=== PATIENT | female | born 1935 | race Caucasian/White ===

== ENCOUNTER 2023-08-09 08:53 | Observation (INO) | payer MEDICARE, SELFPAY ==
[2023-08-09] VITALS (15 sets, daily range): BP systolic 118–149; BP diastolic 50–81; PULSE 84–118; RESP 16–33; TEMP 36.1–36.9; O2SAT 84–100; BMI 28.0
--- NOTE | ~2023-08-09 | XR_ITS ---
EXAMINATION: XR chest 1V DATE: 08/09/2023 10:59 INDICATION: Cough. TECHNIQUE: A single frontal view of the chest was obtained. COMPARISON: None. FINDINGS: The patient is rotated to her left. There are lucencies and interstitial opacities in the l ungs, consistent with emphysema. There are airspace opacities at left lung base. There is a small lef t pleural effusion. No pneumothorax. The heart size is normal. IMPRESSION: 1. Airspace opacities at left lung base, consistent with atelectasis versus pneumonia. 2. Small left pleural effusion. 3. Emphysema. Reviewed, dictated and finalized at location A. RONMENTAL COORDINATOR IMPRESSION: 1. Airspace opacities at left lung base, consistent with atelectasis versus pne umonia. 2. Small left pleural effusion. 3. Emphysema.
[2023-08-09 09:45] LABS: Influenza A QL RT-PCR Negative (Negative); Influenza B QL RT-PCR Negative (Negative); RSV RNA, RT-PCR Negative (Negative); SARS-CoV-2 RNA PCR Negative (Negative)
--- NOTE | 2023-08-09 10:25 | ECG_ITS ---
Measurements Intervals [place] Rate: 95 P: NC: 0 QRS: 90 QRSD: 75 T: 8 QT: 359 QTc: 452 Interpretive Statements ATRIAL FIBRILLATION SEPTAL MYOCARDIAL INFARCTION , OF INDETERMINATE AGE [40+ ms Q WAVE IN V1/V2] NO PREVIOUS ECG AVAILABLE FOR COMPARISON Electronically Signed On 08-10-2023 14:33:32 [employer] by Sophia Zaidi M.D.
--- NOTE | 2023-08-09 10:26 | ED.URI ---
HPI - URI/Sore Throat General Chief Complaint: Upper Respiratory Infection <Regina Kyle PA-C - Last Filed: 08/09/23 18:10> Stated Complaint: resp issues, URI symtpoms <Regina Kyle PA-C - Last Filed: 08/09/23 18:10> Time Seen by Provider: 08/09/23 10:12 <Regina Kyle PA-C - Last Filed: 08/09/23 18:10> History of Present Illness HPI Narrative: 88-year-old female with a history of atrial fibrillation chronically anticoagulated on Xarelto, hypertension, hyperlipidemia, COPD reports for evaluation for cough, congestion and dyspnea for the past 3 days. Patient reports a productive cough foot thick green and yellow sputum. She normally wears 6 L nasal cannula at during the day and 3 L at night. She is currently as 6 L nasal cannula satting 100% on room air without respiratory distress. She denies fever, chest pain, otalgia, nausea, vomiting, diarrhea, abdominal pain, dysuria. She does endorse bilateral lower extremity edema which she is attributing to being on her feet while visiting her daughter who was in the hospital. She is also reporting a sore throat and rhinorrhea. Patient states she has been taking her medications daily as prescribed. She is visiting family from [facility] and her son is present at bedside. <Regina Kyle PA-C - Last Filed: 08/09/23 18:10> Related Data Home Medications: Home Medications Medication Instructions Recorded Confirmed atorvastatin 20 mg tablet (Lipitor) 20 mg PO DAILY 07/01/23 07/01/23 calcium carbonate 600 mg calcium 600 mg PO DAILY 07/01/23 07/01/23 (1,500 mg) tablet (Calcium) cholecalciferol (vitamin D3) 125 125 mcg PO DAILY 07/01/23 07/01/23 mcg (5,000 unit) capsule cyanocobalamin (vitamin B-12) 1,000 mcg PO DAILY 07/01/23 07/01/23 1,000 mcg capsule denosumab 60 mg/mL subcutaneous 60 mg subcut [id number] 07/01/23 07/01/23 syringe (Prolia) diltiazem HCl 180 mg 180 mg PO DAILY 07/01/23 07/01/23 capsule,extended release 24 hr (Cardizem CD) furosemide 20 mg tablet (Lasix) 20 mg PO QAM 07/01/23 07/01/23 levothyroxine 112 mcg capsule 112 mcg PO DAILY 07/01/23 07/01/23 losartan 50 mg tablet 50 mg PO DAILY 07/01/23 07/01/23 rivaroxaban 20 mg tablet (Xarelto) 20 mg PO DAILY 07/01/23 07/01/23 tiotropium bromide 1.25 2 puff inhalation Q24H 07/01/23 07/01/23 mcg/actuation mist for inhalation (Spiriva Respimat) vitamins A,C,A-gtuj-npqaad 4,296 1 cap PO BID 07/01/23 07/01/23 mcg-226 mg-90 mg capsule (PreserVision AREDS) <Regina Kyle PA-C - Last Filed: 08/09/23 18:10> Allergies/Adverse Reactions: Allergies Allergy/AdvReac Type Severity Reaction Status Date / Time cephalexin Allergy Unknown Rash Verified 08/09/23 18:08 <Regina Kyle PA-C - Last Filed: 08/09/23 18:10> Review of Systems Review of Systems: CONSTITUTIONAL: Denies fever, chills, or sweats. EYES: Denies visual changes, redness, or discharge. ENT: see HPI CARDIOVASCULAR: see HPI RESPIRATORY: see HPI GASTROINTESTINAL: Denies abdominal pain, nausea, vomiting, or diarrhea. GENITOURINARY: Denies dysuria or hematuria. SKIN: Denies rash or itching. MUSCULOSKELETAL: Denies back pain, joint pain, or myalgia. NEUROLOGIC: Denies headache, numbness, or weakness. PSYCHIATRIC: Denies anxiety or depression. <Regina Kyle PA-C - Last Filed: 08/09/23 18:10> [facility] Past Medical History Medical History: Medical History (Updated 08/09/23 @ 16:48 by Mechelle Hunter PA-C) Arthritis Atrial fibrillation Carotid artery disease Chronic anticoagulation Chronic obstructive pulmonary disease Chronic respiratory failure with hypoxia, on home oxygen therapy Hyperlipidemia Hypertension Hypothyroidism Macular degeneration Osteoporosis <Regina Kyle PA-C - Last Filed: 08/09/23 18:10> Surgical History Surgical History: Surgical History History of bi
[2023-08-09] MEDS: ALBUTEROL SULFATE NEB 2.5 MG/3 ML INH INHALATION ×3 (10:34→11:10)
[2023-08-09] MEDS: IPRATROPIUM BR 0.02% INH SOLN 0.5 MG/2.5 ML VIAL INHALATION ×3 (10:34→11:10)
[2023-08-09] MEDS: methylPREDNISolone SOD SUCC 125 MG VIAL IV PUSH (10:51)
[2023-08-09 10:52] LABS: Basophils Percent Auto 0.3 % (0.2-1.2); Eosinophils Percent Auto 0.1 % (0-4.4); Hematocrit 42.9 % (37.0-47.0); Immature Granulocyte Absolute 0.05 K/mm3 (0.00-0.031); Immature Granulocyte Percent A 0.5 % (0-0.5); Lymphocytes Absolute Auto 0.85 K/mm3 (0.9-3.2); Lymphocytes Percent Auto 7.7 % (18.3-44.2); Mean Corpuscular HGB Conc 30.3 g/dl (32-36); Mean Corpuscular Hemoglobin 33.2 pg (26-34); Mean Corpuscular Volume 109.7 fl (80-100); Mean Platelet Volume 9.7 fl (7.4-10.4); Monocytes Absolute Auto 1.3 K/mm3 (0.1-0.6); Monocytes Percent Auto 11.8 % (2.6-8.5); Neutrophils Absolute Auto 8.7 K/mm3 (1.3-6.7); Neutrophils Percent Auto 79.6 % (45.5-73.1); Platelet Count Result 279 k/mm3 (150-375); Red Blood Count 3.91 M/mm3 (4.2-5.4); Red Cell Distribution Width 13.7 % (11.5-14.5)
[2023-08-09 11:02] LABS: Alanine Aminotransferase 18 U/L (6-35); Albumin Level 4.5 g/dL (3.5-5.1); Alkaline Phosphatase 71 U/L (38-126); Anion Gap 6 mmol/L (8-16); Aspartate Amino Transferase 34 U/L (14-36); Blood Urea Nitrogen 17 mg/dL (7-17); Calcium 8.8 mg/dL (8.4-10.2); Carbon Dioxide 38 mmol/L (22-30); Chloride 92 mmol/L (98-107); Estimated CRCL calculation 41 ml/min; Estimated Glomerular Filt Rate > 60; Glucose 138 mg/dL (65-110); Magnesium 2.1 mg/dL (1.6-2.3); Potassium 4.5 mmol/L (3.4-5.0); Sodium 136 mmol/L (137-145)
[2023-08-09 11:05] LABS: INR 1.9; Partial Thromboplastin Time 36.9 SECONDS (22.3-36.8)
[2023-08-09 11:14] LABS: Troponin I < 0.012 ng/mL (0.000-0.034)
[2023-08-09 11:15] LABS: Appearance Urine Cloudy (Clear); Bacteria Urine Rare /hpf; Bilirubin Urine Negative (Negative); Blood Urine Negative (Negative); Color Urine Yellow (Yellow); Glucose Urine UA Negative (Negative); Ketones Urine Negative (Negative); Leukocyte Esterase Ur 1+ LEU/UL (Negative); Need Manual Microscopic Reviewed; Nitrate Urine Negative (Negative); Non Pathogenic Casts 0-2; Protein Urine Negative (Negative); Specific Grav Ur 1.011 (1.001-1.035); Squamous Epithelial Cell Urine Moderate /hpf (Few); WBC Urine 21-50 /hpf; pH Urine 5.5 (5.0-9.0)
[2023-08-09 11:16] LABS: Add Urine Microscopic? YES
[2023-08-09 12:10] LABS: NT Pro B Type Natriuretic Pept 1090 pg/mL (19.9-100)
[2023-08-09] MEDS: FUROSEMIDE INJ 40 MG/4 ML VIAL IV PUSH (12:52)
[2023-08-09 13:46] LABS: Alveolar/Arterial O2 Gradient 162.3 mmHg; Base Excess ABG 9.2 mEq/l (+/-2.0); Fractional Inspired Oxygen 44 %; HCO3 ABG 34.9 mEq/l (22.0-26.0); Oxygen Content ABG 17.8 %vol (16.0-22.0); Oxygen Saturation ABG 97.2 % (95.0-100.0); Oxyhemoglobin 96.3 % THb (90.0-100.0); PCO2 ABG 51.7 mmHg (35.0-45.0); PO2 ABG 92.5 mmHg (80.0-100.0); Total Hemoglobin 13.1 g/dL (12.0-18.0); pH ABG 7.447 (7.350-7.450)
[2023-08-09 13:48] LABS: Device NASAL CANNULA; Modified Allen's Test Pass; Site Drawn RIGHT RADIAL
[2023-08-09] MEDS: dilTIAZem HCl INJ 25 MG/5 ML VIAL 10 MG IV PUSH (14:43)
[2023-08-09] MEDS: levoFLOXacin 750 MG/D5W 150 ML 750 MG/150 ML BAG 100 MG IVPB (14:45)
--- NOTE | 2023-08-09 15:01 | PM.IMHP ---
H&P: HPI History of Present Illness Date/Time: 08/09/23 16:30 Chief Complaint: Cough and shortness of breath. Narrative: This is a pleasant 88-year-old female with chronic respiratory failure on oxygen, chronic obstructive pulmonary disease, atrial fibrillation on chronic anticoagulation, hypertension, hyperlipidemia, hypothyroidism, and carotid artery disease status post right carotid endarterectomy who presented to the emergency department for evaluation of cough and shortness of breath. The patient provides the following history. She is typically on 6 L nasal cannula during the day and is on 3 L nasal cannula at nighttime. She has chronic dyspnea on exertion and needs to rest after doing usual activities. More recently she has hired a pin cleaner to keep her apartment as she is no longer able to do that. The last 3 days she reports increasing dyspnea on lesser and lesser exertion in addition to a new cough productive of thick yellow/green sputum, and shortness of breath. She has been feeling warm and reports having a low-grade fever couple of days ago for which she took acetaminophen. She is from [place], [place] but she stays with her son and grand children in the area for several months out of the year. One of her grandson's had URI symptoms during [place] though no one in the household has had similar symptoms. She denies chest pain, pleuritic pain, nausea, vomiting, and diarrhea. Her chronic lower extremity edema is unchanged and she denies calf pain and tenderness. In the ED: She was afebrile on arrival with stable vital signs. Labs were significant for WBC count of 11.0, MCV 109.7, INR 1.9, sodium 136, chloride 92, carbon dioxide 38, lactic acid 2.0, proBNP 1090, troponin less than 0.012. She tested negative for influenza, RSV, and COVID. Chest x-ray showed airspace opacities at the left lung base consistent with atelectasis versus pneumonia, small left pleural effusion, changes of emphysema. She was given a DuoNeb treatment which increased her heart rate requiring 10 mg IV diltiazem. She was also given a dose of methylprednisolone 125 mg IV and levofloxacin 750 mg IV and she is being admitted in this setting for further treatment. Review of Systems Review of Systems: Twelve systems were reviewed and are negative except for as per HPI. [facility] Past Medical History Medical History (Updated 08/09/23 @ 16:48 by Mechelle Hunter PA-C) Arthritis Atrial fibrillation Carotid artery disease Chronic anticoagulation Chronic obstructive pulmonary disease Chronic respiratory failure with hypoxia, on home oxygen therapy Hyperlipidemia Hypertension Hypothyroidism Macular degeneration Osteoporosis Surgical History Surgical History History of bilateral cataract extraction History of right-sided carotid endarterectomy Family History Family History Father Hypertension Heart disease Carcinoma of colon Mother Heart disease Hypertension Breast cancer Daughter Breast cancer Social History Social History (Updated 08/09/23 @ 16:45 by Mechelle Hunter PA-C) Social History: Surrogate medical decision maker: Julito Simpson, son. Code status: Full code. Smoking packs per day: 1 Smoking cigarettes per day: 20.0 Years smoked: 50 Smoking pack-years: 50.00 Smoking status: Former smoker Tobacco type: cigarettes Smoking end date: 08/11/02 Alcohol intake: current Substance use: never Living arrangements: [place] Occupation/Education: retired Spiritual care concerns: Yes Agree to blood products: Yes Meds Home Medications and Allergies Home Medications Medication Instructions Recorded Confirmed Type atorvastatin 20 mg tablet (Lipitor) 20 mg PO DAILY 07/01/23 07/01/23 History calcium carbonate 600 mg calcium 600 mg PO DAILY 07/01/23 07/01/23 History (1,5
--- NOTE | 2023-08-09 17:54 | ADMGEN ---
This patient, Katie Frances, was admitted to [facility] Surg Room 329-01. Patient/family oriented to hospital policies and general routines including ID bracelet, bed and alarms, visiting hours, pain management, procedures, bathroom and other care routines, personal items, smoking policy, room service/diet, and visiting hours. Information on how to activate the Rapid Response Team has been discussed. Patient/Family are encouraged to report perceived risks to care and to ask questions if they do not understand what they are told or what they should do.
[2023-08-09] MEDS: guaiFENesin 12 HR 600 MG TABCR PO (21:25)
[2023-08-10] VITALS (15 sets, daily range): BP systolic 136–149; BP diastolic 65–79; PULSE 82–122; RESP 18–20; TEMP 35.8–37; O2SAT 97–100
[2023-08-10] MEDS: dilTIAZem HCL CD 180 MG CAP.24HR PO ×2 (00:10→21:45)
[2023-08-10] MEDS: ATORVASTATIN 20 MG TABLET PO ×2 (00:10→21:45)
[2023-08-10] MEDS: RIVAROXABAN 20 MG TABLET PO ×2 (00:11→21:45)
[2023-08-10] MEDS: LOSARTAN POTASSIUM 50 MG TABLET PO ×2 (00:11→21:45)
[2023-08-10] MEDS: IPRATROPIUM BR 0.02% INH SOLN 0.5 MG/2.5 ML VIAL INHALATION ×3 (03:38→20:17)
[2023-08-10] MEDS: LEVALBUTEROL NEB 1.25 MG/3 ML INHALATION ×3 (03:40→20:17)
[2023-08-10] MEDS: LEVOTHYROXINE SODIUM 112 MCG TABLET PO (05:39)
[2023-08-10 06:23] LABS: Hematocrit 38.8 % (37.0-47.0); Hemoglobin 12.1 g/dL (12.0-15.0); Mean Corpuscular HGB Conc 31.2 g/dl (32-36); Mean Corpuscular Hemoglobin 33.9 pg (26-34); Mean Corpuscular Volume 108.7 fl (80-100); Mean Platelet Volume 10.1 fl (7.4-10.4); Platelet Count Result 282 k/mm3 (150-375); Red Blood Count 3.57 M/mm3 (4.2-5.4); Red Cell Distribution Width 13.4 % (11.5-14.5); White Blood Count 9.9 K/mm3 (4.5-10.0)
[2023-08-10 06:48] LABS: Anion Gap 7 mmol/L (8-16); Blood Urea Nitrogen 21 mg/dL (7-17); CRP 7.2 mg/dL (<1.0); Carbon Dioxide 29 mmol/L (22-30); Chloride 94 mmol/L (98-107); Estimated CRCL calculation 41 ml/min; Estimated Glomerular Filt Rate > 60; Glucose 143 mg/dL (65-110); Magnesium 2.3 mg/dL (1.6-2.3); Potassium 5.2 mmol/L (3.4-5.0); Sodium 130 mmol/L (137-145)
[2023-08-10 07:37] LABS: Procalcitonin 0.1 ng/mL
[2023-08-10] MEDS: OPTI-GEN TAB 1 TABLET PO ×2 (08:20→17:12)
[2023-08-10] MEDS: guaiFENesin 12 HR 600 MG TABCR PO ×2 (08:20→21:45)
[2023-08-10] MEDS: CALCIUM CARBONATE (OSCAL) 500 MG TABLET PO (08:20)
[2023-08-10] MEDS: FUROSEMIDE 20 MG TABLET PO (08:20)
[2023-08-10] MEDS: CYANOCOBALAMIN 1,000 MCG TABLET 1000 MCG PO (08:20)
[2023-08-10] MEDS: CHOLECALCIFEROL 1,000 UNITS TABLET 5000 UNITS PO (08:20)
[2023-08-10] MEDS: predniSONE 20 MG TABLET 40 MG PO (08:20)
[2023-08-10] MEDS: UMECLIDINIUM BROMIDE 62.5 MCG ELLIPTA 1 PUFF INHALATION (09:55)
[2023-08-10] MEDS: METOPROLOL SUCCINATE EXT REL 25 MG TABCR PO (10:15)
--- NOTE | 2023-08-10 10:23 | PM.IMPN ---
Progress Note: A&P Assessment and Plan (1) COPD exacerbation: Code(s): J44.1 - Chronic obstructive pulmonary disease with (acute) exacerbation Status: Acute (2) Pneumonia: Code(s): J18.9 - Pneumonia, unspecified organism Status: Acute (3) Atrial fibrillation: Code(s): I48.91 - Unspecified atrial fibrillation Status: Acute (4) Chronic respiratory failure with hypoxia, on home oxygen therapy: Code(s): J96.11 - Chronic respiratory failure with hypoxia; Z99.81 - Dependence on supplemental oxygen Status: Acute (5) Hypothyroidism: Code(s): E03.9 - Hypothyroidism, unspecified Status: Acute (6) Hypertension: Qualifiers: Hypertension type: primary hypertension Qualified Code(s): I10 - Essential (primary) hypertension Code(s): I10 - Essential (primary) hypertension Status: Acute Plan 88-year-old female with chronic respiratory failure on oxygen COPD atrial fibrillation on chronic anticoagulation hypertension hyperlipidemia hypothyroidism and carotid artery disease status post right carotid endarterectomy presented for evaluation of cough and shortness of breath. Typically and 6 L nasal cannula by day and 3 L at nighttime. She has chronic lower extremity edema. Increasing dyspnea on exertion associated with new cough productive with thick yellow-green sputum and shortness of breath. A low-grade fever. ED evaluation WBC 11 INR 1.9. Lactate 2.0 proBNP 1090. She received DuoNeb treatment with increased heart rate requiring 10 mg IV of diltiazem. COVID flu RSV negative. Chest x-ray with airspace opacities in the left lung base consistent with atelectasis versus pneumonia small left pleural effusion changes of emphysema. She is given methylprednisolone 125 mg IV and levofloxacin. Continue bronchodilators and prednisone and scheduled. Chronic atrial fibrillation with RVR add metoprolol. Diltiazem 180 mg daily and rivaroxaban for stroke prophylaxis. Mild RVR this a.m. added metoprolol 25 mg daily Subjective Date/time seen: 08/10/23 10:23 Interval history: 88-year-old female with chronic respiratory failure on oxygen COPD atrial fibrillation on chronic anticoagulation hypertension hyperlipidemia hypothyroidism and carotid artery disease status post right carotid endarterectomy presented for evaluation of cough and shortness of breath. Typically and 6 L nasal cannula by day and 3 L at nighttime. She has chronic lower extremity edema. Increasing dyspnea on exertion associated with new cough productive with thick yellow-green sputum and shortness of breath. A low-grade fever. ED evaluation WBC 11 INR 1.9. Lactate 2.0 proBNP 1090. She received DuoNeb treatment with increased heart rate requiring 10 mg IV of diltiazem. COVID flu RSV negative. Chest x-ray with airspace opacities in the left lung base consistent with atelectasis versus pneumonia small left pleural effusion changes of emphysema. She is given methylprednisolone 125 mg IV and levofloxacin. Continue bronchodilators and prednisone and scheduled. Chronic atrial fibrillation with RVR add metoprolol. Diltiazem 180 mg daily and rivaroxaban for stroke prophylaxis. Review of Systems Review of Systems: Twelve systems were reviewed and are negative except for as per HPI. Exam Narrative: General: Well-developed, nontoxic-appearing female sitting up in bed in no acute distress. HEENT: PERRL, EOMI. Left pupil is a bit larger when compared to the right. Sclera anicteric. Tacky mucous membranes. Oropharynx is erythematous and without exudate. Neck: Supple. No JVD. Respiratory: Respirations are nonlabored and she is speaking in full sentences. Coarse breath sound bilaterally Cardiovascular: Irregularly irregular rate and rhythm rate controlled. Gastrointestinal: Abdomen is soft, nontender, and nondistended with positive bowel sounds. Skin: Warm and dry. Extremities: No cyanosis or clubbing
[2023-08-11] VITALS (17 sets, daily range): BP systolic 112–121; BP diastolic 58–65; PULSE 79–97; RESP 14–18; TEMP 35.7–36.7; O2SAT 95–100
[2023-08-11] MEDS: IPRATROPIUM BR 0.02% INH SOLN 0.5 MG/2.5 ML VIAL INHALATION ×4 (02:10→21:45)
[2023-08-11] MEDS: LEVALBUTEROL NEB 1.25 MG/3 ML INHALATION ×4 (02:10→21:45)
[2023-08-11] MEDS: LEVOTHYROXINE SODIUM 112 MCG TABLET PO (05:06)
[2023-08-11] MEDS: predniSONE 20 MG TABLET 40 MG PO (08:32)
[2023-08-11] MEDS: CYANOCOBALAMIN 1,000 MCG TABLET 1000 MCG PO (08:32)
[2023-08-11] MEDS: CALCIUM CARBONATE (OSCAL) 500 MG TABLET PO (08:32)
[2023-08-11] MEDS: FUROSEMIDE 20 MG TABLET PO (08:32)
[2023-08-11] MEDS: guaiFENesin 12 HR 600 MG TABCR PO ×2 (08:32→20:20)
[2023-08-11] MEDS: CHOLECALCIFEROL 1,000 UNITS TABLET 5000 UNITS PO (08:32)
[2023-08-11] MEDS: OPTI-GEN TAB 1 TABLET PO ×2 (08:32→16:21)
[2023-08-11] MEDS: METOPROLOL SUCCINATE EXT REL 25 MG TABCR PO (08:33)
[2023-08-11] MEDS: UMECLIDINIUM BROMIDE 62.5 MCG ELLIPTA 1 PUFF INHALATION (09:05)
[2023-08-11 09:23] LABS: Basophils Percent Auto 0.1 % (0.2-1.2); Hematocrit 38.1 % (37.0-47.0); Hemoglobin 12.1 g/dL (12.0-15.0); Immature Granulocyte Absolute 0.06 K/mm3 (0.00-0.031); Immature Granulocyte Percent A 0.5 % (0-0.5); Lymphocytes Absolute Auto 1.44 K/mm3 (0.9-3.2); Lymphocytes Percent Auto 12.5 % (18.3-44.2); Mean Corpuscular HGB Conc 31.8 g/dl (32-36); Mean Corpuscular Hemoglobin 33.8 pg (26-34); Mean Corpuscular Volume 106.4 fl (80-100); Mean Platelet Volume 9.2 fl (7.4-10.4); Monocytes Absolute Auto 0.8 K/mm3 (0.1-0.6); Monocytes Percent Auto 7.3 % (2.6-8.5); Neutrophils Absolute Auto 9.2 K/mm3 (1.3-6.7); Neutrophils Percent Auto 79.6 % (45.5-73.1); Platelet Count Result 328 k/mm3 (150-375); Red Blood Count 3.58 M/mm3 (4.2-5.4); Red Cell Distribution Width 13.4 % (11.5-14.5); White Blood Count 11.6 K/mm3 (4.5-10.0)
[2023-08-11 09:33] LABS: Alanine Aminotransferase 20 U/L (6-35); Albumin Level 3.8 g/dL (3.5-5.1); Alkaline Phosphatase 66 U/L (38-126); Anion Gap 3 mmol/L (8-16); Aspartate Amino Transferase 43 U/L (14-36); Bilirubin,Total 0.5 mg/dL (0.2-1.3); Blood Urea Nitrogen 22 mg/dL (7-17); Calcium 8.5 mg/dL (8.4-10.2); Carbon Dioxide 37 mmol/L (22-30); Chloride 91 mmol/L (98-107); Estimated CRCL calculation 39 ml/min; Estimated Glomerular Filt Rate > 60; Glucose 133 mg/dL (65-110); Magnesium 2.2 mg/dL (1.6-2.3); Potassium 3.8 mmol/L (3.4-5.0); Sodium 131 mmol/L (137-145)
[2023-08-11] MEDS: levoFLOXacin 750 MG/D5W 150 ML 750 MG/150 ML BAG 100 MG IVPB (12:56)
--- NOTE | 2023-08-11 15:06 | PM.IMPN ---
Progress Note: A&P Assessment and Plan (1) COPD exacerbation: Code(s): J44.1 - Chronic obstructive pulmonary disease with (acute) exacerbation Status: Acute (2) Pneumonia: Code(s): J18.9 - Pneumonia, unspecified organism Status: Acute (3) Atrial fibrillation: Code(s): I48.91 - Unspecified atrial fibrillation Status: Acute (4) Chronic respiratory failure with hypoxia, on home oxygen therapy: Code(s): J96.11 - Chronic respiratory failure with hypoxia; Z99.81 - Dependence on supplemental oxygen Status: Acute (5) Hypothyroidism: Code(s): E03.9 - Hypothyroidism, unspecified Status: Acute (6) Hypertension: Qualifiers: Hypertension type: primary hypertension Qualified Code(s): I10 - Essential (primary) hypertension Code(s): I10 - Essential (primary) hypertension Status: Acute Plan 88-year-old female with chronic respiratory failure on oxygen COPD atrial fibrillation on chronic anticoagulation hypertension hyperlipidemia hypothyroidism and carotid artery disease status post right carotid endarterectomy presented for evaluation of cough and shortness of breath. Typically and 6 L nasal cannula by day and 3 L at nighttime. She has chronic lower extremity edema. Increasing dyspnea on exertion associated with new cough productive with thick yellow-green sputum and shortness of breath. A low-grade fever. ED evaluation WBC 11 INR 1.9. Lactate 2.0 proBNP 1090. She received DuoNeb treatment with increased heart rate requiring 10 mg IV of diltiazem. COVID flu RSV negative. Chest x-ray with airspace opacities in the left lung base consistent with atelectasis versus pneumonia small left pleural effusion changes of emphysema. She is given methylprednisolone 125 mg IV and levofloxacin. Continue bronchodilators and prednisone and scheduled. Chronic atrial fibrillation with RVR add metoprolol. Diltiazem 180 mg daily and rivaroxaban for stroke prophylaxis. Mild RVR this a.m. added metoprolol 25 mg daily. UTI: urine culture grew E coli intermediate to levofloxacin. Will switch to Augmentin for discharge Subjective Date/time seen: 08/11/23 15:06 Interval history: 88-year-old female with chronic respiratory failure on oxygen COPD atrial fibrillation on chronic anticoagulation hypertension hyperlipidemia hypothyroidism and carotid artery disease status post right carotid endarterectomy presented for evaluation of cough and shortness of breath. Typically and 6 L nasal cannula by day and 3 L at nighttime. She has chronic lower extremity edema. Increasing dyspnea on exertion associated with new cough productive with thick yellow-green sputum and shortness of breath. A low-grade fever. ED evaluation WBC 11 INR 1.9. Lactate 2.0 proBNP 1090. She received DuoNeb treatment with increased heart rate requiring 10 mg IV of diltiazem. COVID flu RSV negative. Chest x-ray with airspace opacities in the left lung base consistent with atelectasis versus pneumonia small left pleural effusion changes of emphysema. She is given methylprednisolone 125 mg IV and levofloxacin. Continue bronchodilators and prednisone and scheduled. Chronic atrial fibrillation with RVR add metoprolol. Diltiazem 180 mg daily and rivaroxaban for stroke prophylaxis. 08/11/2023: No overnight events. Heart is improved. Feeling better. Has not been up and about. Wants to go home soon. Review of Systems Review of Systems: All systems reviewed & are unremarkable except as noted in HPI and below Exam Narrative: General: Well-developed, nontoxic-appearing female sitting up in bed in no acute distress. HEENT: PERRL, EOMI. Left pupil is a bit larger when compared to the right. Sclera anicteric. Tacky mucous membranes. Neck: Supple. No JVD. Respiratory: Respirations are nonlabored and she is speaking in full sentences. Coarse breath sound bilaterally Cardiovascular: Irregularly irregular rate
[2023-08-11] MEDS: AMOXICILLIN/CLAVULANATE K 875-125 MG TAB 1 TABLET PO ×2 (16:21→20:20)
[2023-08-11] MEDS: LOSARTAN POTASSIUM 50 MG TABLET PO (20:20)
[2023-08-11] MEDS: RIVAROXABAN 20 MG TABLET PO (20:20)
[2023-08-11] MEDS: ATORVASTATIN 20 MG TABLET PO (20:20)
[2023-08-11] MEDS: dilTIAZem HCL CD 180 MG CAP.24HR PO (20:20)
[2023-08-12] VITALS (9 sets, daily range): BP systolic 113–122; BP diastolic 68–76; PULSE 68–94; RESP 14–18; TEMP 35.7–36.6; O2SAT 98–100
[2023-08-12] MEDS: LEVOTHYROXINE SODIUM 112 MCG TABLET PO (05:14)
[2023-08-12 06:15] LABS: Basophils Percent Auto 0.1 % (0.2-1.2); Hematocrit 36.6 % (37.0-47.0); Hemoglobin 11.7 g/dL (12.0-15.0); Immature Granulocyte Absolute 0.05 K/mm3 (0.00-0.031); Immature Granulocyte Percent A 0.5 % (0-0.5); Mean Corpuscular Hemoglobin 33.9 pg (26-34); Mean Corpuscular Volume 106.1 fl (80-100); Mean Platelet Volume 9.3 fl (7.4-10.4); Monocytes Absolute Auto 1.1 K/mm3 (0.1-0.6); Monocytes Percent Auto 11.8 % (2.6-8.5); Neutrophils Absolute Auto 6.6 K/mm3 (1.3-6.7); Neutrophils Percent Auto 70.6 % (45.5-73.1); Platelet Count Result 330 k/mm3 (150-375); Red Blood Count 3.45 M/mm3 (4.2-5.4); Red Cell Distribution Width 13.4 % (11.5-14.5); White Blood Count 9.4 K/mm3 (4.5-10.0)
[2023-08-12 06:23] LABS: Alanine Aminotransferase 16 U/L (6-35); Albumin Level 3.3 g/dL (3.5-5.1); Alkaline Phosphatase 59 U/L (38-126); Anion Gap 3 mmol/L (8-16); Aspartate Amino Transferase 27 U/L (14-36); Bilirubin,Total 0.4 mg/dL (0.2-1.3); Blood Urea Nitrogen 26 mg/dL (7-17); Calcium 8.3 mg/dL (8.4-10.2); Carbon Dioxide 38 mmol/L (22-30); Chloride 93 mmol/L (98-107); Estimated CRCL calculation 31 ml/min; Estimated Glomerular Filt Rate 52; Glucose 102 mg/dL (65-110); Magnesium 2.2 mg/dL (1.6-2.3); Potassium 4.1 mmol/L (3.4-5.0); Sodium 134 mmol/L (137-145)
[2023-08-12] MEDS: CHOLECALCIFEROL 1,000 UNITS TABLET 5000 UNITS PO (09:34)
[2023-08-12] MEDS: METOPROLOL SUCCINATE EXT REL 25 MG TABCR PO (09:34)
[2023-08-12] MEDS: CYANOCOBALAMIN 1,000 MCG TABLET 1000 MCG PO (09:35)
[2023-08-12] MEDS: predniSONE 20 MG TABLET 40 MG PO (09:35)
[2023-08-12] MEDS: guaiFENesin 12 HR 600 MG TABCR PO (09:36)
[2023-08-12] MEDS: FUROSEMIDE 20 MG TABLET PO (09:36)
[2023-08-12] MEDS: AMOXICILLIN/CLAVULANATE K 875-125 MG TAB 1 TABLET PO (09:36)
[2023-08-12] MEDS: CALCIUM CARBONATE (OSCAL) 500 MG TABLET PO (09:36)
[2023-08-12] MEDS: UMECLIDINIUM BROMIDE 62.5 MCG ELLIPTA 1 PUFF INHALATION (12:59)
--- NOTE | 2023-08-12 13:03 | PM.DS ---
DS: Admitting Diagnosis Discharge Date 08/12/2023 Admitting Diagnosis Shortness of breath DS: Discharge Diagnosis Discharge Diagnosis (1) COPD exacerbation: Code(s): J44.1 - Chronic obstructive pulmonary disease with (acute) exacerbation Status: Acute (2) Pneumonia: Code(s): J18.9 - Pneumonia, unspecified organism Status: Acute (3) Atrial fibrillation: Code(s): I48.91 - Unspecified atrial fibrillation Status: Acute (4) Chronic respiratory failure with hypoxia, on home oxygen therapy: Code(s): J96.11 - Chronic respiratory failure with hypoxia; Z99.81 - Dependence on supplemental oxygen Status: Acute (5) Hypothyroidism: Code(s): E03.9 - Hypothyroidism, unspecified Status: Acute (6) Hypertension: Qualifiers: Hypertension type: primary hypertension Qualified Code(s): I10 - Essential (primary) hypertension Code(s): I10 - Essential (primary) hypertension Status: Acute DS: Summary Hospital Course Hospital Course: 88-year-old female with chronic respiratory failure on oxygen COPD atrial fibrillation on chronic anticoagulation hypertension hyperlipidemia hypothyroidism and carotid artery disease status post right carotid endarterectomy presented for evaluation of cough and shortness of breath.? Typically on 6 L nasal cannula by day and 3 L at nighttime.? She has chronic lower extremity edema.? Increasing dyspnea on exertion associated with new cough productive with thick yellow-green sputum and shortness of breath.? A low-grade fever. ED evaluation WBC 11 INR 1.9.? Lactate 2.0 proBNP 1090.? She received DuoNeb treatment with increased heart rate requiring 10 mg IV of diltiazem.? COVID flu RSV negative.? Chest x-ray with airspace opacities in the left lung base consistent with atelectasis versus pneumonia small left pleural effusion changes of emphysema.? She is given methylprednisolone 125 mg IV and levofloxacin. Continue bronchodilators and prednisone and scheduled.? Chronic atrial fibrillation with RVR add metoprolol.? Diltiazem 180 mg daily and rivaroxaban for stroke prophylaxis.? Mild RVR this a.m. added metoprolol 25 mg daily during the hospital stay.? UTI:? urine culture grew E coli intermediate to levofloxacin.? Will switch to Augmentin for discharge which will also cover for her pneumonia. Time Spent with Patient Time attestation: Total time spent providing and/or coordinating discharge services: 35 minutes Exam Narrative: General: Well-developed, nontoxic-appearing female sitting up in bed in no acute distress. HEENT: PERRL, EOMI. Left pupil is a bit larger when compared to the right. Sclera anicteric. Tacky mucous membranes. Neck: Supple. No JVD. Respiratory: Respirations are nonlabored and she is speaking in full sentences. Coarse breath sound bilaterally Cardiovascular: Irregularly irregular rate and rhythm rate controlled. Gastrointestinal: Abdomen is soft, nontender, and nondistended with positive bowel sounds. Skin: Warm and dry. Extremities: No cyanosis or clubbing. Trace bilateral lower extremity edema. No palpable knots or cords. Negative Ivory sign bilaterally. Peripheral pulses intact. Neurological: Alert. Cranial nerves 2-12 are grossly intact. No gross focal deficits to casual conversation. Psychiatric: Pleasant and cooperative with normal mood and affect. Judgment and insight intact. DS: Data Data Completed and Pending Labs on day of discharge: Labs from last 24 hours 08/12/23 06:01 WBC 9.4 RBC 3.45 L Hgb 11.7 L Hct 36.6 L MCV 106.1 H MCH 33.9 MCHC 32.0 RDW 13.4 Plt Count 330 MPV 9.3 Immature Gran % (Auto) 0.5 Neut % (Auto) 70.6 Lymph % (Auto) 17.0 L [place] % (Auto) 11.8 H Eos % (Auto) 0.0 Baso % (Auto) 0.1 L Lymph # (Auto) 1.60 [place] # (Auto) 1.1 H Eos # (Auto) 0.0 Baso # (Auto) 0.0 Abs Immat Gran (auto) 0.05 H Absolute Neuts (auto) 6.6 Absolute Nucleated RBC 0.0 Nucleated
[2023-08-13 00:47] LABS: Pneumococcal Antigen Urine Not Detected (Not Detected)
[2023-08-13 04:03] LABS: Legionella pneumophila Ag Ur Not Detected (Not Detected)
[2023-08-13 11:50] LABS: Mycoplasma IgM Antibody Titer 362 U/mL (<770)
== END 2023-08-12 14:20 | disposition home or self-care (01) ==
LOC: ANHED 14:15 → ANH3MEDSUR 08-12 07:03
PROVIDERS: Emergency Medicine; Physician Assistant; Admitting Provider Student in an Organized Health Care Education/Training Program; Emergency Provider Physician Assistant; PCP Family Medicine; Visit Provider Internal Medicine
DX: J44.1 Chronic obstructive pulmonary disease with (acute) exacerbation (principal); J18.9 Pneumonia, unspecified organism; I48.91 Unspecified atrial fibrillation; J96.11 Chronic respiratory failure with hypoxia; Z99.81 Dependence on supplemental oxygen; E03.9 Hypothyroidism, unspecified; I10 Essential (primary) hypertension; E78.5 Hyperlipidemia, unspecified; N39.0 Urinary tract infection, site not specified; B96.20 Unspecified Escherichia coli [E. coli] as the cause of diseases classified elsewhere; M81.0 Age-related osteoporosis without current pathological fracture; R79.89 Other specified abnormal findings of blood chemistry; Z20.822 Contact with and (suspected) exposure to COVID-19; I25.2 Old myocardial infarction; R60.0 Localized edema; J02.9 Acute pharyngitis, unspecified; H35.30 Unspecified macular degeneration; Z98.62 Peripheral vascular angioplasty status; J34.89 Other specified disorders of nose and nasal sinuses; Z79.01 Long term (current) use of anticoagulants; Z79.51 Long term (current) use of inhaled steroids; Z79.899 Other long term (current) drug therapy
CPT/HCPCS: 36415; 36600; 71045; 80048; 80053; 81001; 82805; 83605; 83735; 83880; 84145; 84443; 84484; 85025; 85027; 85610; 85730; 86140; 86738; 87040; 87070; 87077; 87086; 87186; 87205; 87449; 87637; 87899; 93005; 94640; 96365; 96375; 96376; 97161; 97165; 99285; A9270; G0378; J1940; J1956; J2930; J7512

== ENCOUNTER 2023-09-04 14:46 | Outpatient (CLI) | payer MEDICARE, SELFPAY ==
--- NOTE | ~2023-09-04 | US_ITS ---
US renal BI 09/04/2023 15:47 Procedure: Realtime transabdominal ultrasound of the kidneys and bladder. Indication: Frequency of micturition Comparison: No prior studies for comparison. Findings: Renal echotexture is normal bilaterally without contour deforming mass or renal calculus. T here is mild right hydronephrosis. The right kidney measures 10.1 cm and left kidney measures 9.1 cm. Bladder within normal limits. Impression: 1: Mild right hydronephrosis. Reviewed, dictated and finalized at location L. WORKER Impression: 1: Mild right hydronephrosis.
== END 2023-09-04 14:47 | disposition home or self-care (01) ==
LOC: ANHIMG 14:48
PROVIDERS: PCP Family Medicine; Visit Provider Nurse Practitioner Adult Health
DX: R35.0 Frequency of micturition (principal); R60.0 Localized edema; N13.30 Unspecified hydronephrosis
CPT/HCPCS: 76775

== ENCOUNTER 2023-10-08 22:44 | Observation (INO) | payer MEDICARE, SELFPAY ==
--- NOTE | ~2023-10-08 | CT_ITS ---
EXAMINATION: CT abdomen pelvis wo con DATE: 10/08/2023 23:42 INDICATION: Vomiting, abdominal pain TECHNIQUE: Computed tomography (CT) of the abdomen and pelvis was performed without intravenous contr ast. The dose-length product (DLP) was 311.12 mGy-cm. Automated exposure control and iterative recons truction technique were employed. COMPARISON: None FINDINGS: Minimal dependent atelectasis is present in the lung bases. The heart size is normal. There is fluid in the distal esophagus. A moderate amount of fluid is also present in the stomach. The spl een is small in size. The liver, pancreas, gallbladder, and adrenal glands are normal. The urinary bl adder is distended. There is mild hydronephrosis of the kidneys. There is calcified atherosclerosis o f the aorta and many of the other arteries. There is a moderate volume of stool in the proximal colon . No pathologically enlarged abdominal or pelvic lymph nodes are identified. No free intraperitoneal gas or evidence of bowel obstruction. There is severe lumbar spondylosis. IMPRESSION: 1. Moderate volume of fluid in the stomach and distal esophagus which could be related to vomiting. 2. Distended urinary bladder with mild hydronephrosis of the kidneys. Reviewed, dictated and finalized at location F. E FUND ACCOUNTANT
--- NOTE | ~2023-10-08 | XR_ITS ---
EXAMINATION: XR chest 1V INDICATION: Cough, COVID 19 TECHNIQUE: AP view of the chest is obtained. COMPARISON: 08/09/2023 FINDINGS: There are minimal airspace opacities of the left lung base. No pleural effusion or pneumoth orax. The cardiomediastinal silhouette is normal. Surgical clips are noted in the right neck. IMPRESSION: 1. Left basilar airspace opacities, consistent with atelectasis versus pneumonia. Reviewed, dictated and finalized at location F. MA MANAGER IMPRESSION: 1. Left basilar airspace opacities, consistent with atelectasis versus pneumoni a.
[2023-10-08 22:43] VITALS: BP 181/77; PULSE 100; RESP 25; TEMP 36.7; O2SAT 94
[2023-10-08 22:52] VITALS: O2SAT 100
[2023-10-08 23:35] LABS: Basophils Percent Auto 0.3 % (0.2-1.2); Eosinophils Percent Auto 0.3 % (0-4.4); Hematocrit 40.1 % (37.0-47.0); Hemoglobin 13.2 g/dL (12.0-15.0); Immature Granulocyte Absolute 0.02 K/mm3 (0.00-0.031); Immature Granulocyte Percent A 0.3 % (0-0.5); Lymphocytes Absolute Auto 1.04 K/mm3 (0.9-3.2); Mean Corpuscular HGB Conc 32.9 g/dl (32-36); Mean Corpuscular Hemoglobin 32.8 pg (26-34); Mean Corpuscular Volume 99.8 fl (80-100); Mean Platelet Volume 9.5 fl (7.4-10.4); Monocytes Absolute Auto 0.9 K/mm3 (0.1-0.6); Monocytes Percent Auto 15.6 % (2.6-8.5); Neutrophils Absolute Auto 3.8 K/mm3 (1.3-6.7); Neutrophils Percent Auto 65.5 % (45.5-73.1); Platelet Count Result 284 k/mm3 (150-375); Red Blood Count 4.02 M/mm3 (4.2-5.4); Red Cell Distribution Width 12.8 % (11.5-14.5); White Blood Count 5.8 K/mm3 (4.5-10.0)
[2023-10-08 23:46] LABS: INR 1.4; Lipase 71 U/L (23-300); Magnesium 1.7 mg/dL (1.6-2.3)
[2023-10-08] MEDS: ONDANSETRON INJ 4 MG/2 ML VIAL IV PUSH (23:50)
[2023-10-08 23:52] VITALS: BP 160/68; PULSE 97; RESP 24; O2SAT 96
--- NOTE | 2023-10-08 23:52 | ED.GENADULT ---
HPI - General Adult General Chief complaint: Shortness of Breath/Dyspnea Stated complaint: sob Time Seen by Provider: 10/08/23 23:01 History of Present Illness HPI narrative: Patient is a 88-year-old female who presents emergency department with chief complaint of shortness of breath and nausea. The patient was diagnosed with COVID-19 and reports that she normally wears home oxygen patient states she has been having some increasing shortness of breath and has also been coughing. The patient was seen by her primary care provider today on Zithromax. Related Data Home Medications Medication Instructions Recorded Confirmed atorvastatin 20 mg tablet (Lipitor) 20 mg PO HS 07/01/23 10/08/23 calcium carbonate 600 mg calcium 600 mg PO DAILY 07/01/23 10/08/23 (1,500 mg) tablet (Calcium) cholecalciferol (vitamin D3) 125 125 mcg PO DAILY 07/01/23 10/08/23 mcg (5,000 unit) capsule cyanocobalamin (vitamin B-12) 1,000 mcg PO DAILY 07/01/23 10/08/23 1,000 mcg capsule denosumab 60 mg/mL subcutaneous 60 mg subcut [id number] 07/01/23 10/08/23 syringe (Prolia) diltiazem HCl 180 mg 180 mg PO HS 07/01/23 10/08/23 capsule,extended release 24 hr (Cardizem CD) levothyroxine 112 mcg capsule 112 mcg PO DAILY 07/01/23 10/08/23 losartan 50 mg tablet 50 mg PO HS 07/01/23 10/08/23 rivaroxaban 20 mg tablet (Xarelto) 20 mg PO HS 07/01/23 10/08/23 furosemide 20 mg tablet (Lasix) 40 mg PO QAM 09/03/23 10/08/23 albuterol sulfate 90 mcg/actuation 1 puff inhalation Q4H PRN 10/08/23 10/08/23 aerosol inhaler Allergies Allergy/AdvReac Type Severity Reaction Status Date / Time cephalexin Allergy Unknown Rash Verified 10/08/23 22:53 Review of Systems Review of Systems: A 10 system review of systems was completed on the patient and is negative except for what is stated in the HPI. Nursing and ancillary documentation was reviewed. [facility] Past Medical History Medical History Abdominal pain Arthritis Atrial fibrillation BMI 30.0-30.9,adult Carotid artery disease Chronic anticoagulation Chronic obstructive pulmonary disease Chronic respiratory failure with hypoxia, on home oxygen therapy Constipation E coli infection Feeling of incomplete bladder emptying Frequency of micturition Generalized anxiety disorder Hematuria Hydronephrosis Hyperlipidemia Hypertension Hypokalemia Hyponatremia Hypothyroidism Lower extremity edema Macular degeneration Osteoporosis Surgical History Surgical History History of bilateral cataract extraction History of right-sided carotid endarterectomy Family History Family History Father Hypertension Heart disease Carcinoma of colon Mother Heart disease Hypertension Breast cancer Daughter Breast cancer Social History Social History Social History: Surrogate medical decision maker: Julito Simpson, son. Code status: Full code. Smoking packs per day: 1 Smoking cigarettes per day: 20.0 Years smoked: 60 Smoking pack-years: 60.00 Smoking status: Former smoker Tobacco type: cigarettes Smoking end date: 08/11/02 Alcohol intake: current Drinks per week: 1 Substance use: never Do You Feel Safe in your Home?: Yes Lack of Transportation: No Lack of Food: Never True Current Housing: I Have Housing Concerned About Future Housing: No Difficulty Paying Gas/Electric Bills: No Difficulty Paying for Meds: No Currently Unemployed: No Education: Decline to Answer Difficulty w/ Childcare or Family Care: No Living arrangements: [facility] Occupation/Education: retired Spiritual care concerns: No Agree to blood products: Yes Exam Narrative: GENERAL: Well-appearing, well-nourished
[2023-10-08 23:54] LABS: Alanine Aminotransferase 19 U/L (6-35); Albumin Level 4.5 g/dL (3.5-5.1); Alkaline Phosphatase 83 U/L (38-126); Anion Gap 5 mmol/L (8-16); Aspartate Amino Transferase 42 U/L (14-36); Bilirubin,Total 0.7 mg/dL (0.2-1.3); Blood Urea Nitrogen 12 mg/dL (7-17); Calcium 9.3 mg/dL (8.4-10.2); Carbon Dioxide 37 mmol/L (22-30); Chloride 75 mmol/L (98-107); Estimated CRCL calculation 39 ml/min; Estimated Glomerular Filt Rate > 60; Glucose 110 mg/dL (65-110); Potassium 3.7 mmol/L (3.4-5.0); Sodium 117 mmol/L (137-145)
[2023-10-08 23:58] LABS: Troponin I < 0.012 ng/mL (0.000-0.034)
[2023-10-09] VITALS (14 sets, daily range): BP systolic 123–140; BP diastolic 58–88; PULSE 71–97; RESP 14–18; TEMP 36.4–37; O2SAT 92–100; BMI 27.1
[2023-10-09 00:08] LABS: Alveolar/Arterial O2 Gradient 15.5 mmHg; Base Excess ABG 6.4 mEq/l (+/-2.0); Fractional Inspired Oxygen 21 %; HCO3 ABG 32.2 mEq/l (22.0-26.0); Oxygen Content ABG 17.6 %vol (16.0-22.0); Oxygen Saturation ABG 94.6 % (95.0-100.0); Oxyhemoglobin 93.3 % THb (90.0-100.0); PCO2 ABG 51.4 mmHg (35.0-45.0); PO2 ABG 72.7 mmHg (80.0-100.0); PO2 FiO2 Ratio Arterial Blood 3.46 %; Total Hemoglobin 13.4 g/dL (12.0-18.0); pH ABG 7.415 (7.350-7.450)
[2023-10-09 00:10] LABS: Modified Allen's Test Pass; Site Drawn RIGHT RADIAL
[2023-10-09 00:28] LABS: Lactic Acid Reflex 0.9 mmol/L (0.7-2.0)
[2023-10-09 00:53] LABS: Influenza A QL RT-PCR Negative (Negative); Influenza B QL RT-PCR Negative (Negative); RSV RNA, RT-PCR Negative (Negative); SARS-CoV-2 RNA PCR Positive (Negative)
[2023-10-09 01:15] LABS: Appearance Urine Clear (Clear); Bilirubin Urine Negative (Negative); Blood Urine Negative (Negative); Color Urine Yellow (Yellow); Glucose Urine UA Negative (Negative); Ketones Urine Trace mg/dL (Negative); Leukocyte Esterase Ur Negative LEU/UL (Negative); Nitrate Urine Negative (Negative); Protein Urine Negative (Negative); Specific Grav Ur 1.006 (1.001-1.035); Urobilinogen Urine 0.2 mg/dL (<2.0); pH Urine 7.5 (5.0-9.0)
[2023-10-09 01:20] LABS: Add Urine Microscopic? NO
--- NOTE | 2023-10-09 01:24 | ECG_ITS ---
Measurements Intervals [place] Rate: 75 P: LA: 0 QRS: 82 QRSD: 92 T: 49 QT: 408 QTc: 457 Interpretive Statements ATRIAL FIBRILLATION COMPARED TO ECG 08/09/2023 11:03:47 NO SIGNIFICANT CHANGES Electronically Signed On 10-09-2023 15:41:[address] by Sophia Zaidi M.D.
[2023-10-09] MEDS: REMDESIVIR 200 MG/NS 250 ML 200 MG/250 ML BAG 250 MG IVPB (03:05)
--- NOTE | 2023-10-09 03:15 | ADMGEN ---
This patient, Katie Frances, was admitted to Medical Room 346-01. Patient/family oriented to hospital policies and general routines including ID bracelet, bed and alarms, visiting hours, pain management, procedures, bathroom and other care routines, personal items, smoking policy, room service/diet, and visiting hours. Information on how to activate the Rapid Response Team has been discussed. Patient/Family are encouraged to report perceived risks to care and to ask questions if they do not understand what they are told or what they should do.
[2023-10-09 06:29] LABS: Sodium 118 mmol/L (137-145)
[2023-10-09 06:36] LABS: Troponin I 0.016 ng/mL (0.000-0.034)
[2023-10-09 10:21] LABS: Sodium 119 mmol/L (137-145)
--- NOTE | 2023-10-09 12:42 | PM.IMHP ---
H&P: HPI History of Present Illness Date/Time: 10/09/23 12:42 Chief Complaint: Nausea Narrative: 88yo female with AFib, COPD and chronic respiratory failure on home O2 here for SOB and nausea. Patient on chronic O2 7L during the day and 4L with sleep. She recently moved up to the area and was staying with family but moved into Assisted Living 2 days ago. She developed cold symptoms 1+ week ago with productive cough and head congestion. She denies chest pain but has chronic SOB and chronic leg edema. She was diagnosed with COVID recently. COVID is at the facility she states. She developed nausea and was seen by her PCP on 10/08 and started on azithromycin. She is up-to-date on vaccines. She complains of nausea and poor urine output. She has been drinking excessive amounts of free water. She felt worse with increasing cough and SOB and presented to the ED for evaluation. In the ED, her BP 181/77 and RR 25. She was 94% on 2L. She was COVID positive but negative for influenza and RSV. UA negative. Sodium 117, chloride 75, Troponin negative x2. ABG 7.41/51/73 on RA. CXR showing left basilar airspace opacities. CT Abd/pelvis showing moderate volume of fluid in the stomach and distal esophagus; also with distended urinary bladder with mild hydronephrosis of the kidneys. Francis placed. She was given Zofran and stared on Remdesivir. She was admitted for further care. Review of Systems Review of Systems: All systems reviewed & are unremarkable except as noted in HPI and below PMFSH Past Medical History Medical History Abdominal pain Arthritis Atrial fibrillation BMI 30.0-30.9,adult Carotid artery disease Chronic anticoagulation Chronic obstructive pulmonary disease Chronic respiratory failure with hypoxia, on home oxygen therapy Constipation E coli infection Feeling of incomplete bladder emptying Frequency of micturition Generalized anxiety disorder Hematuria Hydronephrosis Hyperlipidemia Hypertension Hypokalemia Hyponatremia Hypothyroidism Lower extremity edema Macular degeneration Osteoporosis Surgical History Surgical History History of bilateral cataract extraction History of right-sided carotid endarterectomy Family History Family History Father Hypertension Heart disease Carcinoma of colon Mother Heart disease Hypertension Breast cancer Daughter Breast cancer Social History Social History Social History: Surrogate medical decision maker: Julito Simpson, son. Code status: Full code. Smoking packs per day: 1 Smoking cigarettes per day: 20.0 Years smoked: 60 Smoking pack-years: 60.00 Smoking status: Former smoker Tobacco type: cigarettes Smoking end date: 08/11/02 Alcohol intake: current Drinks per week: 1 Substance use: never Do You Feel Safe in your Home?: Yes Lack of Transportation: No Lack of Food: Never True Current Housing: I Have Housing Concerned About Future Housing: No Difficulty Paying Gas/Electric Bills: No Difficulty Paying for Meds: No Currently Unemployed: No Education: Don't Know Difficulty w/ Childcare or Family Care: No Living arrangements[place] Occupation/Education: retired Spiritual care concerns: No Agree to blood products: Yes Meds Home Medications and Allergies Home Medications Medication Instructions Recorded Confirmed Type atorvastatin 20 mg tablet (Lipitor) 20 mg PO HS 07/01/23 10/09/23 History calcium carbonate 600 mg calcium 600 mg PO DAILY 07/01/23 10/09/23 History (1,500 mg) tablet (Calcium) cholecalciferol (vitamin D3) 125 125 mcg PO DAILY 07/01/23 10/09/23 History mcg (5,000 unit) capsule cyanocobalamin (vitamin B-12) 1,000 mcg PO DAILY 07/01/23 10/09/23 His
[2023-10-09 14:23] LABS: Sodium 117 mmol/L (137-145)
--- NOTE | 2023-10-09 14:35 | P.CONNP_ITS ---
Assessment and Plan Assessment and plan (1) Hyponatremia: Code(s): E87.1 - Hypo-osmolality and hyponatremia Status: Acute Assessment and Plan: * acute on chronic * baseline sodium runs around 130 - 136 * acute drop in sodium multifactorial: * excess free water intake * urinary retention * loop diuretic use * COVID-19 infection * nausea and vomiting * chronic hyponatremia likely related to chronic lung disease (COPD, chronic oxygen therapy) * minimal improvement with just fluid restriction * changed lasix to bid frequency along with adding salt tabs * goal of therapy is a change of 6 - 8mmol/L per 24 hours * check TSH, cortisol, SPEP, UPEP, and serum/urine osmo * follow trend of repeat sodium levels * ultimate goal is to wean off salt tablets if possible (2) COVID-19: Code(s): U07.1 - COVID-19 Status: Acute Assessment and Plan: * as noted on admission with ER testing * on oxygen but on this at baseline * oxygen requirement have not worsened * started on remdesivir * follow respiratory status (high risk given known COPD) * respiratory isolation (3) Nausea and vomiting: Code(s): R11.2 - Nausea with vomiting, unspecified Status: Acute Assessment and Plan: * due to gastroenteritis or a manifestation of #2(?) * CT imaging with moderate volume of fluid on the stomach and distal esophagus and moderate amount of stool in colon but no evidence of colitis * IV antiemetics as needed * supportive therapy (4) Urinary retention: Code(s): R33.9 - Retention of urine, unspecified Status: Acute Assessment and Plan: * as noted on admission CT scan associated with mild hydronephrosis * s/p lopez catheter placement * voiding trial when ambulation is better r (5) Chronic respiratory failure with hypoxia, on home oxygen therapy: Code(s): J96.11 - Chronic respiratory failure with hypoxia; Z99.81 - Dependence on supplemental oxygen Status: Acute Assessment and Plan: * on chronic home oxygen * known history of COPD (6) Hypertension: Qualifiers: Hypertension type: primary hypertension Qualified Code(s): I10 - Essential (primary) hypertension Code(s): I10 - Essential (primary) hypertension Status: Acute Assessment and Plan: * elevated on admission * better at this time * follow trend of hemodynamics (7) Atrial fibrillation: Code(s): I48.91 - Unspecified atrial fibrillation Status: Acute Assessment and Plan: * rate control strategy * on metoprolol and diltiazem. * continue anticoagulation I will continue to follow the patient with you while she remains hospitalized and make further recommendations as deemed necessary. Thank you for allowing me to participate in the care of this patient. History of Present Illness Reason for Consult Consult date: 10/09/23 Reason for consult: hyponatremia Chief Complaint Chief complaint: COVID-19,Hyponatremia,Urinary Retention History of Present Illness Narrative: The patient is an 88-year-old female with a past medical history as outlined below who presented to [facility] Emergency room with complaints of shortness of breath and nausea. The patient recently moved to this area to be closer to family but given her chronic medical issues and problems, she was least Ali transferred to assisted living to help with these issues. She reports cold symptoms about a week ago with associated productive co
--- NOTE | 2023-10-09 14:35 | PM.CNNEP ---
Assessment and Plan Assessment and plan (1) Hyponatremia: Code(s): E87.1 - Hypo-osmolality and hyponatremia Status: Acute Assessment and Plan: acute on chronic baseline sodium runs around 130 - 136 acute drop in sodium multifactorial: excess free water intake urinary retention loop diuretic use COVID-19 infection nausea and vomiting chronic hyponatremia likely related to chronic lung disease (COPD, chronic oxygen therapy) minimal improvement with just fluid restriction changed lasix to bid frequency along with adding salt tabs goal of therapy is a change of 6 - 8mmol/L per 24 hours check TSH, cortisol, SPEP, UPEP, and serum/urine osmo follow trend of repeat sodium levels ultimate goal is to wean off salt tablets if possible (2) COVID-19: Code(s): U07.1 - COVID-19 Status: Acute Assessment and Plan: as noted on admission with ER testing on oxygen but on this at baseline oxygen requirement have not worsened started on remdesivir follow respiratory status (high risk given known COPD) respiratory isolation (3) Nausea and vomiting: Code(s): R11.2 - Nausea with vomiting, unspecified Status: Acute Assessment and Plan: due to gastroenteritis or a manifestation of #2(?) CT imaging with moderate volume of fluid on the stomach and distal esophagus and moderate amount of stool in colon but no evidence of colitis IV antiemetics as needed supportive therapy (4) Urinary retention: Code(s): R33.9 - Retention of urine, unspecified Status: Acute Assessment and Plan: as noted on admission CT scan associated with mild hydronephrosis s/p lopez catheter placement voiding trial when ambulation is better r (5) Chronic respiratory failure with hypoxia, on home oxygen therapy: Code(s): J96.11 - Chronic respiratory failure with hypoxia; Z99.81 - Dependence on supplemental oxygen Status: Acute Assessment and Plan: on chronic home oxygen known history of COPD (6) Hypertension: Qualifiers: Hypertension type: primary hypertension Qualified Code(s): I10 - Essential (primary) hypertension Code(s): I10 - Essential (primary) hypertension Status: Acute Assessment and Plan: elevated on admission better at this time follow trend of hemodynamics (7) Atrial fibrillation: Code(s): I48.91 - Unspecified atrial fibrillation Status: Acute Assessment and Plan: rate control strategy on metoprolol and diltiazem. continue anticoagulation I will continue to follow the patient with you while she remains hospitalized and make further recommendations as deemed necessary. Thank you for allowing me to participate in the care of this patient. History of Present Illness Reason for Consult Consult date: 10/09/23 Reason for consult: hyponatremia Chief Complaint Chief complaint: COVID-19,Hyponatremia,Urinary Retention History of Present Illness Narrative: The patient is an 88-year-old female with a past medical history as outlined below who presented to [facility] Emergency room with complaints of shortness of breath and nausea. The patient recently moved to this area to be closer to family but given her chronic medical issues and problems, she was least Ali transferred to assisted living to help with these issues. She reports cold symptoms about a week ago with associated productive cough as well as nasal/ head congestion. Later on, she developed nausea but no overt vomiting. She denies any chest pain but reports shortness of breath but this is a chronic issue and requires supplemental oxygen during the day as well as at night. She really see saw her primary care physician for the symptoms and was empirically started on azithromycin for possible bronchitis. She also noticed a decline in her urine output and thinking this was a sign of dehydration, s
[2023-10-09] MEDS: METOPROLOL SUCCINATE EXT REL 25 MG TABCR PO (14:50)
[2023-10-09 15:27] LABS: Anion Gap 5 mmol/L (8-16); Blood Urea Nitrogen 11 mg/dL (7-17); Calcium 8.5 mg/dL (8.4-10.2); Carbon Dioxide 29 mmol/L (22-30); Chloride 83 mmol/L (98-107); Estimated CRCL calculation 42 ml/min; Estimated Glomerular Filt Rate > 60; Glucose 105 mg/dL (65-110); Potassium 3.8 mmol/L (3.4-5.0)
[2023-10-09] MEDS: SODIUM CHLORIDE 1 GM TABLET PO ×2 (16:13→21:20)
[2023-10-09 17:07] LABS: Sodium 120 mmol/L (137-145)
[2023-10-09 17:26] LABS: Creatinine Urine 83.8 mg/dL
[2023-10-09 17:27] LABS: Urea Random Urine 340 MG/DL
[2023-10-09 17:31] LABS: Sodium Urine Random < 5 meq/L
[2023-10-09] MEDS: ATORVASTATIN 20 MG TABLET PO (20:52)
[2023-10-09] MEDS: LOSARTAN POTASSIUM 50 MG TABLET PO (20:52)
[2023-10-09] MEDS: dilTIAZem HCL CD 180 MG CAP.24HR PO (20:52)
[2023-10-09] MEDS: RIVAROXABAN 20 MG TABLET PO (20:52)
[2023-10-09] MEDS: FUROSEMIDE 10 MG TABLET PO (21:20)
[2023-10-09] MEDS: REMDESIVIR 100 MG/NS 250 ML 100 MG/250 ML BAG 250 MG IVPB (21:20)
[2023-10-10] VITALS (12 sets, daily range): BP systolic 119–132; BP diastolic 49–72; PULSE 65–84; RESP 14–16; TEMP 36.6–36.8; O2SAT 95–100
[2023-10-10 00:44] LABS: Sodium 123 mmol/L (137-145)
[2023-10-10] MEDS: LEVOTHYROXINE SODIUM 112 MCG TABLET PO (05:58)
[2023-10-10 06:01] LABS: Basophils Percent Auto 0.6 % (0.2-1.2); Eosinophils Absolute Auto 0.1 K/mm3 (0-0.3); Eosinophils Percent Auto 1.2 % (0-4.4); Hematocrit 36.9 % (37.0-47.0); Immature Granulocyte Absolute 0.02 K/mm3 (0.00-0.031); Immature Granulocyte Percent A 0.4 % (0-0.5); Lymphocytes Absolute Auto 1.07 K/mm3 (0.9-3.2); Lymphocytes Percent Auto 21.4 % (18.3-44.2); Mean Corpuscular HGB Conc 32.5 g/dl (32-36); Mean Corpuscular Hemoglobin 32.8 pg (26-34); Mean Corpuscular Volume 100.8 fl (80-100); Mean Platelet Volume 9.2 fl (7.4-10.4); Monocytes Absolute Auto 0.9 K/mm3 (0.1-0.6); Monocytes Percent Auto 17.6 % (2.6-8.5); Neutrophils Percent Auto 58.8 % (45.5-73.1); Platelet Count Result 282 k/mm3 (150-375); Red Blood Count 3.66 M/mm3 (4.2-5.4)
[2023-10-10 06:25] LABS: Alanine Aminotransferase 13 U/L (6-35); Albumin Level 3.2 g/dL (3.5-5.1); Alkaline Phosphatase 60 U/L (38-126); Anion Gap 3 mmol/L (8-16); Aspartate Amino Transferase 31 U/L (14-36); Bilirubin,Total 0.4 mg/dL (0.2-1.3); Blood Urea Nitrogen 14 mg/dL (7-17); Carbon Dioxide 34 mmol/L (22-30); Chloride 89 mmol/L (98-107); Estimated CRCL calculation 42 ml/min; Estimated Glomerular Filt Rate > 60; Glucose 84 mg/dL (65-110); Magnesium 1.9 mg/dL (1.6-2.3); Phosphorus 3.5 mg/dL (2.5-4.5); Potassium 3.4 mmol/L (3.4-5.0); Sodium 126 mmol/L (137-145)
[2023-10-10] MEDS: UMECLIDINIUM BROMIDE 62.5 MCG ELLIPTA 1 PUFF INHALATION (08:40)
[2023-10-10] MEDS: POTASSIUM CHLORIDE 20 MEQ ER TABLET 40 MEQ PO (09:33)
[2023-10-10] MEDS: CALCIUM CARBONATE (OSCAL) 500 MG TABLET PO (09:35)
[2023-10-10] MEDS: SODIUM CHLORIDE 1 GM TABLET PO ×2 (09:36→17:59)
[2023-10-10] MEDS: CYANOCOBALAMIN 1,000 MCG TABLET 1000 MCG PO (09:37)
[2023-10-10] MEDS: FUROSEMIDE 10 MG TABLET PO ×2 (09:37→17:59)
[2023-10-10] MEDS: METOPROLOL SUCCINATE EXT REL 25 MG TABCR PO (09:37)
[2023-10-10] MEDS: CHOLECALCIFEROL 1,000 UNITS TABLET 5000 UNITS PO (09:38)
--- NOTE | 2023-10-10 13:09 | PC.NURSE ---
Patient son called to relate he just spoke to his mom and she appeared to be short of breath. Son stated she should be on 7 liters of oxygen during the daytime and 4 liters at night per her home settings. Patient found on two liters of oxygen with a saturation of 96%, no labored breathing, no accessory muscles used, patient appeared calm and comfortable. Grand daughter present in room at the time of oxygen verification and she was made aware of current settings. Grand daughter insisted for oxygen to be titrated higher regardless. Called and spoke to Dr. Cheek and he stated patient will remain on an oxygen setting to achieve a saturation above 92%. If that can be achieved on 2 liters, patient will remain on 2 liters. MD instructions communicated to patients granddaughter.
--- NOTE | 2023-10-10 13:21 | P.PNNP_ITS ---
Progress Note: A&P Assessment and Plan (1) Hyponatremia: Code(s): E87.1 - Hypo-osmolality and hyponatremia Status: Acute Assessment and Plan: * slow improvement noted * acute on chronic * baseline sodium runs around 130 - 136mmol/L * acute drop in sodium multifactorial: * excess free water intake * urinary retention * loop diuretic use * COVID-19 infection * nausea and vomiting * chronic hyponatremia likely related to chronic lung disease (COPD, chronic oxygen therapy) * improvement with current interventions: * fluid restriction * lasix changed to bid frequency along with addition of salt tabs * goal of therapy is a change of 6 - 8mmol/L per 24 hours - achieved * evaluation to date: * TSH okay * cortisol stable * urine electrolytes appear pre-renal * SPEP/UPEP and serum/urine osmo pending * follow trend of repeat sodium levels * ultimate goal is to wean off salt tablets if possible (2) COVID-19: Code(s): U07.1 - COVID-19 Status: Acute Assessment and Plan: * as noted on admission with ER testing * on oxygen but on this at baseline * oxygen requirement have not worsened * on remdesivir * follow respiratory status (high risk given known COPD) * respiratory isolation (3) Nausea and vomiting: Code(s): R11.2 - Nausea with vomiting, unspecified Status: Acute Assessment and Plan: * due to gastroenteritis or a manifestation of #3(?) * CT imaging with moderate volume of fluid on the stomach and distal esophagus and moderate amount of stool in colon but no evidence of colitis * IV antiemetics as needed * supportive therapy (4) Urinary retention: Code(s): R33.9 - Retention of urine, unspecified Status: Acute Assessment and Plan: * as noted on admission CT scan associated with mild hydronephrosis * s/p lopez catheter placement * voiding trial when ambulation is better (5) Chronic respiratory failure with hypoxia, on home oxygen therapy: Code(s): J96.11 - Chronic respiratory failure with hypoxia; Z99.81 - Dependence on supplemental oxygen Status: Acute Assessment and Plan: * on chronic home oxygen * known history of COPD (6) Hypertension: Qualifiers: Hypertension type: primary hypertension Qualified Code(s): I10 - Essential (primary) hypertension Code(s): I10 - Essential (primary) hypertension Status: Acute Assessment and Plan: * elevated on admission * better at this time * follow trend of hemodynamics (7) Atrial fibrillation: Code(s): I48.91 - Unspecified atrial fibrillation Status: Acute Assessment and Plan: * rate control strategy * on metoprolol and diltiazem. * continue anticoagulation Will continue to follow. Subjective Date/time seen: 10/10/23 13:21 Interval history: Follow-up for acute on chronic hyponatremia. Sodium level has been slowly trending up with current interventions (fluid restriction, salt tabs, and lasix -- lasix changed to bid frequency in combo with salt tabs); breathing/respiuratory status seems stable at the time of my visit; no other acute complaints voiced. Exam Narrative: General: elderly but WD/WN female in NAD Heart: IRRR, normal S1 and S2; no rub Lungs: coarse with a few bibasilar crackles Abdomen: soft, nontender, nondistended, positive bowel sounds Extremities: no cyanosis or clubbing; non-pitting edema noted Skin:
--- NOTE | 2023-10-10 13:21 | PM.PNNEP ---
Progress Note: A&P Assessment and Plan (1) Hyponatremia: Code(s): E87.1 - Hypo-osmolality and hyponatremia Status: Acute Assessment and Plan: slow improvement noted acute on chronic baseline sodium runs around 130 - 136mmol/L acute drop in sodium multifactorial: excess free water intake urinary retention loop diuretic use COVID-19 infection nausea and vomiting chronic hyponatremia likely related to chronic lung disease (COPD, chronic oxygen therapy) improvement with current interventions: fluid restriction lasix changed to bid frequency along with addition of salt tabs goal of therapy is a change of 6 - 8mmol/L per 24 hours - achieved evaluation to date: TSH okay cortisol stable urine electrolytes appear pre-renal SPEP/UPEP and serum/urine osmo pending follow trend of repeat sodium levels ultimate goal is to wean off salt tablets if possible (2) COVID-19: Code(s): U07.1 - COVID-19 Status: Acute Assessment and Plan: as noted on admission with ER testing on oxygen but on this at baseline oxygen requirement have not worsened on remdesivir follow respiratory status (high risk given known COPD) respiratory isolation (3) Nausea and vomiting: Code(s): R11.2 - Nausea with vomiting, unspecified Status: Acute Assessment and Plan: due to gastroenteritis or a manifestation of #3(?) CT imaging with moderate volume of fluid on the stomach and distal esophagus and moderate amount of stool in colon but no evidence of colitis IV antiemetics as needed supportive therapy (4) Urinary retention: Code(s): R33.9 - Retention of urine, unspecified Status: Acute Assessment and Plan: as noted on admission CT scan associated with mild hydronephrosis s/p lopez catheter placement voiding trial when ambulation is better (5) Chronic respiratory failure with hypoxia, on home oxygen therapy: Code(s): J96.11 - Chronic respiratory failure with hypoxia; Z99.81 - Dependence on supplemental oxygen Status: Acute Assessment and Plan: on chronic home oxygen known history of COPD (6) Hypertension: Qualifiers: Hypertension type: primary hypertension Qualified Code(s): I10 - Essential (primary) hypertension Code(s): I10 - Essential (primary) hypertension Status: Acute Assessment and Plan: elevated on admission better at this time follow trend of hemodynamics (7) Atrial fibrillation: Code(s): I48.91 - Unspecified atrial fibrillation Status: Acute Assessment and Plan: rate control strategy on metoprolol and diltiazem. continue anticoagulation Will continue to follow. Subjective Date/time seen: 10/10/23 13:21 Interval history: Follow-up for acute on chronic hyponatremia. Sodium level has been slowly trending up with current interventions (fluid restriction, salt tabs, and lasix -- lasix changed to bid frequency in combo with salt tabs); breathing/respiuratory status seems stable at the time of my visit; no other acute complaints voiced. Exam Narrative: General: elderly but WD/WN female in NAD Heart: IRRR, normal S1 and S2; no rub Lungs: coarse with a few bibasilar crackles Abdomen: soft, nontender, nondistended, positive bowel sounds Extremities: no cyanosis or clubbing; non-pitting edema noted Skin: warm and dry Objective Data Vital Signs Vital Signs: Vital Signs Temp Pulse Resp BP Pulse Ox O2 Del Method O2 Flow Rate 10/10/23 12:00 65 10/10/23 08:00 74 10/10/23 14:00 98.2 F 69 16 126/57 L 100 10/10/23 13:57 Nasal Cannula 2 10/10/23 09:40 84 96 Nasal Cannula 2 10/10/23 09:37 84 10/10/23 08:40 95 Nasal Cannula 2 10/10/23 06:00 97.9 F 66 14 119/72 98 10/10/23 04:00 68 10/10/23 00:00 65 10/09/23 20:00 73 10/09/23 2
--- NOTE | 2023-10-10 13:37 | PM.IMPN ---
Progress Note: A&P Assessment and Plan (1) Acute hyponatremia: Code(s): E87.1 - Hypo-osmolality and hyponatremia <Nimo Ray Student - Last Filed: 10/10/23 14:44> Status: Acute <Nimo Ray Student - Last Filed: 10/10/23 14:44> Assessment and Plan: Sodium 117 on admission. Sodium baseline 130-136 last month. 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 Also related to increase in free water and being on lasix. And from the urine retention. Fluid restriction ordered and Na climbing slowly Urine studies within normal limits including urine sodium of <5 Nephrology consulted and appreciated their input. <Nimo Ray Student - Last Filed: 10/10/23 14:44> Sodium 117 on admission. Sodium baseline 130-136 last month. 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 Also related to increase in free water and being on lasix. And from the urine retention. Fluid restriction ordered and Na climbing slowly Urine studies within normal limits including urine sodium of <5 with low FENa so consider dehydration (but Urine na drawn late so could be evidence of improved renal response to the fluid restriction) Consider starting IV fluids if sodium does not continue to climb as expected Nephrology consulted and appreciated their input. Follow serial sodium values <Nikolai Cheek MD - Last Filed: 10/10/23 17:46> (2) Nausea and vomiting: Code(s): R11.2 - Nausea with vomiting, unspecified <Nimo Ray Student - Last Filed: 10/10/23 14:44> Status: Acute <Nimo Ray Student - Last Filed: 10/10/23 14:44> Assessment and Plan: Patient with nausea and vomiting possibly related to COVID vs gastroenteritis. Lipase normal. Nausea could be related to distended bladder. CT A/P showing moderate volume of fluid on the stomach and distal esophagus and moderate amount of stool in colon but no evidence of colitis. [facility] <Nimo Ray Student - Last Filed: 10/10/23 14:44> Patient with nausea and vomiting possibly related to COVID vs gastroenteritis. Lipase normal. Nausea could be related to distended bladder. CT A/P showing moderate volume of fluid on the stomach and distal esophagus and moderate amount of stool in colon but no evidence of colitis. Symptoms better today. Continue heart healthy diet. Add miralax. <Nikolai Cheek MD - Last Filed: 10/10/23 17:46> (3) COVID-19: Code(s): U07.1 - COVID-19 <Nimo Ray Student - Last Filed: 10/10/23 14:44> Status: Acute <Nimo Ray Student - Last Filed: 10/10/23 14:44> Assessment and Plan: Patient diagnosed with COVID on admission. Presumable positive prior to admission but poorly documented. On less O2 here then at home but high risk for worsening condition. Continue Remdesivir (Day 2 out of 5) <Nimo Ray Student - Last Filed: 10/10/23 14:44> Patient diagnosed with COVID on admission. Presumable positive prior to admission but poorly documented. On less O2 here then at home but high risk for worsening condition. Continue Remdesivir (Day 3 out of 5) <Nikolai Cheek MD - Last Filed: 10/10/23 17:46> (4) Urinary retention: Code(s): R33.9 - Retention of urine, unspecified <Nimo Ray Student - Last Filed: 10/10/23 14:44> Status: Acute <Nimo Ray Student - Last Filed: 10/10/23 14:44> Assessment and Plan: CT scan showing distended urinary bladder with mild hydronephrosis. Francis placed. UOP 1150 since Francis placed but unclear bladder volume prior to Francis placed. BUN 26 and Cr 1 on admission and better since Francis in place. Voiding trial when more ambulatory <Nimo Ray Student - Last Filed: 10/10/23 14:44> (5) Hydronephrosis: Code(s): N13.30 - Unspecified hydronephrosis <Nimo Ray Student - Last Filed: 10/10/23 14:44> Status:
[2023-10-10] MEDS: polyethylene glycoL 3350 17 GM POWD.PACK PO (17:58)
[2023-10-10 18:45] LABS: Total Protein Urine Random 18 mg/dL; Ur Ttl Prot Creatinine Ratio 0.44 mg/mg (0-0.20)
[2023-10-10 19:33] LABS: Sodium 126 mmol/L (137-145)
[2023-10-10] MEDS: LOSARTAN POTASSIUM 50 MG TABLET PO (20:40)
[2023-10-10] MEDS: RIVAROXABAN 20 MG TABLET PO (20:40)
[2023-10-10] MEDS: dilTIAZem HCL CD 180 MG CAP.24HR PO (20:40)
[2023-10-10] MEDS: ATORVASTATIN 20 MG TABLET PO (20:40)
[2023-10-10] MEDS: REMDESIVIR 100 MG/NS 250 ML 100 MG/250 ML BAG 250 MG IVPB (21:37)
[2023-10-11] VITALS (16 sets, daily range): BP systolic 119–141; BP diastolic 53–69; PULSE 57–91; RESP 16–18; TEMP 36.3–36.9; O2SAT 85–99
[2023-10-11] MEDS: LEVOTHYROXINE SODIUM 112 MCG TABLET PO (05:41)
[2023-10-11 05:45] LABS: Basophils Percent Auto 0.5 % (0.2-1.2); Eosinophils Absolute Auto 0.1 K/mm3 (0-0.3); Eosinophils Percent Auto 1.1 % (0-4.4); Hematocrit 40.9 % (37.0-47.0); Hemoglobin 13.3 g/dL (12.0-15.0); Immature Granulocyte Absolute 0.01 K/mm3 (0.00-0.031); Immature Granulocyte Percent A 0.2 % (0-0.5); Lymphocytes Absolute Auto 1.35 K/mm3 (0.9-3.2); Lymphocytes Percent Auto 20.5 % (18.3-44.2); Mean Corpuscular HGB Conc 32.5 g/dl (32-36); Mean Corpuscular Hemoglobin 33.3 pg (26-34); Mean Corpuscular Volume 102.5 fl (80-100); Mean Platelet Volume 9.4 fl (7.4-10.4); Monocytes Absolute Auto 1.1 K/mm3 (0.1-0.6); Monocytes Percent Auto 17.2 % (2.6-8.5); Neutrophils Percent Auto 60.5 % (45.5-73.1); Platelet Count Result 293 k/mm3 (150-375); Red Blood Count 3.99 M/mm3 (4.2-5.4); Red Cell Distribution Width 13.3 % (11.5-14.5); White Blood Count 6.6 K/mm3 (4.5-10.0)
[2023-10-11 05:58] LABS: Alanine Aminotransferase 15 U/L (6-35); Albumin Level 3.4 g/dL (3.5-5.1); Alkaline Phosphatase 64 U/L (38-126); Anion Gap 2 mmol/L (8-16); Aspartate Amino Transferase 32 U/L (14-36); Bilirubin,Total 0.4 mg/dL (0.2-1.3); Blood Urea Nitrogen 16 mg/dL (7-17); Calcium 8.3 mg/dL (8.4-10.2); Carbon Dioxide 35 mmol/L (22-30); Chloride 92 mmol/L (98-107); Estimated CRCL calculation 48 ml/min; Estimated Glomerular Filt Rate > 60; Glucose 89 mg/dL (65-110); Sodium 129 mmol/L (137-145)
[2023-10-11 06:00] LABS: INR 2.5; Prothrombin Time 29.1 Seconds (11.1-14.7)
[2023-10-11] MEDS: UMECLIDINIUM BROMIDE 62.5 MCG ELLIPTA 1 PUFF INHALATION (08:13)
[2023-10-11] MEDS: CYANOCOBALAMIN 1,000 MCG TABLET 1000 MCG PO (09:43)
[2023-10-11] MEDS: CALCIUM CARBONATE (OSCAL) 500 MG TABLET PO (09:43)
[2023-10-11] MEDS: polyethylene glycoL 3350 17 GM POWD.PACK PO (09:43)
[2023-10-11] MEDS: FUROSEMIDE 10 MG TABLET PO ×2 (09:43→18:05)
[2023-10-11] MEDS: SODIUM CHLORIDE 1 GM TABLET PO ×2 (09:44→18:05)
[2023-10-11] MEDS: CHOLECALCIFEROL 1,000 UNITS TABLET 5000 UNITS PO (09:44)
[2023-10-11] MEDS: METOPROLOL SUCCINATE EXT REL 25 MG TABCR PO (09:46)
--- NOTE | 2023-10-11 10:50 | PM.IMPN ---
Progress Note: A&P Assessment and Plan (1) Acute hyponatremia: Code(s): E87.1 - Hypo-osmolality and hyponatremia <Nimo Ray Student - Last Filed: 10/11/23 14:21> Status: Acute <Nimo Ray Student - Last Filed: 10/11/23 14:21> Assessment and Plan: Sodium 117 on admission. Sodium baseline 130-136 last month. 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 Also related to increase in free water and being on lasix. And from the urine retention. Urine studies within normal limits including urine sodium of <5 FeNA shows likely pre-renal cause; may give IV fluids if sodium continues to hover around 126 Sodium increased to 129 today (3/2); will not be giving IV fluids -- continue fluid restriction Patient will likely be placed on fluid restriction on discharge Nephrology consulted and appreciated their input. <Nimo Ray Student - Last Filed: 10/11/23 14:21> Sodium 117 on admission. Sodium baseline 130-136 last month. 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 Also related to increase in free water and being on lasix. And from the urine retention. Urine studies noted with urine sodium of <5 FeNA shows likely pre-renal cause; may give IV fluids if sodium continues to hover around 126 Sodium increased to 129 today (3/2); will not be giving IV fluids -- continue fluid restriction Patient will likely be placed on fluid restriction on discharge Nephrology consulted and appreciated their input. <Nikolai Cheek MD - Last Filed: 10/11/23 16:27> (2) Nausea and vomiting: Code(s): R11.2 - Nausea with vomiting, unspecified <Nimo Ray Student - Last Filed: 10/11/23 14:21> Status: Acute <Nimo Ray Student - Last Filed: 10/11/23 14:21> Assessment and Plan: Patient with nausea and vomiting possibly related to COVID vs gastroenteritis. Lipase normal. Nausea could be related to distended bladder. CT A/P showing moderate volume of fluid on the stomach and distal esophagus and moderate amount of stool in colon but no evidence of colitis. [facility] Nausea and vomiting has resolved. No further episodes while hospitalized. <Nimo Ray Student - Last Filed: 10/11/23 14:21> Patient with nausea and vomiting possibly related to COVID vs gastroenteritis. Lipase normal. Nausea could be related to distended bladder. CT A/P showing moderate volume of fluid on the stomach and distal esophagus and moderate amount of stool in colon but no evidence of colitis. Also with distended urinary bladder [facility] Nausea and vomiting has resolved. No further episodes while hospitalized. <Nikolai Cheek MD - Last Filed: 10/11/23 16:27> (3) COVID-19: Code(s): U07.1 - COVID-19 <Nimo Ray Student - Last Filed: 10/11/23 14:21> Status: Acute <Nimo Ray Student - Last Filed: 10/11/23 14:21> Assessment and Plan: Patient diagnosed with COVID on admission. Presumable positive prior to admission but poorly documented. On less O2 here then at home but high risk for worsening condition. Continue Remdesivir today; will give 4th dose this afternoon and 5th dose tomorrow morning <Nimo Ray Student - Last Filed: 10/11/23 14:21> Patient diagnosed with COVID on admission. Presumable positive prior to admission but poorly documented. On less O2 here then at home but high risk for worsening condition. Continue Remdesivir today; will give 4th dose this afternoon and 5th dose tomorrow morning Home O2 evaluation <Nikolai Cheek MD - Last Filed: 10/11/23 16:27> (4) Urinary retention: Code(s): R33.9 - Retention of urine, unspecified <Nimo Ray Student - Last Filed: 10/11/23 14:21> Status: Acute <Nimo Ray Student - Last Filed: 10/11/23 14:21> Assessment and Plan: CT scan showing distended urinary bladder with mild hydronephrosis.
--- NOTE | 2023-10-11 11:01 | PM.PNNEP ---
Progress Note: A&P Assessment and Plan (1) Hyponatremia: Code(s): E87.1 - Hypo-osmolality and hyponatremia Status: Acute Assessment and Plan: ongoing improvement noted acute on chronic baseline sodium runs around 130 - 136mmol/L acute drop in sodium multifactorial: excess free water intake urinary retention loop diuretic use COVID-19 infection nausea and vomiting chronic hyponatremia likely related to chronic lung disease (COPD, chronic oxygen therapy) improvement with current interventions: fluid restriction lasix changed to bid frequency along with addition of salt tabs goal of therapy is a change of 6 - 8mmol/L per 24 hours - achieved evaluation to date: TSH okay cortisol stable urine electrolytes appear pre-renal SPEP/UPEP and serum/urine osmo pending follow trend of repeat sodium levels ultimate goal is to wean off salt tablets if possible (2) COVID-19: Code(s): U07.1 - COVID-19 Status: Acute Assessment and Plan: as noted on admission with ER testing on oxygen but on this at baseline oxygen requirement have not worsened on remdesivir follow respiratory status (high risk given known COPD) respiratory isolation (3) Nausea and vomiting: Code(s): R11.2 - Nausea with vomiting, unspecified Status: Acute Assessment and Plan: due to gastroenteritis or a manifestation of #3(?) CT imaging with moderate volume of fluid on the stomach and distal esophagus and moderate amount of stool in colon but no evidence of colitis IV antiemetics as needed supportive therapy (4) Urinary retention: Code(s): R33.9 - Retention of urine, unspecified Status: Acute Assessment and Plan: as noted on admission CT scan associated with mild hydronephrosis s/p lopez catheter placement voiding trial when ambulation is better (5) Chronic respiratory failure with hypoxia, on home oxygen therapy: Code(s): J96.11 - Chronic respiratory failure with hypoxia; Z99.81 - Dependence on supplemental oxygen Status: Acute Assessment and Plan: on chronic home oxygen known history of COPD (6) Hypertension: Qualifiers: Hypertension type: primary hypertension Qualified Code(s): I10 - Essential (primary) hypertension Code(s): I10 - Essential (primary) hypertension Status: Acute Assessment and Plan: elevated on admission better at this time follow trend of hemodynamics (7) Atrial fibrillation: Code(s): I48.91 - Unspecified atrial fibrillation Status: Acute Assessment and Plan: rate control strategy on metoprolol and diltiazem. continue anticoagulation Will continue to follow. Subjective Date/time seen: 10/11/23 11:01 Interval history: Follow-up for acute on chronic hyponatremia. No new issues or concerns voiced at this time; no apparent distress noted; ongoing improvement with sodium noted by trend of labs; breathing/respiratory status remains stable; no issues/events overnight or earlier this AM. Exam Narrative: General: elderly but WD/WN female in NAD Heart: IRRR, normal S1 and S2; no rub Lungs: coarse and decreased at bases Abdomen: soft, nontender, nondistended, positive bowel sounds Extremities: no cyanosis or clubbing; non-pitting edema noted Skin: warm and intact Objective Data Vital Signs Vital Signs: Vital Signs Temp Pulse Resp BP Pulse Ox O2 Del Method O2 Flow Rate 10/11/23 11:00 80 87 L Room Air 10/11/23 09:45 82 98 Nasal Cannula 2 10/11/23 09:46 89 10/11/23 08:14 95 Nasal Cannula 2 10/11/23 04:45 98.5 F 78 18 119/53 L 98 10/11/23 04:00 57 L 10/11/23 00:00 75 10/10/23 20:00 99 Nasal Cannula 2 10/10/23 20:00 70 10/10/23 21:13 97.9 F 70 16 132/49 L 99 10/10/23 16:00 72 Intake/Output Intake/Output: Intake
--- NOTE | 2023-10-11 11:01 | P.PNNP_ITS ---
Progress Note: A&P Assessment and Plan (1) Hyponatremia: Code(s): E87.1 - Hypo-osmolality and hyponatremia Status: Acute Assessment and Plan: * ongoing improvement noted * acute on chronic * baseline sodium runs around 130 - 136mmol/L * acute drop in sodium multifactorial: * excess free water intake * urinary retention * loop diuretic use * COVID-19 infection * nausea and vomiting * chronic hyponatremia likely related to chronic lung disease (COPD, chronic oxygen therapy) * improvement with current interventions: * fluid restriction * lasix changed to bid frequency along with addition of salt tabs * goal of therapy is a change of 6 - 8mmol/L per 24 hours - achieved * evaluation to date: * TSH okay * cortisol stable * urine electrolytes appear pre-renal * SPEP/UPEP and serum/urine osmo pending * follow trend of repeat sodium levels * ultimate goal is to wean off salt tablets if possible (2) COVID-19: Code(s): U07.1 - COVID-19 Status: Acute Assessment and Plan: * as noted on admission with ER testing * on oxygen but on this at baseline * oxygen requirement have not worsened * on remdesivir * follow respiratory status (high risk given known COPD) * respiratory isolation (3) Nausea and vomiting: Code(s): R11.2 - Nausea with vomiting, unspecified Status: Acute Assessment and Plan: * due to gastroenteritis or a manifestation of #3(?) * CT imaging with moderate volume of fluid on the stomach and distal esophagus and moderate amount of stool in colon but no evidence of colitis * IV antiemetics as needed * supportive therapy (4) Urinary retention: Code(s): R33.9 - Retention of urine, unspecified Status: Acute Assessment and Plan: * as noted on admission CT scan associated with mild hydronephrosis * s/p lopez catheter placement * voiding trial when ambulation is better (5) Chronic respiratory failure with hypoxia, on home oxygen therapy: Code(s): J96.11 - Chronic respiratory failure with hypoxia; Z99.81 - Dependence on supplemental oxygen Status: Acute Assessment and Plan: * on chronic home oxygen * known history of COPD (6) Hypertension: Qualifiers: Hypertension type: primary hypertension Qualified Code(s): I10 - Essential (primary) hypertension Code(s): I10 - Essential (primary) hypertension Status: Acute Assessment and Plan: * elevated on admission * better at this time * follow trend of hemodynamics (7) Atrial fibrillation: Code(s): I48.91 - Unspecified atrial fibrillation Status: Acute Assessment and Plan: * rate control strategy * on metoprolol and diltiazem. * continue anticoagulation Will continue to follow. Subjective Date/time seen: 10/11/23 11:01 Interval history: Follow-up for acute on chronic hyponatremia. No new issues or concerns voiced at this time; no apparent distress noted; ongoing improvement with sodium noted by trend of labs; breathing/respiratory status remains stable; no issues/events overnight or earlier this AM. Exam Narrative: General: elderly but WD/WN female in NAD Heart: IRRR, normal S1 and S2; no rub Lungs: coarse and decreased at bases Abdomen: soft, nontender, nondistended, positive bowel sounds Extremities: no cyanosis or clubbing; non-pitting edema noted Skin: warm and intact Objective Emanuel
--- NOTE | 2023-10-11 12:21 | HOMEO2EVAL ---
Evaluation was performed at [facility] Home Oxygen Evaluation RC: Home Oxygen (O2) Evaluation Start: 10/11/23 11:13 Freq: ONCE Status: Active Protocol: RPE Activity Type Activity Date Activity User E-sign Co-sign Detail Recorded Client Recorded Date Recorded By Document 10/11/23 12:01 CLC [email or web address] 10/11/23 12:21 CLC Document 10/11/23 12:19 CLC [email or web address] 10/11/23 12:21 CLC Document 10/11/23 12:20 CLC [email or web address] 10/11/23 12:21 CLC Document 10/11/23 12:21 CLC [email or web address] 10/11/23 12:21 CLC 10/11/23 10/11/23 10/11/23 12:01 12:19 12:20 Home O2 Evaluation [Oxygen] -Test Phase Resting Resting Exercise -Oxygen Delivery Room Air Nasal Cannula Nasal Cannula -Oxygen Flow Rate (L/min) 2 2 [Pulse Oximetry] -Pulse Oximetry (90-100 %) 87 L 92 85 L [Pulse Rate] -Pulse Rate (60-100 beats/min) 80 80 91 [Evaluation] -Activity Tolerance Poor -Rating of Perceived Dyspnea (PD) +4 Severe Difficulty, Participant Cannot Continue -Rate of Perceived Exertion (PE) 15 Hard Query Text:Click the Protocol Button to View the RPE Scale [Exercise] -Ambulation Distance (feet) 20 -Ambulation Distance (meters) 6.09 [Charges] -Evaluation Charges O2 Evaluation by 10/11/23 12:21 Home O2 Evaluation [Oxygen] -Test Phase Exercise -Oxygen Delivery Nasal Cannula -Oxygen Flow Rate (L/min) 3 [Pulse Oximetry] -Pulse Oximetry (90-100 %) 93 [Pulse Rate] -Pulse Rate (60-100 beats/min) 90 [Evaluation] -Activity Tolerance -Rating of Perceived Dyspnea (PD) -Rate of Perceived Exertion (PE) Query Text:Click the Protocol Button to View the RPE Scale [Exercise] -Ambulation Distance (feet) -Ambulation Distance (meters) [Charges] -Evaluation Charges
--- NOTE | 2023-10-11 14:12 | PCRCNOTE ---
Home oxygen evaluation complete. Patient requires 2 liters per minute nasal cannula at rest and 3 liters per minute nasal cannula with activity. RN notified of required settings.
[2023-10-11] MEDS: REMDESIVIR 100 MG/NS 250 ML 100 MG/250 ML BAG 250 MG IVPB (18:04)
[2023-10-11] MEDS: RIVAROXABAN 20 MG TABLET PO (20:44)
[2023-10-11] MEDS: ATORVASTATIN 20 MG TABLET PO (20:44)
[2023-10-11] MEDS: dilTIAZem HCL CD 180 MG CAP.24HR PO (20:44)
[2023-10-11] MEDS: LOSARTAN POTASSIUM 50 MG TABLET PO (20:45)
[2023-10-12] VITALS: PULSE 67
[2023-10-12 04:00] VITALS: PULSE 61
[2023-10-12 04:16] VITALS: BP 128/63; PULSE 78; RESP 16; TEMP 36.1; O2SAT 94
[2023-10-12] MEDS: LEVOTHYROXINE SODIUM 112 MCG TABLET PO (05:17)
[2023-10-12 05:40] LABS: Anion Gap 5 mmol/L (8-16); Blood Urea Nitrogen 17 mg/dL (7-17); Calcium 8.2 mg/dL (8.4-10.2); Carbon Dioxide 34 mmol/L (22-30); Chloride 91 mmol/L (98-107); Estimated CRCL calculation 48 ml/min; Estimated Glomerular Filt Rate > 60; Glucose 100 mg/dL (65-110); Potassium 3.8 mmol/L (3.4-5.0); Sodium 130 mmol/L (137-145)
[2023-10-12 08:03] VITALS: O2SAT 97
[2023-10-12] MEDS: UMECLIDINIUM BROMIDE 62.5 MCG ELLIPTA 1 PUFF INHALATION (08:03)
[2023-10-12] MEDS: CYANOCOBALAMIN 1,000 MCG TABLET 1000 MCG PO (10:16)
[2023-10-12] MEDS: polyethylene glycoL 3350 17 GM POWD.PACK PO (10:16)
[2023-10-12] MEDS: CHOLECALCIFEROL 1,000 UNITS TABLET 5000 UNITS PO (10:16)
[2023-10-12] MEDS: SODIUM CHLORIDE 1 GM TABLET PO (10:16)
[2023-10-12] MEDS: FUROSEMIDE 10 MG TABLET PO (10:16)
[2023-10-12 10:17] VITALS: PULSE 78
[2023-10-12] MEDS: CALCIUM CARBONATE (OSCAL) 500 MG TABLET PO (10:17)
[2023-10-12] MEDS: METOPROLOL SUCCINATE EXT REL 25 MG TABCR PO (10:17)
[2023-10-12 10:20] VITALS: PULSE 65; PULSE 78; O2SAT 97
--- NOTE | 2023-10-12 10:22 | P.PNNP_ITS ---
Progress Note: A&P Assessment and Plan (1) Hyponatremia: Code(s): E87.1 - Hypo-osmolality and hyponatremia Status: Acute Assessment and Plan: * ongoing improvement noted * acute on chronic * baseline sodium runs around 130 - 136mmol/L * acute drop in sodium multifactorial: * excess free water intake * urinary retention * loop diuretic use * COVID-19 infection * nausea and vomiting * chronic hyponatremia likely related to chronic lung disease (COPD, chronic oxygen therapy) * improvement with current interventions: * fluid restriction * lasix changed to bid frequency along with addition of salt tabs * goal of therapy is a change of 6 - 8mmol/L per 24 hours - achieved * evaluation to date: * TSH okay * cortisol stable * urine electrolytes appear pre-renal * SPEP/UPEP and serum/urine osmo pending * follow trend of repeat sodium levels * ultimate goal is to wean off salt tablets if possible (2) COVID-19: Code(s): U07.1 - COVID-19 Status: Acute Assessment and Plan: * as noted on admission with ER testing * on oxygen but on this at baseline * oxygen requirement have not worsened * on remdesivir * follow respiratory status (high risk given known COPD) * respiratory isolation (3) Nausea and vomiting: Code(s): R11.2 - Nausea with vomiting, unspecified Status: Acute Assessment and Plan: * due to gastroenteritis or a manifestation of #3(?) * CT imaging with moderate volume of fluid on the stomach and distal esophagus and moderate amount of stool in colon but no evidence of colitis * IV antiemetics as needed * supportive therapy (4) Urinary retention: Code(s): R33.9 - Retention of urine, unspecified Status: Acute Assessment and Plan: * as noted on admission CT scan associated with mild hydronephrosis * s/p lopez catheter placement * voiding trial when ambulation is better (5) Chronic respiratory failure with hypoxia, on home oxygen therapy: Code(s): J96.11 - Chronic respiratory failure with hypoxia; Z99.81 - Dependence on supplemental oxygen Status: Acute Assessment and Plan: * on chronic home oxygen * known history of COPD (6) Hypertension: Qualifiers: Hypertension type: primary hypertension Qualified Code(s): I10 - Essential (primary) hypertension Code(s): I10 - Essential (primary) hypertension Status: Acute Assessment and Plan: * elevated on admission * better at this time * follow trend of hemodynamics (7) Atrial fibrillation: Code(s): I48.91 - Unspecified atrial fibrillation Status: Acute Assessment and Plan: * rate control strategy * on metoprolol and diltiazem. * continue anticoagulation Will continue to follow. Subjective Date/time seen: 10/12/23 10:22 Interval history: Follow-up for acute on chronic hyponatremia. Sodium level continues to improve with current therapy/interventions; overall, feels reasonably well; no issues/events overnight or earlier this morning; no apparent distress voiced. Exam Narrative: General: elderly but WD/WN female in NAD Heart: IRRR, normal S1 and S2; no rub Lungs: coarse and decreased at bases Abdomen: soft, nontender, nondistended, positive bowel sounds Extremities: no cyanosis or clubbing; non-pitting edema noted Skin: no rash or nodules Objective Data Vital Signs Vital Signs:
--- NOTE | 2023-10-12 10:22 | PM.PNNEP ---
Progress Note: A&P Assessment and Plan (1) Hyponatremia: Code(s): E87.1 - Hypo-osmolality and hyponatremia Status: Acute Assessment and Plan: ongoing improvement noted acute on chronic baseline sodium runs around 130 - 136mmol/L acute drop in sodium multifactorial: excess free water intake urinary retention loop diuretic use COVID-19 infection nausea and vomiting chronic hyponatremia likely related to chronic lung disease (COPD, chronic oxygen therapy) improvement with current interventions: fluid restriction lasix changed to bid frequency along with addition of salt tabs goal of therapy is a change of 6 - 8mmol/L per 24 hours - achieved evaluation to date: TSH okay cortisol stable urine electrolytes appear pre-renal SPEP/UPEP and serum/urine osmo pending follow trend of repeat sodium levels ultimate goal is to wean off salt tablets if possible (2) COVID-19: Code(s): U07.1 - COVID-19 Status: Acute Assessment and Plan: as noted on admission with ER testing on oxygen but on this at baseline oxygen requirement have not worsened on remdesivir follow respiratory status (high risk given known COPD) respiratory isolation (3) Nausea and vomiting: Code(s): R11.2 - Nausea with vomiting, unspecified Status: Acute Assessment and Plan: due to gastroenteritis or a manifestation of #3(?) CT imaging with moderate volume of fluid on the stomach and distal esophagus and moderate amount of stool in colon but no evidence of colitis IV antiemetics as needed supportive therapy (4) Urinary retention: Code(s): R33.9 - Retention of urine, unspecified Status: Acute Assessment and Plan: as noted on admission CT scan associated with mild hydronephrosis s/p lopez catheter placement voiding trial when ambulation is better (5) Chronic respiratory failure with hypoxia, on home oxygen therapy: Code(s): J96.11 - Chronic respiratory failure with hypoxia; Z99.81 - Dependence on supplemental oxygen Status: Acute Assessment and Plan: on chronic home oxygen known history of COPD (6) Hypertension: Qualifiers: Hypertension type: primary hypertension Qualified Code(s): I10 - Essential (primary) hypertension Code(s): I10 - Essential (primary) hypertension Status: Acute Assessment and Plan: elevated on admission better at this time follow trend of hemodynamics (7) Atrial fibrillation: Code(s): I48.91 - Unspecified atrial fibrillation Status: Acute Assessment and Plan: rate control strategy on metoprolol and diltiazem. continue anticoagulation Will continue to follow. Subjective Date/time seen: 10/12/23 10:22 Interval history: Follow-up for acute on chronic hyponatremia. Sodium level continues to improve with current therapy/interventions; overall, feels reasonably well; no issues/events overnight or earlier this morning; no apparent distress voiced. Exam Narrative: General: elderly but WD/WN female in NAD Heart: IRRR, normal S1 and S2; no rub Lungs: coarse and decreased at bases Abdomen: soft, nontender, nondistended, positive bowel sounds Extremities: no cyanosis or clubbing; non-pitting edema noted Skin: no rash or nodules Objective Data Vital Signs Vital Signs: Vital Signs Temp Pulse Resp BP Pulse Ox O2 Del Method O2 Flow Rate 10/12/23 10:20 78 97 Nasal Cannula 2 10/12/23 10:17 78 10/12/23 08:03 97 Nasal Cannula 2 10/12/23 04:16 97 F L 78 16 128/63 94 10/12/23 04:00 61 10/12/23 00:00 67 10/11/23 20:00 99 Nasal Cannula 2 10/11/23 20:00 72 10/11/23 20:25 97.9 F 78 18 140/69 99 10/11/23 16:00 78 Intake/Output Intake/Output: Intake & Output 10/09/23 10/10/23 10/11/23 10/12/23 23:59 23:59 23:59 23:59 Intake To
[2023-10-12] MEDS: REMDESIVIR 100 MG/NS 250 ML 100 MG/250 ML BAG 250 MG IVPB (10:25)
--- NOTE | 2023-10-12 11:16 | PM.IMPN ---
Progress Note: A&P Assessment and Plan (1) Acute hyponatremia: Code(s): E87.1 - Hypo-osmolality and hyponatremia <Nimo Ray Student - Last Filed: 10/12/23 13:29> Status: Acute <Nimo LaceyYumi Ray, Student - Last Filed: 10/12/23 13:29> Assessment and Plan: Sodium 117 on admission. Sodium baseline 130-136 last month. 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 Also related to increase in free water and being on lasix. And from the urine retention. Urine studies noted with urine sodium of <5 FeNA shows likely pre-renal cause; may give IV fluids if sodium continues to hover around 126 Sodium increased to 130 today (10/11); will not be giving IV fluids -- continue fluid restriction Patient will likely be placed on fluid restriction on discharge Nephrology consulted and appreciated their input. <Nimo Ray, Student - Last Filed: 10/12/23 13:29> (2) Nausea and vomiting: Code(s): R11.2 - Nausea with vomiting, unspecified <Nimo Ray, Student - Last Filed: 10/12/23 13:29> Status: Acute <Nimo Ray, Student - Last Filed: 10/12/23 13:29> Assessment and Plan: Patient with nausea and vomiting possibly related to COVID vs gastroenteritis. Lipase normal. Nausea could be related to distended bladder. CT A/P showing moderate volume of fluid on the stomach and distal esophagus and moderate amount of stool in colon but no evidence of colitis. Also with distended urinary bladder [employer] Nausea and vomiting has resolved. No further episodes while hospitalized. <Nimo Ray, Student - Last Filed: 10/12/23 13:29> (3) COVID-19: Code(s): U07.1 - COVID-19 <Nimo Ray, Student - Last Filed: 10/12/23 13:29> Status: Acute <Nimo Ray, Student - Last Filed: 10/12/23 13:29> Assessment and Plan: Patient diagnosed with COVID on admission. Presumable positive prior to admission but poorly documented. On less O2 here then at home but high risk for worsening condition. Finish Remdesivir today (5/5 doses) Home O2 evaluation -- 2L NC recommended at rest <Nimo Ray Student - Last Filed: 10/12/23 13:29> (4) Urinary retention: Code(s): R33.9 - Retention of urine, unspecified <Nimo Ray Student - Last Filed: 10/12/23 13:29> Status: Acute <Nimo Ray Student - Last Filed: 10/12/23 13:29> Assessment and Plan: CT scan showing distended urinary bladder with mild hydronephrosis. Francis placed. UOP 1150 since Francis placed but unclear bladder volume prior to Francis placed. BUN 26 and Cr 1 on admission and better since Francis in place. Voiding trial -- able to urinate overnight; 35mL on post-void residual today Will discharge with follow-up with urology for urinary retention <Nimo Ray Student - Last Filed: 10/12/23 13:29> (5) Hydronephrosis: Code(s): N13.30 - Unspecified hydronephrosis <Nimo Ray Student - Last Filed: 10/12/23 13:29> Status: Acute <Nimo Ray Student - Last Filed: 10/12/23 13:29> Assessment and Plan: Related to above <Nimo Ray Student - Last Filed: 10/12/23 13:29> (6) Chronic respiratory failure with hypoxia, on home oxygen therapy: Code(s): J96.11 - Chronic respiratory failure with hypoxia; Z99.81 - Dependence on supplemental oxygen <Nimo Ray Student - Last Filed: 10/12/23 13:29> Status: Acute <Nimo Ray Student - Last Filed: 10/12/23 13:29> Assessment and Plan: Patient states she uses 7L during the day and 4L at sleep. Her ABG 7.41/51/73 on RA. Weaned O2 as tolerated; now on 2L at rest Home O2 evaluation today <Nimo E. Bobrowski, Student - Last Filed: 10/12/23 13:29> (7) COPD (chronic obstructive pulmonary disease): Qualifiers: COPD type: chronic bronchitis Ch
--- NOTE | 2023-10-12 12:57 | PM.DS ---
DS: Admitting Diagnosis Discharge Date 10/12/23 Admitting Diagnosis SOB and nausea DS: Discharge Diagnosis Discharge Diagnosis (1) Acute hyponatremia: Code(s): E87.1 - Hypo-osmolality and hyponatremia Status: Acute (2) Nausea and vomiting: Code(s): R11.2 - Nausea with vomiting, unspecified Status: Acute (3) COVID-19: Code(s): U07.1 - COVID-19 Status: Acute (4) Urinary retention: Code(s): R33.9 - Retention of urine, unspecified Status: Acute (5) Hydronephrosis: Code(s): N13.30 - Unspecified hydronephrosis Status: Acute (6) Chronic respiratory failure with hypoxia, on home oxygen therapy: Code(s): J96.11 - Chronic respiratory failure with hypoxia; Z99.81 - Dependence on supplemental oxygen Status: Acute (7) COPD (chronic obstructive pulmonary disease): Qualifiers: COPD type: chronic bronchitis Chronic bronchitis type: unspecified Qualified Code(s): J42 - Unspecified chronic bronchitis Code(s): J44.9 - Chronic obstructive pulmonary disease, unspecified Status: Acute (8) Hypertension: Qualifiers: Hypertension type: primary hypertension Qualified Code(s): I10 - Essential (primary) hypertension Code(s): I10 - Essential (primary) hypertension Status: Acute (9) Atrial fibrillation: Code(s): I48.91 - Unspecified atrial fibrillation Status: Acute DS: Summary Hospital Course Reason for hospitalization: 88yo female with AFib, COPD and chronic respiratory failure on home O2 here for SOB and nausea. Please see H&P for details. Hospital Course: Sodium 117 on admission. Sodium baseline 130-136 last month. 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 Also related to increase in free water and/or lasix and/or urine retention. Urine studies noted with urine sodium of <5 but was already on a fluid restriction. Sodium increased to 130. Patient with nausea and vomiting possibly related to COVID vs gastroenteritis. Lipase normal. Nausea could be related to distended bladder. CT A/P showing moderate volume of fluid on the stomach and distal esophagus and moderate amount of stool in colon but no evidence of colitis. Also with distended urinary bladder. Nausea and vomiting has resolved. Diet started and advanced without recurrence of symptoms. Patient diagnosed with COVID on admission. She has chronic respiratory failure but was on less O2 here then at home. She is still a high risk for worsening response to COVID so Remdesivir started. She completed [address] scan showing distended urinary bladder with mild hydronephrosis. Francis placed. UOP 1150 since Francis placed but unclear bladder volume prior to Francis placed. BUN 26 and Cr 1 on admission and better since Francis in place. Patient up walking. Francis removed and patient able to void normal volumes. A PVR of 34mL recorded on day of discharge. Patient states she uses 7L during the day and 4L at sleep. Her ABG 7.41/51/73 on RA. Weaned O2 as tolerated; now on 2L at rest. Home O2 evaluation showing she needs 2L at rest and 3L with activity. She overall did well and was able to be discharged on 10/12/23. Status at Discharge Cognitive/behavioral status at discharge: stable Time Spent with Patient Time attestation: Total time spent providing and/or coordinating discharge services: 35 minutes Exam Narrative: AF 97.0 128/63 78 16 97% 2L Gen - NARD Chest - clear bilaterally CV - irregularly irregular. Tele showing occasional pauses (around 2sec) Abd - Soft, NT/ND, Positive BS, bladder not distended Ext - No pedal edema Psych - Nml mood and affect Skin - Warm and dry DS: Data Data Completed and Pending Labs on day of discharge: Labs from last 24 hours 10/12/23 05:14 Sodium 130 L Potassium 3.8 Chloride 91 L Carbon Dioxide 34 H Anion Gap 5 L BUN 17 Creatinine 0.60 L Estim Creat Clear Calc 48 Estimated GFR > 60 Glu
[2023-10-13 12:59] LABS: Albumin 3.3 g/dL (3.8-4.8); Alpha 1 Globulin 0.3 g/dL (0.2-0.3); Alpha 2 Globulin 0.7 g/dL (0.5-0.9); Beta 1 Globulin 0.4 g/dL (0.4-0.6); Gamma Globulin 0.6 g/dL (0.8-1.7); Interpretation Consistent with; Protein, Total 5.5 g/dL (6.1-8.1)
[2023-10-13 19:49] LABS: Osmolality, Urine 241 mOsm/kg (50-1200)
[2023-10-22 22:37] LABS: Creatinine, Random Urine 40 mg/dL (20-275); Total Protein/Creatinine Ratio 150 mg/g creat (24-184)
--- NOTE | 2023-10-23 09:15 | PC.NURSE ---
SIf- no abnmoral bands UIF- no abnormal bands SPEP- hypogamma globulinemia UPEP- no abnormal peaks Dr. Cheek aware of findings
--- NOTE | 2023-10-23 09:24 | PC.NURSE ---
Results of SPEP faxed to Dr. Geurra. Dr. Cheek aware of findings.
== END 2023-10-12 14:29 | disposition home or self-care (01) ==
LOC: ANHED 10-09 01:58 → ANH3MED 10-09 07:33
PROVIDERS: Internal Medicine Nephrology; Admitting Provider Internal Medicine; Emergency Provider Emergency Medicine; PCP Family Medicine; Visit Provider Internal Medicine
DX: U07.1 COVID-19 (principal); E87.1 Hypo-osmolality and hyponatremia; R33.9 Retention of urine, unspecified; J96.11 Chronic respiratory failure with hypoxia; J44.9 Chronic obstructive pulmonary disease, unspecified; N13.30 Unspecified hydronephrosis; Z99.81 Dependence on supplemental oxygen; F41.1 Generalized anxiety disorder; I11.0 Hypertensive heart disease with heart failure; I50.9 Heart failure, unspecified; E03.9 Hypothyroidism, unspecified; E78.5 Hyperlipidemia, unspecified; M81.0 Age-related osteoporosis without current pathological fracture; F10.90 Alcohol use, unspecified, uncomplicated; Z87.891 Personal history of nicotine dependence; Z79.01 Long term (current) use of anticoagulants; Z79.51 Long term (current) use of inhaled steroids; Z79.899 Other long term (current) drug therapy; Z82.49 Family history of ischemic heart disease and other diseases of the circulatory system
CPT/HCPCS: 36415; 36600; 71045; 74176; 80048; 80053; 81003; 82248; 82533; 82570; 82805; 83605; 83690; 83735; 83930; 83935; 84100; 84145; 84155; 84156; 84165; 84166; 84295; 84300; 84443; 84484; 84540; 85025; 85610; 85730; 86334; 86335; 87637; 93005; 94618; 94640; 96365; 96366; 96375; 96376; 97110; 97116; 97161; 97165; 97530; 97535; 99285; A9270; G0378; J0248; J2405

== ENCOUNTER 2023-11-05 12:22 | Outpatient (CLI) | payer MEDICARE, SELFPAY ==
[2023-11-05 13:00] VITALS: PULSE 86; O2SAT 90
[2023-11-05 13:05] VITALS: PULSE 120; O2SAT 87
[2023-11-05 13:10] VITALS: PULSE 128; O2SAT 88
[2023-11-05 13:15] VITALS: PULSE 92; O2SAT 91
[2023-11-05 13:30] VITALS: PULSE 89; O2SAT 90
--- NOTE | 2023-11-05 14:04 | HOMEO2EVAL ---
Evaluation was performed at [facility] Home Oxygen Evaluation RC: Home Oxygen (O2) Evaluation Start: 11/05/23 14:01 Freq: Status: Active Protocol: RPE Activity Type Activity Date Activity User E-sign Co-sign Detail Recorded Client Recorded Date Recorded By Document 11/05/23 13:00 [email or web address] [email or web address] 11/05/23 14:04 DJO Document 11/05/23 13:05 [email or web address] [email or web address] 11/05/23 14:04 DJO Document 11/05/23 13:10 [email or web address] [email or web address] 11/05/23 14:04 DJO Document 11/05/23 13:15 [email or web address] [email or web address] 11/05/23 14:04 DJO Document 11/05/23 13:30 [email or web address] [email or web address] 11/05/23 14:04 DJO 11/05/23 11/05/23 11/05/23 13:00 13:05 13:10 Home O2 Evaluation [Oxygen] -Test Phase Resting Exercise Exercise -Oxygen Delivery Room Air Room Air Nasal Cannula -Oxygen Flow Rate (L/min) 1 [Pulse Oximetry] -Pulse Oximetry (90-100 %) 90 87 L 88 L [Pulse Rate] -Pulse Rate (60-100 beats/min) 86 120 H 128 H [Evaluation] -Activity Tolerance [Charges] -Evaluation Charges O2 Evaluation by Pulmonary 11/05/23 11/05/23 13:15 13:30 Home O2 Evaluation [Oxygen] -Test Phase Exercise Resting -Oxygen Delivery Nasal Cannula Room Air -Oxygen Flow Rate (L/min) 2 [Pulse Oximetry] -Pulse Oximetry (90-100 %) 91 90 [Pulse Rate] -Pulse Rate (60-100 beats/min) 92 89 [Evaluation] -Activity Tolerance Poor [Charges] -Evaluation Charges
== END 2023-11-05 12:23 | disposition home or self-care (01) ==
LOC: ANHLAB 12:23
PROVIDERS: PCP Family Medicine; Visit Provider Internal Medicine Pulmonary Disease
DX: J44.9 Chronic obstructive pulmonary disease, unspecified (principal)
CPT/HCPCS: 94618

== ENCOUNTER 2023-12-10 14:48 | Outpatient (CLI) | payer MEDICARE, SELFPAY ==
--- NOTE | ~2023-12-10 | US_ITS ---
EXAMINATION: US carotid duplex BI DATE: 12/10/2023 16:06 INDICATION: Occlusion and stenosis of unspecified carotid artery. TECHNIQUE: Grayscale, color Doppler, and pulsed Doppler images of the cervical carotid arteries were obtained. The degree of vessel stenosis is placed in one of the following categories: normal, <50%, 5 0-69%, >=70% but less than near-occlusion, near-occlusion, or total occlusion. Note that percent sten osis relative to normal distal artery lumen diameter is indirectly measured from velocity measurement s as described by Sravan, et al. Radiology 2003; 229:340-346. COMPARISON: Ultrasound 09/03/2011 FINDINGS: RIGHT: The right common carotid artery (CCA) peak systolic velocity (PSV) is 113 cm/s. The right internal ca rotid artery (ICA) PSV is 84 cm/s. The right ICA end-diastolic velocity (EDV) is 14 cm/s. The right I CA/CCA PSV ratio is 0.7. Grayscale and color Doppler images yield an estimate of <50% diameter reduct ion from plaque in the ICA. There is antegrade flow in the right vertebral artery. LEFT: The left CCA PSV is 72 cm/s. The left ICA PSV is 74 cm/s. The left ICA EDV is 6 cm/s. The left ICA/CC A PSV ratio is 1.0. Grayscale and color Doppler images yield an estimate of <50% diameter reduction f rom plaque in the ICA. There is antegrade flow in the left vertebral artery. IMPRESSION: 1. <50% stenosis in the right internal carotid artery. 2. <50% stenosis in the left internal carotid artery. Reviewed, dictated and finalized at location A.
== END 2023-12-10 14:49 | disposition home or self-care (01) ==
PROVIDERS: PCP Family Medicine; Visit Provider Internal Medicine Cardiovascular Disease
DX: I65.23 Occlusion and stenosis of bilateral carotid arteries (principal)
CPT/HCPCS: 93880

== ENCOUNTER 2024-01-24 12:59 | Inpatient (IN) | payer MEDICARE, SELFPAY ==
[2024-01-24] VITALS (10 sets, daily range): BP systolic 110–125; BP diastolic 68–83; PULSE 76–155; RESP 19–20; TEMP 36.6–36.8; O2SAT 94–98; BMI 27.7
--- NOTE | 2024-01-24 13:32 | ECG_ITS ---
Test Date: 2024-01-24 13:37:33 Measurements Intervals [place] Rate: 128 P: 0 [place]: 0 QRS: 92 QRSD: 80 T: 42 QT: 285 QTc: 417 Interpretive Statements ATRIAL FIBRILLATION WITH RAPID VENTRICULAR RESPONSE BORDERLINE RIGHT AXIS DEVIATION [QRS AXIS > 90] ANTEROSEPTAL MYOCARDIAL INFARCTION , OF INDETERMINATE AGE [40+ ms Q WAVE IN V1-V4] No previous ECG available for comparison Electronically Signed On 01-25-2024 12:56:02 CDT by Luis Garber M.D.
[2024-01-24 13:51] LABS: Basophils Percent Auto 0.2 % (0.2-1.2); Eosinophils Percent Auto 0.1 % (0-4.4); Hematocrit 38.6 % (37.0-47.0); Hemoglobin 12.6 g/dL (12.0-15.0); Immature Granulocyte Absolute 0.12 K/mm3 (0.00-0.031); Immature Granulocyte Percent A 0.8 % (0-0.5); Lymphocytes Absolute Auto 0.62 K/mm3 (0.9-3.2); Mean Corpuscular HGB Conc 32.6 g/dl (32-36); Mean Corpuscular Hemoglobin 32.3 pg (26-34); Mean Platelet Volume 9.8 fl (7.4-10.4); Monocytes Absolute Auto 1.2 K/mm3 (0.1-0.6); Monocytes Percent Auto 7.7 % (2.6-8.5); Neutrophils Absolute Auto 13.5 K/mm3 (1.3-6.7); Neutrophils Percent Auto 87.2 % (45.5-73.1); Platelet Count Result 362 k/mm3 (150-375); Red Cell Distribution Width 15.1 % (11.5-14.5); White Blood Count 15.4 K/mm3 (4.5-10.0)
[2024-01-24 14:02] LABS: Alveolar/Arterial O2 Gradient 54.2 mmHg; Carboxyhemoglobin 0.8 % THb (0-2.0); Fractional Inspired Oxygen 28 %; HCO3 ABG 31.6 mEq/l (22.0-26.0); Methemoglobin ABG 0.3 %THb (0-1.5); Oxygen Content ABG 16.8 %vol (16.0-22.0); Oxygen Saturation ABG 97.4 % (95.0-100.0); Oxyhemoglobin 96.3 % THb (90.0-100.0); PCO2 ABG 44.6 mmHg (35.0-45.0); PO2 ABG 92.8 mmHg (80.0-100.0); PO2 FiO2 Ratio Arterial Blood 3.31 %; Reduced Hemoglobin 2.6 %THb (0-5.0); Total Hemoglobin 12.3 g/dL (12.0-18.0); pH ABG 7.468 (7.350-7.450)
[2024-01-24 14:03] LABS: Device NASAL CANNULA; Site Drawn RIGHT BRACHIAL
[2024-01-24 14:27] LABS: INR 1.5; Prothrombin Time 18.7 Seconds (11.1-14.7)
[2024-01-24 14:28] LABS: Partial Thromboplastin Time 34.2 Seconds (22.3-36.8)
[2024-01-24 14:45] LABS: Appearance Urine Cloudy (Clear); Bacteria Urine 4+ /hpf; Bilirubin Urine Negative (Negative); Blood Urine Negative (Negative); Color Urine Yellow (Yellow); Glucose Urine UA Negative (Negative); Ketones Urine Negative (Negative); Leukocyte Esterase Ur 3+ LEU/UL (Negative); Nitrate Urine Negative (Negative); Non Pathogenic Casts 0-2; Protein Urine 1+ mg/dL (Negative); RBC Urine 0-2 /hpf (0-2); Specific Grav Ur 1.013 (1.001-1.035); Squamous Epithelial Cell Urine None Seen /hpf (Few); WBC Urine >100 /hpf (0-3)
[2024-01-24 14:46] LABS: Add Urine Microscopic? YES
[2024-01-24] MEDS: dilTIAZem HCl INJ 25 MG/5 ML VIAL 10 MG IV PUSH (14:49)
--- NOTE | 2024-01-24 14:53 | ED.GENADULT ---
HPI - General Adult General Chief complaint: Altered Mental Status Stated complaint: weakness, disoriented Time Seen by Provider: 01/24/24 13:37 History of Present Illness HPI narrative: Patient is an 88-year-old female who presents ER with new confusion and weakness. Sudden onset from yesterday. Lives in assisted living at [facility]. Was on the phone with family and was talking about how was nighttime when it was 10:00 a.m.. Was very disoriented to the day when family arrived to evaluate her. They are concerned she could have an infection. No reports of fevers or incontinence. Patient has been more sleepy. Related Data Home Medications Medication Instructions Recorded Confirmed calcium carbonate (Calcium 600) 600 mg PO DAILY 07/01/23 01/20/24 cholecalciferol (vitamin D3) 125 125 mcg PO DAILY 07/01/23 01/20/24 mcg (5,000 unit) capsule cyanocobalamin (vitamin B-12) 1,000 mcg PO DAILY 07/01/23 01/20/24 1,000 mcg capsule denosumab 60 mg/mL subcutaneous 60 mg subcut [id number] 07/01/23 01/20/24 syringe (Prolia) metoprolol succinate 25 mg 25 mg PO DAILY 10/09/23 01/20/24 tablet,extended release 24 hr Allergies Allergy/AdvReac Type Severity Reaction Status Date / Time cephalexin Allergy Unknown Rash Verified 01/24/24 13:36 Review of Systems Review of Systems: ROS unobtainable: Yes unobtainable due to mental status PMFSH Past Medical History Medical History Abdominal pain Arthritis Atrial fibrillation BMI 30.0-30.9,adult Carotid artery disease Chronic anticoagulation Chronic obstructive pulmonary disease Chronic respiratory failure with hypoxia, on home oxygen therapy Constipation E coli infection Feeling of incomplete bladder emptying Frequency of micturition Generalized anxiety disorder Hematuria Hydronephrosis Hyperlipidemia Hypertension Hypokalemia Hyponatremia Hypothyroidism Lower extremity edema Macular degeneration Osteoporosis Surgical History Surgical History History of bilateral cataract extraction History of right-sided carotid endarterectomy Family History Family History Father Hypertension Heart disease Carcinoma of colon Mother Heart disease Hypertension Breast cancer Daughter Breast cancer Social History Social History Social History: Surrogate medical decision maker: Julito Simpson, son. Code status: Full code. Smoking packs per day: 1 Smoking cigarettes per day: 20.0 Years smoked: 60 Smoking pack-years: 60.00 Smoking status: Former smoker Tobacco type: cigarettes Smoking end date: 08/11/02 Alcohol intake: current Drinks per week: 1 Substance use: never Do You Feel Safe in your Home?: Yes Lack of Transportation: No Lack of Food: Never True Current Housing: I Have Housing Concerned About Future Housing: No Difficulty Paying Gas/Electric Bills: No Difficulty Paying for Meds: No Currently Unemployed: No Education: High School Diploma/GED Difficulty w/ Childcare or Family Care: No Living arrangements: [facility] Occupation/Education: retired Spiritual care concerns: No Agree to blood products: Yes Exam Narrative: GENERAL: Well-appearing, well-nourished, and in no acute distress. HEAD: Normocephalic, atraumatic. EYES: PERRL and EOMI. ENT: Mucous membranes moist. NECK: Supple. CHEST: Clear to auscultation. No respiratory distress. HEART: Regular rate and rhythm. Normal peripheral pulses. ABDOMEN: Soft, nontender, nondistended. EXTREMITIES: Normal range of motion. No edema. SKIN: Warm, dry, no rash. NEURO: Alert and oriented x2. Course Course Emergency Course: Levaquin for UTI. Diltiazem and metoprolol for rate control. Admit to hospitalist service. Vital Sig
[2024-01-24] MEDS: levoFLOXacin 750 MG/D5W 150 ML 750 MG/150 ML BAG 100 MG IVPB (15:26)
[2024-01-24 15:39] LABS: Alanine Aminotransferase 11 U/L (6-35); Albumin Level 3.6 g/dL (3.5-5.1); Alkaline Phosphatase 90 U/L (38-126); Anion Gap 3 mmol/L (4-12); Aspartate Amino Transferase 26 U/L (14-36); Bilirubin,Total 0.8 mg/dL (0.2-1.3); Blood Urea Nitrogen 24 mg/dL (7-17); Calcium 8.9 mg/dL (8.4-10.2); Carbon Dioxide 34 mmol/L (22-30); Chloride 97 mmol/L (98-107); Estimated CRCL calculation 32 ml/min; Estimated Glomerular Filt Rate 59; Glucose 113 mg/dL (65-110); Sodium 134 mmol/L (137-145)
[2024-01-24] MEDS: METOPROLOL TARTRATE INJ 5 MG/5 ML VIAL IV PUSH (16:30)
--- NOTE | 2024-01-24 19:01 | ADMGEN ---
This patient, Katie Frances, was admitted to IMU Room 206-02 at 01/24/24 at 1820. Patient/family oriented to hospital policies and general routines including ID bracelet, bed and alarms, visiting hours, pain management, procedures, bathroom and other care routines, personal items, smoking policy, room service/diet, and visiting hours. Information on how to activate the Rapid Response Team has been discussed. Patient/Family are encouraged to report perceived risks to care and to ask questions if they do not understand what they are told or what they should do.
--- NOTE | 2024-01-24 20:03 | PM.IMHP ---
H&P: HPI History of Present Illness Date/Time: 01/24/24 20:05 Chief Complaint: Confusion. Narrative: This is a pleasant 88-year-old female with chronic respiratory failure on oxygen, chronic obstructive pulmonary disease, atrial fibrillation on chronic anticoagulation, hypertension, hyperlipidemia, hypothyroidism, and carotid artery disease status post right carotid endarterectomy who presented to the emergency department for evaluation of confusion. Patient provides the following history. Her son provides additional information, with the patient's permission. She tells me that ?I have some sort of bug? for which she has been feeling generally unwell and weak for a couple of days. Yesterday she seemed to be a bit confused and this morning her son called to check on her and she told him that she was getting ready to put on her pajamas to go to bed. She has apparently been sleeping more the last couple of days but she seemed to think it was nighttime and he brought her in for evaluation with concerns for possible underlying infection. She does not have any specific complaints at the time my evaluation and denies fever, headache, sinus congestion, sore throat, cough, abdominal pain, nausea, vomiting, diarrhea, and dysuria. In the ED: She was afebrile on arrival with stable blood pressures. She has been in rapid atrial fibrillation with rates up into the 140s and 150s. Labs were significant for WBC count of 15.4, hemoglobin 12.6, sodium 134, BUN 24. Urine is positive for 3+ leukocyte esterase, greater than 100 wbc's, and 4+ bacteria. She was given IV diltiazem and IV metoprolol with some improvement in her rates. She has been started on levofloxacin for presumed UTI and she is being admitted in this setting for further treatment. Review of Systems Review of Systems: 12 systems were reviewed and are negative except for as per HPI. [facility] Past Medical History Medical History (Updated 01/25/24 @ 14:58 by Mechelle Hunter PA-C) Arthritis Atrial fibrillation Carotid artery disease Chronic anticoagulation Chronic obstructive pulmonary disease Chronic respiratory failure with hypoxia, on home oxygen therapy E coli infection Generalized anxiety disorder Hyperlipidemia Hypertension Hypothyroidism Macular degeneration Osteoporosis Surgical History Surgical History History of bilateral cataract extraction History of right-sided carotid endarterectomy Family History Family History Father Hypertension Heart disease Carcinoma of colon Mother Heart disease Hypertension Breast cancer Daughter Breast cancer Social History Social History Social History: Surrogate medical decision maker: Julito Simpson, son. Code status: Full code. Smoking packs per day: 1 Smoking cigarettes per day: 20.0 Years smoked: 50 Smoking pack-years: 50.00 Smoking status: Former smoker Tobacco type: cigarettes Smoking end date: 08/11/02 Alcohol intake: current Drinks per week: 1 Substance use: current Substance use type: does not use Do You Feel Safe in your Home?: Yes Lack of Transportation: No Lack of Food: Never True Current Housing: I Have Housing Concerned About Future Housing: No Difficulty Paying Gas/Electric Bills: No Difficulty Paying for Meds: No Currently Unemployed: No Education: High School Diploma/GED Difficulty w/ Childcare or Family Care: No Living arrangements[place] Occupation/Education: retired Spiritual care concerns: No Agree to blood products: Yes Meds Home Medications and Allergies Home Medications Medication Instructions Recorded Confirmed Type calcium carbonate (Calcium 600) 600 mg PO DAILY 07/01/23 01/24/24 History cholecalciferol (vitamin D3) 125 125 mcg PO DAILY 1
[2024-01-24] MEDS: METOPROLOL TARTRATE 25 MG TABLET PO (21:16)
[2024-01-25] VITALS (14 sets, daily range): BP systolic 101–147; BP diastolic 47–97; PULSE 69–134; RESP 18; TEMP 36.4–37.1; O2SAT 94–100
--- NOTE | 2024-01-25 08:08 | PM.IMPN ---
Progress Note: A&P Assessment and Plan (1) Atrial fibrillation with rapid ventricular response: Code(s): I48.91 - Unspecified atrial fibrillation Status: Acute Assessment and Plan: Patient received metoprolol 5 mg IV and 25 mg PO in the ED which resolved the RVR. She remains rate controlled at this time. - Likely cause:missed medications and acute infection - EKG: Afib RVR with rate 128 - Medication: diltiazem 240 mg daily and Xarelta 15 mg daily - Telemetry - Monitor daily labs, ensure no electrolyte abnormalities (2) Urinary tract infection: Code(s): N39.0 - Urinary tract infection, site not specified Status: Acute Assessment and Plan: - UA: Cloudy appearance with 1+ protein, 2.0 urobilinogen, 3+ leukocytes, >100 WBC, 4+ bacteria - UC obtained on 01/23: pending - previous micro reviewed 08/09/23: E Coli pansensitive, with intermediate response to fluoroquinolones - started on Levaquin in the ED however due to prior micro changed to Rocephin (01/24-). Patient noted to have an allergy to keflex (rash), however Rocephin is a 3rd gen and son reports patient has had prior therapy without issue. (3) Chronic respiratory failure with hypoxia, on home oxygen therapy: Code(s): J96.11 - Chronic respiratory failure with hypoxia; Z99.81 - Dependence on supplemental oxygen Status: Acute Assessment and Plan: Chronic respiratory failure with hypoxia secondary to COPD. Baseline oxygen requirement 4L NC. Does not appear in acute exacerbation. - ABG performed in the ED without hypercapnia. Not the likely cause of acute confusion yesterday morning. (4) Hypothyroidism: Code(s): E03.9 - Hypothyroidism, unspecified Status: Acute Assessment and Plan: Chronic, continue home medications. - Levothyroxine 112 mcg daily - TSH 10/11/23: 3.850 (5) Hypertension: Qualifiers: Hypertension type: primary hypertension Qualified Code(s): I10 - Essential (primary) hypertension Code(s): I10 - Essential (primary) hypertension Status: Acute Assessment and Plan: Chronic, stable on home medications. - Diltiazem 240 mg daily - Losartan 50 mg daily - Monitor Time Spent With Patient Time with patient: 25 - 35 minutes Subjective Date/time seen: 01/25/24 08:08 Interval history: 88-year-old female with chronic respiratory failure on oxygen, chronic obstructive pulmonary disease, atrial fibrillation on chronic anticoagulation, hypertension, hyperlipidemia, hypothyroidism, and carotid artery disease status post right carotid endarterectomy who presented to the emergency department for evaluation of confusion. Patient pleasant lying comfortably in bed. She remains rate controlled on tele monitor. Baseline supplemental O2 NC in place. She continues to deny chest pain, palpitations, shortness of breath, nausea/vomting. Urinalysis is concerning for UTI and she continues to have leukocytosis on am labs. Transitioned patient from levaquin to rocephin as prior culture showed only intermediate response to levaquin. Patient denies dysuria, burning, hematuria, and increased frequency/urgency with urination. 1030: Discussed patient with son, Julito all questions answered. Son notes that patient has had prior treatment with Rocephin without issue. He notes that the UTI was possibly caused from an episode of bowel incontinence recently. Will continue to monitor at this time, but patient has been continent throughout admission. Review of Systems Review of Systems: All systems reviewed & are unremarkable except as noted in HPI and below Exam Narrative: AF HR 90 RR 18 SpO2 95 4L NC BP 138/68 General: female in no acute respiratory distress who is nontoxic appearing, lying semi recumbent in bed. HEENT: Normocephalic. Atraumatic. Pupils equal round reactive to light. Extraocular movement intact. Sclera clear and anicteric. No facial asymmetry. Chest: Lungs are clear to aus
[2024-01-25 08:58] LABS: Basophils Percent Auto 0.3 % (0.2-1.2); Eosinophils Percent Auto 0.1 % (0-4.4); Hemoglobin 11.1 g/dL (12.0-15.0); Immature Granulocyte Percent A 0.6 % (0-0.5); Lymphocytes Absolute Auto 1.11 K/mm3 (0.9-3.2); Lymphocytes Percent Auto 7.2 % (18.3-44.2); Mean Corpuscular HGB Conc 31.7 g/dl (32-36); Mean Corpuscular Hemoglobin 31.9 pg (26-34); Mean Corpuscular Volume 100.6 fl (80-100); Mean Platelet Volume 9.8 fl (7.4-10.4); Monocytes Absolute Auto 1.6 K/mm3 (0.1-0.6); Monocytes Percent Auto 10.3 % (2.6-8.5); Neutrophils Absolute Auto 12.5 K/mm3 (1.3-6.7); Neutrophils Percent Auto 81.5 % (45.5-73.1); Platelet Count Result 371 k/mm3 (150-375); Red Blood Count 3.48 M/mm3 (4.2-5.4); Red Cell Distribution Width 15.1 % (11.5-14.5); White Blood Count 15.4 K/mm3 (4.5-10.0)
[2024-01-25 09:14] LABS: Alanine Aminotransferase 9 U/L (6-35); Albumin Level 3.1 g/dL (3.5-5.1); Alkaline Phosphatase 83 U/L (38-126); Anion Gap 4 mmol/L (4-12); Aspartate Amino Transferase 20 U/L (14-36); Bilirubin,Total 0.7 mg/dL (0.2-1.3); Blood Urea Nitrogen 21 mg/dL (7-17); Calcium 8.5 mg/dL (8.4-10.2); Carbon Dioxide 33 mmol/L (22-30); Chloride 97 mmol/L (98-107); Estimated CRCL calculation 36 ml/min; Estimated Glomerular Filt Rate > 60; Glucose 97 mg/dL (65-110); Potassium 3.9 mmol/L (3.4-5.0); Sodium 134 mmol/L (137-145)
[2024-01-25] MEDS: CHOLECALCIFEROL 1,000 UNITS TABLET 5000 UNITS PO (09:39)
[2024-01-25] MEDS: CYANOCOBALAMIN 1,000 MCG TABLET 1000 MCG PO (09:39)
[2024-01-25] MEDS: CALCIUM CARBONATE (OSCAL) 500 MG TABLET PO (09:39)
[2024-01-25] MEDS: FUROSEMIDE 20 MG TABLET PO (09:40)
[2024-01-25] MEDS: dilTIAZem HCL CD 240 MG CAP.24HR PO (17:00)
[2024-01-25] MEDS: dilTIAZem HCL 60 MG TABLET PO (18:46)
[2024-01-25] MEDS: RIVAROXABAN 15 MG TABLET PO (20:27)
[2024-01-25] MEDS: LOSARTAN POTASSIUM 50 MG TABLET PO (20:27)
[2024-01-25] MEDS: ATORVASTATIN 20 MG TABLET PO (20:27)
[2024-01-26] VITALS (21 sets, daily range): BP systolic 105–133; BP diastolic 51–70; PULSE 63–123; RESP 18–26; TEMP 36.3–36.9; O2SAT 94–100
[2024-01-26 04:44] LABS: Basophils Percent Auto 0.2 % (0.2-1.2); Eosinophils Absolute Auto 0.1 K/mm3 (0-0.3); Eosinophils Percent Auto 0.5 % (0-4.4); Hematocrit 35.1 % (37.0-47.0); Hemoglobin 11.1 g/dL (12.0-15.0); Immature Granulocyte Absolute 0.18 K/mm3 (0.00-0.031); Immature Granulocyte Percent A 1.5 % (0-0.5); Lymphocytes Absolute Auto 1.71 K/mm3 (0.9-3.2); Lymphocytes Percent Auto 14.1 % (18.3-44.2); Mean Corpuscular HGB Conc 31.6 g/dl (32-36); Mean Corpuscular Hemoglobin 31.6 pg (26-34); Mean Platelet Volume 10.2 fl (7.4-10.4); Monocytes Absolute Auto 1.3 K/mm3 (0.1-0.6); Monocytes Percent Auto 10.6 % (2.6-8.5); Neutrophils Absolute Auto 8.8 K/mm3 (1.3-6.7); Neutrophils Percent Auto 73.1 % (45.5-73.1); Platelet Count Result 370 k/mm3 (150-375); Red Blood Count 3.51 M/mm3 (4.2-5.4); Red Cell Distribution Width 15.2 % (11.5-14.5); White Blood Count 12.1 K/mm3 (4.5-10.0)
[2024-01-26 04:54] LABS: Alanine Aminotransferase 8 U/L (6-35); Alkaline Phosphatase 86 U/L (38-126); Anion Gap 2 mmol/L (4-12); Aspartate Amino Transferase 21 U/L (14-36); Bilirubin,Total 0.6 mg/dL (0.2-1.3); Blood Urea Nitrogen 20 mg/dL (7-17); Calcium 8.5 mg/dL (8.4-10.2); Carbon Dioxide 37 mmol/L (22-30); Chloride 95 mmol/L (98-107); Estimated CRCL calculation 36 ml/min; Estimated Glomerular Filt Rate > 60; Glucose 99 mg/dL (65-110); Potassium 3.7 mmol/L (3.4-5.0); Sodium 134 mmol/L (137-145)
[2024-01-26] MEDS: LEVOTHYROXINE SODIUM 112 MCG TABLET PO (06:32)
--- NOTE | 2024-01-26 07:32 | PM.IMPN ---
Progress Note: A&P Assessment and Plan (1) Atrial fibrillation with rapid ventricular response: Code(s): I48.91 - Unspecified atrial fibrillation Status: Acute Assessment and Plan: Patient received metoprolol 5 mg IV and 25 mg PO in the ED which resolved the RVR. She remains rate controlled at this time. - Likely cause:missed medications and acute infection - EKG: Afib RVR with rate 128 - Medication: diltiazem 240 mg daily and Xarelta 15 mg daily - Telemetry - Monitor daily labs, ensure no electrolyte abnormalities 01/25: On exam patient found to be in AFib RVR, despite treatment with her home medication of diltiazem 240 mg. Patient given a 1 time dose of IV metoprolol 5 mg and remains rate controlled on telemetry. Will change her diltiazem dosing from nightly to b.i.d. starting in the a.m. (2) Urinary tract infection: Code(s): N39.0 - Urinary tract infection, site not specified Status: Acute Assessment and Plan: - UA: Cloudy appearance with 1+ protein, 2.0 urobilinogen, 3+ leukocytes, >100 WBC, 4+ bacteria - UC obtained on 01/23: Ecoli pansensitive - previous micro reviewed 08/09/23: E Coli pansensitive, with intermediate response to fluoroquinolones - Started on Levaquin in the ED however due to prior micro changed to Rocephin. Will be started on cefdinir in the am based on culture sensitivities. (3) Chronic respiratory failure with hypoxia, on home oxygen therapy: Code(s): J96.11 - Chronic respiratory failure with hypoxia; Z99.81 - Dependence on supplemental oxygen Status: Acute Assessment and Plan: Chronic respiratory failure with hypoxia secondary to COPD. Baseline oxygen requirement 4L NC. Does not appear in acute exacerbation. - ABG performed in the ED without hypercapnia. Not the likely cause of acute confusion yesterday morning. 01/25: Patient is on 5L NC at night. SpO2 remains > 94% overnight. Will obtain an ApneaLink to reassess nightly O2 requirement. (4) Hypothyroidism: Code(s): E03.9 - Hypothyroidism, unspecified Status: Acute Assessment and Plan: Chronic, continue home medications. - Levothyroxine 112 mcg daily - TSH 10/11/23: 3.850 (5) Hypertension: Qualifiers: Hypertension type: primary hypertension Qualified Code(s): I10 - Essential (primary) hypertension Code(s): I10 - Essential (primary) hypertension Status: Acute Assessment and Plan: Chronic, stable on home medications. - Diltiazem 240 mg daily. Will increase frequency to BID starting in the morning. - Losartan 50 mg daily - Monitor Time Spent With Patient Time with patient: 25 - 35 minutes Subjective Date/time seen: 01/26/24 07:32 Interval history: 88-year-old female with chronic respiratory failure on oxygen, chronic obstructive pulmonary disease, atrial fibrillation on chronic anticoagulation, hypertension, hyperlipidemia, hypothyroidism, and carotid artery disease status post right carotid endarterectomy who presented to the emergency department for evaluation of confusion. Patient is pleasant lying comfortably in bed. Reviewing telemetry monitoring and noted that patient remains in AFib with heart rates between 110 -130s. Patient remains asymptomatic, denying chest pain, shortness of breath, palpitations , lightheadedness and dizziness. Patient received IV 5 mg metoprolol x1 and rate remains controlled. Patient's home medication is diltiazem 240 mg nightly will change this to b.i.d. starting in the a.m. Patient urine culture growing E coli will start her on cefdinir in the a.m. she continues to deny any urinary symptoms. She has no complaints at this time. Review of Systems Review of Systems: All systems reviewed & are unremarkable except as noted in HPI and below Exam Narrative: AF HR 105 RR 18 SpO2 96 2LNC BP 118/55 General: female in no acute respiratory distress who is nontoxic appearing, lying semi recumbent in b
[2024-01-26] MEDS: UMECLIDINIUM/VILANTEROL 62.5-25 MCG ELLIPTA 1 PUFF INHALATION (09:03)
[2024-01-26] MEDS: CALCIUM CARBONATE (OSCAL) 500 MG TABLET PO (10:24)
[2024-01-26] MEDS: CHOLECALCIFEROL 1,000 UNITS TABLET 5000 UNITS PO (10:24)
[2024-01-26] MEDS: CYANOCOBALAMIN 1,000 MCG TABLET 1000 MCG PO (10:25)
[2024-01-26] MEDS: FUROSEMIDE 20 MG TABLET PO (10:25)
[2024-01-26] MEDS: METOPROLOL TARTRATE INJ 5 MG/5 ML VIAL IV PUSH (12:50)
[2024-01-26] MEDS: ACETAMINOPHEN 325 MG TABLET 650 MG PO ×2 (15:56→21:28)
[2024-01-26] MEDS: METOPROLOL TARTRATE 25 MG TABLET PO (17:27)
[2024-01-26] MEDS: RIVAROXABAN 15 MG TABLET PO (21:25)
[2024-01-26] MEDS: dilTIAZem HCL CD 240 MG CAP.24HR PO (21:25)
[2024-01-26] MEDS: LOSARTAN POTASSIUM 50 MG TABLET PO (21:25)
[2024-01-26] MEDS: ATORVASTATIN 20 MG TABLET PO (21:26)
[2024-01-27] VITALS (13 sets, daily range): BP systolic 96–115; BP diastolic 47–63; PULSE 53–102; RESP 12–32; TEMP 36.1–36.6; O2SAT 98–100
[2024-01-27 05:20] LABS: Basophils Percent Auto 0.2 % (0.2-1.2); Eosinophils Absolute Auto 0.1 K/mm3 (0-0.3); Eosinophils Percent Auto 0.6 % (0-4.4); Hematocrit 32.9 % (37.0-47.0); Hemoglobin 10.6 g/dL (12.0-15.0); Immature Granulocyte Absolute 0.14 K/mm3 (0.00-0.031); Lymphocytes Absolute Auto 1.76 K/mm3 (0.9-3.2); Lymphocytes Percent Auto 12.6 % (18.3-44.2); Mean Corpuscular HGB Conc 32.2 g/dl (32-36); Mean Corpuscular Hemoglobin 32.5 pg (26-34); Mean Corpuscular Volume 100.9 fl (80-100); Mean Platelet Volume 9.8 fl (7.4-10.4); Monocytes Absolute Auto 1.4 K/mm3 (0.1-0.6); Monocytes Percent Auto 9.7 % (2.6-8.5); Neutrophils Absolute Auto 10.6 K/mm3 (1.3-6.7); Neutrophils Percent Auto 75.9 % (45.5-73.1); Platelet Count Result 387 k/mm3 (150-375); Red Blood Count 3.26 M/mm3 (4.2-5.4); Red Cell Distribution Width 14.9 % (11.5-14.5); White Blood Count 13.9 K/mm3 (4.5-10.0)
[2024-01-27 05:33] LABS: Alanine Aminotransferase 7 U/L (6-35); Albumin Level 2.8 g/dL (3.5-5.1); Alkaline Phosphatase 78 U/L (38-126); Anion Gap 2 mmol/L (4-12); Aspartate Amino Transferase 19 U/L (14-36); Bilirubin,Total 0.5 mg/dL (0.2-1.3); Blood Urea Nitrogen 25 mg/dL (7-17); Calcium 8.8 mg/dL (8.4-10.2); Carbon Dioxide 36 mmol/L (22-30); Chloride 95 mmol/L (98-107); Estimated CRCL calculation 32 ml/min; Estimated Glomerular Filt Rate 59; Glucose 102 mg/dL (65-110); Potassium 4.3 mmol/L (3.4-5.0); Sodium 133 mmol/L (137-145)
[2024-01-27] MEDS: LEVOTHYROXINE SODIUM 112 MCG TABLET PO (06:06)
[2024-01-27] MEDS: UMECLIDINIUM/VILANTEROL 62.5-25 MCG ELLIPTA 1 PUFF INHALATION (07:10)
[2024-01-27] MEDS: CALCIUM CARBONATE (OSCAL) 500 MG TABLET PO (10:02)
[2024-01-27] MEDS: CEFDINIR 300 MG CAPSULE PO (10:02)
[2024-01-27] MEDS: dilTIAZem HCL CD 120 MG CAP.24HR PO (10:03)
[2024-01-27] MEDS: CHOLECALCIFEROL 5,000 UNITS TABLET 5000 UNITS PO (10:03)
[2024-01-27] MEDS: CYANOCOBALAMIN 1,000 MCG TABLET 1000 MCG PO (10:03)
[2024-01-27] MEDS: FUROSEMIDE 20 MG TABLET PO (10:03)
--- NOTE | 2024-01-27 15:41 | PM.IMPN ---
Progress Note: A&P Assessment and Plan (1) Atrial fibrillation with rapid ventricular response: Code(s): I48.91 - Unspecified atrial fibrillation Status: Acute Assessment and Plan: Patient received metoprolol 5 mg IV and 25 mg PO in the ED which resolved the RVR. She remains rate controlled at this time. - Likely cause:missed medications and acute infection - EKG: Afib RVR with rate 128 - Medication: diltiazem 240 mg daily and Xarelta 15 mg daily - Telemetry - Monitor daily labs, ensure no electrolyte abnormalities 01/25: On exam patient found to be in AFib RVR, despite treatment with her home medication of diltiazem 240 mg. Patient given a 1 time dose of IV metoprolol 5 mg and remains rate controlled on telemetry. Will change her diltiazem dosing from nightly to b.i.d. starting in the a.m. (2) Urinary tract infection: Code(s): N39.0 - Urinary tract infection, site not specified Status: Acute Assessment and Plan: - UA: Cloudy appearance with 1+ protein, 2.0 urobilinogen, 3+ leukocytes, >100 WBC, 4+ bacteria - UC obtained on 01/23: Ecoli pansensitive - previous micro reviewed 08/09/23: E Coli pansensitive, with intermediate response to fluoroquinolones - Started on Levaquin in the ED however due to prior micro changed to Rocephin. Will be started on cefdinir in the am based on culture sensitivities. (3) Chronic respiratory failure with hypoxia, on home oxygen therapy: Code(s): J96.11 - Chronic respiratory failure with hypoxia; Z99.81 - Dependence on supplemental oxygen Status: Acute Assessment and Plan: Chronic respiratory failure with hypoxia secondary to COPD. Baseline oxygen requirement 4L NC. Does not appear in acute exacerbation. - ABG performed in the ED without hypercapnia. Not the likely cause of acute confusion yesterday morning. 01/25: Patient is on 5L NC at night. SpO2 remains > 94% overnight. Will obtain an ApneaLink to reassess nightly O2 requirement. (4) Hypothyroidism: Code(s): E03.9 - Hypothyroidism, unspecified Status: Acute Assessment and Plan: Chronic, continue home medications. - Levothyroxine 112 mcg daily - TSH 10/11/23: 3.850 (5) Hypertension: Qualifiers: Hypertension type: primary hypertension Qualified Code(s): I10 - Essential (primary) hypertension Code(s): I10 - Essential (primary) hypertension Status: Acute Assessment and Plan: Chronic, stable on home medications. - Diltiazem 240 mg daily. Will increase frequency to BID starting in the morning. - Losartan 50 mg daily - Monitor Subjective Date/time seen: 01/27/24 15:41 Interval history: 88-year-old female with chronic respiratory failure on oxygen, chronic obstructive pulmonary disease, atrial fibrillation on chronic anticoagulation, hypertension, hyperlipidemia, hypothyroidism, and carotid artery disease status post right carotid endarterectomy who presented to the emergency department for evaluation of confusion. Review of Systems Review of Systems: All systems reviewed & are unremarkable except as noted in HPI and below Exam Narrative: AF HR General: female in no acute respiratory distress who is nontoxic appearing, lying semi recumbent in bed. HEENT: Normocephalic. Atraumatic. Pupils equal round reactive to light. Extraocular movement intact. Sclera clear and anicteric. No facial asymmetry. Chest: Lungs are clear to auscultation bilaterally. No wheezes or crackles. CV: Heart was irregularly irregular rate and rhythm. S1-S2. No murmurs, gallops, or rubs. Abd: Abdomen was soft. Nontender. Nondistended. Positive bowel sounds. No organomegaly or masses. Ext: No clubbing, cyanosis, or edema. 2+ DP pulses bilaterally. Neuro: Patient is alert and oriented x4. Cranial nerves 2-12 are intact. Speech is clear. Psych: Normal mood and affect. Patient is pleasant and cooperative. Skin: Warm and dry. No rashes noted. Obj
--- NOTE | 2024-01-27 16:01 | PM.DS ---
DS: Admitting Diagnosis Discharge Date 01/27/2024 Admitting Diagnosis Afib RVR UTI Chronic respiratory failure Hypothyroidism Hypertension DS: Discharge Diagnosis Discharge Diagnosis (1) Atrial fibrillation with rapid ventricular response: Code(s): I48.91 - Unspecified atrial fibrillation Status: Acute (2) Urinary tract infection: Code(s): N39.0 - Urinary tract infection, site not specified Status: Acute (3) Chronic respiratory failure with hypoxia, on home oxygen therapy: Code(s): J96.11 - Chronic respiratory failure with hypoxia; Z99.81 - Dependence on supplemental oxygen Status: Acute (4) Hypothyroidism: Code(s): E03.9 - Hypothyroidism, unspecified Status: Acute (5) Hypertension: Qualifiers: Hypertension type: primary hypertension Qualified Code(s): I10 - Essential (primary) hypertension Code(s): I10 - Essential (primary) hypertension Status: Acute DS: Summary Hospital Course Reason for hospitalization: Afib RVR UTI Chronic respiratory failure Hypothyroidism Hypertension Hospital Course: 88-year-old female with chronic respiratory failure on oxygen, chronic obstructive pulmonary disease, atrial fibrillation on chronic anticoagulation, hypertension, hyperlipidemia, hypothyroidism, and carotid artery disease status post right carotid endarterectomy who presented to the emergency department for evaluation of confusion. On arrival patient AOx4. A urine culture was obtained and positive for Ecoli. She was started on antibiotics and will be discharged on cefdinir to complete her antibiotic course. Patient was found to be in asymptomatic afib RVR likely due to her missing her medications as a result of the acute confusion related to the UTI. She received IV diltiazem and IV metoprolol which improved her rates and then her home PO diltiazem was restarted. Despite restarting her home diltiazem she remained in RVR. She received a dose of IV metoprolol and a dose of PO metoprolol to lower the rate. She was then started on PO 120 mg Diltiazem BID and has been rate controlled with stable blood pressures. She remains AOx4 and continues to deny chest pain, shortness of breath on her home O2, and palpitations. Patient discharged home to [facility] with home health in stable condition. PT/OT were recommending SNF however patient refused and wanted to move forward with home health. Per son she is to receive home health at his house and then return to her assisted living where she will continue with home health. Status at Discharge Functional status at discharge: uses cane/walker Time Spent with Patient Time attestation: Total time spent providing and/or coordinating discharge services: Time spent: Greater than 30 minutes Exam Narrative: AF HR 74 RR 24 SpO2 100 2LNC BP 114/47 General: female in no acute respiratory distress who is nontoxic appearing, sitting up in her chair HEENT: Normocephalic. Atraumatic. Pupils equal round reactive to light. Extraocular movement intact. Sclera clear and anicteric. No facial asymmetry. Chest: Lungs are clear to auscultation bilaterally. No wheezes or crackles. CV: Heart was irregularly irregular rate and rhythm. S1-S2. No murmurs, gallops, or rubs. Abd: Abdomen was soft. Nontender. Nondistended. Positive bowel sounds. No organomegaly or masses. Ext: No clubbing, cyanosis, or edema. 2+ DP pulses bilaterally. Neuro: Patient is alert and oriented x4. Cranial nerves 2-12 are intact. Speech is clear. Psych: Normal mood and affect. Patient is pleasant and cooperative. Skin: Warm and dry. No rashes noted. DS: Data Data Completed and Pending Labs on day of discharge: Labs from last 24 hours 01/27/24 04:53 WBC 13.9 H RBC 3.26 L Hgb 10.6 L Hct 32.9 L MCV 100.9 H MCH 32.5 MCHC 32.2 RDW 14.9 H Plt Count 387 H MPV 9.8 Immature Gran % (Auto) 1.0 H Neut % (Auto) 75.9 H Lymph % (Auto) 12.6 L [place] % (Auto
== END 2024-01-27 16:58 | disposition home health service (06) | DRG 309 ==
LOC: ANHED 14:59 → ANHIMU 18:32
PROVIDERS: Student in an Organized Health Care Education/Training Program; Admitting Provider General Practice; Emergency Provider Emergency Medicine; PCP Family Medicine; Visit Provider Internal Medicine
DX: I48.91 Unspecified atrial fibrillation (principal); J96.11 Chronic respiratory failure with hypoxia; N39.0 Urinary tract infection, site not specified; B96.20 Unspecified Escherichia coli [E. coli] as the cause of diseases classified elsewhere; E03.9 Hypothyroidism, unspecified; I10 Essential (primary) hypertension; J44.9 Chronic obstructive pulmonary disease, unspecified; E78.5 Hyperlipidemia, unspecified; I25.10 Atherosclerotic heart disease of native coronary artery without angina pectoris; M19.90 Unspecified osteoarthritis, unspecified site; F41.1 Generalized anxiety disorder; M81.0 Age-related osteoporosis without current pathological fracture; H35.30 Unspecified macular degeneration; Z91.148 Patient's other noncompliance with medication regimen for other reason; Z79.01 Long term (current) use of anticoagulants; Z99.81 Dependence on supplemental oxygen; Z98.42 Cataract extraction status, left eye; Z98.41 Cataract extraction status, right eye; Z87.891 Personal history of nicotine dependence
CPT/HCPCS: 36415; 36600; 80053; 81001; 82375; 82805; 83050; 85025; 85610; 85730; 87077; 87086; 87088; 87186; 93005; 94640; 94762; 96365; 96367; 96375; 97161; 97166; 97530; 97535; 99285; A9270; G0378; J0696; J1956

== ENCOUNTER 2024-02-10 10:31 | Inpatient (IN) | payer MEDICARE, SELFPAY ==
[2024-02-10] VITALS (33 sets, daily range): BP systolic 113–132; BP diastolic 47–79; PULSE 77–115; RESP 18–30; TEMP 36.2–36.7; O2SAT 88–100; BMI 27.8
--- NOTE | ~2024-02-10 | CT_ITS ---
CT abdomen pelvis wo con Ordering provider: Nikolai Cheek MD History: 88 years Female with . dilated right renal pelvis . Comparison: October 08, 2023 Technique: CT abdomen and pelvis without IV and without oral contrast. Automated exposure control and iterative reconstruction technique were employed. The dose-length product was 492.70 mGy-cm. Findings: VISUALIZED LOWER CHEST: Bilateral moderate to large pleural effusion more on the right side with leyla cent atelectasis. UPPER ABDOMINAL ORGANS: Liver: Normal. Gallbladder: Normal. Spleen: Status post splenectomy. Stomach/duodenum: Sliding hiatus hernia. Thickened wall of the stomach. Clinical correlation advised. Pancreas: Normal. Adrenals: Normal. Kidneys: Right hydronephrotic changes. Mild left renal pelvis. No definite stones seen in the ureters with slight dilatation of the right ureter. The distal right ureter is not well demonstrated. PELVIC ORGANS: The bladder is normal with contrast seen in the bladder.. BOWEL AND MESENTERY: Colon: No evidence of diverticulitis. Residual oral contrast is seen in the bowel. Appendix is not de monstrated. Small Bowel: Normal. No obstruction. Peritoneum/mesentery: No free air or free fluid. No mesenteric lymphadenopathy. RETROPERITONEUM: Mild atheromatous disease of the abdominal aorta. No retroperitoneal lymphadenopat hy. MUSCULOSKELETAL: Superficial soft tissues: Edema in the subcutaneous tissues. Otherwise, The superficial soft tissues are normal. Bones: Age appropriate degenerative changes of the spine. Minimal anterolisthesis at the level of L5- S1. IMPRESSION: 1. Right hydronephrotic changes with no definite stones seen in the ureters. 2. Mild dilatation of the left renal pelvis with no dilatation of the ureter or stones. 3. Bilateral pleural effusion with adjacent atelectasis. 4. Edema in the subcutaneous tissues. Reviewed, dictated and finalized at location A. IMPRESSION: 1. Right hydronephrotic changes with no definite stones seen in the ureters. 2. Mild dilatation of the left renal pelvis with no dilatation of the ureter o r stones. 3. Bilateral pleural effusion with adjacent atelectasis. 4. Edema in the subcutaneous tissues.
--- NOTE | ~2024-02-10 | XR_ITS ---
XR chest 1V portable Ordering provider: Moshe Brannon MD History: 88 years Female with . SOB. PT ON BI PAP . Comparison: October 08, 2023 FINDINGS: MEDIASTINUM: The cardiac silhouette is slightly enlarged. LUNGS: No effusion or pneumothorax. Opacification the right lung bases suggestive of pneumonia. Promi nent markings in the left lower lobe with minimal opacification also seen. Fibrotic changes seen in b oth lungs. OTHER: No free air under the diaphragm. Degenerative the spine. IMPRESSION: Bilateral basal pneumonia more on the right side. Reviewed, dictated and finalized at location A.
--- NOTE | ~2024-02-10 | US_ITS ---
EXAMINATION: US venous doppler [facility] DATE: 02/13/2024 17:24 INDICATION: Lower limb edema. TECHNIQUE: Grayscale ultrasound images without and with compression and Doppler ultrasound images of the bilateral lower extremity veins were obtained. COMPARISON: None. FINDINGS: The visualized portions of right common femoral vein, profunda (deep) femoral vein, femoral vein, pop liteal vein, peroneal veins, posterior tibial veins, and greater saphenous vein outflow are patent. The visualized portions of left common femoral vein, profunda femoral vein, femoral vein, popliteal v ein, peroneal veins, posterior tibial veins, and greater saphenous vein outflow are patent. IMPRESSION: 1. No deep venous thrombosis. Reviewed, dictated and finalized at location A.
--- NOTE | ~2024-02-10 | CT_ITS ---
CTA chest PE protocol Ordering provider: Emmanuel Da Silva MD History: 88 years Female with . R/O PE . Comparison: None. Technique: CT angiogram chest was performed following timed intravenous injection of contrast. Thin s lice axial images and reformatted coronal images were obtained. Three dimensional reformatted images of the chest were also obtained using a [employer] workstation. . Automated exposure control and iterati ve reconstruction technique were employed. The dose-length product was 242.96 mGy-cm. 100 mL Omnipaqu e 350 was given IV. Findings: PULMONARY ARTERIES: No pulmonary embolus. VISUALIZED THORACIC INLET: Normal. MEDIASTINUM: Aorta/coronary arteries: Mild atheromatous disease. Heart/other: The heart is slightly enlarged. Lymph nodes: No mediastinal or hilar adenopathy. LUNGS: Bilateral atelectasis with moderate bilateral pleural effusion more on the right side No pulmonary no dules or masses. No pneumothorax. Interstitial thickening is seen suggestive of edema. Underlying emp hysematous changes. VISUALIZED UPPER ABDOMEN: Right renal hydronephrotic changes Otherwise, the visualized upper abdomen is normal. MUSCULOSKELETAL: Soft tissues: The superficial soft tissues are normal. Bones: Age appropriate degenerative changes of the spine. IMPRESSION: 1. No pulmonary embolism. 2. Bilateral pleural effusion with bilateral basal atelectasis. 3. Dilatation of the right renal pelvis. Further evaluation advised. Reviewed, dictated and finalized at location A.
--- NOTE | ~2024-02-10 | XR_ITS ---
EXAMINATION: XR barium swallow modified DATE: 02/11/2024 10:24 INDICATION: Coughing while eating. TECHNIQUE: The patient was given barium-containing material of multiple consistencies to swallow by olga clemons speech pathologist while I performed fluoroscopy. Fluoroscopy exposure time was 2.6 minutes. The n umber of fluoroscopy images saved to the PACS was 1. Dose-area product was 1.555 Gy-cm^2. FINDINGS: There is reduced laryngeal elevation, reduced tongue base retraction, and vallecular residue. There i s laryngeal penetration with uncontrolled thin liquids via straw. IMPRESSION: 1. Laryngeal penetration. 2. Please refer to the speech therapy report for recommendations. Reviewed, dictated and finalized at location A.
--- NOTE | ~2024-02-10 | XR_ITS ---
EXAMINATION: XR chest 1V portable DATE: 02/14/2024 06:02 INDICATION: Congestive heart failure. TECHNIQUE: A single frontal view of the chest was obtained. COMPARISON: Chest single view 02/10/2024, chest CT 02/11/2024 FINDINGS: There are small pleural effusions. There are airspace opacities at the lung bases. No pneum othorax. Cardiomegaly is noted. IMPRESSION: 1. Small pleural effusions. 2. Airspace opacities at the lung bases, likely atelectasis. 3. Cardiomegaly. Reviewed, dictated and finalized at location A.
--- NOTE | 2024-02-10 11:04 | ECG_ITS ---
Test Date: 2024-02-10 11:17:52 Measurements Intervals [place] Rate: 90 P: 0 ID: 0 QRS: 86 QRSD: 84 T: 28 QT: 375 QTc: 460 Interpretive Statements ATRIAL FIBRILLATION LOW QRS VOLTAGE IN LIMB LEADS ANTEROSEPTAL MYOCARDIAL INFARCTION , OF INDETERMINATE AGE BORDERLINE ST-T WAVE ABNORMALITY- INFERIOR LEADS BASELINE ARTIFACT- I, II, III, AVR, AVL, AVF, V1-V6 ABNORMAL ECG Compared to ECG 01/24/2024 13:37:33 HEART RATE HAS DECREASED Electronically Signed On 02-10-2024 11:42:42 CDT by Joel Lockhart D.O.
[2024-02-10 11:56] LABS: Basophils Percent Auto 0.2 % (0.2-1.2); Hematocrit 36.9 % (37.0-47.0); Hemoglobin 11.3 g/dL (12.0-15.0); Immature Granulocyte Absolute 0.11 K/mm3 (0.00-0.031); Immature Granulocyte Percent A 0.7 % (0-0.5); Lymphocytes Absolute Auto 0.49 K/mm3 (0.9-3.2); Mean Corpuscular HGB Conc 30.6 g/dl (32-36); Mean Corpuscular Hemoglobin 32.5 pg (26-34); Mean Platelet Volume 9.8 fl (7.4-10.4); Monocytes Absolute Auto 1.1 K/mm3 (0.1-0.6); Monocytes Percent Auto 6.8 % (2.6-8.5); Neutrophils Absolute Auto 14.4 K/mm3 (1.3-6.7); Neutrophils Percent Auto 89.3 % (45.5-73.1); Platelet Count Result 387 k/mm3 (150-375); Red Blood Count 3.48 M/mm3 (4.2-5.4); Red Cell Distribution Width 15.8 % (11.5-14.5); White Blood Count 16.1 K/mm3 (4.5-10.0)
[2024-02-10 12:02] LABS: Alveolar/Arterial O2 Gradient 155.5 mmHg; Base Excess ABG 5.6 mEq/l (+/-2.0); Fractional Inspired Oxygen 44 %; Oxygen Content ABG 14.4 %vol (16.0-22.0); PO2 ABG 56.1 mmHg (80.0-100.0); PO2 FiO2 Ratio Arterial Blood 1.27 %; Total Hemoglobin 12.3 g/dL (12.0-18.0)
[2024-02-10 12:26] LABS: Oxygen Saturation ABG 81.4 % (95.0-100.0); Oxyhemoglobin 83.2 % THb (90.0-100.0); pH ABG 7.222 (7.350-7.450)
[2024-02-10 12:27] LABS: Device NASAL CANNULA; PCO2 ABG 89.6 mmHg (35.0-45.0); Site Drawn RIGHT BRACHIAL
--- NOTE | 2024-02-10 12:29 | PCRCNOTE ---
ABG processed late due to [employer] down time.
[2024-02-10 12:39] LABS: Macrocytosis 1+ (NORMAL); Platelet Estimate Adequate (Adequate); Schistocytes None Seen
[2024-02-10 12:44] LABS: Alanine Aminotransferase 17 U/L (6-35); Albumin Level 3.7 g/dL (3.5-5.1); Alkaline Phosphatase 84 U/L (38-126); Aspartate Amino Transferase 32 U/L (14-36); Bilirubin,Total 0.5 mg/dL (0.2-1.3); Blood Urea Nitrogen 30 mg/dL (7-17); Calcium 9.1 mg/dL (8.4-10.2); Carbon Dioxide > 40 mmol/L (22-30); Chloride 87 mmol/L (98-107); Estimated CRCL calculation 30 ml/min; Estimated Glomerular Filt Rate 47; Glucose 109 mg/dL (65-110); Potassium 4.5 mmol/L (3.4-5.0); Sodium 130 mmol/L (137-145)
[2024-02-10 12:46] LABS: Appearance Urine Clear (Clear); Bacteria Urine None Seen /hpf; Bilirubin Urine Negative (Negative); Blood Urine Negative (Negative); Color Urine Yellow (Yellow); Glucose Urine UA Negative (Negative); Ketones Urine Negative (Negative); Leukocyte Esterase Ur Trace LEU/UL (Negative); Nitrate Urine Negative (Negative); Protein Urine Negative (Negative); RBC Urine 0-2 /hpf (0-2); Specific Grav Ur 1.014 (1.001-1.035); Squamous Epithelial Cell Urine Occasional /hpf (Few); Urobilinogen Urine 0.2 mg/dL (<2.0); pH Urine 5.5 (5.0-9.0)
[2024-02-10 12:48] LABS: Add Urine Microscopic? YES
--- NOTE | 2024-02-10 12:54 | ED.GENADULT ---
HPI - General Adult General Chief complaint: Weakness Stated complaint: weakness Time Seen by Provider: 02/10/24 10:52 History of Present Illness HPI narrative: This is an 88-year-old female with a history of COPD on home oxygen presenting for altered mental status.The patient is currently responsive to voice and cannot provide any useful information. History was obtained from the daughter. Per the daughter last 3 days the patient is becoming progressively more weak and short of breath. This morning she became altered. Daughter denies any complaints of fevers chills chest pain abdominal pain or urinary symptoms. Patient is DNR DNI. Related Data Home Medications Medication Instructions Recorded Confirmed calcium carbonate (Calcium 600) 600 mg PO DAILY 07/01/23 01/24/24 cholecalciferol (vitamin D3) 125 125 mcg PO DAILY 07/01/23 01/24/24 mcg (5,000 unit) capsule cyanocobalamin (vitamin B-12) 1,000 mcg PO DAILY 07/01/23 01/24/24 1,000 mcg capsule denosumab 60 mg/mL subcutaneous 60 mg subcut [id number] 07/01/23 01/24/24 syringe (Prolia) rivaroxaban 20 mg tablet (Xarelto) 15 mg PO HS 01/24/24 01/24/24 Allergies Allergy/AdvReac Type Severity Reaction Status Date / Time cephalexin Allergy Unknown Rash Verified 01/26/24 09:54 [facility] Past Medical History Medical History Arthritis Atrial fibrillation Carotid artery disease Chronic anticoagulation Chronic obstructive pulmonary disease Chronic respiratory failure with hypoxia, on home oxygen therapy E coli infection Generalized anxiety disorder Hyperlipidemia Hypertension Hypothyroidism Macular degeneration Osteoporosis Surgical History Surgical History History of bilateral cataract extraction History of right-sided carotid endarterectomy Family History Family History Father Hypertension Heart disease Carcinoma of colon Mother Heart disease Hypertension Breast cancer Daughter Breast cancer Social History Social History Social History: Surrogate medical decision maker: Julito Simpson, son. Code status: Full code. Smoking packs per day: 1 Smoking cigarettes per day: 20.0 Years smoked: 50 Smoking pack-years: 50.00 Smoking status: Former smoker Tobacco type: cigarettes Smoking end date: 08/11/02 Alcohol intake: current Drinks per week: 1 Substance use: current Substance use type: does not use Do You Feel Safe in your Home?: Yes Lack of Transportation: No Lack of Food: Never True Current Housing: I Have Housing Concerned About Future Housing: No Difficulty Paying Gas/Electric Bills: No Difficulty Paying for Meds: No Currently Unemployed: No Education: High School Diploma/GED Difficulty w/ Childcare or Family Care: No Living arrangements: [facility] living [facility] Occupation/Education: retired Spiritual care concerns: No Agree to blood products: Yes Exam Narrative: APPEARANCE: Lethargic, alert voice Head: atraumatic. EYES: EOMI, NOSE: Atraumatic NECK: Trachea midline RESPIRATORY: decreased air entry in all chahal CARDIOVASCULAR: RRR, no peripheral edema ABDOMINAL: Non-distended soft nontender MUSCULOSKELETAl: No obvious deformities NEURO: response to voice, moves for 4 extremities SKIN:: Warm, dry. Normal color PSYCHIATRIC: lethargic Course Vital Signs Vital signs: Vital Signs Temperature 97.6 F 02/10/24 10:35 Pulse Rate 78 02/10/24 10:35 Respiratory Rate 18 02/10/24 10:35 Blood Pressure 127/61 02/10/24 10:35 Pulse Oximetry 90 02/10/24 10:35 Oxygen Delivery Nasal Cannula 02/10/24 10:35 Oxygen Flow Rate 4 02/10/24 10:35 Temperature 97.6 F 02/10/24 10:35 Pulse Rate 87 02/10/24 13:14 Respiratory Rate 19 02/09
[2024-02-10 13:05] LABS: Alveolar/Arterial O2 Gradient 110.3 mmHg; Base Excess ABG 8.2 mEq/l (+/-2.0); Fractional Inspired Oxygen 40 %; HCO3 ABG 37.8 mEq/l (22.0-26.0); Oxygen Content ABG 16.3 %vol (16.0-22.0); Oxygen Saturation ABG 93.6 % (95.0-100.0); Oxyhemoglobin 93.8 % THb (90.0-100.0); PO2 ABG 79.8 mmHg (80.0-100.0); Total Hemoglobin 12.3 g/dL (12.0-18.0)
[2024-02-10 13:06] LABS: Device NON-INVASIVE VENT; Modified Allen's Test Pass; Non-Invasive Expiratory Pressure 5 CMH2O; Non-Invasive Inspiratory Pressure 15 CMH2O; Non-Invasive Vent Rate 14 /MIN; PCO2 ABG 82.7 mmHg (35.0-45.0); Site Drawn RIGHT RADIAL; pH ABG 7.278 (7.350-7.450)
[2024-02-10] MEDS: IPRATROPIUM 0.5 MG/ALBUTEROL SULFATE 2.5 MG AMPUL.NEB 3 ML 12 ML INHALATION (13:14)
[2024-02-10] MEDS: dexAMETHasone SOD PHOS INJ 10 MG/ML 1 ML VIAL IV PUSH (13:34)
--- NOTE | 2024-02-10 14:19 | PM.IMHP ---
H&P: HPI History of Present Illness Date/Time: 02/10/24 14:30 Chief Complaint: Weakness and shortness of breath. Narrative: This is a pleasant 88-year-old female with chronic respiratory failure on 2 to 3 L nasal cannula, chronic obstructive pulmonary disease, atrial fibrillation on chronic anticoagulation, hypertension, hyperlipidemia, hypothyroidism, and carotid artery disease status post right carotid endarterectomy who presented to the emergency department for evaluation of weakness and shortness of breath. The patient provides the following history and her daughter provides additional information, with the patient's permission. She is known to myself and the hospitalist service from an admission last month in which she was treated for rapid atrial fibrillation and urinary tract infection. She had been doing okay up until the last week when daughter noticed that she began having periods of confusion and increased weakness. She is also having coughing episodes, sometimes while eating, and she has seemed more short of breath than usual. This morning daughter checked on her at about 04:30 and the patient had taken her oxygen off and seemed to be working quite hard to breathe. She has a pulse oximeter at home and daughter reports that her SpO2 has gotten down into the 50s when ambulating the last few days. There were no reports of fever, cold or flu symptoms, vomiting, or diarrhea. Daughter is not concerned for possible aspiration. In the ED: She was afebrile on arrival with stable vital signs. SpO2 was 90 to 91% on her usual 4 L nasal cannula on EMS arrival. Labs were significant for a WBC count of 16.1, hemoglobin 11.3, sodium 130, chloride 87, carbon dioxide greater than 40, BUN 30, creatinine 1.10. Chest x-ray shows bilateral basal pneumonia, greater on the right. ABG showed a pH of 7.222, pCO2 89.6, PO2 56.1, bicarb 36.0. She received a nebulizer treatment, steroids, and has been started on antibiotics and she is being admitted in this setting for further treatment. At the time my evaluation the patient's daughter states that she is more awake however she still remains confused but does answer some questions appropriately. She has no current complaints aside from the fact that the room was cold. Review of Systems Review of Systems: 12 systems were reviewed and are negative except for as per HPI. [facility] Past Medical History Medical History Arthritis Atrial fibrillation Carotid artery disease Chronic anticoagulation Chronic obstructive pulmonary disease Chronic respiratory failure with hypoxia, on home oxygen therapy E coli infection Generalized anxiety disorder Hyperlipidemia Hypertension Hypothyroidism Macular degeneration Osteoporosis Surgical History Surgical History History of bilateral cataract extraction History of right-sided carotid endarterectomy Family History Family History Father Hypertension Heart disease Carcinoma of colon Mother Heart disease Hypertension Breast cancer Daughter Breast cancer Social History Social History Social History: Surrogate medical decision maker: Julito Simpson, son. Code status: Full code. Smoking packs per day: 1 Smoking cigarettes per day: 20.0 Years smoked: 50 Smoking pack-years: 50.00 Smoking status: Former smoker Tobacco type: cigarettes Smoking end date: 08/11/02 Alcohol intake: never Drinks per week: 1 Substance use: never Substance use type: does not use Do You Feel Safe in your Home?: Yes Lack of Transportation: No Lack of Food: Never True Current Housing: I Have Housing Concerned About Future Housing: No Difficulty Paying Gas/Electric Bills: No Difficulty Paying for Meds: No Currently U
[2024-02-10] MEDS: SODIUM CHLORIDE 0.9% IV 1,000 ML 999 ML IV CONT (14:30)
[2024-02-10 15:04] LABS: MRSA (PCR) NOT DETECTED (NOT DETECTE)
[2024-02-10] MEDS: PIPERACILLN/TAZ 3.375GM/NS50ML 3.375 GM/50 ML BAG IVPB (15:35)
[2024-02-10] MEDS: AZITHROMYCIN 500 MG/NS 250 ML 500 MG/250 ML BAG 250 MG IVPB (16:10)
--- NOTE | 2024-02-10 17:04 | ADMGEN ---
This patient, Katie Frances, was admitted to IMU Room 232-01. Patient/family oriented to hospital policies and general routines including ID bracelet, bed and alarms, visiting hours, pain management, procedures, bathroom and other care routines, personal items, smoking policy, room service/diet, and visiting hours. Information on how to activate the Rapid Response Team has been discussed. Patient/Family are encouraged to report perceived risks to care and to ask questions if they do not understand what they are told or what they should do.
[2024-02-10] MEDS: methylPREDNISolone SOD SUCC 125 MG VIAL 60 MG IV PUSH (18:01)
[2024-02-10] MEDS: VANCOMYCIN 1,750 MG/NS 500 ML 1,750 MG/500 ML BAG 250 MG IVPB (18:29)
[2024-02-10] MEDS: IPRATROPIUM 0.5 MG/ALBUTEROL SULFATE 2.5 MG AMPUL.NEB 3 ML INHALATION (19:34)
[2024-02-10 19:50] LABS: Alveolar/Arterial O2 Gradient 74.2 mmHg; Base Excess ABG 10.3 mEq/l (+/-2.0); Fractional Inspired Oxygen 30 %; HCO3 ABG 38.4 mEq/l (22.0-26.0); Oxygen Content ABG 15.3 %vol (16.0-22.0); PO2 ABG 56.9 mmHg (80.0-100.0); Total Hemoglobin 12.2 g/dL (12.0-18.0); pH ABG 7.354 (7.350-7.450)
[2024-02-10 19:56] LABS: PCO2 ABG 70.5 mmHg (35.0-45.0)
[2024-02-10 19:57] LABS: Device NON-INVASIVE VENT; Modified Allen's Test Pass; Oxygen Saturation ABG 87.1 % (95.0-100.0); Site Drawn RIGHT RADIAL
[2024-02-10 19:58] LABS: Non-Invasive Expiratory Pressure 6 CMH2O; Non-Invasive Inspiratory Pressure 18 CMH2O; Non-Invasive Vent Rate 20 /MIN
[2024-02-10 21:07] LABS: Influenza A QL RT-PCR Negative (Negative); Influenza B QL RT-PCR Negative (Negative); RSV RNA, RT-PCR Negative (Negative); SARS-CoV-2 RNA PCR Negative (Negative)
[2024-02-10] MEDS: dilTIAZem HCL CD 120 MG CAP.24HR PO (21:55)
[2024-02-10] MEDS: FUROSEMIDE INJ 40 MG/4 ML VIAL IV PUSH (21:56)
[2024-02-11] VITALS (33 sets, daily range): BP systolic 99–128; BP diastolic 47–86; PULSE 70–142; RESP 20–25; TEMP 35.8–36.7; O2SAT 80–100; BMI 27.8
[2024-02-11] MEDS: IPRATROPIUM 0.5 MG/ALBUTEROL SULFATE 2.5 MG AMPUL.NEB 3 ML INHALATION ×2 (02:30→08:23)
[2024-02-11 04:40] LABS: Hematocrit 34.2 % (37.0-47.0); Hemoglobin 11.1 g/dL (12.0-15.0); Lymphocytes Absolute Auto 0.47 K/mm3 (0.9-3.2); Lymphocytes Percent Auto 22.3 % (18.3-44.2); Mean Corpuscular HGB Conc 32.5 g/dl (32-36); Mean Corpuscular Hemoglobin 32.3 pg (26-34); Mean Corpuscular Volume 99.4 fl (80-100); Mean Platelet Volume 9.6 fl (7.4-10.4); Monocytes Percent Auto 0.5 % (2.6-8.5); Neutrophils Absolute Auto 1.6 K/mm3 (1.3-6.7); Neutrophils Percent Auto 77.2 % (45.5-73.1); Platelet Count Result 378 k/mm3 (150-375); Red Blood Count 3.44 M/mm3 (4.2-5.4); Red Cell Distribution Width 15.9 % (11.5-14.5); White Blood Count 2.1 K/mm3 (4.5-10.0)
[2024-02-11 04:52] LABS: Anion Gap 5 mmol/L (4-12); Blood Urea Nitrogen 33 mg/dL (7-17); Calcium 8.9 mg/dL (8.4-10.2); Carbon Dioxide 37 mmol/L (22-30); Chloride 90 mmol/L (98-107); Estimated CRCL calculation 30 ml/min; Estimated Glomerular Filt Rate 47; Glucose 110 mg/dL (65-110); Magnesium 1.8 mg/dL (1.6-2.3); Potassium 4.8 mmol/L (3.4-5.0); Sodium 132 mmol/L (137-145)
[2024-02-11] MEDS: methylPREDNISolone SOD SUCC 125 MG VIAL 60 MG IV PUSH ×3 (06:15→12:21)
[2024-02-11] MEDS: dilTIAZem HCL CD 120 MG CAP.24HR PO ×2 (08:46→22:06)
[2024-02-11] MEDS: CYANOCOBALAMIN 1,000 MCG TABLET 1000 MCG PO (08:46)
[2024-02-11] MEDS: FUROSEMIDE 20 MG TABLET PO ×2 (08:46→17:21)
[2024-02-11] MEDS: CHOLECALCIFEROL 5,000 UNITS TABLET 5000 UNITS PO (08:46)
--- NOTE | 2024-02-11 11:07 | PCSTNOTE ---
Please refer to the Modified Barium Swallow Evaluation in the EMR.
--- NOTE | 2024-02-11 12:10 | PM.CNPUL ---
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 CT angiogram of the chest on 09/06/2021 report states moderate centrilobular emphysema. Echocardiogram 11 with an LVEF of 65-70, dilated right atrium, mild to moderate tricuspid regurgitation with RVSP 65-70. Patient requires 4 L at rest, 7 L with exertion and 3 L at night a more recently had a home O2 assessment on 10/11/2023 requiring 2 L at rest and 3 with activity. Currently patient with worsening oxygenation, bibasilar infiltrates, leukocytosis without any wheezing, Phlegm production, change in volume of phlegm. I do not think she has if he is having a COPD exacerbation. COVID, influenza, RSV negative. she has worsening pedal edema per the family and may have a component of fluid overload. 02/11/24: Plan: I will discontinue IV Solu-Medrol. I will discontinue the DuoNebs q.6 hours and the Anoro Ellipta in place her on levalbuterol 1.25 nebulized q.6 hours and ipratropium 0.5 nebulized q.6 hours as she is tachycardic. I will continue treatment for pneumonia with ceftriaxone and azithromycin, day 2. I will check a D-dimer and if positive will obtain a CT angiogram of the chest, and if negative will do a CTA at of the chest without contrast. I will order an echocardiogram to assess her LV function, RV function and valvular function. She has worsening pedal edema. Will follow with you. (2) Community acquired pneumonia: Code(s): J18.9 - Pneumonia, unspecified organism Status: Acute Assessment and Plan: will continue treatment for community-acquired pneumonia. COVID, influenza, RSV RT PCR studies negative. Legionella and pneumococcal urine studies pending. Mycoplasma I would GM pending. 02/10/2023: Continue ceftriaxone and azithromycin, both day 2. I will send respiratory pathogen panel. (3) Acute on chronic respiratory failure with hypoxia and hypercapnia: Code(s): J96.21 - Acute and chronic respiratory failure with hypoxia; J96.22 - Acute and chronic respiratory failure with hypercapnia Status: Acute Assessment and Plan: Patient with COPD, FEV1 of 0.87 L, 52% predicted, ratio 49%, actual DLCO 32%, centrilobular emphysema on her CT scan and chronic hypercarbic and hypoxemic respiratory failure. She presented with a blood gas of 7.22/90/56 and a serum bicarbonate greater than 40. patient has chronic hypercarbic respiratory failure from her COPD. Patient would benefit from noninvasive ventilation to prevent further deterioration and hospitalization. 02/11/2024: I have pace the patient on BiPAP and adjusted the settings to comfort resulting in a rate of 20, pressures 16/4, inspiratory time 1.2, rise of 5 which is are slowest and 36% FiO2 with saturations 98%. plan: I will obtain ABG in the morning on these settings to assess ventilation. History of Present Illness History of Present Illness Consult date: 02/11/24 Chief complaint: pna,resp failure Narrative: 02/11/2024: This is a new pulmonary consult for COPD with hypercarbic respiratory failure. Patient is followed in the Pulmonary Clinic and last seen on 01/20/2024. 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 CT angiogram of the chest on
--- NOTE | 2024-02-11 12:19 | ECHO_ITS ---
Patient Info Name: Katie Frances Age: 88 years : 1935 Gender: Female Ht: 63 in Wt: 157 lbs BSA: 1.80 m2 HR: 106 bpm BP: 123 / 86 mmHg Heart Rhythm: Atrial Fibrillation Technical Quality: Fair Exam Date: 02/11/2024 1:11 PM Exam Location: Echo Lab Patient Status: Inpatient Admit Date: 02/10/2024 Staff Ordering Physician: Emmanuel Da Silva MD Connection Worker: Daly Garcia RDCS Attending Provider: Estuardo Olivares MD Referring Physician: Avinash GUERRERO; Exam Type: CA echo dop color flow w con Study Info Indications - Assess LV, RV and Valves Complete two-dimensional, color flow and Doppler transthoracic echocardiogram is performed with contrast to opacify the left ventricle and to improve the deliniation of the left ventricle endocardial borders. Contrast/Agitated Saline Contrast/Ag. Saline: Definity Amount: 2.00 ml Administered By: Daly Garcia RDCS Existing IV Access: Yes IV Access Condition: patent with no signs of infiltration Summary 1. Definity contrast administered improved wall motion interpretation. 2. Left ventricular chamber dimension is normal. 3. Left ventricular systolic function is hyperdynamic, estimated at >70%. 4. The left ventricular diastolic function is abnormal. 5. E/e' 13 is mildly elevated. 6. Atrial fibrillation. 7. Right ventricular chamber dimension is moderately enlarged. 8. Right ventricular systolic function is moderately reduced and with abnormal TAPSE 1.4 cm. 9. Left atrial chamber dimension is moderately enlarged. 10. Right atrial chamber dimension is moderately enlarged. 11. There is mild aortic valve sclerosis. 12. There is mild tricuspid valve regurgitation. 13. No pulmonary hypertension, estimated pulmonary arterial systolic pressure is 38 mmHg. 14. There is trace pulmonic regurgitation. 15. Normal inferior vena cava with <50% collapse upon inspiration consistent with elevated right atrial pressure, 10 mmHg. 16. There is trivial pericardial effusion. Left Ventricle Atrial fibrillation. E/e' 13 is mildly elevated. Definity contrast administered improved wall motion interpretation. Left ventricular chamber dimension is normal. Left ventricular systolic function is hyperdynamic, estimated at >70%. The left ventricular diastolic function is abnormal. Right Ventricle Right ventricular systolic function is moderately reduced and with abnormal TAPSE 1.4 cm. Right ventricular chamber dimension is moderately enlarged. Left Atria Left atrial chamber dimension is moderately enlarged. Right Atria Right atrial chamber dimension is moderately enlarged. Aortic Valve The aortic valve is trileaflet. There is mild aortic valve sclerosis. There is no aortic valve stenosis. There is no aortic valve regurgitation. Pulmonic Valve There is trace pulmonic regurgitation. Mitral Valve There is no mitral valve stenosis. There is no mitral valve regurgitation. Tricuspid Valve There is mild tricuspid valve regurgitation. No pulmonary hypertension, estimated pulmonary arterial systolic pressure is 38 mmHg. Pericardium/Pleural There is trivial pericardial effusion. Inferior Vena Cava Normal inferior vena cava with <50% collapse upon inspiration consistent with elevated right atrial pressure, 10 mmHg. Aorta The aortic root size at the sinus of Valsalva is normal. Left Ventricular Outflow Tract Name Value Normal
[2024-02-11] MEDS: METOPROLOL TARTRATE 25 MG TABLET PO ×2 (12:22→22:06)
[2024-02-11] MEDS: PERFLUTREN LIPID MICROSPHERES 1.5 ML VIAL DILUTED TO 10 ML TOTAL VOLUME IV PUSH (13:17)
[2024-02-11 13:22] LABS: NT Pro B Type Natriuretic Pept 2460 pg/mL (19.9-100)
[2024-02-11 13:26] LABS: D Dimer 1.25 ug/mL (<0.48)
[2024-02-11] MEDS: LEVALBUTEROL NEB 1.25 MG/3 ML INHALATION ×2 (14:20→20:32)
[2024-02-11] MEDS: IPRATROPIUM BR 0.02% INH SOLN 0.5 MG/2.5 ML VIAL INHALATION ×2 (14:20→20:32)
--- NOTE | 2024-02-11 14:21 | IVDEFINITY ---
Prior to administration of IV Definity the patient was educated on the risks and benefits of the imaging enhancing agent including potential adverse side effects. The patient verbalized understanding. Allergies were verified. No exclusion criteria were identified and at least one of the following inclusion criteria were met: 1) physician request, 2) patient technically difficult to image (per the [place] [employer]chocardi[employer] guidelines of two or more segments not discernable within the apical view), or 3) questionable left ventricular function. ?
--- NOTE | 2024-02-11 15:52 | PM.IMPN ---
Progress Note: A&P Assessment and Plan (1) Acute on chronic respiratory failure with hypoxia and hypercapnia: Code(s): J96.21 - Acute and chronic respiratory failure with hypoxia; J96.22 - Acute and chronic respiratory failure with hypercapnia Status: Acute Assessment and Plan: pt weaned off BIPAP successfully ABG repeated this morning Pulmology rounding (2) Community acquired pneumonia: Code(s): J18.9 - Pneumonia, unspecified organism Status: Acute Assessment and Plan: Pt on iv rocephn and zithromax and iv vancomycin (3) Chronic obstructive pulmonary disease: Code(s): J44.9 - Chronic obstructive pulmonary disease, unspecified Status: Acute Assessment and Plan: IV steroids added watch glucose levels Add breathing treatments (4) Atrial fibrillation: Code(s): I48.91 - Unspecified atrial fibrillation Status: Acute Assessment and Plan: continue home meds diltiazem bb added to low heart rate pt was tachycardic in AM (5) Chronic anticoagulation: Code(s): Z79.01 - [facility] (current) use of anticoagulants Status: Acute Assessment and Plan: continue xarelto (6) Hypothyroidism: Code(s): E03.9 - Hypothyroidism, unspecified Status: Acute Assessment and Plan: continue levothyroxine Subjective Date/time seen: 02/11/24 15:52 Interval history: Pt weaned off bipap currently on [address] Muñoz Pulmology on board Daughter states she did not feel well since discharge home from [facility] Pt was here previously with UTI This time pt admitted with Pneumonia and acute respiratory failure with h/o of COPD Review of Systems Review of Systems: Cough sob Exam Const: General: in distress and other (SOB cough ) Nutritional Appearance: overweight Orientation/consciousness: oriented to person HENMT: Head: normal to inspection Resp: Effort & Inspection: no respiratory distress Auscultation: crackles (BL) and rhonchi (BL) Cardio: Rate: regular rate Rhythm: regular rhythm GI: Inspection: normal to inspection GI Palp: No abdominal tenderness, No Guarding due to palpation present (GI) and No Hepatomegaly present Auscultation: normal bowel sounds Neuro: General: oriented to person Objective Data Vital Signs Vital Signs: Vital Signs - 24 hr 02/10/24 16:00 02/10/24 16:15 02/10/24 16:50 Temperature Pulse Rate 84 89 115 H Respiratory Rate 18 18 20 Blood Pressure 122/64 125/49 L Pulse Oximetry 99 98 94 Oxygen Delivery BiPAP Oxygen Flow Rate Fraction of Inspired Oxygen 02/10/24 16:50 02/10/24 17:00 02/10/24 18:02 Temperature 36.7 C Pulse Rate 89 102 H Respiratory Rate 29 H 27 H Blood Pressure 116/76 Pulse Oximetry 94 100 97 Oxygen Delivery BiPAP BiPAP Oxygen Flow Rate Fraction of Inspired Oxygen 40 02/10/24 18:26 02/10/24 18:00 02/10/24 17:00 Temperature Pulse Rate 100 Respiratory Rate Blood Pressure Pulse Oximetry 95 Oxygen Delivery BiPAP BiPAP Oxygen Flow Rate Fraction of Inspired Oxygen 30 40 02/10/24 17:00 02/10/24 20:16 02/10/24 20:00 Temperature 36.2 C L Pulse Rate 101 H 111 H 100 Respiratory Rate 22 H Blood Pressure 126/65 Pulse Oximetry 100 Oxygen Delivery Oxygen Flow Rate Fraction of Inspired Oxygen 02/10/24 20:00 02/10/24 22:00 02/10/24 19:40 Temperature Pulse Rate 100 110 H 109 H Respiratory Rate 22 H 30 H Blood Pressure Pulse Oximetry 100 91 Oxygen Delivery BiPAP BiPAP Oxygen Flow Rate Fraction of Inspired Oxygen 30 02/10/24 19:46 02/11/24 00:00 02/11/24 00:00 Temperature Pulse Rate 109 H 110 H 110 H Respiratory Rate 30 H 22 H Blood Pressure Pulse Oximetry 100 Oxygen Delivery BiPAP Oxygen Flow Rate Fraction of Inspired Oxygen 30 02/11/24 00:00 02/11/24 02:00 02/11/24 02:33 Temperature 36.7 C Pulse Rate 124 H 114 H 118 H Respir
[2024-02-11] MEDS: AZITHROMYCIN 500 MG/NS 250 ML 500 MG/250 ML BAG 250 MG IVPB (16:02)
--- NOTE | 2024-02-11 16:32 | PC.NURSE ---
patient needs several verbal cues to slow down when eating.
[2024-02-11] MEDS: ATORVASTATIN 20 MG TABLET PO (22:06)
[2024-02-11] MEDS: LOSARTAN POTASSIUM 50 MG TABLET PO (22:06)
[2024-02-11] MEDS: RIVAROXABAN 15 MG TABLET PO (22:07)
[2024-02-12] VITALS (26 sets, daily range): BP systolic 105–158; BP diastolic 45–68; PULSE 74–96; RESP 16–22; TEMP 36.3–37.4; O2SAT 92–100
[2024-02-12] MEDS: IPRATROPIUM BR 0.02% INH SOLN 0.5 MG/2.5 ML VIAL INHALATION ×4 (01:40→19:48)
[2024-02-12] MEDS: LEVALBUTEROL NEB 1.25 MG/3 ML INHALATION ×4 (01:40→19:47)
[2024-02-12 04:57] LABS: Alveolar/Arterial O2 Gradient 118.8 mmHg; Fractional Inspired Oxygen 36 %; HCO3 ABG 34.9 mEq/l (22.0-26.0); Oxygen Content ABG 14.9 %vol (16.0-22.0); Oxygen Saturation ABG 96.5 % (95.0-100.0); Oxyhemoglobin 95.9 % THb (90.0-100.0); PCO2 ABG 48.8 mmHg (35.0-45.0); PO2 ABG 81.3 mmHg (80.0-100.0); PO2 FiO2 Ratio Arterial Blood 2.26 %; pH ABG 7.472 (7.350-7.450)
[2024-02-12 04:58] LABS: Device NON-INVASIVE VENT; Modified Allen's Test Pass; Site Drawn RIGHT RADIAL
[2024-02-12 04:59] LABS: Non-Invasive Expiratory Pressure 4 CMH2O; Non-Invasive Inspiratory Pressure 16 CMH2O; Non-Invasive Vent Rate 20 /MIN
[2024-02-12] MEDS: LEVOTHYROXINE SODIUM 112 MCG TABLET PO (06:11)
[2024-02-12 08:54] LABS: Hemoglobin 10.6 g/dL (12.0-15.0); Immature Granulocyte Absolute 0.02 K/mm3 (0.00-0.031); Immature Granulocyte Percent A 0.3 % (0-0.5); Lymphocytes Absolute Auto 0.46 K/mm3 (0.9-3.2); Lymphocytes Percent Auto 7.9 % (18.3-44.2); Mean Corpuscular HGB Conc 32.1 g/dl (32-36); Mean Corpuscular Hemoglobin 31.9 pg (26-34); Mean Corpuscular Volume 99.4 fl (80-100); Mean Platelet Volume 9.9 fl (7.4-10.4); Monocytes Absolute Auto 0.4 K/mm3 (0.1-0.6); Monocytes Percent Auto 7.5 % (2.6-8.5); Neutrophils Absolute Auto 4.9 K/mm3 (1.3-6.7); Neutrophils Percent Auto 84.3 % (45.5-73.1); Platelet Count Result 309 k/mm3 (150-375); Red Blood Count 3.32 M/mm3 (4.2-5.4); Red Cell Distribution Width 16.6 % (11.5-14.5); White Blood Count 5.9 K/mm3 (4.5-10.0)
[2024-02-12 09:05] LABS: Albumin Level 3.5 g/dL (3.5-5.1); Anion Gap 6 mmol/L (4-12); Blood Urea Nitrogen 50 mg/dL (7-17); Calcium 8.5 mg/dL (8.4-10.2); Carbon Dioxide 33 mmol/L (22-30); Chloride 91 mmol/L (98-107); Estimated CRCL calculation 29 ml/min; Estimated Glomerular Filt Rate 42; Glucose 150 mg/dL (65-110); Potassium 4.1 mmol/L (3.4-5.0); Sodium 130 mmol/L (137-145)
--- NOTE | 2024-02-12 10:23 | PM.PNPUL ---
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 CT angiogram of the chest on 09/06/2021 report states moderate centrilobular emphysema. Echocardiogram 11 with an LVEF of 65-70, dilated right atrium, mild to moderate tricuspid regurgitation with RVSP 65-70. Patient requires 4 L at rest, 7 L with exertion and 3 L at night. a more recently had a home O2 assessment on 10/11/2023 requiring 2 L at rest and 3 with activity. A more recent home O2 assessment on 11/05/2023 demonstrated no oxygen at need rest and 2 with activity. Currently patient with worsening oxygenation, bibasilar infiltrates, leukocytosis without any wheezing, Phlegm production, change in volume of phlegm. I do not think she has if he is having a COPD exacerbation. COVID, influenza, RSV negative. she has worsening pedal edema per the family and may have a component of fluid overload. 02/11/24: Plan: I will discontinue IV Solu-Medrol. I will discontinue the DuoNebs q.6 hours and the Anoro Ellipta in place her on levalbuterol 1.25 nebulized q.6 hours and ipratropium 0.5 nebulized q.6 hours as she is tachycardic. I will continue treatment for pneumonia with ceftriaxone and azithromycin, day 2. I will check a D-dimer and if positive will obtain a CT angiogram of the chest, and if negative will do a CTA at of the chest without contrast. I will order an echocardiogram to assess her LV function, RV function and valvular function. She has worsening pedal edema. 02/12/2024: Patient has no shortness of breath complaints at rest. She said she slept well with the BiPAP on last night. She denies fever, chills, cough, phlegm production or hemoptysis. currently the patient is on 3 L nasal cannula saturations 98%. I decreased her to 2 L nasal cannula her saturations were 96%. plan: I do not believe the patient has a COPD exacerbation. She says the nebulizers do help her and I will continue levalbuterol 1.25 nebulize q.6 and ipratropium 0.5 nebulized q.6. Tachycardia has improved. If breathing is stable tomorrow will switch back to her home regiment of Anoro Ellipta. I am concerned that patient's current deterioration is more related to fluid overload. Patient's creatinine has increased slightly from 1.1-1.2, she did receive CT angiogram of the chest yesterday. Currently she is on increased dose of Lasix from her home dose of 20 q.day to 20 b.i.d.. Her weight today is 77.5 which is likely an error from an admission weight of 71.5. Diuresis per hospitalist. Discussed with Dr. Cheek. Will follow with you. (2) Community acquired pneumonia: Code(s): J18.9 - Pneumonia, unspecified organism Status: Acute Assessment and Plan: will continue treatment for community-acquired pneumonia. COVID, influenza, RSV RT PCR studies negative. Legionella and pneumococcal urine studies pending. Mycoplasma I would GM pending. 02/10/2023: Continue ceftriaxone and azithromycin, both day 2. I will send respiratory pathogen panel. 02/12/24: Patient did have a leukocytosis when she presented but her white blood cell count today is 5.9, she is afebrile, CT scan shows no evidence of a focal bacterial pneumonia but is more suggestive of fluid overload. She has no sputum production. respiratory pathogen panel pending. Urine Legionella, urine pneumococcal and mycoplasma IgM pending. Plan: Low likelihood that this is a pneumonia and
[2024-02-12] MEDS: METOPROLOL TARTRATE 25 MG TABLET PO ×2 (11:00→20:20)
[2024-02-12] MEDS: CHOLECALCIFEROL 5,000 UNITS TABLET 5000 UNITS PO (11:00)
[2024-02-12] MEDS: CYANOCOBALAMIN 1,000 MCG TABLET 1000 MCG PO (11:00)
[2024-02-12] MEDS: FUROSEMIDE 20 MG TABLET PO (11:00)
--- NOTE | 2024-02-12 11:12 | PM.IMPN ---
Progress Note: A&P Assessment and Plan (1) Acute on chronic respiratory failure with hypoxia and hypercapnia: Code(s): J96.21 - Acute and chronic respiratory failure with hypoxia; J96.22 - Acute and chronic respiratory failure with hypercapnia Status: Acute Assessment and Plan: Patient presents with acute on chronic resp failure. She normally wears 2-3L daily. She does not have bipap at home. She presents in resp distress requiring bipap support. Treated with lasix IV once, steroids IV and abx IV. CXR showing bilateral PNA. CTA chest performed due to +DDimer showing no PE but biltaeral pleural effusions and atelectasis with interstital thickening to suggest edema. Echo showing EF >70% wiht diastolic dysfunction and RV enlargement and moderately reduced function. No pulm HTN. BNP 2460 COPD exacerbation was considered but felt less likely. [place] most likely dCHF exacerbation. ABG repeated this morning 7.47/49/81 on bipap Pulmonology rounding. Steroids stopped. Abx to be de-escalated tomorrow if cultures remain negative. Trial of low dose IV Lasix (2) CHF (congestive heart failure): Code(s): I50.9 - Heart failure, unspecified Status: Acute Assessment and Plan: As above. She appears more fluid overloaded to explain her respiratory changes. CTA chest showing dialted right renal pelvis prompting a CT Abd/Pelvis. This showed right hydronephrosis and dilated left renal pelvis but no stones. It also showed subcutaneous edema. Probably acute diastolic CHF but may have right sided failure with decreased RV function Daily weights. Change to IV Lasix. (3) Community acquired pneumonia: Code(s): J18.9 - Pneumonia, unspecified organism Status: Acute Assessment and Plan: As above. Pt was on iv Rocephn, azithromycin and vancomycin Abx de-escalted. BCx NGTD UA noted with 6-10 WBC and trace LE. 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 She is asymptomatic and do not at this time believe this is a true infection Will monitor for symptoms and consider repeating the culture or proceed with treatment with Linezolid if becomes symptomatic (4) Chronic obstructive pulmonary disease: Code(s): J44.9 - Chronic obstructive pulmonary disease, unspecified Status: Acute Assessment and Plan: As above. She was started on IV steroids and bronchodilators. No wheezing now. Much improved. Steroids stopped. Continue breathing treatments (5) Atrial fibrillation: Code(s): I48.91 - Unspecified atrial fibrillation Status: Acute Assessment and Plan: Patient with known AFib on diltiazem for rate control. Also on Xarerlto EKG on admission showing low voltage, age-indeterminate anteroseptal VA, and borderline ST-T wave changes in the inferior leads Continue home meds Metoprolol was added 02/11/2024 for improved rate control Heart rate better controlled. Continue to follow. (6) Hypothyroidism: Code(s): E03.9 - Hypothyroidism, unspecified Status: Acute Assessment and Plan: TSH normal in October. Continue levothyroxine Plan DVT prophylaxis -Xarelto Code status -DNR Subjective Date/time seen: 02/12/24 11:12 Interval history: 88yo female with chronic respiratory failure (2-3L NC), COPD, AFib on chronic anticoagulation, HTN and hypothyroidism here for weakness and shortness of breath. Assuming care. Chart reviewed. Patient wore her BiPAP overnight. She does not have BiPAP at home. She denies chest pain. No cough. Shortness of breath is better. No nausea or vomiting. No odynophagia or dysphagia. Family is unhappy with the easy to chew diet because this limits her options and is requesting this diet be stopped. Exam Narrative: AF 98.0 110/48 78 20 98% 3L Gen - NARD sititn gup in bed Chest - scattered inspiratory rhonchi, nml RR CV - irregular irregular. Tele showing AFib with controlled rate. Abd - Soft, NT/ND, Positive BS Ext
[2024-02-12] MEDS: FUROSEMIDE INJ 40 MG/4 ML VIAL 20 MG IV PUSH (19:33)
[2024-02-12] MEDS: AZITHROMYCIN 250 MG TABLET 500 MG PO (19:33)
[2024-02-12] MEDS: RIVAROXABAN 15 MG TABLET PO (20:20)
[2024-02-12] MEDS: LOSARTAN POTASSIUM 50 MG TABLET PO (20:20)
[2024-02-12] MEDS: ATORVASTATIN 20 MG TABLET PO (20:21)
[2024-02-13] VITALS (21 sets, daily range): BP systolic 98–130; BP diastolic 51–80; PULSE 74–99; RESP 18–20; TEMP 36.2–37; O2SAT 89–99
[2024-02-13] MEDS: IPRATROPIUM BR 0.02% INH SOLN 0.5 MG/2.5 ML VIAL INHALATION (02:39)
[2024-02-13] MEDS: LEVALBUTEROL NEB 1.25 MG/3 ML INHALATION (02:39)
[2024-02-13 05:20] LABS: Basophils Percent Auto 0.1 % (0.2-1.2); Hematocrit 35.5 % (37.0-47.0); Hemoglobin 11.6 g/dL (12.0-15.0); Immature Granulocyte Absolute 0.04 K/mm3 (0.00-0.031); Immature Granulocyte Percent A 0.5 % (0-0.5); Lymphocytes Absolute Auto 1.12 K/mm3 (0.9-3.2); Lymphocytes Percent Auto 14.6 % (18.3-44.2); Mean Corpuscular HGB Conc 32.7 g/dl (32-36); Mean Corpuscular Hemoglobin 32.2 pg (26-34); Mean Corpuscular Volume 98.6 fl (80-100); Mean Platelet Volume 9.6 fl (7.4-10.4); Monocytes Absolute Auto 1.3 K/mm3 (0.1-0.6); Monocytes Percent Auto 16.4 % (2.6-8.5); Neutrophils Absolute Auto 5.3 K/mm3 (1.3-6.7); Neutrophils Percent Auto 68.4 % (45.5-73.1); Platelet Count Result 343 k/mm3 (150-375); Red Cell Distribution Width 16.3 % (11.5-14.5); White Blood Count 7.7 K/mm3 (4.5-10.0)
[2024-02-13 05:31] LABS: Alanine Aminotransferase 17 U/L (6-35); Albumin Level 3.2 g/dL (3.5-5.1); Alkaline Phosphatase 62 U/L (38-126); Anion Gap 2 mmol/L (4-12); Aspartate Amino Transferase 37 U/L (14-36); Bilirubin,Total 0.5 mg/dL (0.2-1.3); Blood Urea Nitrogen 49 mg/dL (7-17); Calcium 8.6 mg/dL (8.4-10.2); Carbon Dioxide 36 mmol/L (22-30); Chloride 92 mmol/L (98-107); Estimated CRCL calculation 34 ml/min; Estimated Glomerular Filt Rate 52; Glucose 98 mg/dL (65-110); Phosphorus 3.7 mg/dL (2.5-4.5); Potassium 4.2 mmol/L (3.4-5.0); Sodium 130 mmol/L (137-145)
[2024-02-13] MEDS: LEVOTHYROXINE SODIUM 112 MCG TABLET PO (06:56)
--- NOTE | 2024-02-13 07:48 | P.PNPL_ITS ---
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 CT angiogram of the chest on 09/06/2021 report states moderate centrilobular emphysema. Echocardiogram 11 with an LVEF of 65-70, dilated right atrium, mild to moderate tricuspid regurgitation with RVSP 65-70. Patient requires 4 L at rest, 7 L with exertion and 3 L at night. a more recently had a home O2 assessment on 10/11/2023 requiring 2 L at rest and 3 with activity. A more recent home O2 assessment on 11/05/2023 demonstrated no oxygen at need rest and 2 with activity. Currently patient with worsening oxygenation, bibasilar infiltrates, leukocytosis without any wheezing, Phlegm production, change in volume of phlegm. I do not think she has if he is having a COPD exacerbation. COVID, influenza, RSV negative. she has worsening pedal edema per the family and may have a component of fluid overload. 02/11/24: Plan: I will discontinue IV Solu-Medrol. I will discontinue the Du oNebs q.6 hours and the Anoro Ellipta in place her on levalbuterol 1.25 nebulized q.6 hours and ipratropium 0.5 nebulized q.6 hours as she is tachycardic. I will continue treatment for pneumonia with ceftriaxone and azithromycin, day 2. I will check a D-dimer and if positive will obtain a CT angiogram of the chest, and if negative will do a CTA at of the chest without contrast. I will order an echocardiogram to assess her LV function, RV function and valvular function. She has worsening pedal edema. 02/12/2024: Patient has no shortness of breath complaints at rest. She said she slept well with the BiPAP on last night. She denies fever, chills, cough, phlegm production or hemoptysis. currently the patient is on 3 L nasal cannula saturations 98%. I decreased her to 2 L nasal cannula her saturations were 96%. plan: I do not believe the patient has a COPD exacerbation. She says the nebulizers do help her and I will continue levalbuterol 1.25 nebulize q.6 and ipratropium 0.5 nebulized q.6. Tachycardia has improved. If breathing is stable tomorrow will switch back to her home regiment of Anoro Ellipta. I am concerned that patient's current deterioration is more related to fluid overload. Patient's creatinine has increased slightly from 1.1-1.2, she did receive CT angiogram of the chest yesterday. Currently she is on increased dose of Lasix from her home dose of 20 q.day to 20 b.i.d.. Her weight today is 77.5 which is likely an error from an admission weight of 71.5. Diuresis per hospitalist. Later in the day she had a CT abdomen and pelvis and the bilateral pleural effusions are larger than on 02/11/2024. 02/13/2024: The patient states she is breathing at her baseline. She denies fever, chills, rigors, cough, phlegm production or hemoptysis. She is afebrile. White blood cell count 7.7, creatinine 1.0. procalcitonin 0.2. weight is 76.9 with an admission weight of 71.5. Cumulative she has +2.8 L since admission. Plan: No wheezing on exam. I will change the patient's ipratropium and levalbuterol nebulizers back to her home Anoro Ellipta. As aggressive diuresis as tolerated by her cardiac and renal systems per hospitalist team.
[2024-02-13 08:11] LABS: Procalcitonin 0.2 ng/mL
[2024-02-13] MEDS: FUROSEMIDE INJ 40 MG/4 ML VIAL 20 MG IV PUSH ×2 (08:16→16:33)
[2024-02-13] MEDS: METOPROLOL TARTRATE 25 MG TABLET PO ×2 (08:16→21:02)
[2024-02-13] MEDS: AZITHROMYCIN 250 MG TABLET 500 MG PO (08:20)
[2024-02-13] MEDS: CYANOCOBALAMIN 1,000 MCG TABLET 1000 MCG PO (08:20)
[2024-02-13] MEDS: CHOLECALCIFEROL 5,000 UNITS TABLET 5000 UNITS PO (08:20)
[2024-02-13] MEDS: UMECLIDINIUM/VILANTEROL 62.5-25 MCG ELLIPTA 1 PUFF INHALATION (08:51)
[2024-02-13 16:14] LABS: Glucose Point of Care 99 mg/dl (65-105)
--- NOTE | 2024-02-13 17:01 | PM.IMPN ---
Progress Note: A&P Assessment and Plan (1) Acute on chronic respiratory failure with hypoxia and hypercapnia: Code(s): J96.21 - Acute and chronic respiratory failure with hypoxia; J96.22 - Acute and chronic respiratory failure with hypercapnia Status: Acute Assessment and Plan: Patient presents with acute on chronic resp failure. She normally wears 2-3L daily. She does not have bipap at home. She presents in resp distress requiring bipap support. Treated with lasix IV once, steroids IV and abx IV. CXR showing bilateral PNA. CTA chest performed due to +DDimer showing no PE but biltaeral pleural effusions and atelectasis with interstital thickening to suggest edema. Echo showing EF >70% wiht diastolic dysfunction and RV enlargement and moderately reduced function. No pulm HTN. BNP 2460 COPD exacerbation was considered but felt less likely. [place] most likely dCHF exacerbation. ABG yesterday morning 7.47/49/81 on bipap Pulmonology consulted and appreciate their input. Steroids stopped. Abx were de-escalated. Trial of low dose IV Lasix with improvement. Patient weaned to 1L. She is not tolerating the bipap. (2) CHF (congestive heart failure): Code(s): I50.9 - Heart failure, unspecified Status: Acute Assessment and Plan: As above. She appears more fluid overloaded to explain her respiratory changes. CTA chest showing dialted right renal pelvis prompting a CT Abd/Pelvis which showed right hydronephrosis and dilated left renal pelvis but no stones. It also showed subcutaneous edema. Probably acute diastolic CHF but may have right sided failure with decreased RV function Daily weights. Changed to IV Lasix. Still fluid positive. Continue IV Lasix at curernt dose (BP was low at noon 98/55) (3) Community acquired pneumonia: Code(s): J18.9 - Pneumonia, unspecified organism Status: Acute Assessment and Plan: As above. Pt was on iv Rocephn, azithromycin and vancomycin BCx NGTD UA noted with 6-10 WBC and trace LE. 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 She is asymptomatic so suspect contamination Will monitor for symptoms of UTI. Abx de-escalted to Azithromycin. PNA ruled out (4) Chronic obstructive pulmonary disease: Code(s): J44.9 - Chronic obstructive pulmonary disease, unspecified Status: Acute Assessment and Plan: As above. She was started on IV steroids and bronchodilators. No wheezing now. Much improved. Steroids stopped. Bronchodilators stopped and started on Anoro. (5) Atrial fibrillation: Code(s): I48.91 - Unspecified atrial fibrillation Status: Acute Assessment and Plan: Patient with known AFib on diltiazem for rate control. Also on Xarelto EKG on admission showing low voltage, age-indeterminate anteroseptal TN, and borderline ST-T wave changes in the inferior leads Metoprolol was added 02/11/24 for improved rate control Heart rate better controlled. Poorly controlled heart rate probably contributed to CHF exacerbation. Continue to follow. (6) Hypothyroidism: Code(s): E03.9 - Hypothyroidism, unspecified Status: Acute Assessment and Plan: TSH normal in October. Continue levothyroxine Plan Multiple stools - patient not having diarrhea per staff. possibly related to abx. Not on laxatives. Follow Hyponatremia - sodium low 130's but chronic. Follow DVT prophylaxis -Xarelto Code status -DNR Subjective Date/time seen: 02/13/24 17:01 Interval history: 88yo female with chronic respiratory failure (2-3L NC), COPD, AFib on chronic anticoagulation, HTN and hypothyroidism here for weakness and shortness of breath. No CP or SOB. Did not wear bipap last night. No CP or abd pain. Does not feel SOB. No dysuria or heamturia. She normally becomes confused if she has a UTI. Exam Narrative: AF 97.2 124/69 81 20 94% 1L Gen - NARD lying semi-recumbent in bed napping; easily arousable Chest - lungs cl
[2024-02-13 19:55] LABS: Glucose Point of Care 130 mg/dl (65-105)
[2024-02-13] MEDS: RIVAROXABAN 15 MG TABLET PO (21:01)
[2024-02-13] MEDS: ATORVASTATIN 20 MG TABLET PO (21:01)
[2024-02-13] MEDS: LOSARTAN POTASSIUM 50 MG TABLET PO (21:01)
--- NOTE | 2024-02-13 21:59 | ADMGEN ---
Addendum entered by Sallie Nogueira RN 02/13/24 22:01: Report given to CRISTINA Quijano Original Note: This patient, Katie Frances, was admitted to IMU Room 232-01 on 02/13/24 at 2155. Patient/family oriented to hospital policies and general routines including ID bracelet, bed and alarms, visiting hours, pain management, procedures, bathroom and other care routines, personal items, smoking policy, room service/diet, and visiting hours. 0-Pt's daughter, Ap called and updated of the room transfer and given the new room information. Information on how to activate the Rapid Response Team has been discussed. Patient/Family are encouraged to report perceived risks to care and to ask questions if they do not understand what they are told or what they should do. This patient, Katie Frances, was transferred to [ ] on 02/13/24 at 2159. Personal belongings sent with patient. Report given to [ ]. Appropriate documentation sent with patient.
--- NOTE | 2024-02-13 22:29 | PC.NURSE ---
This patient, Katie Frances, was received from [[id number] ] on 02/13/24 at 2215. Patient/family oriented to unit policies and routines
[2024-02-14] VITALS (18 sets, daily range): BP systolic 92–118; BP diastolic 48–70; PULSE 73–101; RESP 14–17; TEMP 35.7–36.6; O2SAT 94–99
--- NOTE | 2024-02-14 01:46 | PC.NURSE ---
Addendum entered by Sallie Nogueira RN 02/14/24 01:47: 02/13/24 at 2200-Pt's daughter, Ap notified of the transfer and updated with the new room number. Original Note: This patient, Katie Frances, was transferred to room 347 on 02/13/24 at 2155. Personal belongings sent with patient. Report given to CRISTINA Quijano. Appropriate documentation sent with patient. 2200-Pt
[2024-02-14 05:35] LABS: Eosinophils Absolute Auto 0.1 K/mm3 (0-0.3); Eosinophils Percent Auto 0.7 % (0-4.4); Hematocrit 37.9 % (37.0-47.0); Hemoglobin 12.3 g/dL (12.0-15.0); Immature Granulocyte Absolute 0.02 K/mm3 (0.00-0.031); Immature Granulocyte Percent A 0.3 % (0-0.5); Lymphocytes Absolute Auto 1.46 K/mm3 (0.9-3.2); Lymphocytes Percent Auto 20.6 % (18.3-44.2); Mean Corpuscular HGB Conc 32.5 g/dl (32-36); Mean Corpuscular Hemoglobin 32.1 pg (26-34); Mean Platelet Volume 9.3 fl (7.4-10.4); Monocytes Absolute Auto 1.2 K/mm3 (0.1-0.6); Monocytes Percent Auto 16.5 % (2.6-8.5); Neutrophils Absolute Auto 4.4 K/mm3 (1.3-6.7); Neutrophils Percent Auto 61.9 % (45.5-73.1); Platelet Count Result 349 k/mm3 (150-375); Red Blood Count 3.83 M/mm3 (4.2-5.4); Red Cell Distribution Width 16.2 % (11.5-14.5); White Blood Count 7.1 K/mm3 (4.5-10.0)
[2024-02-14] MEDS: LEVOTHYROXINE SODIUM 112 MCG TABLET PO (05:36)
[2024-02-14 05:45] LABS: Albumin Level 3.1 g/dL (3.5-5.1); Anion Gap 4 mmol/L (4-12); Blood Urea Nitrogen 49 mg/dL (7-17); Calcium 8.5 mg/dL (8.4-10.2); Carbon Dioxide 39 mmol/L (22-30); Chloride 89 mmol/L (98-107); Estimated CRCL calculation 34 ml/min; Estimated Glomerular Filt Rate 52; Glucose 91 mg/dL (65-110); Magnesium 1.9 mg/dL (1.6-2.3); Phosphorus 3.7 mg/dL (2.5-4.5); Potassium 4.2 mmol/L (3.4-5.0); Sodium 132 mmol/L (137-145)
[2024-02-14 08:10] LABS: NT Pro B Type Natriuretic Pept 1630 pg/mL (19.9-100)
[2024-02-14] MEDS: UMECLIDINIUM/VILANTEROL 62.5-25 MCG ELLIPTA 1 PUFF INHALATION (08:18)
[2024-02-14 08:35] LABS: Alveolar/Arterial O2 Gradient 31.4 mmHg; Base Excess ABG 12.9 mEq/l (+/-2.0); Carboxyhemoglobin 0.7 % THb (0-2.0); Fractional Inspired Oxygen 24 %; HCO3 ABG 40.3 mEq/l (22.0-26.0); Methemoglobin ABG 0.3 %THb (0-1.5); Oxygen Content ABG 16.7 %vol (16.0-22.0); Oxygen Saturation ABG 91.1 % (95.0-100.0); Oxyhemoglobin 90.5 % THb (90.0-100.0); PO2 ABG 61.9 mmHg (80.0-100.0); PO2 FiO2 Ratio Arterial Blood 2.58 %; Reduced Hemoglobin 8.5 %THb (0-5.0); Total Hemoglobin 13.1 g/dL (12.0-18.0); pH ABG 7.408 (7.350-7.450)
[2024-02-14 08:41] LABS: Device NASAL CANNULA; PCO2 ABG 65.4 mmHg (35.0-45.0); Site Drawn RIGHT BRACHIAL
[2024-02-14] MEDS: METOPROLOL TARTRATE 25 MG TABLET PO ×2 (08:51→21:01)
[2024-02-14] MEDS: FUROSEMIDE INJ 40 MG/4 ML VIAL 20 MG IV PUSH ×2 (08:51→17:45)
[2024-02-14] MEDS: AZITHROMYCIN 250 MG TABLET 500 MG PO (08:51)
[2024-02-14] MEDS: CYANOCOBALAMIN 1,000 MCG TABLET 1000 MCG PO (08:51)
--- NOTE | 2024-02-14 14:29 | PM.IMPN ---
Progress Note: A&P Assessment and Plan (1) Acute on chronic respiratory failure with hypoxia and hypercapnia: Code(s): J96.21 - Acute and chronic respiratory failure with hypoxia; J96.22 - Acute and chronic respiratory failure with hypercapnia Status: Acute Assessment and Plan: Patient presents with acute on chronic resp failure. She normally wears 2-3L daily. She does not have bipap at home. She presents in resp distress requiring bipap support. Treated with lasix IV once, steroids IV and abx IV. CXR showing bilateral PNA. CTA chest performed due to +DDimer showing no PE but biltaeral pleural effusions and atelectasis with interstital thickening to suggest edema. Echo showing EF >70% with diastolic dysfunction and RV enlargement and moderately reduced function. No pulm HTN. BNP 2460 COPD exacerbation was considered but felt less likely. [place] her resp symptoms most likely dCHF exacerbation and untreated MESFIN. ABG this morning 7.41/65/62 on 1L; pCO2 elevated due to not wearing bipap overnight Pulmonology consulted and appreciate their input. Steroids stopped. Abx were de-escalated. Trial of low dose IV Lasix with improvement. Patient weaned to 1L. She is not tolerating the bipap but will try again tonight. (2) CHF (congestive heart failure): Code(s): I50.9 - Heart failure, unspecified Status: Acute Assessment and Plan: As above. She appears more fluid overloaded to explain her respiratory changes. CTA chest showing dialted right renal pelvis prompting a CT Abd/Pelvis which showed right hydronephrosis and dilated left renal pelvis but no stones. It also showed subcutaneous edema. Probably acute diastolic CHF but may have right sided failure with decreased RV function Daily weights showing weight has climbed 7kg. Positive fluid balance but not accurate I/Os BP soft but stable. Will advance IV Lasix. (3) Urinary retention: Code(s): R33.9 - Retention of urine, unspecified Status: Acute Assessment and Plan: Urine retention with 1100mL by bladder scan. Straight cath ordered. Probably will need Francis but she is high risk for complications with chronic Francis. 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 PureWick may be contributing to her inability to void Follow. Bladder scan as needed (4) Community acquired pneumonia: Code(s): J18.9 - Pneumonia, unspecified organism Status: Acute Assessment and Plan: As above. Pt was on iv Rocephn, azithromycin and vancomycin BCx NGTD Abx de-escalted to Azithromycin to complete a course for bronchitis. PNA ruled out (5) Chronic obstructive pulmonary disease: Code(s): J44.9 - Chronic obstructive pulmonary disease, unspecified Status: Acute Assessment and Plan: As above. She was started on IV steroids and bronchodilators. No wheezing now. Much improved. Steroids stopped. Bronchodilators stopped and started on Anoro. (6) Atrial fibrillation: Code(s): I48.91 - Unspecified atrial fibrillation Status: Acute Assessment and Plan: Patient with known AFib on diltiazem for rate control. Also on Xarelto EKG on admission showing AFib, low voltage, age-indeterminate anteroseptal DC, and borderline inferior ST-T wave changes Metoprolol was added 02/11/24 for improved rate control Heart rate better controlled. Poorly controlled heart rate probably contributed to CHF exacerbation. Continue to follow. (7) Hypothyroidism: Code(s): E03.9 - Hypothyroidism, unspecified Status: Acute Assessment and Plan: TSH normal in October. Continue levothyroxine Plan Abnml UCx - UA noted with 6-10 WBC and trace LE. 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 She is asymptomatic so suspect contamination Will monitor for symptoms of UTI. Multiple stools - patient not having diarrhea per staff. possibly related to abx. Not on laxatives. Follow Hyponatremia - sodium low
[2024-02-14 17:24] LABS: Mycoplasma IgM Antibody Titer 308 U/mL
[2024-02-14 17:43] LABS: Pneumococcal Antigen Urine NOT DETECTED
[2024-02-14] MEDS: CHOLECALCIFEROL 5,000 UNITS TABLET 5000 UNITS PO (17:45)
[2024-02-14] MEDS: RIVAROXABAN 15 MG TABLET PO (21:01)
[2024-02-14] MEDS: ATORVASTATIN 20 MG TABLET PO (21:01)
[2024-02-14] MEDS: LOSARTAN POTASSIUM 50 MG TABLET PO (21:01)
[2024-02-15] VITALS (14 sets, daily range): BP systolic 90–117; BP diastolic 46–61; PULSE 60–89; RESP 12–24; TEMP 35.9–36.9; O2SAT 92–99
[2024-02-15 05:40] LABS: Alveolar/Arterial O2 Gradient 83.8 mmHg; Base Excess ABG 10.3 mEq/l (+/-2.0); Oxygen Content ABG 16.3 %vol (16.0-22.0); Oxygen Saturation ABG 96.3 % (95.0-100.0); Oxyhemoglobin 95.3 % THb (90.0-100.0); PCO2 ABG 53.5 mmHg (35.0-45.0); PO2 ABG 81.8 mmHg (80.0-100.0); PO2 FiO2 Ratio Arterial Blood 2.56 %; Total Hemoglobin 12.1 g/dL (12.0-18.0)
[2024-02-15 05:41] LABS: Modified Allen's Test Pass; Site Drawn LEFT BRACHIAL
[2024-02-15 05:47] LABS: pH ABG 7.446 (7.350-7.450)
[2024-02-15] MEDS: LEVOTHYROXINE SODIUM 112 MCG TABLET PO (06:41)
[2024-02-15 08:06] LABS: Blood Urea Nitrogen 47 mg/dL (7-17); Calcium 8.4 mg/dL (8.4-10.2); Carbon Dioxide > 40 mmol/L (22-30); Chloride 90 mmol/L (98-107); Estimated CRCL calculation 38 ml/min; Estimated Glomerular Filt Rate 59; Glucose 81 mg/dL (65-110); Potassium 4.2 mmol/L (3.4-5.0); Sodium 132 mmol/L (137-145)
[2024-02-15] MEDS: UMECLIDINIUM/VILANTEROL 62.5-25 MCG ELLIPTA 1 PUFF INHALATION (08:10)
[2024-02-15] MEDS: METOPROLOL TARTRATE 25 MG TABLET PO (09:21)
[2024-02-15] MEDS: CYANOCOBALAMIN 1,000 MCG TABLET 1000 MCG PO (09:21)
[2024-02-15] MEDS: CHOLECALCIFEROL 5,000 UNITS TABLET 5000 UNITS PO (09:21)
[2024-02-15] MEDS: FUROSEMIDE INJ 40 MG/4 ML VIAL 20 MG IV PUSH ×2 (09:23→18:00)
--- NOTE | 2024-02-15 17:50 | PM.IMPN ---
Progress Note: A&P Assessment and Plan (1) Acute on chronic respiratory failure with hypoxia and hypercapnia: Code(s): J96.21 - Acute and chronic respiratory failure with hypoxia; J96.22 - Acute and chronic respiratory failure with hypercapnia Status: Acute Assessment and Plan: Patient presents with acute on chronic resp failure. She normally wears 2-3L daily. She does not have bipap at home. She presents in resp distress requiring bipap support. Treated with lasix IV once, steroids IV and abx IV. CXR showing bilateral PNA. CTA chest performed due to +DDimer showing no PE but biltaeral pleural effusions and atelectasis with interstital thickening to suggest edema. Echo showing EF >70% with diastolic dysfunction and RV enlargement and moderately reduced function. No pulm HTN. BNP 2460 COPD exacerbation was considered but felt less likely. [place] her resp symptoms most likely dCHF exacerbation and untreated MESFIN. ABG this morning 7.44/53/82; pCO2 better so suspect she wore her bipap some of the night. Pulmonology consulted and appreciate their input. Steroids stopped. Abx were de-escalated and now stopped. Tolerated diuresis Patient weaned to 1L. She is presumably not tolerating bipap well; plan to record time she is on bipap tonight (2) CHF (congestive heart failure): Code(s): I50.9 - Heart failure, unspecified Status: Acute Assessment and Plan: As above. She appears more fluid overloaded to explain her respiratory changes. CTA chest showing dialted right renal pelvis prompting a CT Abd/Pelvis which showed right hydronephrosis and dilated left renal pelvis but no stones. It also showed subcutaneous edema. Probably acute diastolic CHF but may have right sided failure with decreased RV function Daily weights showing weight has climbed 6kg. Fluid balance is about even. Lying flat in bed. Edema much improved. Clinically feel she is close to dry weight. Change Lasix to oral tomorrow. (3) Urinary retention: Code(s): R33.9 - Retention of urine, unspecified Status: Acute Assessment and Plan: Urine retention requiring Francis. She is high risk for complications with chronic Francis. 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 CT showing right hydronephrosis and dilated left renal pelvis which could be related to chronic retention. Anoro can cause urine retention but this is a home medication. Voiding trial once she is more ambulatory. Follow (4) Community acquired pneumonia: Code(s): J18.9 - Pneumonia, unspecified organism Status: Acute Assessment and Plan: As above. Pt was on iv Rocephn, azithromycin and vancomycin BCx NGTD Abx de-escalted to Azithromycin to complete a course for bronchitis. PNA ruled out (5) Chronic obstructive pulmonary disease: Code(s): J44.9 - Chronic obstructive pulmonary disease, unspecified Status: Acute Assessment and Plan: As above. She was started on IV steroids and bronchodilators. No wheezing now. Much improved. Steroids stopped. Bronchodilators stopped and resumed on Anoro. (6) Atrial fibrillation: Code(s): I48.91 - Unspecified atrial fibrillation Status: Acute Assessment and Plan: Patient with known AFib on diltiazem for rate control. Also on Xarelto EKG on admission showing AFib, low voltage, age-indeterminate anteroseptal ME, and borderline inferior ST-T wave changes Poorly controlled heart rate probably contributed to CHF exacerbation. Metoprolol was added 02/11/24 for improved rate control Heart rate better controlled. Continue to follow. Okay to stop tele (7) Hypothyroidism: Code(s): E03.9 - Hypothyroidism, unspecified Status: Acute Assessment and Plan: TSH normal in October. Continue levothyroxine Plan Abnml UCx - UA noted with 6-10 WBC and trace LE. 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 She is asymptomatic so suspect contamination
[2024-02-15] MEDS: ACETAMINOPHEN 325 MG TABLET 650 MG PO (17:58)
[2024-02-15] MEDS: ATORVASTATIN 20 MG TABLET PO (20:40)
[2024-02-15] MEDS: RIVAROXABAN 15 MG TABLET PO (20:40)
[2024-02-16] VITALS (14 sets, daily range): BP systolic 98–119; BP diastolic 52–65; PULSE 58–92; RESP 16–25; TEMP 36.4–36.7; O2SAT 91–100
[2024-02-16] MEDS: LEVOTHYROXINE SODIUM 112 MCG TABLET PO (05:34)
[2024-02-16 05:54] LABS: Hemoglobin 11.1 g/dL (12.0-15.0); Mean Corpuscular HGB Conc 32.6 g/dl (32-36); Mean Corpuscular Hemoglobin 32.8 pg (26-34); Mean Corpuscular Volume 100.6 fl (80-100); Mean Platelet Volume 11.1 fl (7.4-10.4); Platelet Count Result 265 k/mm3 (150-375); Red Blood Count 3.38 M/mm3 (4.2-5.4); Red Cell Distribution Width 16.3 % (11.5-14.5); White Blood Count 7.5 K/mm3 (4.5-10.0)
[2024-02-16 05:54] LABS: Alveolar/Arterial O2 Gradient 86.2 mmHg; Base Excess ABG 11.1 mEq/l (+/-2.0); Fractional Inspired Oxygen 32 %; HCO3 ABG 36.8 mEq/l (22.0-26.0); Oxygen Content ABG 15.7 %vol (16.0-22.0); Oxygen Saturation ABG 95.9 % (95.0-100.0); Oxyhemoglobin 95.2 % THb (90.0-100.0); PCO2 ABG 54.2 mmHg (35.0-45.0); PO2 ABG 78.5 mmHg (80.0-100.0); PO2 FiO2 Ratio Arterial Blood 2.45 %; Total Hemoglobin 11.7 g/dL (12.0-18.0)
[2024-02-16 05:55] LABS: Device NON-INVASIVE VENT; Site Drawn LEFT BRACHIAL
[2024-02-16 05:56] LABS: Non-Invasive Expiratory Pressure 4 CMH2O; Non-Invasive Inspiratory Pressure 25 CMH2O; Non-Invasive Vent Rate 12 /MIN
[2024-02-16 06:47] LABS: Blood Urea Nitrogen 39 mg/dL (7-17); Calcium 8.2 mg/dL (8.4-10.2); Carbon Dioxide > 40 mmol/L (22-30); Chloride 90 mmol/L (98-107); Estimated CRCL calculation 39 ml/min; Estimated Glomerular Filt Rate 59; Glucose 81 mg/dL (65-110); Sodium 132 mmol/L (137-145)
[2024-02-16] MEDS: METOPROLOL TARTRATE 25 MG TABLET PO ×2 (08:56→20:44)
[2024-02-16] MEDS: CHOLECALCIFEROL 5,000 UNITS TABLET 5000 UNITS PO (08:58)
[2024-02-16] MEDS: CYANOCOBALAMIN 1,000 MCG TABLET 1000 MCG PO (08:58)
[2024-02-16] MEDS: ACETAMINOPHEN 325 MG TABLET 650 MG PO (08:59)
--- NOTE | 2024-02-16 12:03 | PCNFU ---
Nutrition Follow-Up Complete: Increased protein energy needs related to wound healing as evidenced by stage 2 pressure injuries to ischium and coccyx Goal:Adequate PO intake at least 75% meals and supplements for wound support Pt meeting goal. continue with same goal. Pt current nutrition is heart healthy, Ensure compact BID, PAMELA BID. Nutrition recommendation: continue with current plan of care Last recorded weight is 79.5 kg. Bowel Motility: +BM 02/14 Labs Reviewed: Hgb:11.1, HCT:34, NA:132, BUN:39 Meds Noted: lasix Skin: stage II to coccyx and right ischium Additional Notes: Pt continues on a heart healthy diet, intake 75-100% at this time plus supplements. Agree with orders, encourage po intake to continue. Monitoring intakes, weights, labs, supplement tolerance, wound healing, plan of care Follow up in 5 days
[2024-02-16] MEDS: UMECLIDINIUM/VILANTEROL 62.5-25 MCG ELLIPTA 1 PUFF INHALATION (13:50)
--- NOTE | 2024-02-16 13:52 | PM.PNPUL ---
Progress Note: A&P Assessment and Plan (1) COPD (chronic obstructive pulmonary disease): Qualifiers: COPD type: chronic bronchitis Chronic bronchitis type: unspecified Qualified Code(s): J42 - Unspecified chronic bronchitis Code(s): J44.9 - Chronic obstructive pulmonary disease, unspecified Status: Acute Assessment and Plan: Patient with a history of 49 pack years, quit 2002, normal Alpha 1 anti-trypsin genotype MM on 10/21/2023, PFTs on 05/06/2023 with moderately severe obstructive abnormality with an FEV1 of 0.87 L, 52% predicted, ratio 49%, actual DLCO 32%. CT angiogram of the chest on 09/06/2021 report states moderate centrilobular emphysema. Echocardiogram 11 with an LVEF of 65-70, dilated right atrium, mild to moderate tricuspid regurgitation with RVSP 65-70. Patient requires 4 L at rest, 7 L with exertion and 3 L at night. a more recently had a home O2 assessment on 10/11/2023 requiring 2 L at rest and 3 with activity. A more recent home O2 assessment on 11/05/2023 demonstrated no oxygen at need rest and 2 with activity. Currently patient with worsening oxygenation, bibasilar infiltrates, leukocytosis without any wheezing, Phlegm production, change in volume of phlegm. I do not think she has if he is having a COPD exacerbation. COVID, influenza, RSV negative. she has worsening pedal edema per the family and may have a component of fluid overload. 02/11/24: Plan: I will discontinue IV Solu-Medrol. I will discontinue the DuoNebs q.6 hours and the Anoro Ellipta in place her on levalbuterol 1.25 nebulized q.6 hours and ipratropium 0.5 nebulized q.6 hours as she is tachycardic. I will continue treatment for pneumonia with ceftriaxone and azithromycin, day 2. I will check a D-dimer and if positive will obtain a CT angiogram of the chest, and if negative will do a CTA at of the chest without contrast. I will order an echocardiogram to assess her LV function, RV function and valvular function. She has worsening pedal edema. 02/12/2024: Patient has no shortness of breath complaints at rest. She said she slept well with the BiPAP on last night. She denies fever, chills, cough, phlegm production or hemoptysis. currently the patient is on 3 L nasal cannula saturations 98%. I decreased her to 2 L nasal cannula her saturations were 96%. plan: I do not believe the patient has a COPD exacerbation. She says the nebulizers do help her and I will continue levalbuterol 1.25 nebulize q.6 and ipratropium 0.5 nebulized q.6. Tachycardia has improved. If breathing is stable tomorrow will switch back to her home regiment of Anoro Ellipta. I am concerned that patient's current deterioration is more related to fluid overload. Patient's creatinine has increased slightly from 1.1-1.2, she did receive CT angiogram of the chest yesterday. Currently she is on increased dose of Lasix from her home dose of 20 q.day to 20 b.i.d.. Her weight today is 77.5 which is likely an error from an admission weight of 71.5. Diuresis per hospitalist. Later in the day she had a CT abdomen and pelvis and the bilateral pleural effusions are larger than on 02/11/2024. 02/13/2024: The patient states she is breathing at her baseline. She denies fever, chills, rigors, cough, phlegm production or hemoptysis. She is afebrile. White blood cell count 7.7, creatinine 1.0. procalcitonin 0.2. weight is 76.9 with an admission weight of 71.5. Cumulative she has +2.8 L since admission. Plan: No wheezing on exam. I will change the patient's ipratropium and levalbuterol nebulizers back to her home Anoro Ellipta. As aggressive diuresis as tolerated by her cardiac and renal systems per hospitalist team. She was on Lasix 20 p.o. b.i.d. and currently she is on Lasix 20 IV b.i.d.. Her admission weight 71.5 and today she is 76.9, ins and outs if accurate she is 2.8 L positive, pleural effusions slightly larger on yesterday's CT of
[2024-02-16] MEDS: FUROSEMIDE 20 MG TABLET PO (17:21)
--- NOTE | 2024-02-16 18:10 | PM.IMPN ---
Progress Note: A&P Assessment and Plan (1) Acute on chronic respiratory failure with hypoxia and hypercapnia: Code(s): J96.21 - Acute and chronic respiratory failure with hypoxia; J96.22 - Acute and chronic respiratory failure with hypercapnia Status: Acute Assessment and Plan: Patient presents with acute on chronic resp failure. She normally wears 2-3L daily. She does not have bipap at home. She presents in resp distress requiring bipap support. Treated with lasix IV once, steroids IV and abx IV. CXR showing bilateral PNA. CTA chest performed due to +DDimer showing no PE but biltaeral pleural effusions and atelectasis with interstital thickening to suggest edema. Echo showing EF >70% with diastolic dysfunction and RV enlargement and moderately reduced function. No pulm HTN. BNP 2460 COPD exacerbation was considered but felt less likely. [place] her resp symptoms most likely dCHF exacerbation and untreated MESFIN. ABG this morning 7.45/54/79 bipap Pulmonology consulted and appreciate their input. Steroids stopped. Abx were de-escalated and now stopped. Tolerated diuresis Patient weaned to 1L. Tolerated bipap well last night. (2) CHF (congestive heart failure): Code(s): I50.9 - Heart failure, unspecified Status: Acute Assessment and Plan: Echo as above. She appeared more fluid overloaded to explain her respiratory changes. CTA chest showing dilated right renal pelvis prompting a CT Abd/Pelvis which showed right hydronephrosis and dilated left renal pelvis but no stones. It also showed subcutaneous edema. Probably acute diastolic CHF but may have right sided failure with decreased RV function Daily weights showing weight has climbed but fluid balance is about even. Lying flat in bed. Edema much improved. Clinically feel she is close to dry weight. Changed to her home oral Lasix dose (can't increase lasix due to soft BP). Pulmonary consulted Cardiology for further recommendations. Will decrease Cozaar for the soft BP (3) Urinary retention: Code(s): R33.9 - Retention of urine, unspecified Status: Acute Assessment and Plan: Urine retention requiring Francis. She is high risk for complications with chronic Francis. 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 CT showing right hydronephrosis and dilated left renal pelvis which could be related to chronic retention. Anoro can cause urine retention but this is a home medication. Anoro stopped today Voiding trial once she is more ambulatory. Hold on Flomax since this can cause orthostatic HoTN Follow (4) Community acquired pneumonia: Code(s): J18.9 - Pneumonia, unspecified organism Status: Acute Assessment and Plan: As above. Pt was on iv Rocephn, azithromycin and vancomycin BCx Negative Abx de-escalted to Azithromycin and completes a course for bronchitis. PNA ruled out (5) Chronic obstructive pulmonary disease: Code(s): J44.9 - Chronic obstructive pulmonary disease, unspecified Status: Acute Assessment and Plan: As above. She was started on IV steroids and bronchodilators. No wheezing now. Much improved. Steroids stopped. Bronchodilators stopped and resumed on Anoro. Anoro now stopped due to urine retention (6) Atrial fibrillation: Code(s): I48.91 - Unspecified atrial fibrillation Status: Acute Assessment and Plan: Patient with known AFib and was on diltiazem for rate control. Also on Xarelto EKG on admission showing AFib, low voltage, age-indeterminate anteroseptal MN, and borderline inferior ST-T wave changes Poorly controlled heart rate probably contributed to CHF exacerbation. Diltiazem held and Metoprolol was added 02/11/24 for improved rate control Heart rate better controlled. Continue to follow. Continue Xarelto (7) Hypothyroidism: Code(s): E03.9 - Hypothyroidism, unspecified Status: Acute Assessment and Plan:
[2024-02-16] MEDS: acetaZOLAMIDE SODIUM FOR INJ 500 MG VIAL 250 MG IV PUSH (18:25)
--- NOTE | 2024-02-16 18:44 | PM.CNCAR ---
Assessment and Plan Assessment and plan (1) Acute on chronic respiratory failure with hypoxia and hypercapnia: Code(s): J96.21 - Acute and chronic respiratory failure with hypoxia; J96.22 - Acute and chronic respiratory failure with hypercapnia Status: Acute Assessment and Plan: Secondary to both COPD and diastolic heart failure. Pulm following. (2) Diastolic heart failure: Code(s): I50.30 - Unspecified diastolic (congestive) heart failure Status: Acute Assessment and Plan: Acute on chronic. 02/11/24 Echo: EF>70%, diastolic dysfunction (E/e' 13), mod RVE/hypokinesis, mod biatrial enlargement, mild TR. Advise to limit fluid intake to 1.5 l/day. On Lasix 20 mg PO BID. Start Jardiance 10 mg daily. (3) Chronic obstructive pulmonary disease: Code(s): J44.9 - Chronic obstructive pulmonary disease, unspecified Status: Acute (4) Atrial fibrillation: Code(s): I48.91 - Unspecified atrial fibrillation Status: Acute Assessment and Plan: Rate controlled with Metoprolol and Diltiazem. On Xarelto. (5) Hypertension: Qualifiers: Hypertension type: primary hypertension Qualified Code(s): I10 - Essential (primary) hypertension Code(s): I10 - Essential (primary) hypertension Status: Acute Assessment and Plan: Stable. (6) Hyperlipidemia: Qualifiers: Hyperlipidemia type: unspecified Qualified Code(s): E78.5 - Hyperlipidemia, unspecified Code(s): E78.5 - Hyperlipidemia, unspecified Status: Acute Assessment and Plan: On Atorvastatin. History of Present Illness History of Present Illness Consult date/time: 02/16/24 18:44 Reason For Visit: pna,resp failure Narrative: 88 yr old woman who is my regular cardiology patient presents to hospital about a week ago for sob. She has a history of atrial fibrillation, diastolic dysfunction, carotid stenosis S/P CEA unknown side, hypertension, dyslipidemia, COPD on oxygen, former smoking, covid infection on 10/08/23. Reports she has chronic sob for years and not any worse today. Reports she has CHU walking with walker only short distances. Has edema of legs that get worse at end of the day. Denies chest pain, orthopnea, PND, dizziness, palpitations. Cardiovascular Procedures Electrophysiology:: 10/09/23 EKG: Atrial fibrillation at 75. 06/15/21 3 days event monitor: Atrial fibrillation, HR range 56-160; average 87; .03% PVC. Stress Tests:: 09/03/11 Carotid duplex: 50-69% left ICA stenosis, right <50%. Review of Systems Review of Systems: All systems reviewed & are unremarkable except as noted in HPI and below Constitutional: Constitutional: Reports as per HPI, Denies chills, Reports fatigue and Denies fever(s) Cardiovascular: Cardiovascular: Reports as per HPI, Denies chest pain and Denies irregular heart rhythm Respiratory: Respiratory: Reports as per HPI and Reports dyspnea on exertion Gastrointestinal: Gastrointestinal: Reports as per HPI and Denies abdominal pain Genitourinary: Genitourinary: Reports as per HPI and Denies dysuria Musculoskeletal: Musculoskeletal: Reports as per HPI Neurologic: Reports as per HPI, Denies dizziness and Denies syncope [facility] Past Medical History Medical History Arthritis Atrial fibrillation Carotid artery disease Chronic anticoagulation Chronic obstructive pulmonary disease Chronic respiratory failure with hypoxia, on home oxygen therapy E coli infection Generalized anxiety disorder Hyperlipidemia Hypertension Hypothyroidism Macular degeneration Osteoporosis Surgical History Surgical History History of bilateral cataract extraction History of right-sided carotid endarterectomy Family History Family History Father Hypertension Heart disease Car
[2024-02-16] MEDS: FLUTICASONE/SALMETEROL 115-21 MCG INHALER 1 PUFF 2 PUFF INHALATION (19:45)
[2024-02-16] MEDS: ATORVASTATIN 20 MG TABLET PO (20:44)
[2024-02-16] MEDS: LOSARTAN POTASSIUM 25 MG TABLET PO (20:44)
[2024-02-16] MEDS: RIVAROXABAN 15 MG TABLET PO (20:44)
[2024-02-16] MEDS: acetaZOLAMIDE TAB 250 MG TABLET PO (20:45)
[2024-02-16 20:59] LABS: Glucose Point of Care 103 mg/dl (65-105)
[2024-02-17] VITALS (13 sets, daily range): BP systolic 97–126; BP diastolic 47–62; PULSE 63–85; RESP 16–23; TEMP 36.5–36.7; O2SAT 91–100
[2024-02-17] MEDS: LEVOTHYROXINE SODIUM 112 MCG TABLET PO (05:33)
--- NOTE | 2024-02-17 07:55 | PM.PNCARD ---
Progress Note: A&P Assessment and Plan (1) Acute on chronic respiratory failure with hypoxia and hypercapnia: Code(s): J96.21 - Acute and chronic respiratory failure with hypoxia; J96.22 - Acute and chronic respiratory failure with hypercapnia Status: Acute Assessment and Plan: Secondary to both COPD and diastolic heart failure. Pulm following. (2) Diastolic heart failure: Code(s): I50.30 - Unspecified diastolic (congestive) heart failure Status: Acute Assessment and Plan: Acute on chronic. 02/11/24 Echo: EF>70%, diastolic dysfunction (E/e' 13), mod RVE/hypokinesis, mod biatrial enlargement, mild TR. Advise to limit fluid intake to 1.5 l/day. On Lasix 20 mg PO BID. Start Jardiance 10 mg daily. (3) Chronic obstructive pulmonary disease: Code(s): J44.9 - Chronic obstructive pulmonary disease, unspecified Status: Acute (4) Atrial fibrillation: Code(s): I48.91 - Unspecified atrial fibrillation Status: Acute Assessment and Plan: Rate controlled with Metoprolol. On Xarelto. (5) Hypertension: Qualifiers: Hypertension type: primary hypertension Qualified Code(s): I10 - Essential (primary) hypertension Code(s): I10 - Essential (primary) hypertension Status: Acute Assessment and Plan: Stable. (6) Hyperlipidemia: Qualifiers: Hyperlipidemia type: unspecified Qualified Code(s): E78.5 - Hyperlipidemia, unspecified Code(s): E78.5 - Hyperlipidemia, unspecified Status: Acute Assessment and Plan: On Atorvastatin. Subjective Date/time seen: 02/17/24 07:55 Interval history: Patient is sleeping with BiPAP. Exam Const: General: cooperative, healthy appearing and comfortable Orientation/consciousness: oriented to person, oriented to place and oriented to time Resp: Auscultation: no crackles, no rales, no rhonchi, no wheezes and diminished lung sounds Cardio: Rate: regular rate Rhythm: abnormal rhythm Heart sounds: no murmurs Neuro: General: oriented to person, oriented to place and oriented to time Extrem: Right lower extremity: edema Left lower extremity: edema Other: Mild edema of both legs Objective Data Vital Signs Vital Signs: Vital Signs - 24 hr 02/16/24 08:56 02/16/24 11:00 02/16/24 13:52 Temperature 97.9 F Pulse Rate 58 L 92 Respiratory Rate 18 Blood Pressure 100/54 L Pulse Oximetry 98 96 Oxygen Delivery Nasal Cannula Oxygen Flow Rate 1 02/16/24 09:00 02/16/24 15:44 02/16/24 19:48 Temperature 97.6 F Pulse Rate 91 84 Respiratory Rate 16 16 Blood Pressure 98/54 L Pulse Oximetry 91 95 Oxygen Delivery Nasal Cannula Oxygen Flow Rate 1 02/16/24 19:49 02/16/24 20:44 02/16/24 21:14 Temperature 98.1 F Pulse Rate 60 79 Respiratory Rate 16 Blood Pressure 98/52 L Pulse Oximetry 96 96 Oxygen Delivery Nasal Cannula Oxygen Flow Rate 1 02/16/24 20:00 02/16/24 22:46 02/17/24 03:19 Temperature Pulse Rate Respiratory Rate 25 H 19 Blood Pressure Pulse Oximetry 92 95 95 Oxygen Delivery Nasal Cannula BiPAP BiPAP Oxygen Flow Rate 1 02/17/24 02:00 02/17/24 06:00 Temperature 97.8 F 97.9 F Pulse Rate 63 76 Respiratory Rate 16 18 Blood Pressure 119/58 L 126/62 Pulse Oximetry 100 100 Oxygen Delivery Oxygen Flow Rate Intake/Output Intake/Output: Intake & Output 02/14/24 02/15/24 02/16/24 02/17/24 23:59 23:59 23:59 23:59 Intake Total 1300 1350 1390 Output Total 1800 2800 1240 1300 Balance -500 -1450 150 -1300 Meds/Results Medications: Active Medications Generic Name Dose Route Start Last Admin Trade Name Lazq PRN Reason Stop Dose Admin Acetaminophen 650 mg 02/10/24 14:23 02/16/24 08:59 Acetaminophen 325 Mg Tablet PO 650 mg Q6H PRN Administration Mild Pain (1-3) or Fever Acetazolamide 250 mg 02/16/24 21:00 02/16/24 20:45 Acetazolamide Tab 250 Mg Tablet PO 250
[2024-02-17] MEDS: FLUTICASONE/SALMETEROL 115-21 MCG INHALER 1 PUFF 2 PUFF INHALATION ×2 (08:32→19:58)
[2024-02-17] MEDS: CYANOCOBALAMIN 1,000 MCG TABLET 1000 MCG PO (09:05)
[2024-02-17] MEDS: FUROSEMIDE 20 MG TABLET PO (09:05)
[2024-02-17] MEDS: acetaZOLAMIDE TAB 250 MG TABLET PO ×2 (09:05→20:05)
[2024-02-17] MEDS: CHOLECALCIFEROL 5,000 UNITS TABLET 5000 UNITS PO (09:05)
[2024-02-17] MEDS: EMPAGLIFLOZIN 10 MG TABLET PO (09:06)
[2024-02-17] MEDS: METOPROLOL TARTRATE 25 MG TABLET PO ×2 (09:08→20:05)
--- NOTE | 2024-02-17 14:50 | PCOTNOTE ---
Attempted to see Patient for P.M. session. Patient in bed, sleeping. Patient frustrated to be woke up. Patient stated, I just got back into bed and sleeping, not today, come back tomorrow .
--- NOTE | 2024-02-17 15:06 | PM.IMPN ---
Progress Note: A&P Assessment and Plan (1) Acute on chronic respiratory failure with hypoxia and hypercapnia: Code(s): J96.21 - Acute and chronic respiratory failure with hypoxia; J96.22 - Acute and chronic respiratory failure with hypercapnia Status: Acute Assessment and Plan: Patient presents with acute on chronic resp failure. She normally wears 2-3L daily. She does not have bipap at home. She presents in resp distress requiring bipap support. Treated with lasix IV once, steroids IV and abx IV. CXR showing bilateral PNA. DDimer positive. CTA chest showing no PE but bilateral pleural effusions and atelectasis with interstitial thickening to suggest edema. Echo showing EF >70% with diastolic dysfunction and RV enlargement and moderately reduced function. No pulm HTN. BNP 2460 COPD exacerbation was considered but felt less likely and felt her resp symptoms most likely dCHF exacerbation and untreated MESFIN. ABG yesterday morning 7.45// bipap Pulmonology consulted and appreciate their input. Steroids stopped. Abx were de-escalated and now stopped. Tolerated diuresis Patient weaned to 1L. Tolerated bipap again last night. Medications for CHF adjusted. Acetazolamide started. She has been accepted at for SNF with authorization number provided. SNF will have Trilogy/AVAPS set up tomorrow (02/17). Okay to discharge tomorrow if she remains stable overnight. (2) CHF (congestive heart failure): Code(s): I50.9 - Heart failure, unspecified Status: Acute Assessment and Plan: Echo as above. She appeared more fluid overloaded to explain her respiratory changes. CTA chest showing dilated right renal pelvis prompting a CT Abd/Pelvis which showed right hydronephrosis and dilated left renal pelvis but no stones. It also showed subcutaneous edema. Probably acute diastolic CHF but may have right sided failure with decreased RV function Daily weights showing weight has climbed but fluid balance is about even. Edema better with decreased oxygen requirement. Clinically feel she is close to dry weight. Changed to her home oral Lasix dose (can't increase lasix due to soft BP). Cardiology consulted and appreciate their input. + Empagliflozin added. Cozaar dose decreased due to soft BP. Continue Lasix (3) Urinary retention: Code(s): R33.9 - Retention of urine, unspecified Status: Acute Assessment and Plan: Urine retention requiring Francis. She is high risk for complications with chronic Francis. 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 CT showing right hydronephrosis and dilated left renal pelvis which could be related to chronic retention. Anoro can cause urine retention but this is a home medication. Anoro was stopped Voiding trial once she is more ambulatory. Hold on Flomax since this can cause orthostatic HoTN Follow (4) Chronic obstructive pulmonary disease: Code(s): J44.9 - Chronic obstructive pulmonary disease, unspecified Status: Acute Assessment and Plan: As above. She was started on IV steroids and bronchodilators. No wheezing now. Much improved. Steroids stopped. Bronchodilators stopped and resumed on Anoro. Anoro now stopped due to urine retention. Advair started. (5) Atrial fibrillation: Code(s): I48.91 - Unspecified atrial fibrillation Status: Acute Assessment and Plan: Patient with known AFib and was on diltiazem for rate control. Also on Xarelto EKG on admission showing AFib, low voltage, age-indeterminate anteroseptal [place], and borderline inferior ST-T wave changes Heart rate was poorly controlled which could have contributed to CHF exacerbation. Diltiazem held and Metoprolol was added 02/11/24 for improved rate control Heart rate remains well controlled. Continue to follow. Continue Xarelto (6) Hypothyroidism: Code(s): E03.9 - Hypothyroidism, unspecified Status: Acute Assessment and Plan:
[2024-02-17] MEDS: LOSARTAN POTASSIUM 25 MG TABLET PO (20:05)
[2024-02-17] MEDS: RIVAROXABAN 15 MG TABLET PO (20:05)
[2024-02-17] MEDS: ATORVASTATIN 20 MG TABLET PO (20:05)
[2024-02-18] VITALS (7 sets, daily range): BP systolic 90–118; BP diastolic 42–65; PULSE 67–79; RESP 17–21; TEMP 36.4–36.5; O2SAT 93–100
[2024-02-18] MEDS: LEVOTHYROXINE SODIUM 112 MCG TABLET PO (05:47)
--- NOTE | 2024-02-18 07:39 | PM.PNCARD ---
Progress Note: A&P Assessment and Plan (1) Acute on chronic respiratory failure with hypoxia and hypercapnia: Code(s): J96.21 - Acute and chronic respiratory failure with hypoxia; J96.22 - Acute and chronic respiratory failure with hypercapnia Status: Acute Assessment and Plan: Secondary to both COPD and diastolic heart failure. Pulm following. (2) Diastolic heart failure: Code(s): I50.30 - Unspecified diastolic (congestive) heart failure Status: Acute Assessment and Plan: Acute on chronic. 02/11/24 Echo: EF>70%, diastolic dysfunction (E/e' 13), mod RVE/hypokinesis, mod biatrial enlargement, mild TR. Advise to limit fluid intake to 1.5 l/day. On Lasix 20 mg PO BID. On Jardiance 10 mg daily. (3) Chronic obstructive pulmonary disease: Code(s): J44.9 - Chronic obstructive pulmonary disease, unspecified Status: Acute (4) Atrial fibrillation: Code(s): I48.91 - Unspecified atrial fibrillation Status: Acute Assessment and Plan: Rate controlled with Metoprolol. On Xarelto. (5) Hypertension: Qualifiers: Hypertension type: primary hypertension Qualified Code(s): I10 - Essential (primary) hypertension Code(s): I10 - Essential (primary) hypertension Status: Acute Assessment and Plan: Low normal. Stop Losartan. (6) Hyperlipidemia: Qualifiers: Hyperlipidemia type: unspecified Qualified Code(s): E78.5 - Hyperlipidemia, unspecified Code(s): E78.5 - Hyperlipidemia, unspecified Status: Acute Assessment and Plan: On Atorvastatin. Subjective Date/time seen: 02/18/24 07:39 Interval history: Patient is sleeping with BiPAP. Exam Const: General: cooperative, healthy appearing and comfortable Orientation/consciousness: oriented to person, oriented to place and oriented to time Resp: Auscultation: no crackles, no rales, no rhonchi, no wheezes and diminished lung sounds Cardio: Rate: regular rate Rhythm: abnormal rhythm Heart sounds: no murmurs Neuro: General: oriented to person, oriented to place and oriented to time Extrem: Right lower extremity: edema Left lower extremity: edema Other: Mild edema of both legs Objective Data Vital Signs Vital Signs: Vital Signs - 24 hr 02/17/24 08:29 02/17/24 09:08 02/17/24 08:00 Temperature Pulse Rate 70 83 Respiratory Rate 16 Blood Pressure Pulse Oximetry 94 91 Oxygen Delivery Nasal Cannula Nasal Cannula Oxygen Flow Rate 1 1 Fraction of Inspired Oxygen 02/17/24 10:00 02/17/24 16:13 02/17/24 19:59 Temperature 97.9 F 98.1 F Pulse Rate 77 70 72 Respiratory Rate 18 16 18 Blood Pressure 97/49 L 99/47 L Pulse Oximetry 97 99 96 Oxygen Delivery Nasal Cannula Oxygen Flow Rate 1 Fraction of Inspired Oxygen 02/17/24 20:05 02/17/24 20:00 02/17/24 20:24 Temperature 97.7 F Pulse Rate 78 85 Respiratory Rate 18 Blood Pressure 97/50 L Pulse Oximetry 92 97 Oxygen Delivery Nasal Cannula Oxygen Flow Rate 1 Fraction of Inspired Oxygen 02/17/24 23:00 02/18/24 01:59 02/18/24 02:19 Temperature 97.6 F Pulse Rate 74 Respiratory Rate 23 H 18 21 H Blood Pressure 94/65 L Pulse Oximetry 96 100 95 Oxygen Delivery BiPAP BiPAP Oxygen Flow Rate Fraction of Inspired Oxygen 02/18/24 06:00 Temperature 97.6 F Pulse Rate 79 Respiratory Rate 18 Blood Pressure 118/60 Pulse Oximetry 97 Oxygen Delivery Oxygen Flow Rate Fraction of Inspired Oxygen Intake/Output Intake/Output: Intake & Output 02/15/24 02/16/24 02/17/24 02/18/24 23:59 23:59 23:59 23:59 Intake Total 1350 1390 1080 Output Total 2800 1240 1550 1350 Balance -1450 150 -470 -1350 Meds/Results Medications: Active Medications Generic Name Dose Route Start Last Admin Trade Name Freq PRN Reason Stop Dose Admin Acetaminophen 650 mg 02/10/24 14:23 02/16/24 08:59 Acetaminophen 325 Mg Tablet PO 650 mg
[2024-02-18] MEDS: FLUTICASONE/SALMETEROL 115-21 MCG INHALER 1 PUFF 2 PUFF INHALATION (09:13)
[2024-02-18] MEDS: acetaZOLAMIDE TAB 250 MG TABLET PO (09:32)
[2024-02-18] MEDS: CHOLECALCIFEROL 5,000 UNITS TABLET 5000 UNITS PO (09:32)
[2024-02-18] MEDS: CYANOCOBALAMIN 1,000 MCG TABLET 1000 MCG PO (09:32)
[2024-02-18] MEDS: METOPROLOL TARTRATE 25 MG TABLET PO (09:33)
[2024-02-18] MEDS: EMPAGLIFLOZIN 10 MG TABLET PO (09:33)
[2024-02-18] MEDS: FUROSEMIDE 20 MG TABLET PO (09:33)
--- NOTE | 2024-02-18 11:57 | PCOTNOTE ---
Attempted to see Patient prior to lunch this date. Patient declined at this time. Patient stated she is supposed to be discharged. Patient stated, come back later this afternoon and if I'm still here I will participate. Will check back.
--- NOTE | 2024-02-18 13:02 | PM.IMPN ---
Progress Note: A&P Assessment and Plan (1) Diastolic heart failure: Code(s): I50.30 - Unspecified diastolic (congestive) heart failure Status: Acute (2) COPD exacerbation: Code(s): J44.1 - Chronic obstructive pulmonary disease with (acute) exacerbation Status: Acute Plan (1) Acute on chronic respiratory failure with hypoxia and hypercapnia: Code(s): J96.21 - Acute and chronic respiratory failure with hypoxia; J96.22 - Acute and chronic respiratory failure with hypercapnia Status: Acute Assessment and Plan: Patient presents with acute on chronic resp failure. She normally wears 2-3L daily. She does not have bipap at home. She presents in resp distress requiring bipap support. Treated with lasix IV once, steroids IV and abx IV. CXR showing bilateral PNA. DDimer positive. CTA chest showing no PE but bilateral pleural effusions and atelectasis with interstitial thickening to suggest edema. Echo showing EF >70% with diastolic dysfunction and RV enlargement and moderately reduced function. No pulm HTN. BNP 2460 COPD exacerbation was considered but felt less likely and felt her resp symptoms most likely dCHF exacerbation and untreated MESFIN. ABG yesterday morning 7.45//79 bipap Pulmonology consulted and appreciate their input. Steroids stopped. Abx were de-escalated and now stopped. Tolerated diuresis Patient weaned to 1L. Tolerated bipap again last night. Medications for CHF adjusted. Acetazolamide started. She has been accepted at for SNF with authorization number provided. SNF will have Trilogy/AVAPS set up tomorrow (02/17) (2) CHF (congestive heart failure): Code(s): I50.9 - Heart failure, unspecified Status: Acute Assessment and Plan: Echo as above. She appeared more fluid overloaded to explain her respiratory changes. CTA chest showing dilated right renal pelvis prompting a CT Abd/Pelvis which showed right hydronephrosis and dilated left renal pelvis but no stones. It also showed subcutaneous edema. Probably acute diastolic CHF but may have right sided failure with decreased RV function Daily weights showing weight has climbed but fluid balance is about even. Edema better with decreased oxygen requirement. Clinically feel she is close to dry weight. Changed to her home oral Lasix dose (can't increase lasix due to soft BP). Cardiology consulted and appreciate their input. + Empagliflozin added. Cozaar dose decreased due to soft BP. Continue Lasix (3) Urinary retention: Code(s): R33.9 - Retention of urine, unspecified Status: Acute Assessment and Plan: Urine retention requiring Francis. She is high risk for complications with chronic Francis. 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 CT showing right hydronephrosis and dilated left renal pelvis which could be related to chronic retention. Anoro can cause urine retention but this is a home medication. Anoro was stopped Voiding trial once she is more ambulatory. Hold on Flomax since this can cause orthostatic HoTN (4) Chronic obstructive pulmonary disease: Code(s): J44.9 - Chronic obstructive pulmonary disease, unspecified Status: Acute Assessment and Plan: As above. She was started on IV steroids and bronchodilators. No wheezing now. Much improved. Steroids stopped. Bronchodilators stopped and resumed on Anoro. Anoro now stopped due to urine retention. Advair started. (5) Atrial fibrillation: Code(s): I48.91 - Unspecified atrial fibrillation Status: Acute Assessment and Plan: Patient with known AFib and was on diltiazem for rate control. Also on Xarelto EKG on admission showing AFib, low voltage, age-indeterminate anteroseptal OR, and borderline inferior ST-T wave changes Heart rate was poorly controlled which could have contributed to CHF exacerbation. Diltiazem held and Metoprolol was added 02/11/24 for improved rate contr
--- NOTE | 2024-02-18 13:04 | PM.DS ---
DS: Admitting Diagnosis Discharge Date 02/17 Admitting Diagnosis (1) Diastolic heart failure: Code(s): I50.30 - Unspecified diastolic (congestive) heart failure Status: Acute (2) COPD exacerbation: Code(s): J44.1 - Chronic obstructive pulmonary disease with (acute) exacerbation Status: Acute DS: Discharge Diagnosis Discharge Diagnosis (1) Diastolic heart failure: Code(s): I50.30 - Unspecified diastolic (congestive) heart failure Status: Acute (2) COPD exacerbation: Code(s): J44.1 - Chronic obstructive pulmonary disease with (acute) exacerbation Status: Acute DS: Summary Hospital Course Hospital Course: Per H&P, This is a pleasant 88-year-old female with chronic respiratory failure on 2 to 3 L nasal cannula, chronic obstructive pulmonary disease, atrial fibrillation on chronic anticoagulation, hypertension, hyperlipidemia, hypothyroidism, and carotid artery disease status post right carotid endarterectomy who presented to the emergency department for evaluation of weakness and shortness of breath. The patient provides the following history and her daughter provides additional information, with the patient's permission. She is known to myself and the hospitalist service from an admission last month in which she was treated for rapid atrial fibrillation and urinary tract infection. She had been doing okay up until the last week when daughter noticed that she began having periods of confusion and increased weakness. She is also having coughing episodes, sometimes while eating, and she has seemed more short of breath than usual. This morning daughter checked on her at about 04:30 and the patient had taken her oxygen off and seemed to be working quite hard to breathe. She has a pulse oximeter at home and daughter reports that her SpO2 has gotten down into the 50s when ambulating the last few days. There were no reports of fever, cold or flu symptoms, vomiting, or diarrhea. Daughter is not concerned for possible aspiration. In the ED: She was afebrile on arrival with stable vital signs. SpO2 was 90 to 91% on her usual 4 L nasal cannula on EMS arrival. Labs were significant for a WBC count of 16.1, hemoglobin 11.3, sodium 130, chloride 87, carbon dioxide greater than 40, BUN 30, creatinine 1.10. Chest x-ray shows bilateral basal pneumonia, greater on the right. ABG showed a pH of 7.222, pCO2 89.6, PO2 56.1, bicarb 36.0. She received a nebulizer treatment, steroids, and has been started on antibiotics and she is being admitted in this setting for further treatment. At the time my evaluation the patient's daughter states that she is more awake however she still remains confused but does answer some questions appropriately. She has no current complaints aside from the fact that the room was cold. The following med issues have been addressed during hospitalization (1) Acute on chronic respiratory failure with hypoxia and hypercapnia: Code(s): J96.21 - Acute and chronic respiratory failure with hypoxia; J96.22 - Acute and chronic respiratory failure with hypercapnia Status: Acute Assessment and Plan: Patient presents with acute on chronic resp failure. She normally wears 2-3L daily. She does not have bipap at home. She presents in resp distress requiring bipap support. Treated with lasix IV once, steroids IV and abx IV. CXR showing bilateral PNA. DDimer positive. CTA chest showing no PE but bilateral pleural effusions and atelectasis with interstitial thickening to suggest edema. Echo showing EF >70% with diastolic dysfunction and RV enlargement and moderately reduced function. No pulm HTN. BNP 2460 COPD exacerbation was considered but felt less likely and felt her resp symptoms most likely dCHF exacerbation and untreated MESFIN. ABG yesterday morning 7.45/ bipap Pulmonology consulted and appreciate their input. Steroids stopped. Abx were de-escalated and now stopped. Tolerated diuresis Patie
[2024-02-18 13:27] LABS: Anion Gap 4 mmol/L (4-12); Blood Urea Nitrogen 29 mg/dL (7-17); Calcium 8.5 mg/dL (8.4-10.2); Carbon Dioxide 31 mmol/L (22-30); Chloride 96 mmol/L (98-107); Estimated CRCL calculation 38 ml/min; Estimated Glomerular Filt Rate 59; Glucose 116 mg/dL (65-110); Potassium 4.1 mmol/L (3.4-5.0); Sodium 131 mmol/L (137-145)
[2024-02-20 07:52] LABS: Fractional Inspired Oxygen 28 %
[2024-02-20 07:53] LABS: Device NASAL CANNULA
[2024-02-20 17:39] LABS: Adenovirus DNA Not Detected (Not Detected); Chlamydophila pneumoniae Not Detected (Not Detected); Coronavirus 229E Not Detected (Not Detected); Coronavirus HKU1 Not Detected (Not Detected); Coronavirus NL63 Not Detected (Not Detected); Coronavirus OC43 Not Detected (Not Detected); Human Metapneumovirus Not Detected (Not Detected); Human Parainfluenza Virus 1 Not Detected (Not Detected); Human Parainfluenza Virus 2 Not Detected (Not Detected); Human Parainfluenza Virus 3 Not Detected (Not Detected); Human Parainfluenza Virus 4 Not Detected (Not Detected); Human RSV B Not Detected (Not Detected); Influenza A Not Detected (Not Detected); Influenza B Not Detected (Not Detected); Mycoplasma pneumoniae Not Detected (Not Detected); Rhinovirus/Enterovirus Not Detected (Not Detected)
[2024-02-26 22:33] LABS: Legionella pneumophila Ag Ur NOT DETECTED
== END 2024-02-18 14:20 | DRG 291 ==
LOC: ANHED 13:45 → ANHIMU 13:57 → ANH3MED 02-13 22:59
PROVIDERS: Internal Medicine; Internal Medicine Pulmonary Disease; Physician Assistant; Admitting Provider Internal Medicine; Emergency Provider Emergency Medicine; PCP Family Medicine; Visit Provider Hospitalist
DX: I11.0 Hypertensive heart disease with heart failure (principal); I50.31 Acute diastolic (congestive) heart failure; J96.22 Acute and chronic respiratory failure with hypercapnia; J96.21 Acute and chronic respiratory failure with hypoxia; E87.1 Hypo-osmolality and hyponatremia; N13.30 Unspecified hydronephrosis; J44.1 Chronic obstructive pulmonary disease with (acute) exacerbation; I48.91 Unspecified atrial fibrillation; E03.9 Hypothyroidism, unspecified; E78.5 Hyperlipidemia, unspecified; M81.0 Age-related osteoporosis without current pathological fracture; J44.89 Other specified chronic obstructive pulmonary disease; J43.9 Emphysema, unspecified; R33.9 Retention of urine, unspecified; I36.1 Nonrheumatic tricuspid (valve) insufficiency; Z87.891 Personal history of nicotine dependence; Z79.01 Long term (current) use of anticoagulants; Z79.899 Other long term (current) drug therapy; Z86.16 Personal history of COVID-19; Z99.81 Dependence on supplemental oxygen
CPT/HCPCS: 36415; 36600; 71045; 71275; 74176; 80048; 80053; 80069; 81001; 82375; 82805; 82948; 83050; 83735; 83880; 84100; 84145; 85025; 85027; 85380; 86738; 87040; 87077; 87086; 87088; 87181; 87449; 87633; 87637; 87641; 87899; 92611; 93005; 93970; 94002; 94003; 94640; 94762; 96374; 97110; 97116; 97161; 97166; 97530; 99291; A9270; C8929; J0456; J0696; J1100; J1120; J1940; J2543; J2919; J3370; J7030; Q9957; Q9967

== ENCOUNTER 2024-05-19 17:54 | Inpatient (IN) | payer MEDICARE, MEDICAID, SELFPAY ==
[2024-05-19] VITALS (11 sets, daily range): BP systolic 124–147; BP diastolic 68–98; PULSE 67–81; RESP 18–25; TEMP 36.4–36.8; O2SAT 94–100
--- NOTE | ~2024-05-19 | US_ITS ---
EXAMINATION: US venous doppler [facility] DATE: 05/20/2024 14:22 INDICATION: Lower limb swelling and edema. TECHNIQUE: Grayscale ultrasound images without and with compression and Doppler ultrasound images of the bilateral lower extremity veins were obtained. COMPARISON: Ultrasound 02/13/2024 FINDINGS: The visualized portions of right common femoral vein, profunda (deep) femoral vein, femoral vein, pop liteal vein, peroneal veins, posterior tibial veins, and greater saphenous vein outflow are patent. The visualized portions of left common femoral vein, profunda femoral vein, femoral vein, popliteal v ein, peroneal veins, posterior tibial veins, and greater saphenous vein outflow are patent. IMPRESSION: 1. No deep venous thrombosis. Reviewed, dictated and finalized at location A.
--- NOTE | ~2024-05-19 | XR_ITS ---
EXAMINATION: XR chest 2V DATE: 05/23/2024 09:07 INDICATION: Right pleural effusion. TECHNIQUE: Frontal and lateral views of the chest were obtained. COMPARISON: Chest single view 05/19/2024, chest CT 02/11/2024 FINDINGS: There are small pleural effusions, right worse than left. There are lucencies in the lungs, consistent with emphysema. There is mild atelectasis at the lung bases. No pneumothorax. Cardiomegal y is noted. There are surgical clips in right neck. IMPRESSION: 1. Stable small pleural effusions. 2. Emphysema. 3. Cardiomegaly. Reviewed, dictated and finalized at location A.
--- NOTE | ~2024-05-19 | XR_ITS ---
CHEST RADIOGRAPH CLINICAL HISTORY: dyspnea, COPD . COMPARISON: 02/14/2024 TECHNIQUE: Single portable view of the chest. FINDINGS The cardiomediastinal silhouette is enlarged, unchanged. Dense calcification of the thoracic aorta is present. Redemonstration of a large right-sided pleural effusion. Redemonstration of a small left-sided pleural effusion. Coarse interstitial lung markings are detected bilaterally, likely chronic. Diffuse bony demineralization is noted. IMPRESSION: Redemonstration of a large right and a small left-sided pleural effusions with additional findings donaldson ggesting chronic interstitial lung disease. Reviewed, dictated and finalized at location A. IMPRESSION: Redemonstration of a large right and a small left-sided pleural effusions with additional findings suggesting chronic interstitial lung disease.
--- NOTE | 2024-05-19 18:00 | ECG_ITS ---
Test Date: 2024-05-19 18:02:11 Measurements Intervals [place] Rate: 83 P: 0 KS: 0 QRS: 105 QRSD: 97 T: 41 QT: 394 QTc: 464 Interpretive Statements ATRIAL FIBRILLATION INCOMPLETE RIGHT BUNDLE BRANCH BLOCK [90+ ms QRS DURATION, TERMINAL R IN V1/V2, 40+ ms S IN I/aVL/V4/V5/V6] CONSIDER PREVIOUS ANTEROSEPTAL INFARCTION ABNORMAL ECG Compared to ECG 02/10/2024 11:17:52 NO SIGNIFICANT DIFFERENCE Electronically Signed On 05-20-2024 07:53:52 CDT by Emmanuel Maravilla M.D.
--- NOTE | 2024-05-19 18:14 | ED.RECABL ---
HPI - Recheck/Abnormal Lab/Rx General Chief Complaint: Shortness of Breath/Dyspnea <Alexandro Balbuena PA-C - Last Filed: 05/20/24 01:01> Stated Complaint: low o2 <Alexandro Balbuena PA-C - Last Filed: 05/20/24 01:01> Time Seen by Provider: 05/19/24 18:08 <Alexandro Balbuena PA-C - Last Filed: 05/20/24 01:01> Source: patient <BERNARDO Mccrary Last Filed: 05/20/24 01:01> Mode of arrival: EMS <BERNARDO Mccrary Last Filed: 05/20/24 01:01> Limitations: dementia <Alexandro Balbuena PA-C - Last Filed: 05/20/24 01:01> History of Present Illness HPI narrative: This is a 89-year-old female with PMH of AFib, CAD, COPD, CHF, HLD, HTN, chronic anticoagulation who presents to the ED from half-way today for reported hypoxia. Patient states that she does not feel short of breath more than normal, however history is limited due to dementia. She does note that she was feeling short of breath in the bathroom and had to sit down. Reports that the nursing staff came in to help and noticed she was persistently hypoxic in the 70s. EMS reports that she is on 3 L nasal cannula chronically and that she did become hypoxic at times on 3 L and route into the upper 80s. <Alexandro Balbuena PA-C - Last Filed: 05/20/24 01:01> Related Data Home Medications: Home Medications Medication Instructions Recorded Confirmed cholecalciferol (vitamin D3) 125 125 mcg PO DAILY 07/01/23 05/19/24 mcg (5,000 unit) capsule cyanocobalamin (vitamin B-12) 1,000 mcg PO DAILY 07/01/23 05/19/24 1,000 mcg capsule furosemide 20 mg tablet (Lasix) 20 mg PO HS 02/10/24 05/19/24 acetaminophen 650 mg tablet 650 mg PO Q4H PRN Pain (Scale 05/19/24 05/19/24 Score 1-3) apixaban 2.5 mg tablet (Eliquis) 2.5 mg PO BID 05/19/24 05/19/24 furosemide 40 mg tablet 40 mg PO QAM 05/19/24 05/19/24 potassium chloride 10 mEq 10 meq PO DAILY 05/19/24 05/19/24 capsule,extended release sennosides 8.6 mg tablet (senna) 8.6 mg PO BID 05/19/24 05/19/24 <Alexandro Balbuena PA-C - Last Filed: 05/20/24 01:01> Allergies/Adverse Reactions: Allergies Allergy/AdvReac Type Severity Reaction Status Date / Time cephalexin Allergy Unknown Rash Verified 05/19/24 22:16 <Alexandro Balbuena PA-C - Last Filed: 05/20/24 01:01> Review of Systems Review of Systems: ROS unobtainable: Yes unobtainable due to mental status <Alexandro Balbuena PA-C - Last Filed: 05/20/24 01:01> [facility], LAT[facility] Past Medical History Medical History: Medical History Arthritis Atrial fibrillation Carotid artery disease Chronic anticoagulation Chronic obstructive pulmonary disease Chronic respiratory failure with hypoxia, on home oxygen therapy E coli infection Generalized anxiety disorder Hyperlipidemia Hypertension Hypothyroidism Macular degeneration Osteoporosis <Alexandro Balbuena PA-C - Last Filed: 05/20/24 01:01> Surgical History Surgical History: Surgical History History of bilateral cataract extraction History of right-sided carotid endarterectomy <Alexandro Balbuena PA-C - Last Filed: 05/20/24 01:01> Family History Family History: Family History (Updated 05/19/24 @ 22:01 by Caprice Collazo RN) Father Heart disease Carcinoma of colon Hypertension Mother Heart disease Breast cancer Hypertension Daughter Breast cancer Myocardial infarct Cerebrovascular accident <Alexandro Balbuena PA-C - Last Filed: 05/20/24 01:01> Social History Social History: Social History Social History: Surrogate medical decision maker: Julito Simpson, son. Code status: Full code. Smoking packs per day: 1 Smoking cigarettes per day: 20.0 Years smoked: 60 Smoking pack-years: 60.00 Smoking status: Former smoker Tobacco type: cigarettes Smoking end date: 08/11/02 Alcohol intake:
[2024-05-19 18:24] LABS: Basophils Percent Auto 0.7 % (0.2-1.2); Eosinophils Absolute Auto 0.1 K/mm3 (0-0.3); Eosinophils Percent Auto 1.3 % (0-4.4); Hematocrit 39.6 % (37.0-47.0); Immature Granulocyte Absolute 0.01 K/mm3 (0.00-0.031); Immature Granulocyte Percent A 0.2 % (0-0.5); Lymphocytes Percent Auto 13.1 % (18.3-44.2); Mean Corpuscular HGB Conc 30.3 g/dl (32-36); Mean Corpuscular Hemoglobin 31.5 pg (26-34); Mean Corpuscular Volume 103.9 fl (80-100); Mean Platelet Volume 10.1 fl (7.4-10.4); Monocytes Percent Auto 15.9 % (2.6-8.5); Neutrophils Absolute Auto 4.2 K/mm3 (1.3-6.7); Neutrophils Percent Auto 68.8 % (45.5-73.1); Platelet Count Result 245 k/mm3 (150-375); Red Blood Count 3.81 M/mm3 (4.2-5.4); Red Cell Distribution Width 15.5 % (11.5-14.5); White Blood Count 6.1 K/mm3 (4.5-10.0)
[2024-05-19 18:34] LABS: INR 1.1; Prothrombin Time 14.7 Seconds (11.1-14.7)
[2024-05-19 18:35] LABS: Alanine Aminotransferase 10 U/L (6-35); Albumin Level 3.7 g/dL (3.5-5.1); Alkaline Phosphatase 75 U/L (38-126); Anion Gap 3 mmol/L (4-12); Aspartate Amino Transferase 23 U/L (14-36); Bilirubin,Total 0.6 mg/dL (0.2-1.3); Blood Urea Nitrogen 26 mg/dL (7-17); Calcium 9.2 mg/dL (8.4-10.2); Carbon Dioxide 37 mmol/L (22-30); Chloride 96 mmol/L (98-107); Estimated CRCL calculation 20 ml/min; Estimated Glomerular Filt Rate 33; Glucose 109 mg/dL (65-110); Partial Thromboplastin Time 27.2 Seconds (22.3-36.8); Potassium 3.6 mmol/L (3.4-5.0); Sodium 136 mmol/L (137-145)
[2024-05-19 18:55] LABS: NT Pro B Type Natriuretic Pept 4360 pg/mL (19.9-100); Troponin I 0.014 ng/mL (0.000-0.034)
[2024-05-19 18:56] LABS: Alveolar/Arterial O2 Gradient 93.1 mmHg; Base Excess ABG 4.4 mEq/l (+/-2.0); Fractional Inspired Oxygen 32 %; HCO3 ABG 31.3 mEq/l (22.0-26.0); Oxygen Content ABG 15.7 %vol (16.0-22.0); Oxygen Saturation ABG 92.4 % (95.0-100.0); PCO2 ABG 57.3 mmHg (35.0-45.0); PO2 FiO2 Ratio Arterial Blood 2.13 %; Total Hemoglobin 12.4 g/dL (12.0-18.0); pH ABG 7.355 (7.350-7.450)
[2024-05-19 18:57] LABS: Device NASAL CANNULA; Site Drawn RIGHT BRACHIAL
[2024-05-19 19:04] LABS: Influenza A QL RT-PCR Negative (Negative); Influenza B QL RT-PCR Negative (Negative); RSV RNA, RT-PCR Negative (Negative); SARS-CoV-2 RNA PCR Negative (Negative)
[2024-05-19] MEDS: IPRATROPIUM 0.5 MG/ALBUTEROL SULFATE 2.5 MG AMPUL.NEB 3 ML INHALATION (19:13)
[2024-05-19] MEDS: FUROSEMIDE INJ 40 MG/4 ML VIAL 20 MG IV PUSH (20:03)
--- NOTE | 2024-05-19 20:19 | PM.IMHP ---
H&P: HPI History of Present Illness Date/Time: 05/19/24 20:19 Chief Complaint: shortness of breath Narrative: This is an 89-year-old female with past medical history significant for chronic hypoxic respiratory failure on chronic supplemental oxygen by 3 L of nasal cannula, type diabetes mellitus, COPD/ emphysema. patient was brought to the emergency room for evaluation due to shortness of breath and low pulse ox. Here in emergency room patient was found to have large left-sided pleural effusion. Patient complains of bilateral lower extremity worsening swelling as well, denies any fevers rigors or chills. Patient has been admitted for further evaluation management and treatment. CHEST RADIOGRAPH CLINICAL HISTORY: dyspnea, COPD . COMPARISON: 02/14/2024 TECHNIQUE: Single portable view of the chest. FINDINGS The cardiomediastinal silhouette is enlarged, unchanged. Dense calcification of the thoracic aorta is present. Redemonstration of a large right-sided pleural effusion. Redemonstration of a small left-sided pleural effusion. Coarse interstitial lung markings are detected bilaterally, likely chronic. Diffuse bony demineralization is noted. IMPRESSION: Redemonstration of a large right and a small left-sided pleural effusions with additional findings suggesting chronic interstitial lung disease. Review of Systems Review of Systems: Shortness of breath, leg swelling PMFSH Past Medical History Medical History Arthritis Atrial fibrillation Carotid artery disease Chronic anticoagulation Chronic obstructive pulmonary disease Chronic respiratory failure with hypoxia, on home oxygen therapy E coli infection Generalized anxiety disorder Hyperlipidemia Hypertension Hypothyroidism Macular degeneration Osteoporosis Surgical History Surgical History History of bilateral cataract extraction History of right-sided carotid endarterectomy Family History Family History (Updated 05/19/24 @ 22:01 by Caprice Collazo RN) Father Heart disease Carcinoma of colon Hypertension Mother Heart disease Breast cancer Hypertension Daughter Breast cancer Myocardial infarct Cerebrovascular accident Social History Social History Social History: Surrogate medical decision maker: Julito Simpson, son. Code status: Full code. Smoking packs per day: 1 Smoking cigarettes per day: 20.0 Years smoked: 60 Smoking pack-years: 60.00 Smoking status: Former smoker Tobacco type: cigarettes Smoking end date: 08/11/02 Alcohol intake: never Drinks per week: 1 Substance use: never Substance use type: does not use Do You Feel Safe in your Home?: Yes Lack of Transportation: No Lack of Food: Never True Current Housing: I Have Housing Concerned About Future Housing: No Difficulty Paying Gas/Electric Bills: No Difficulty Paying for Meds: No Currently Unemployed: No Education: High School Diploma/GED Difficulty w/ Childcare or Family Care: No Living arrangements: [place] Occupation/Education: retired Spiritual care concerns: No Agree to blood products: Yes Meds Home Medications and Allergies Home Medications Medication Instructions Recorded Confirmed Type cholecalciferol (vitamin D3) 125 125 mcg PO DAILY 07/01/23 05/19/24 History mcg (5,000 unit) capsule cyanocobalamin (vitamin B-12) 1,000 mcg PO DAILY 07/01/23 05/19/24 History 1,000 mcg capsule albuterol sulfate 90 mcg/actuation 2 inh inhalation Q4H PRN shortness 10/21/23 05/19/24 Rx breath activated powder inhaler of breath or wheezing #1 ea umeclidinium 62.5 mcg-vilanterol 1 inh inhalation DAILY #60 ea 10/21/23 05/19/24 Rx 25 mcg/actuation powdr for inhalation atorvastatin 20 mg tablet (Lipitor)
--- NOTE | 2024-05-19 21:59 | ADMGEN ---
This patient, Katie Frances, was admitted to 2 Medical Room 257-01. Patient/family oriented to hospital policies and general routines including ID bracelet, bed and alarms, visiting hours, pain management, procedures, bathroom and other care routines, personal items, smoking policy, room service/diet, and visiting hours. Information on how to activate the Rapid Response Team has been discussed. Patient/Family are encouraged to report perceived risks to care and to ask questions if they do not understand what they are told or what they should do.
[2024-05-20] VITALS (17 sets, daily range): BP systolic 111–136; BP diastolic 56–63; PULSE 65–99; RESP 18–30; TEMP 36.3–36.7; O2SAT 93–98
--- NOTE | 2024-05-20 | ECHO_ITS ---
Patient Info Name: Katie Frances Age: 89 years : 1935 Gender: Female Ht: 60 in Wt: 154 lbs BSA: 1.75 m2 HR: 71 bpm BP: 147 / 98 mmHg Heart Rhythm: Indeterminant Technical Quality: Poor Exam Date: 05/20/2024 9:48 AM Exam Location: Echo Lab Patient Status: Inpatient Admit Date: 05/19/2024 Staff Ordering Physician: Beau Suresh MD Screw Machine Hand: Don Moscoso RDCS Attending Provider: Beau Suresh MD Referring Physician: Kerwin JACOB; Exam Type: CA echo doppler color flow Study Info Indications - CHF Complete two-dimensional, color flow and Doppler transthoracic echocardiogram is performed. Reason for Poor Study: poor patient cooperation Summary 1. Complete two-dimensional, color flow and Doppler transthoracic echocardiogram is performed. 2. Left ventricular chamber dimension is normal. 3. D shaped ventricular septum during systolic suggestive of RV pressure overload. 4. Left ventricular systolic function is normal, estimated at 60-65%. 5. The left ventricular diastolic function is normal. 6. E/e' 18 is elevated. 7. Left atrial chamber dimension is moderately enlarged. 8. Right atrial chamber dimension is moderately enlarged. 9. There is mild aortic valve sclerosis. 10. There is mild mitral valve regurgitation. 11. There is mild to moderate tricuspid valve regurgitation. 12. Severe pulmonary hypertension, estimated pulmonary arterial systolic pressure is 70 mmHg. Left Ventricle E/e' 18 is elevated. D shaped ventricular septum during systolic suggestive of RV pressure overload. Left ventricular chamber dimension is normal. Left ventricular systolic function is normal, estimated at 60-65%. The left ventricular diastolic function is normal. Right Ventricle Right ventricular chamber dimension is normal. Right ventricular systolic function is normal. Left Atria Left atrial chamber dimension is moderately enlarged. Right Atria Right atrial chamber dimension is moderately enlarged. Aortic Valve The aortic valve is trileaflet. There is mild aortic valve sclerosis. There is no aortic valve stenosis. There is no aortic valve regurgitation. Pulmonic Valve There is no pulmonic regurgitation. Mitral Valve There is no mitral valve stenosis. There is mild mitral valve regurgitation. Tricuspid Valve There is mild to moderate tricuspid valve regurgitation. Severe pulmonary hypertension, estimated pulmonary arterial systolic pressure is 70 mmHg. Pericardium/Pleural There is no pericardial effusion. Inferior Vena Cava Normal inferior vena cava with >50% collapse upon inspiration consistent with normal right atrial pressure, 5 mmHg. Aorta The aortic root size at the sinus of Valsalva is normal. Left Ventricular Outflow Tract Name Value Normal LVOT 2D LVOT Diameter 2.0 cm LVOT Doppler LVOT Peak Gradient 2 mmHg LVOT Mean Gradient 1 mmHg LVOT VTI 17 cm LVOT VTI/AV VTI Ratio 0.8 LVOT Stroke Volume 52 ml LVOT CO 3.6 l/min LVOT CI 2.1 l/min
[2024-05-20] MEDS: IPRATROPIUM 0.5 MG/ALBUTEROL SULFATE 2.5 MG AMPUL.NEB 3 ML INHALATION ×2 (02:33→07:49)
[2024-05-20] MEDS: LEVOTHYROXINE SODIUM 112 MCG TABLET PO (05:33)
[2024-05-20] MEDS: FLUTICASONE/SALMETEROL 115-21 MCG INHALER 1 PUFF 2 PUFF INHALATION ×2 (07:49→20:13)
[2024-05-20] MEDS: FUROSEMIDE INJ 40 MG/4 ML VIAL IV PUSH ×2 (08:46→20:22)
[2024-05-20] MEDS: APIXABAN 2.5 MG TABLET PO ×2 (08:46→20:22)
[2024-05-20] MEDS: METOPROLOL TARTRATE 25 MG TABLET PO ×2 (08:46→20:22)
[2024-05-20] MEDS: EMPAGLIFLOZIN 10 MG TABLET PO (08:47)
[2024-05-20] MEDS: SENNOSIDES 8.6 MG TABLET PO ×2 (08:47→16:39)
--- NOTE | 2024-05-20 15:09 | PM.IMPN ---
Progress Note: A&P Assessment and Plan (1) Acute on chronic respiratory failure with hypoxia and hypercapnia: Code(s): J96.21 - Acute and chronic respiratory failure with hypoxia; J96.22 - Acute and chronic respiratory failure with hypercapnia Status: Acute Assessment and Plan: admit to med tele continue to monitor continuous pulse ox (2) COPD exacerbation: Code(s): J44.1 - Chronic obstructive pulmonary disease with (acute) exacerbation Status: Acute Assessment and Plan: breathing treatments-Duoneb q 6 hrs, ipratropium q 6 hrs continue home meds (3) Pleural effusion, right: Code(s): J90 - Pleural effusion, not elsewhere classified Status: Acute Assessment and Plan: diuresing-Lasix 40 mg IV BID consider thoracentesis (4) CHF (congestive heart failure): Qualifiers: Heart failure chronicity: acute Code(s): I50.9 - Heart failure, unspecified Status: Acute Assessment and Plan: 05/20/2024 ECHO- Summary 1. Complete two-dimensional, color flow and Doppler transthoracic echocardiogram is performed. 2. Left ventricular chamber dimension is normal. 3. D shaped ventricular septum during systolic suggestive of RV pressure overload. 4. Left ventricular systolic function is normal, estimated at 60-65%. 5. The left ventricular diastolic function is normal. 6. E/e' 18 is elevated. 7. Left atrial chamber dimension is moderately enlarged. 8. Right atrial chamber dimension is moderately enlarged. 9. There is mild aortic valve sclerosis. 10. There is mild mitral valve regurgitation. 11. There is mild to moderate tricuspid valve regurgitation. 12. Severe pulmonary hypertension, estimated pulmonary arterial systolic pressure is 70 mmHg. Lasix 40 mg IV BID Daily weight Monitor I&O Monitor BMP Monitor vital signs (5) Generalized anxiety disorder: Code(s): F41.1 - Generalized anxiety disorder Status: Acute Assessment and Plan: continue home med (6) Atrial fibrillation: Code(s): I48.91 - Unspecified atrial fibrillation Status: Acute Assessment and Plan: Continue Eliquis Continue metoprolol Monitor vital signs (7) Hypertension: Qualifiers: Hypertension type: primary hypertension Qualified Code(s): I10 - Essential (primary) hypertension Code(s): I10 - Essential (primary) hypertension Status: Acute Assessment and Plan: continue home meds Time Spent With Patient Time with patient: 15 - 25 minutes Subjective Date/time seen: 05/20/24 0900 Review of Systems Review of Systems: Pt is alert and oriented to person and place. Not sure why she came to the hospital, asked if she fell. Appears in no acute distress. All systems reviewed & are unremarkable except as noted in HPI and below Constitutional: Constitutional: Reports as per HPI and Reports no additional constitutional complaints Exam Narrative: Pt is alert and oriented to person and place and time. Unsure why she came to the ED, asked if she fell. Appears no no acute distress. Const: General: comfortable and no acute distress HENMT: Face/Nose/Sinus: Normal nares present Mouth: Yes moist mucous membranes Eyes: General: appearance normal, both eyes and all related structures Sclera: sclerae normal Pupils: Equal, round and reactive pupils present EOM: EOMs intact bilaterally Neck: Neck: supple and no JVD Resp: Effort & Inspection: normal respiratory effort Auscultation: clear to auscultation bilaterally and diminished lung sounds on the right Cardio: Rate: regular rate Rhythm: regular rhythm GI: GI Palp: Yes Soft to palpation Auscultation: normal bowel sounds Skin: General skin exam: normal color and no rashes or lesions noted Neuro: Speech: normal speech Motor exam (neuro): Normal motor muscle tone present throughout Sensory Exam: normal sensation Extrem:
[2024-05-20] MEDS: ATORVASTATIN 20 MG TABLET PO (20:22)
[2024-05-21] VITALS (19 sets, daily range): BP systolic 96–124; BP diastolic 47–62; PULSE 61–77; RESP 12–24; TEMP 36.6–36.7; O2SAT 92–100
[2024-05-21] MEDS: LEVOTHYROXINE SODIUM 112 MCG TABLET PO (05:38)
[2024-05-21] MEDS: FLUTICASONE/SALMETEROL 115-21 MCG INHALER 1 PUFF 2 PUFF INHALATION ×2 (07:48→21:00)
[2024-05-21] MEDS: UMECLIDINIUM/VILANTEROL 62.5-25 MCG ELLIPTA 1 PUFF INHALATION (07:48)
[2024-05-21] MEDS: IPRATROPIUM 0.5 MG/ALBUTEROL SULFATE 2.5 MG AMPUL.NEB 3 ML INHALATION ×3 (07:48→21:00)
[2024-05-21 08:05] LABS: Basophils Percent Auto 0.8 % (0.2-1.2); Eosinophils Absolute Auto 0.1 K/mm3 (0-0.3); Eosinophils Percent Auto 2.1 % (0-4.4); Hematocrit 37.9 % (37.0-47.0); Hemoglobin 11.7 g/dL (12.0-15.0); Immature Granulocyte Absolute 0.01 K/mm3 (0.00-0.031); Immature Granulocyte Percent A 0.2 % (0-0.5); Lymphocytes Absolute Auto 1.05 K/mm3 (0.9-3.2); Lymphocytes Percent Auto 20.4 % (18.3-44.2); Mean Corpuscular HGB Conc 30.9 g/dl (32-36); Mean Corpuscular Hemoglobin 31.5 pg (26-34); Mean Corpuscular Volume 101.9 fl (80-100); Mean Platelet Volume 10.2 fl (7.4-10.4); Monocytes Absolute Auto 1.2 K/mm3 (0.1-0.6); Monocytes Percent Auto 22.6 % (2.6-8.5); Neutrophils Absolute Auto 2.8 K/mm3 (1.3-6.7); Neutrophils Percent Auto 53.9 % (45.5-73.1); Platelet Count Result 260 k/mm3 (150-375); Red Blood Count 3.72 M/mm3 (4.2-5.4); Red Cell Distribution Width 15.5 % (11.5-14.5); White Blood Count 5.1 K/mm3 (4.5-10.0)
[2024-05-21 08:23] LABS: Anion Gap 4 mmol/L (4-12); Blood Urea Nitrogen 26 mg/dL (7-17); Calcium 8.7 mg/dL (8.4-10.2); Carbon Dioxide 38 mmol/L (22-30); Chloride 95 mmol/L (98-107); Estimated CRCL calculation 27 ml/min; Estimated Glomerular Filt Rate 47; Glucose 91 mg/dL (65-110); Potassium 3.5 mmol/L (3.4-5.0); Sodium 137 mmol/L (137-145)
[2024-05-21] MEDS: METOPROLOL TARTRATE 25 MG TABLET PO ×2 (09:54→21:11)
[2024-05-21] MEDS: SENNOSIDES 8.6 MG TABLET PO ×2 (09:54→17:42)
[2024-05-21] MEDS: EMPAGLIFLOZIN 10 MG TABLET PO (09:55)
[2024-05-21] MEDS: APIXABAN 2.5 MG TABLET PO ×2 (09:55→21:10)
[2024-05-21] MEDS: FUROSEMIDE INJ 40 MG/4 ML VIAL IV PUSH ×2 (09:55→21:15)
[2024-05-21] MEDS: ATORVASTATIN 20 MG TABLET PO (21:10)
[2024-05-22] VITALS (18 sets, daily range): BP systolic 120–142; BP diastolic 56–76; PULSE 61–90; RESP 12–27; TEMP 36.3–36.8; O2SAT 93–100
[2024-05-22] MEDS: IPRATROPIUM 0.5 MG/ALBUTEROL SULFATE 2.5 MG AMPUL.NEB 3 ML INHALATION ×3 (03:29→22:00)
[2024-05-22 05:32] LABS: Basophils Absolute Auto 0.1 K/mm3 (0.0-0.1); Basophils Percent Auto 0.6 % (0.2-1.2); Eosinophils Absolute Auto 0.1 K/mm3 (0-0.3); Eosinophils Percent Auto 1.3 % (0-4.4); Hematocrit 40.1 % (37.0-47.0); Hemoglobin 12.6 g/dL (12.0-15.0); Immature Granulocyte Absolute 0.03 K/mm3 (0.00-0.031); Immature Granulocyte Percent A 0.3 % (0-0.5); Lymphocytes Absolute Auto 1.01 K/mm3 (0.9-3.2); Lymphocytes Percent Auto 11.7 % (18.3-44.2); Mean Corpuscular HGB Conc 31.4 g/dl (32-36); Mean Corpuscular Hemoglobin 31.6 pg (26-34); Mean Corpuscular Volume 100.5 fl (80-100); Mean Platelet Volume 9.9 fl (7.4-10.4); Monocytes Absolute Auto 1.4 K/mm3 (0.1-0.6); Monocytes Percent Auto 16.3 % (2.6-8.5); Neutrophils Percent Auto 69.8 % (45.5-73.1); Platelet Count Result 272 k/mm3 (150-375); Red Blood Count 3.99 M/mm3 (4.2-5.4); Red Cell Distribution Width 15.3 % (11.5-14.5); White Blood Count 8.6 K/mm3 (4.5-10.0)
[2024-05-22 05:47] LABS: Blood Urea Nitrogen 26 mg/dL (7-17); Calcium 9.1 mg/dL (8.4-10.2); Carbon Dioxide > 40 mmol/L (22-30); Chloride 91 mmol/L (98-107); Estimated CRCL calculation 27 ml/min; Estimated Glomerular Filt Rate 47; Glucose 102 mg/dL (65-110); Potassium 3.5 mmol/L (3.4-5.0); Sodium 137 mmol/L (137-145)
[2024-05-22] MEDS: LEVOTHYROXINE SODIUM 112 MCG TABLET PO (06:25)
[2024-05-22] MEDS: APIXABAN 2.5 MG TABLET PO ×2 (08:27→22:06)
[2024-05-22] MEDS: METOPROLOL TARTRATE 25 MG TABLET PO ×2 (08:27→22:06)
[2024-05-22] MEDS: EMPAGLIFLOZIN 10 MG TABLET PO (08:27)
[2024-05-22] MEDS: SENNOSIDES 8.6 MG TABLET PO ×2 (08:27→17:02)
[2024-05-22] MEDS: FUROSEMIDE INJ 40 MG/4 ML VIAL IV PUSH ×2 (08:27→22:07)
[2024-05-22] MEDS: FLUTICASONE/SALMETEROL 115-21 MCG INHALER 1 PUFF 2 PUFF INHALATION ×2 (09:01→22:00)
[2024-05-22] MEDS: UMECLIDINIUM/VILANTEROL 62.5-25 MCG ELLIPTA 1 PUFF INHALATION (09:04)
--- NOTE | 2024-05-22 10:43 | PM.IMPN ---
Progress Note: A&P Assessment and Plan (1) Acute on chronic respiratory failure with hypoxia and hypercapnia: Code(s): J96.21 - Acute and chronic respiratory failure with hypoxia; J96.22 - Acute and chronic respiratory failure with hypercapnia Status: Acute Assessment and Plan: Likely due to cor pulmonale with associated left heart failure Improving with diuresis (2) COPD exacerbation: Code(s): J44.1 - Chronic obstructive pulmonary disease with (acute) exacerbation Status: Acute Assessment and Plan: Duoneb q 6 hrs Continue home regimen (3) Pleural effusion, right: Code(s): J90 - Pleural effusion, not elsewhere classified Status: Acute Assessment and Plan: Likely due to acute left heart failure secondary to exacerbation of cor pulmonale Diuresing-Lasix 40 mg IV BID 05/23 follow-up chest x-ray (4) CHF (congestive heart failure): Qualifiers: Heart failure chronicity: acute Code(s): I50.9 - Heart failure, unspecified Status: Acute Assessment and Plan: Diastolic left heart failure likely exacerbated worsened cor pulmonale Continue diuresis 05/20/2024 ECHO- Summary 1. Complete two-dimensional, color flow and Doppler transthoracic echocardiogram is performed. 2. Left ventricular chamber dimension is normal. 3. D shaped ventricular septum during systolic suggestive of RV pressure overload. 4. Left ventricular systolic function is normal, estimated at 60-65%. 5. The left ventricular diastolic function is normal. 6. E/e' 18 is elevated. 7. Left atrial chamber dimension is moderately enlarged. 8. Right atrial chamber dimension is moderately enlarged. 9. There is mild aortic valve sclerosis. 10. There is mild mitral valve regurgitation. 11. There is mild to moderate tricuspid valve regurgitation. 12. Severe pulmonary hypertension, estimated pulmonary arterial systolic pressure is 70 mmHg. (5) Generalized anxiety disorder: Code(s): F41.1 - Generalized anxiety disorder Status: Acute Assessment and Plan: Continue home regimen (6) Atrial fibrillation: Code(s): I48.91 - Unspecified atrial fibrillation Status: Acute Assessment and Plan: Continue Eliquis Continue metoprolol (7) Hypertension: Qualifiers: Hypertension type: primary hypertension Qualified Code(s): I10 - Essential (primary) hypertension Code(s): I10 - Essential (primary) hypertension Status: Acute Assessment and Plan: 05/22 reviewed and controlled adequately Subjective Date/time seen: 05/22/24 10:43 Interval history: 81-year-old intermediate resident was admitted 05/19 due to dyspnea. Found to have a moderate right pleural effusion and small left pleural effusion. Feeling better with diuresis. At home uses 2-3 L of oxygen by nasal cannula and CPAP at night. Tolerating those well here. Appetite good. Denied pain. Only complaint is constipation since admission. Usually takes MiraLax and a stimulant laxative at home. Review of Systems Review of Systems: All systems reviewed & are unremarkable except as noted in HPI and below Exam Narrative: HEENT: PERRL, sclerae nonicteric, pharyngeal mucosa pink and intact NECK: No JVD CHEST: Normal effort. Decreased breath sounds right base. Few scattered crackles lower lobes. No wheezes. HEART: NL S1/S2, regular, no murmur. ABDOMEN: BS+, soft, nontender, no mass, no bruits EXTREMITIES: No cyanosis, edema, or clubbing NEUROLOGIC: CN intact and symmetric to inspection. MUSCULOSKELETAL: Tone and strength symmetric. PSYCH: Alert. Oriented to person, place, and time. Objective Data Vital Signs Vital Signs: Vital Signs - 24 hr 05/21/24 13:49 05/21/24 13:58 05/21/24 14:00 Temperature 97.9 F Pulse Rate 76 68 75 Respiratory Rate 18 18 14 Blood Pressure 96/47 L Pulse Oximetry 99 Oxygen Delivery Oxygen Flow Rate
--- NOTE | 2024-05-22 13:01 | PCPTNOTE ---
attempted PT eval, pt reports she is very tired and would like to try therapy later, pt unable to keep her eyes open when speaking, will follow
[2024-05-22] MEDS: polyethylene glycoL 3350 17 GM POWD.PACK PO (13:38)
[2024-05-22] MEDS: ATORVASTATIN 20 MG TABLET PO (22:06)
[2024-05-23] VITALS (13 sets, daily range): BP systolic 118–146; BP diastolic 43–68; PULSE 68–96; RESP 14–21; TEMP 36.6–36.8; O2SAT 97–100
[2024-05-23] MEDS: LEVOTHYROXINE SODIUM 112 MCG TABLET PO (05:47)
[2024-05-23 06:07] LABS: Basophils Percent Auto 0.6 % (0.2-1.2); Eosinophils Absolute Auto 0.1 K/mm3 (0-0.3); Eosinophils Percent Auto 1.1 % (0-4.4); Hematocrit 36.3 % (37.0-47.0); Hemoglobin 11.3 g/dL (12.0-15.0); Immature Granulocyte Absolute 0.01 K/mm3 (0.00-0.031); Immature Granulocyte Percent A 0.2 % (0-0.5); Lymphocytes Absolute Auto 1.34 K/mm3 (0.9-3.2); Lymphocytes Percent Auto 20.8 % (18.3-44.2); Mean Corpuscular HGB Conc 31.1 g/dl (32-36); Mean Corpuscular Hemoglobin 31.1 pg (26-34); Monocytes Absolute Auto 1.2 K/mm3 (0.1-0.6); Monocytes Percent Auto 18.5 % (2.6-8.5); Neutrophils Absolute Auto 3.8 K/mm3 (1.3-6.7); Neutrophils Percent Auto 58.8 % (45.5-73.1); Platelet Count Result 237 k/mm3 (150-375); Red Blood Count 3.63 M/mm3 (4.2-5.4); Red Cell Distribution Width 15.5 % (11.5-14.5); White Blood Count 6.4 K/mm3 (4.5-10.0)
[2024-05-23 06:26] LABS: Anion Gap 5 mmol/L (4-12); Blood Urea Nitrogen 25 mg/dL (7-17); Calcium 8.6 mg/dL (8.4-10.2); Carbon Dioxide 36 mmol/L (22-30); Chloride 91 mmol/L (98-107); Estimated CRCL calculation 30 ml/min; Estimated Glomerular Filt Rate 52; Glucose 93 mg/dL (65-110); Potassium 3.2 mmol/L (3.4-5.0); Sodium 132 mmol/L (137-145)
[2024-05-23] MEDS: IPRATROPIUM 0.5 MG/ALBUTEROL SULFATE 2.5 MG AMPUL.NEB 3 ML INHALATION ×2 (07:24→13:24)
[2024-05-23] MEDS: FLUTICASONE/SALMETEROL 115-21 MCG INHALER 1 PUFF 2 PUFF INHALATION (07:26)
[2024-05-23] MEDS: UMECLIDINIUM/VILANTEROL 62.5-25 MCG ELLIPTA 1 PUFF INHALATION (07:26)
[2024-05-23] MEDS: EMPAGLIFLOZIN 10 MG TABLET PO (08:13)
[2024-05-23] MEDS: APIXABAN 2.5 MG TABLET PO (08:13)
[2024-05-23] MEDS: METOPROLOL TARTRATE 25 MG TABLET PO (08:13)
[2024-05-23] MEDS: SENNOSIDES 8.6 MG TABLET PO (08:13)
[2024-05-23] MEDS: FUROSEMIDE INJ 40 MG/4 ML VIAL 20 MG IV PUSH (08:14)
[2024-05-23] MEDS: polyethylene glycoL 3350 17 GM POWD.PACK PO (08:14)
[2024-05-23] MEDS: POTASSIUM CHLORIDE 20 MEQ ER TABLET 40 MEQ PO (08:16)
--- NOTE | 2024-05-23 09:08 | PCPTNOTE ---
attempted Pt eval, pt away from room getting chest xray, will follow
--- NOTE | 2024-05-23 12:22 | PM.DS ---
DS: Admitting Diagnosis Discharge Date 05/23/2024 Admitting Diagnosis Acute on Chronic Diastolic CHF DS: Discharge Diagnosis Discharge Diagnosis (1) Acute on chronic respiratory failure with hypoxia and hypercapnia: Code(s): J96.21 - Acute and chronic respiratory failure with hypoxia; J96.22 - Acute and chronic respiratory failure with hypercapnia Status: Acute Assessment and Plan: Likely due to cor pulmonale with associated left heart failure Improved after diuresis Home furosemide increased from 60 mg to 80 mg total daily and encouraged low salt diet Discussed with patient and sonMichael at bedside (2) COPD exacerbation: Code(s): J44.1 - Chronic obstructive pulmonary disease with (acute) exacerbation Status: Acute Assessment and Plan: Duoneb q 6 hrs while hospitalized Continue home regimen (3) Pleural effusion, right: Code(s): J90 - Pleural effusion, not elsewhere classified Status: Acute Assessment and Plan: Likely due to acute left heart failure secondary to exacerbation of cor pulmonale Diuresing-Lasix 40 mg IV BID 05/23 follow-up chest x-ray reviewed with Radiology and small bilateral pleural effusions stable without evidence of pulmonary edema. (4) CHF (congestive heart failure): Qualifiers: Heart failure chronicity: acute Code(s): I50.9 - Heart failure, unspecified Status: Acute Assessment and Plan: Diastolic left heart failure likely exacerbated due to worsened cor pulmonale Continue diuresis 05/20/2024 ECHO- Summary 1. Complete two-dimensional, color flow and Doppler transthoracic echocardiogram is performed. 2. Left ventricular chamber dimension is normal. 3. D shaped ventricular septum during systolic suggestive of RV pressure overload. 4. Left ventricular systolic function is normal, estimated at 60-65%. 5. The left ventricular diastolic function is normal. 6. E/e' 18 is elevated. 7. Left atrial chamber dimension is moderately enlarged. 8. Right atrial chamber dimension is moderately enlarged. 9. There is mild aortic valve sclerosis. 10. There is mild mitral valve regurgitation. 11. There is mild to moderate tricuspid valve regurgitation. 12. Severe pulmonary hypertension, estimated pulmonary arterial systolic pressure is 70 mmHg. (5) Generalized anxiety disorder: Code(s): F41.1 - Generalized anxiety disorder Status: Acute Assessment and Plan: Continue home regimen (6) Atrial fibrillation: Code(s): I48.91 - Unspecified atrial fibrillation Status: Acute Assessment and Plan: Continue Eliquis Continue metoprolol (7) Hypertension: Qualifiers: Hypertension type: primary hypertension Qualified Code(s): I10 - Essential (primary) hypertension Code(s): I10 - Essential (primary) hypertension Status: Acute Assessment and Plan: 05/23 reviewed and controlled adequately DS: Summary Hospital Course Reason for hospitalization: [facility] Hospital Course: Admitted May 19 with increased shortness of breath and lower extremity edema. Chest x-ray with pulmonary vascular congestion and small bilateral pleural effusions right greater than left. She responded well to diuresis with furosemide 40 mg IV twice daily. She was at her baseline oxygen use and chronic dyspnea. She has chronic cor pulmonale and underlying severe COPD with oxygen dependence. At discharge BUN was 25 and creatinine 1.0. Her potassium is 3.2 on the morning of discharge but corrected with potassium supplementation. Electrocardiogram showed chronic atrial fibrillation with controlled rate. White count was 6400 with hemoglobin 11.3 and platelet count [id number]. Sodium was 132 chloride 91 and CO2 36 with potassium 3.2 on morning of discharge and 4.4 that afternoon following supplementation. Time Spent with Patient Time attestation: Total time spent providing and/or coordinating
[2024-05-23] MEDS: POTASSIUM CHLORIDE 20 MEQ PACKET (FOR LIQUID) 40 MEQ PO (12:57)
[2024-05-23 15:57] LABS: Potassium 4.4 mmol/L (3.4-5.0)
[2024-05-23 16:19] LABS: SARS-CoV-2 RNA PCR Negative (Negative)
== END 2024-05-23 17:35 | DRG 291 ==
LOC: ANHED 20:22 → ANH2MED 21:08
PROVIDERS: Emergency Medicine; Internal Medicine; Nurse Practitioner Family; Admitting Provider Internal Medicine; Emergency Provider Physician Assistant; PCP Family Medicine; Visit Provider Internal Medicine
DX: I11.0 Hypertensive heart disease with heart failure (principal); I50.33 Acute on chronic diastolic (congestive) heart failure; J96.21 Acute and chronic respiratory failure with hypoxia; J96.22 Acute and chronic respiratory failure with hypercapnia; J96.11 Chronic respiratory failure with hypoxia; E03.9 Hypothyroidism, unspecified; E78.5 Hyperlipidemia, unspecified; E11.9 Type 2 diabetes mellitus without complications; F41.1 Generalized anxiety disorder; H35.30 Unspecified macular degeneration; I48.91 Unspecified atrial fibrillation; I27.81 Cor pulmonale (chronic); I25.10 Atherosclerotic heart disease of native coronary artery without angina pectoris; J43.9 Emphysema, unspecified; Z79.01 Long term (current) use of anticoagulants; Z79.84 Long term (current) use of oral hypoglycemic drugs; Z20.822 Contact with and (suspected) exposure to COVID-19; Z11.52 Encounter for screening for COVID-19; Z99.81 Dependence on supplemental oxygen; Z98.41 Cataract extraction status, right eye; Z98.42 Cataract extraction status, left eye; Z87.891 Personal history of nicotine dependence
CPT/HCPCS: 36415; 36600; 71045; 71046; 80048; 80053; 82805; 83880; 84132; 84484; 85018; 85025; 85610; 85730; 87635; 87637; 93005; 93306; 93970; 94640; 96374; 96376; 97165; 99285; A9270; G0378; J1940

== ENCOUNTER 2024-05-26 13:43 | Emergency (ER) | payer MEDICARE, MEDICAID, SELFPAY ==
--- NOTE | ~2024-05-26 | XR_ITS ---
EXAMINATION: XR hand LT min 3V, XR hand RT min 3V DATE: 05/26/2024 14:32 INDICATION: Bilateral hand pain TECHNIQUE: 1. Posteroanterior, oblique and lateral views of the left hand were obtained. 2. Posteroanterior, oblique and lateral views of the right hand were obtained. COMPARISON: None. FINDINGS: Minimal displacement of an oblique diaphyseal fracture of the left fifth metacarpal which remains in near-anatomic alignment. No other fractures identified. Alignment is otherwise normal at the bilatera l hands. Relatively symmetric pattern of polyarticular osteoarthritis at the bilateral hands and wris ts, severe at the first carpal metacarpal, first interphalangeal, right third-fifth and left second a nd third distal interphalangeal joints, moderate severity at the bilateral wrist, triscaphe, bilatera l metacarpophalangeal and remaining interphalangeal joints and mild at the bilateral distal radioulna r and midcarpal joints. Diffuse osteopenia. IMPRESSION: 1. Minimally displaced oblique extra-articular diaphyseal fracture of the left fifth metacarpal. No o ther acute osseous abnormality at either hand or wrist. 2. 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 Reviewed, dictated and finalized at location A. IMPRESSION: 1. Minimally displaced oblique extra-articular diaphyseal fracture of the left fifth metacarpal. No other acute osseous abnormality at either hand or wrist. 2. 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
--- NOTE | ~2024-05-26 | CT_ITS ---
EXAMINATION: CT facial & cervical spine wo DATE: 05/26/2024 14:45 INDICATION: Head injury. TECHNIQUE: Computed tomography (CT) of the maxillofacial region and cervical spine was performed with out intravenous contrast. Automated exposure control and iterative reconstruction technique were empl oyed. The dose-length product was 128.38 mGy-cm. COMPARISON: None FINDINGS: MAXILLOFACIAL CT: There are likely changes of ocular lens replacement surgeries. There is mild mucosal thickening in th e paranasal sinuses. There is rightward deviation of the nasal septum. No fracture. CERVICAL SPINE CT: Emphysema is noted. There is a moderate-sized right pleural effusion. There is mild kyphosis of cervi harpal spine. There is 2 mm anterolisthesis of C7 on T1. Vertebral body heights are normal. There is mod erately decreased disc height at C2-C3, severely decreased disc height at C3-C4, moderately decreased disc height at C4-C5, and severely decreased disc height at C5-C6 and C6-C7. The following disc leve ls are specifically discussed: C2-C3: There is severe right and moderate left uncovertebral joint osteoarthritis. There is severe bi lateral facet joint osteoarthritis. There is mild bilateral neural foraminal stenosis. There is no ce ntral canal stenosis. C3-C4: There is severe bilateral uncovertebral joint osteoarthritis. There is moderate right and angel luis re left facet joint osteoarthritis. There is mild right and moderate left neural foraminal stenosis. There is mild central canal stenosis. C4-C5: There is severe bilateral uncovertebral joint osteoarthritis. There is mild bilateral facet iban int osteoarthritis. There is mild bilateral neural foraminal stenosis. There is mild central canal st enosis. C5-C6: There is severe bilateral uncovertebral joint osteoarthritis. There is mild right and moderate left facet joint osteoarthritis. There is moderate bilateral neural foraminal stenosis. There is mil d central canal stenosis. C6-C7: There is severe bilateral uncovertebral joint osteoarthritis. There is moderate right and angel luis re left facet joint osteoarthritis. There is moderate bilateral neural foraminal stenosis. There is m ild central canal stenosis. C7-T1: There is no uncovertebral joint osteoarthritis. There is severe bilateral facet joint osteoart hritis. There is mild bilateral neural foraminal stenosis. There is no central canal stenosis. IMPRESSION: 1. No fracture. 2. Severe cervical spondylosis. 3. Moderate-sized right pleural effusion. 4. Emphysema. Reviewed, dictated and finalized at location A.
--- NOTE | ~2024-05-26 | CT_ITS ---
EXAMINATION: CT brain wo con DATE: 05/26/2024 14:45 INDICATION: Head injury. TECHNIQUE: Computed tomography (CT) of the head was performed without intravenous contrast. The mA wa s adjusted according to patient size. Iterative reconstruction technique was employed. The dose-lengt h product was 605.33 mGy-cm. COMPARISON: Head CT 08/17/2011 FINDINGS: There are old infarcts involving the bilateral basal ganglia, thalami, and luis. There are scattered areas of low attenuation in the cerebral white matter. There is no intracranial hemorrhage, acute infarction, or abnormal intracranial mass lesion. The ventricles are normal in size. There is mild mucosal thickening in the paranasal sinuses. There are likely changes of ocular lens replacement surgeries. The mastoid air cells are normal. IMPRESSION: 1. 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 2. Extensive nonspecific cerebral white matter disease, which likely represents chronic small vessel ischemic disease. Reviewed, dictated and finalized at location A.
[2024-05-26 13:48] VITALS: BP 122/51; PULSE 73; RESP 18; TEMP 36.4; O2SAT 100
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
[2024-05-26 15:56] VITALS: BP 120/56; PULSE 79; RESP 14; TEMP 36.9; O2SAT 99
== END 2024-05-26 16:00 | disposition home or self-care (01) ==
PROVIDERS: Emergency Provider Nurse Practitioner Family; PCP Family Medicine
DX: S62.397A Other fracture of fifth metacarpal bone, left hand, initial encounter for closed fracture (principal); I48.91 Unspecified atrial fibrillation; I25.10 Atherosclerotic heart disease of native coronary artery without angina pectoris; I10 Essential (primary) hypertension; J43.9 Emphysema, unspecified; E78.5 Hyperlipidemia, unspecified; E03.9 Hypothyroidism, unspecified; H35.30 Unspecified macular degeneration; M81.0 Age-related osteoporosis without current pathological fracture; Z98.42 Cataract extraction status, left eye; Z98.41 Cataract extraction status, right eye; Z87.891 Personal history of nicotine dependence; Z79.01 Long term (current) use of anticoagulants; M19.032 Primary osteoarthritis, left wrist; M19.031 Primary osteoarthritis, right wrist; M19.042 Primary osteoarthritis, left hand; M19.041 Primary osteoarthritis, right hand; M18.9 Osteoarthritis of first carpometacarpal joint, unspecified; M47.812 Spondylosis without myelopathy or radiculopathy, cervical region; J90 Pleural effusion, not elsewhere classified; R90.82 White matter disease, unspecified; W05.0XXA Fall from non-moving wheelchair, initial encounter
CPT/HCPCS: 29125; 70450; 70486; 72125; 73130; 99284; A4565

== ENCOUNTER 2024-06-09 02:43 | Emergency (ER) | payer MEDICARE, MEDICAID, SELFPAY ==
--- NOTE | ~2024-06-09 | XR_ITS ---
Portable chest x-ray Comparison: 05/23/2024 Clinical History: Dyspnea Findings: Minimal pleural effusions are present. There is probable mild pulmonary edema pattern. Und erlying COPD. Cardiomediastinal silhouette is stable. Bones and soft tissues are unremarkable. Impression: Mild pulmonary edema pattern and minimal pleural effusions. Probable underlying COPD. Reviewed, dictated and finalized at [facility]. Impression: Mild pulmonary edema pattern and minimal pleural effusions. Probable underlying COPD.
[2024-06-09 02:44] VITALS: BP 127/56; PULSE 77; RESP 15; TEMP 36.4; O2SAT 99
[2024-06-09 02:53] VITALS: BP 127/56; PULSE 77; RESP 25; TEMP 36.5; O2SAT 96
--- NOTE | 2024-06-09 02:55 | ECG_ITS ---
Test Date: 2024-06-09 02:53:17 Measurements Intervals Victor Rate: 68 P: 0 VT: 0 QRS: 95 QRSD: 92 T: 43 QT: 404 QTc: 432 Interpretive Statements ATRIAL FIBRILLATION BORDERLINE RIGHT AXIS DEVIATION [QRS AXIS > 90] ANTEROSEPTAL MYOCARDIAL INFARCTION , OF INDETERMINATE AGE [40+ ms Q WAVE IN V1-V4] Compared to ECG 05/19/2024 18:02:11 NO SIGNIFICANT CHANGES Electronically Signed On 06-09-2024 14:43:31 CDT by Sophia Zaidi M.D.
[2024-06-09 02:56] VITALS: O2SAT 98
--- NOTE | 2024-06-09 03:06 | ED_ITS ---
HPI - General Adult General Chief complaint: Recheck/Abnormal Lab/Rx Stated complaint: LOW O2 SATS Time Seen by Provider: 06/09/24 02:50 History of Present Illness HPI narrative: Patient 89-year-old female who presents emergency department with chief complaint of shortness of breath. Patient has prior history of congestive heart failure and COPD and atrial fibrillation the patient this evening started having shortness of breath and was found to be 83% the patient was placed on 4 L nasal cannula injury upon transport to the emergency department patient is feeling much better Related Data Home Medications Medication Instructions Recorded Confirmed cholecalciferol (vitamin D3) 125 125 mcg PO DAILY 07/01/23 06/02/24 mcg (5,000 unit) capsule cyanocobalamin (vitamin B-12) 1,000 mcg PO DAILY 07/01/23 06/02/24 1,000 mcg capsule acetaminophen 650 mg tablet 650 mg PO Q4H PRN Pain (Scale 05/19/24 06/02/24 Score 1-3) apixaban 2.5 mg tablet (Eliquis) 2.5 mg PO BID 05/19/24 06/02/24 sennosides 8.6 mg tablet (senna) 8.6 mg PO BID 05/19/24 06/02/24 Allergies Allergy/AdvReac Type Severity Reaction Status Date / Time cephalexin Allergy Unknown Rash Verified 05/28/24 08:16 Review of Systems Review of Systems: A 10 system review of systems was completed on the patient and is negative except for what is stated in the HPI. Nursing and ancillary documentation was reviewed. [facility] Past Medical History Medical History Arthritis Atrial fibrillation Carotid artery disease Chronic anticoagulation Chronic obstructive pulmonary disease Chronic respiratory failure with hypoxia, on home oxygen therapy Contusion of finger of right hand E coli infection Generalized anxiety disorder Hyperlipidemia Hypertension Hypothyroidism Macular degeneration Osteoporosis Surgical History Surgical History History of bilateral cataract extraction History of right-sided carotid endarterectomy Family History Family History Father Heart disease Carcinoma of colon Hypertension Mother Heart disease Breast cancer Hypertension Daughter Breast cancer Myocardial infarct Cerebrovascular accident Social History Social History Social History: caffeine use Surrogate medical decision maker: Julito Simpson, son. Code status: Full code. Smoking packs per day: 1 Smoking cigarettes per day: 20.0 Years smoked: 60 Smoking pack-years: 60.00 Smoking status: Former smoker Tobacco type: cigarettes Smoking end date: 08/11/02 Alcohol intake: never Drinks per week: 1 Substance use: never Substance use type: does not use Do You Feel Safe in your Home?: Yes Lack of Transportation: No Lack of Food: Never True Current Housing: I Have Housing Concerned About Future Housing: No Difficulty Paying Gas/Electric Bills: No Difficulty Paying for Meds: No Currently Unemployed: No Education: High School Diploma/GED Difficulty w/ Childcare or Family Care: No [place] arrangements[place] Occupation/Education: retired Gender identity (if verbalized by the patient): Female Spiritual care concerns: No Agree to blood products: Yes Exam Narrative: GENERAL: Well-appearing, well-nourished, and in no acute distress. HEAD: Normocephalic, atraumatic. EYES: PERRLA and EOMI. ENT: Nares clear, no rhinorrhea or epistaxis. Mucous membranes moist. NECK: Supple. CHEST: Clear to auscultation. No respiratory distress. HEART: Regular rate and rhythm. No murmur heard. Normal peripheral pulses. ABDOMEN: Soft, nontender, nondistended, normal active bowel sounds. EXTREMITIES: Normal range of motion. No edema. SKIN: Warm, dry, no rash. NEURO: No focal deficits. Alert and oriented x3. PSYCH: Normal mood and affect. Course Vital Signs Vital signs: Vital Signs Temperature 36.4 C 06/09/24 02:44 Pulse Rate 77 06/09/24 02:44 Respiratory Rate 15 06/09/24 02:44 Blood Pressure 127/56 L 06/09/24 02:44 Pulse Oximetry 99 06/09/24 02:44 Oxygen Delivery Nasal Cannula 06/09/24 02:44 Oxygen Flow Rate 3 06/09/24 02:44 Temperature 36.5 C 06/09/24 02:53 Pulse Rate 77 06/09/24 03:13 Respiratory Rate 20 06/09/24 03:13 Blood Pressure 127/56 L 06/09/24 02:53 Pulse Oximetry 98 06/09/24 02:56 Oxygen Delivery Nasal Cannula 06/09/24 02:56 Oxygen Flow Rate 3 06/09/24 02:56 Medical Decision Making MDM Narrative Medical decision making narrative: Differential diagnosis includes pneumonia, COPD exacerbation, equipment malf unction, Patient is feeling much better this time upon arrival chest x-ray showed no new infiltrate. Patient received a breathing treatment was given a dose of Solu-Medrol in the emergency department patient is feeling much better and would like to be treated as an outpatient. Vital Signs Vital Signs: Vital Signs Temperature 36.4 C 06/09/24 02:44 Pulse Rate 77 06/09/24 02:44 Respiratory Rate 15 06/09/24 02:44 Blood Pressure 127/56 L 06/09/24 02:44 Pulse Oximetry 99 06/09/24 02:44 Oxygen Delivery Nasal Cannula 06/09/24 02:44 Oxygen Flow Rate 3 06/09/24 02:44 Temperature 36.5 C 06/09/24 02:53 Pulse Rate 77 06/09/24 03:13 Respiratory Rate 20 06/09/24 03:13 Blood Pressure 127/56 L 06/09/24 02:53 Pulse Oximetry 98 06/09/24 02:56 Oxygen Delivery Nasal Cannula 06/09/24 02:56 Oxygen Flow Rate 3 06/09/24 02:56 Lab Data 06/09/24 03:04 06/09/24 03:04 Labs: Lab Results 06/09/24 06/09/24 Range/Units 03:04 04:02 WBC 8.1 (4.5-10.0) K/mm3 RBC 3.79 L (4.2-5.4) M/mm3 Hgb 12.1 (12.0-15.0) g/dL Hct 38.8 (37.0-47.0) % MCV 102.4 H (80-100) fl MCH 31.9 (26-34) pg MCHC 31.2 L (32-36) g/dl RDW 15.9 H (11.5-14.5) % Plt Count 308 (150-375) k/mm3 MPV 9.1 (7.4-10.4) fl Immature Gran % (Auto) 0.2 (0-0.5) % Neut % (Auto) 65.7 (45.5-73.1) % Lymph % (Auto) 18.4 (18.3-44.2) % [place] % (Auto) 13.6 H (2.6-8.5) % Eos % (Auto) 1.5 (0-4.4) % Baso % (Auto) 0.6 (0.2-1.2) % Lymph # (Auto) 1.49 (0.9-3.2) K/mm3 [place] # (Auto) 1.1 H (0.1-0.6) K/mm3 Eos # (Auto) 0.1 (0-0.3) K/mm3 Baso # (Auto) 0.1 (0.0-0.1) K/mm3 Abs Immat Gran (auto) 0.02 (0.00-0.031) K/mm3 Absolute Neuts (auto) 5.3 (1.3-6.7) K/mm3 Absolute Nucleated RBC 0.000 (0.0-0.012) K/mm3 Nucleated RBC % 0.0 (0.0-0.2) % PT 15.7 H (11.1-14.7) Seconds INR 1.2 Sodium 137 (137-145) mmol/L Potassium 3.7 (3.4-5.0) mmol/L Chloride 97 L (98-107) mmol/L Carbon Dioxide 33 H (22-30) mmol/L Anion Gap 7 (4-12) mmol/L BUN 29 H (7-17) mg/dL Creatinine 1.30 H (0.7-1.0) mg/dL Estim Creat Clear Calc 25 ml/min Estimated GFR 39 L (59 - ) Glucose 104 (65-110) mg/dL Lactic Acid 0.8 (0.7-2.0) mmol/L Calcium 9.1 (8.4-10.2) mg/dL Magnesium 2.2 (1.6-2.3) mg/dL Total Bilirubin 0.6 (0.2-1.3) mg/dL AST 20 (14-36) U/L ALT 12 (6-35) U/L Alkaline Phosphatase 86 (38-126) U/L Troponin I < 0.012 (0.000-0.034) ng/mL NT-Pro-B Natriuret Pep 3150 H (19.9-100) pg/mL Total Protein 7.0 (6.3-8.2) g/dL Albumin 3.8 (3.5-5.1) g/dL Procalcitonin 0.1 ng/mL Urine Color Yellow (Yellow) Urine Appearance Clear (Clear) Urine pH 6.5 (5.0-9.0) Ur Specific [place] 1.010 (1.001-1.035) Urine Protein Negative (Negative) mg/dL Urine Glucose (UA) 1+ H (Negative) mg/dL Urine Ketones Negative (Negative) mg/dL Ur Blood (Man) Negative (Negative) Urine Nitrate Negative (Negative) Urine Bilirubin Negative (Negative) Urine Urobilinogen 0.2 (<2.0) mg/dL Leukocyte Esterase Rfl Negative (Negative) MARCY/UL Influenza A (RT-PCR) Negative (Negative) Influenza B (RT-PCR) Negative (Negative) RSV (RT-PCR) Negative (Negative) SARS-CoV-2 RNA (RT-PCR) Negative (Negative) Discharge Plan Discharge Clinical Impression: Acute exacerbation of chronic obstructive pulmonary disease Patient Disposition: Home, Self-Care Condition: Stable Instructions: Antibiotic Form, COPD (Chronic Obstructive Pulmonary Disease) (DC) Prescriptions: New prednisone 20 mg tablet 40 mg PO DAILY 5 Days Qty: 10 0RF No Action cyanocobalamin (vitamin B-12) 1,000 mcg capsule 1,000 mcg PO DAILY cholecalciferol (vitamin D3) 125 mcg (5,000 unit) capsule 125 mcg PO DAILY umeclidinium-vilanterol 62.5-25 mcg/actuation blister with device 1 inh inhalation DAILY Qty: 60 3RF albuterol sulfate 90 mcg/actuation aerosol powdr breath activated 2 inh inhalation Q4H PRN (Reason: shortness of breath or wheezing) Qty: 1 6RF acetazolamide 250 mg Tablet 250 mg PO BEDTIME Qty: 30 1RF acetazolamide 250 mg Tablet 250 mg PO QAM Qty: 30 1RF fluticasone propion-salmeterol [Advair HFA] 115-21 mcg/actuation Hfa Aerosol Inhaler 2 puff inhalation Q12HRT Qty: 12 1RF metoprolol tartrate 25 mg Tablet 25 mg PO Q12HR Qty: 60 0RF sennosides [senna] 8.6 mg Tablet 8.6 mg PO BID acetaminophen 650 mg Tablet 650 mg PO Q4H PRN (Reason: Pain (Scale Score 1-3)) Eliquis 2.5 mg tablet 2.5 mg PO BID furosemide 40 mg tablet 40 mg PO BID Qty: 60 0RF potassium chloride 10 mEq capsule, extended release 20 meq PO DAILY Qty: 30 0RF atorvastatin [Lipitor] 20 mg tablet 20 mg PO HS Qty: 90 0RF levothyroxine 112 mcg tablet 112 mcg PO DAILY Qty: 90 0RF Jardiance 10 mg tablet 10 mg PO DAILY Qty: 30 5RF spironolactone 25 mg tablet 12.5 mg PO DAILY Qty: 45 2RF Follow-up/Referrals: Grover Guerra MD [Primary Care Provider] - Time of Disposition: 04:52
[2024-06-09 03:10] LABS: Basophils Absolute Auto 0.1 K/mm3 (0.0-0.1); Basophils Percent Auto 0.6 % (0.2-1.2); Eosinophils Absolute Auto 0.1 K/mm3 (0-0.3); Eosinophils Percent Auto 1.5 % (0-4.4); Hematocrit 38.8 % (37.0-47.0); Hemoglobin 12.1 g/dL (12.0-15.0); Immature Granulocyte Absolute 0.02 K/mm3 (0.00-0.031); Immature Granulocyte Percent A 0.2 % (0-0.5); Lymphocytes Absolute Auto 1.49 K/mm3 (0.9-3.2); Lymphocytes Percent Auto 18.4 % (18.3-44.2); Mean Corpuscular HGB Conc 31.2 g/dl (32-36); Mean Corpuscular Hemoglobin 31.9 pg (26-34); Mean Corpuscular Volume 102.4 fl (80-100); Mean Platelet Volume 9.1 fl (7.4-10.4); Monocytes Absolute Auto 1.1 K/mm3 (0.1-0.6); Monocytes Percent Auto 13.6 % (2.6-8.5); Neutrophils Absolute Auto 5.3 K/mm3 (1.3-6.7); Neutrophils Percent Auto 65.7 % (45.5-73.1); Platelet Count Result 308 k/mm3 (150-375); Red Blood Count 3.79 M/mm3 (4.2-5.4); Red Cell Distribution Width 15.9 % (11.5-14.5); White Blood Count 8.1 K/mm3 (4.5-10.0)
[2024-06-09] MEDS: IPRATROPIUM 0.5 MG/ALBUTEROL SULFATE 2.5 MG AMPUL.NEB 3 ML INHALATION (03:11)
[2024-06-09 03:13] VITALS: PULSE 77; RESP 20
[2024-06-09 03:20] LABS: Alanine Aminotransferase 12 U/L (6-35); Albumin Level 3.8 g/dL (3.5-5.1); Alkaline Phosphatase 86 U/L (38-126); Anion Gap 7 mmol/L (4-12); Aspartate Amino Transferase 20 U/L (14-36); Bilirubin,Total 0.6 mg/dL (0.2-1.3); Blood Urea Nitrogen 29 mg/dL (7-17); Calcium 9.1 mg/dL (8.4-10.2); Carbon Dioxide 33 mmol/L (22-30); Chloride 97 mmol/L (98-107); Estimated CRCL calculation 25 ml/min; Estimated Glomerular Filt Rate 39; Glucose 104 mg/dL (65-110); Lactic Acid Reflex 0.8 mmol/L (0.7-2.0); Magnesium 2.2 mg/dL (1.6-2.3); Potassium 3.7 mmol/L (3.4-5.0); Sodium 137 mmol/L (137-145)
[2024-06-09 03:23] LABS: INR 1.2; Prothrombin Time 15.7 Seconds (11.1-14.7)
[2024-06-09 03:32] LABS: NT Pro B Type Natriuretic Pept 3150 pg/mL (19.9-100); Troponin I < 0.012 ng/mL (0.000-0.034)
--- NOTE | 2024-06-09 03:40 | PC.NURSE ---
ON 06/09/2024 AT APPROX 0340 THIS NURSE ANSWERED CALL LIGHT IN THIS PT'S ROOM. PT'S SON AT BEDSIDE, WHOM BROUGHT TO THIS RN's ATTENTION THE SKIN TEAR TO PT's RIGHT DISTAL POSTERIOR FOREARM. UNKNOWN IF IT IS OLD OR NEW AT THIS TIME. INTACT STERI STRIPS NOTED ABOVE THE SKIN TEAR, INTACT FIELD START EMS IV TO RIGHT HAND. ALSO ECG ELECTRODE NOTED TO SKIN AT TO THE FLAP OF SKIN ON THE SKIN TEAR. THIS RN ATTEMPTED TO GENTLY REMOVE THE ECG ELECTRODE. THIS WAS SUCCESSFUL, BUT AN ADDITIONAL PIECE OF SKIN CAME OFF WITH THE ECG LEAD REMOVAL. SKIN TEAR CLEANSED WITH SALINE AND PATTED DRY WITH STERILE GAUZE. SKIN TEAR COVERED WITH ANTIBACTERIAL OINTMENT AND SECURED WITH A CLEAR TEGADERM OCCLUSIVE DRESSING.
[2024-06-09 03:47] LABS: Influenza A QL RT-PCR Negative (Negative); Influenza B QL RT-PCR Negative (Negative); RSV RNA, RT-PCR Negative (Negative); SARS-CoV-2 RNA PCR Negative (Negative)
[2024-06-09 04:14] LABS: Add Urine Microscopic? NO; Appearance Urine Clear (Clear); Bilirubin Urine Negative (Negative); Blood Urine Negative (Negative); Color Urine Yellow (Yellow); Glucose Urine UA 1+ mg/dL (Negative); Ketones Urine Negative (Negative); Leukocyte Esterase Ur Negative LEU/UL (Negative); Nitrate Urine Negative (Negative); Protein Urine Negative (Negative); Urobilinogen Urine 0.2 mg/dL (<2.0); pH Urine 6.5 (5.0-9.0)
[2024-06-09 04:33] LABS: Procalcitonin 0.1 ng/mL
[2024-06-09] MEDS: methylPREDNISolone SOD SUCC 125 MG VIAL IV PUSH (05:13)
[2024-06-09 05:14] VITALS: BP 124/58; PULSE 76; RESP 19; O2SAT 98
== END 2024-06-09 05:54 ==
PROVIDERS: Emergency Provider Emergency Medicine; PCP Family Medicine
DX: J44.1 Chronic obstructive pulmonary disease with (acute) exacerbation (principal); I50.9 Heart failure, unspecified; J44.9 Chronic obstructive pulmonary disease, unspecified; I48.91 Unspecified atrial fibrillation; Z79.01 Long term (current) use of anticoagulants; I25.10 Atherosclerotic heart disease of native coronary artery without angina pectoris; J96.11 Chronic respiratory failure with hypoxia; Z99.81 Dependence on supplemental oxygen; E78.5 Hyperlipidemia, unspecified; E03.9 Hypothyroidism, unspecified; M81.0 Age-related osteoporosis without current pathological fracture; Z87.891 Personal history of nicotine dependence; Z20.822 Contact with and (suspected) exposure to COVID-19
CPT/HCPCS: 36415; 71045; 80053; 81003; 83605; 83735; 83880; 84145; 84484; 85025; 85610; 87637; 93005; 94640; 96374; 99284; J2919

== ENCOUNTER 2024-07-17 08:29 | Inpatient (IN) | payer MEDICARE, MEDICAID, SELFPAY ==
[2024-07-17] VITALS (9 sets, daily range): BP systolic 119–152; BP diastolic 74–87; PULSE 81–130; RESP 14–32; TEMP 36.4–37.3; O2SAT 84–100; BMI 26.3
--- NOTE | ~2024-07-17 | XR_ITS ---
EXAMINATION: XR chest 2V DATE: 07/17/2024 09:13 INDICATION: Weakness. TECHNIQUE: Frontal and lateral views of the chest were obtained. COMPARISON: Chest single view 06/09/2024, chest CT 02/11/2024 FINDINGS: There are lucencies and interstitial opacities in the lungs, consistent with emphysema. No pleural effusion or pneumothorax. Cardiomegaly is noted. IMPRESSION: 1. Emphysema. 2. Cardiomegaly. Reviewed, dictated and finalized at location A. EATION INSTRUCTOR
--- NOTE | ~2024-07-17 | CT_ITS ---
CT ANGIOGRAM NECK AND HEAD History: Altered mental status. Technique: Axial noncontrast imaging of the brain was performed. Serial spiral axial images through t he head and neck were then obtained during arterial phase IV injection of 100 cc of Omnipaque 350. 3- D postprocessing and MIP images were then reconstructed on the remote workstation. Dose reduction jose r hnique was used on this scan by utilizing automated exposure control and iterative reconstruction jose r hnique. The dose-length product (DLP) was 1711.20 mGy-cm. CTA neck findings: There is extensive atherosclerotic calcification of the proximal left subclavian artery, although the origin of the left vertebral artery is widely patent. Bilateral vertebral arteri es are patent, without occlusion or significant stenosis. Bilateral common carotid, internal carotid, and external carotid arteries are patent. There are extensive calcified plaques at the right carotid bifurcation, but no stenosis evident. There is calcified plaque at the distal left common carotid ar weston and at the proximal left internal carotid artery. There is focal high-grade stenosis at the prox imal left internal carotid artery approximately 80%. The proximal right internal carotid artery demon strates 0% stenosis relative to the normal distal artery lumen diameter. The proximal left internal c arotid artery demonstrates 80% stenosis relative to the normal distal artery lumen diameter. CTA head findings: Distal vertebral arteries, basilar artery, and posterior cerebral arteries are pat ent. Distal internal carotid arteries, middle cerebral arteries, anterior cerebral arteries are paten t. No stenosis or large vessel occlusion. No aneurysm. Axial noncontrast images of brain demonstrate no acute infarct, intracranial hemorrhage, or mass lesi on. Hypodense areas are present throughout the white matter, compatible with extensive chronic microv ascular ischemic change. No mass effect or midline shift. Ventricles and subarachnoid spaces are mild ly dilated. Paranasal sinuses and mastoid air cells are clear. Calvarium intact. Impression: Focal high-grade stenosis (80%) at the proximal left internal carotid artery. Reviewed, dictated and finalized at location M. RONMENTAL SCIENCE PROFESSOR Impression: Focal high-grade stenosis (80%) at the proximal left internal carotid artery.
--- NOTE | 2024-07-17 08:37 | ECG_ITS ---
Test Date: 2024-07-17 08:37:05 Measurements Intervals [place] Rate: 111 P: 0 IN: 0 QRS: 96 QRSD: 97 T: 29 QT: 341 QTc: 464 Interpretive Statements ATRIAL FIBRILLATION WITH RAPID VENTRICULAR RESPONSE BORDERLINE RIGHT AXIS DEVIATION [QRS AXIS > 90] MODERATE ST DEPRESSION [0.05+ mV ST DEPRESSION] Compared to ECG 06/09/2024 02:53:17 compared to prior EKG heart rate increased Electronically Signed On 07-17-2024 14:35:14 IRRADIATED FUEL HANDLER by Luis Garber M.D.
--- NOTE | 2024-07-17 09:22 | PC.NURSE ---
Pt. son Julito updated at this time. All questions answered.
--- NOTE | 2024-07-17 10:11 | PC.NURSE ---
This RN attempted lab draw x2 with no success. MART Mcnamara notified and to bedside.
[2024-07-17 10:50] LABS: Basophils Absolute Auto 0.1 K/mm3 (0.0-0.1); Basophils Percent Auto 0.5 % (0.2-1.2); Eosinophils Absolute Auto 0.1 K/mm3 (0-0.3); Eosinophils Percent Auto 0.4 % (0-4.4); Hemoglobin 13.1 g/dL (12.0-15.0); Immature Granulocyte Absolute 0.11 K/mm3 (0.00-0.031); Immature Granulocyte Percent A 0.8 % (0-0.5); Lymphocytes Absolute Auto 0.98 K/mm3 (0.9-3.2); Lymphocytes Percent Auto 7.2 % (18.3-44.2); Mean Corpuscular HGB Conc 30.5 g/dl (32-36); Mean Corpuscular Hemoglobin 32.1 pg (26-34); Mean Corpuscular Volume 105.4 fl (80-100); Mean Platelet Volume 9.4 fl (7.4-10.4); Monocytes Absolute Auto 1.7 K/mm3 (0.1-0.6); Monocytes Percent Auto 12.2 % (2.6-8.5); Neutrophils Absolute Auto 10.8 K/mm3 (1.3-6.7); Neutrophils Percent Auto 78.9 % (45.5-73.1); Nucleated Red Blood Cells Perc 0.4 % (0.0-0.2); Platelet Count Result 328 k/mm3 (150-375); Red Blood Count 4.08 M/mm3 (4.2-5.4); Red Cell Distribution Width 17.6 % (11.5-14.5); White Blood Count 13.7 K/mm3 (4.5-10.0)
[2024-07-17 11:01] LABS: Alanine Aminotransferase 7 U/L (6-35); Albumin Level 4.1 g/dL (3.5-5.1); Alkaline Phosphatase 100 U/L (38-126); Anion Gap 6 mmol/L (4-12); Aspartate Amino Transferase 18 U/L (14-36); Bilirubin,Total 0.8 mg/dL (0.2-1.3); Blood Urea Nitrogen 40 mg/dL (7-17); Calcium 9.6 mg/dL (8.4-10.2); Carbon Dioxide 29 mmol/L (22-30); Chloride 103 mmol/L (98-107); Estimated Glomerular Filt Rate 30; Glucose 101 mg/dL (65-110); Potassium 4.1 mmol/L (3.4-5.0); Sodium 138 mmol/L (137-145)
--- NOTE | 2024-07-17 11:05 | PC.NURSE ---
Small BM in depend. Dirty depend removed, shayla care performed with soap and water, clean depend applied.
--- NOTE | 2024-07-17 11:09 | ED.WEAKNESS ---
HPI - Weakness General Chief complaint: Weakness Stated complaint: gen. weakness Time Seen by Provider: 07/17/24 09:59 Source: patient Limitations: physical limitation History of Present Illness HPI Narrative: shelter reported that patient has been unsteady with increasing weakness requiring 1-2 person assist. They also note that her heart rate had been in the 50s to 80s and her blood pressure was also low. She has a history of atrial fibrillation listed on problem list and she is on metoprolol, Eliquis, furosemide and spironolactone. Also history of COPD and chronic diastolic congestive heart failure, the latter had not previously been noted on her problem list in EMR previously. patient has been noted to be drowsy. She is on 3 L per nasal cannula at baseline. Patient initially denies any complaints. She has no pain including no headache, chest pain, abdominal pain, extremity pain, or shortness of breath. She denies any nausea or vomiting. No fever or chills. She initially states that she you have not had a cough but then she states that she has a slight dry cough. She only states that she has to urinate and needs assistance in doing so. Related Data Home Medications Medication Instructions Recorded Confirmed cholecalciferol (vitamin D3) 125 125 mcg PO DAILY 07/01/23 07/17/24 mcg (5,000 unit) capsule cyanocobalamin (vitamin B-12) 1,000 mcg PO EVERY OTHER DAY 07/01/23 07/17/24 1,000 mcg capsule apixaban 2.5 mg tablet (Eliquis) 2.5 mg PO BID 05/19/24 07/17/24 sennosides 8.6 mg tablet (senna) 8.6 mg PO BID 05/19/24 07/17/24 acetaminophen 650 mg tablet 650 mg PO Q6H PRN Pain 07/17/24 07/17/24 cetirizine 10 mg tablet 10 mg PO DAILY 07/17/24 07/17/24 guaifenesin 600 mg tablet, 600 mg PO Q12H 07/17/24 07/17/24 extended release 12 hr (Mucinex) white petrolatum-mineral oil 94 1 ea LEFT EYE BID 07/17/24 07/17/24 %-3 % eye ointment (Systane Nighttime) Allergies Allergy/AdvReac Type Severity Reaction Status Date / Time cephalexin Allergy Unknown Rash Verified 07/17/24 15:29 [facility] Past Medical History Medical History Arthritis Atrial fibrillation Carotid artery disease Chronic anticoagulation Chronic diastolic (congestive) heart failure Chronic obstructive pulmonary disease Chronic respiratory failure with hypoxia, on home oxygen therapy Generalized anxiety disorder Hyperlipidemia Hypertension Hypothyroidism Macular degeneration Osteoporosis Surgical History Surgical History History of bilateral cataract extraction History of right-sided carotid endarterectomy Family History Family History Father Heart disease Carcinoma of colon Hypertension Mother Heart disease Breast cancer Hypertension Daughter Breast cancer Myocardial infarct Cerebrovascular accident Social History Social History Social History: caffeine use Surrogate medical decision maker: Julito Simpson, son. Code status: POLST lists DNR/No CPR with comfort focus treatment signed 03/31/2024. Smoking packs per day: 1 Smoking cigarettes per day: 20.0 Years smoked: 50 Smoking pack-years: 50.00 Smoking status: Former smoker Tobacco type: cigarettes Smoking end date: 08/11/02 Alcohol intake: never Drinks per week: 1 Substance use: never Substance use type: does not use Do You Feel Safe in your Home?: Yes Lack of Transportation: No Lack of Food: Never True Current Housing: I Have Housing Concerned About Future Housing: No Difficulty Paying Gas/Electric Bills: No Difficulty Paying for Meds: No Currently Unemployed: No Education: High School Diploma/GED Difficulty w/ Childcare or Family Care: No Living arrangements: skilled nursing village Additional living arrangements comments: [facility] Occupation/Education: retired Gender identity (if verbalized by the patient): Female Spiritual care concerns: No Agree to blood products: Yes Exam Narrative: GENERAL: well-nourished, and in no acute distress Although appears generally weak. HEAD: Normocephalic, atraumatic. EYES: Non injected, non icteric ENT: Nares clear, no rhinorrhea or epistaxis. Tacky mucous membranes NECK: Supple. CHEST: Speaking in full sentences. No respiratory distress. Lungs clear to auscultation bilaterally. No wheezes or crackles appreciated. Nasal cannula in place. HEART: irregularly IRegular rate and rhythm. . ABDOMEN: Soft, nondistended. EXTREMITIES: No bilateral lower extremity edema. SKIN: Warm, dry, no rash. NEURO: No focal deficits. slightly drowsy but otherwise Alert and oriented x3. PSYCH: Normal mood and affect. Course Vital Signs Vital signs: Vital Signs Temperature 98 F 07/17/24 08:39 Pulse Rate 94 07/17/24 08:39 Respiratory Rate 14 07/17/24 08:39 Blood Pressure 127/85 07/17/24 08:39 Pulse Oximetry 99 07/17/24 08:39 Oxygen Delivery Nasal Cannula 07/17/24 08:39 Oxygen Flow Rate 3 07/17/24 08:39 Temperature 97.1 F L 07/19/24 17:04 Pulse Rate 94 07/19/24 17:04 Respiratory Rate 16 07/19/24 17:04 Blood Pressure 114/69 07/19/24 17:04 Pulse Oximetry 98 07/19/24 17:04 Oxygen Delivery Nasal Cannula 07/19/24 08:25 Oxygen Flow Rate 3 07/19/24 08:25 Fraction of Inspired Oxygen 32 07/18/24 21:00 MDM - Weakness MDM Narrative Medical decision making narrative: patient presents with report of increased weakness and tremors in his. Patient states she moved includes Coumadin for her occasionally dry cough and that is right knows she needs to urinate. In the emergency department she is afebrile with vital signs within normal limits though on 3 L nasal cannula which is baseline. on physical exam she does appear slightly drowsy although alert and oriented. She does appear very leak with minimal movements. EMS had transmitted EKGs that showed atrial fibrillation with rapid ventricular response though at a controlled rate of 105 beats per minute. shelter documentation list that she had a variable heart rate with her pulse fluctuating between 50 and 88 beats per minute although patient does have on space they had atrial fibrillation listed on her medical history list. Although patient's BNP is elevated, is less than it has been previously and she otherwise does not appear volume overloaded without crackles on auscultation, pulmonary edema or infiltrate on chest x-ray and moreover she appears dehydrated/dry given her tacky mucous membranes and slightly elevated creatinine. It appears that her baseline creatinine was 0.9 back in February but has been increased ever since this is his heart was she has new CKD verses SONJA. Will give IV fluids. Patient initially states when I went to re-evaluate her that she does not actually believe she is that weak however in discussing it, she does acknowledge that she has been. We discussed the recommendation for admission for IV fluids and IV antibiotics since currently she lives in a skilled nursing community and is generally independent and if she would return there it is felt that it would be unsafe and she would be at high risk of falling and injuring herself and losing the independence she usually has at baseline. For this reason she is in agreement in amenable to admission. We discussed code status and she does concur that in the event of cardiac or respiratory arrest she would NOT want CPR or intubation thus DNR status. discussed with hospitalist TEXTILE PIN WORKER and admitted in stsable condition. Differential Diagnosis Differential diagnosis: Likely acute myocardial infarction, anemia, hypoglycemia, hypothyroidism, rhabdomyolysis, sepsis and dehydration Lab Data Attestation: I reviewed the patient's lab results. Lab results narrative: Leukocytosis 07/19/24 09:32 07/19/24 09:32 Labs: Lab Results 07/17/24 07/17/24 07/17/24 Range/Units 10:38 10:39 10:57 WBC 13.7 H (4.5-10.0) K/mm3 RBC 4.08 L (4.2-5.4) M/mm3 Hgb 13.1 (12.0-15.0) g/dL Hct 43.0 (37.0-47.0) % MCV 105.4 H (80-100) fl MCH 32.1 (26-34) pg MCHC 30.5 L (32-36) g/dl RDW 17.6 H (11.5-14.5) % Plt Count 328 (150-375) k/mm3 MPV 9.4 (7.4-10.4) fl Immature Gran % (Auto) 0.8 H (0-0.5) % Neut % (Auto) 78.9 H (45.5-73.1) % Lymph % (Auto) 7.2 L (18.3-44.2) % Ashley % (Auto) 12.2 H (2.6-8.5) % Eos % (Auto) 0.4 (0-4.4) % Baso % (Auto) 0.5 (0.2-1.2) % Lymph # (Auto) 0.98 (0.9-3.2) K/mm3 Ashley # (Auto) 1.7 H (0.1-0.6) K/mm3 Eos # (Auto) 0.1 (0-0.3) K/mm3 Baso # (Auto) 0.1 (0.0-0.1) K/mm3 Abs Immat Gran (auto) 0.11 H (0.00-0.031) K/mm3 Absolute Neuts (auto) 10.8 H (1.3-6.7) K/mm3 Absolute Nucleated RBC 0.050 H (0.0-0.012) K/mm3 Nucleated RBC % 0.4 H (0.0-0.2) % Platelet Estimate Adequate (Adequate) Anisocytosis 1+ Schistocytes None seen Sodium 138 (137-145) mmol/L Potassium 4.1 (3.4-5.0) mmol/L Chloride 103 (98-107) mmol/L Carbon Dioxide 29 (22-30) mmol/L Anion Gap 6 (4-12) mmol/L BUN 40 H D (7-17) mg/dL Creatinine 1.60 H (0.7-1.0) mg/dL Estim Creat Clear Calc Not Reportable Estimated GFR 30 L (59 - ) Glucose 101 (65-110) mg/dL Lactic Acid (0.7-2.0) mmol/L Calcium 9.6 (8.4-10.2) mg/dL Magnesium 2.4 H (1.6-2.3) mg/dL Total Bilirubin 0.8 (0.2-1.3) mg/dL AST 18 (14-36) U/L ALT 7 (6-35) U/L Alkaline Phosphatase 100 (38-126) U/L Total Creatine Kinase 38 (30-135) U/L Troponin I < 0.012 (0.000-0.034) ng/mL NT-Pro-B Natriuret Pep 2720 H (19.9-100) pg/mL Total Protein 7.0 (6.3-8.2) g/dL Albumin 4.1 (3.5-5.1) g/dL TSH 0.551 (0.465-4.680) uIU/mL Urine Color Yellow (Yellow) Urine Appearance Turbid H (Clear) Urine pH 5.5 (5.0-9.0) Ur Specific [place] 1.013 (1.001-1.035) Urine Protein 2+ H (Negative) mg/dL Urine Glucose (UA) Negative (Negative) mg/dL Urine Ketones Negative (Negative) mg/dL Ur Blood (Man) 2+ H (Negative) Urine Nitrate Positive H (Negative) Urine Bilirubin Negative (Negative) Urine Urobilinogen 0.2 (<2.0) mg/dL Leukocyte Esterase Rfl 3+ H (Negative) MARCY/UL Urine RBC 11-20 H (0-2) /hpf Urine WBC >100 H (0-3) /hpf Ur Squamous Epith Cells Occasional (Few) /hpf Urine Bacteria 4+ H /hpf Urine Casts 3-5 Influenza A (RT-PCR) (Negative) Influenza B (RT-PCR) (Negative) RSV (RT-PCR) (Negative) SARS-CoV-2 RNA (RT-PCR) (Negative) 07/17/24 07/17/24 07/18/24 Range/Units 11:47 13:56 05:20 WBC 13.1 H (4.5-10.0) K/mm3 RBC 3.58 L (4.2-5.4) M/mm3 Hgb 11.5 L (12.0-15.0) g/dL Hct 37.4 (37.0-47.0) % MCV 104.5 H (80-100) fl MCH 32.1 (26-34) pg MCHC 30.7 L (32-36) g/dl RDW 17.5 H (11.5-14.5) % Plt Count 289 (150-375) k/mm3 MPV 9.5 (7.4-10.4) fl Immature Gran % (Auto) 0.6 H (0-0.5) % Neut % (Auto) 77.3 H (45.5-73.1) % Lymph % (Auto) 9.0 L (18.3-44.2) % Ashley % (Auto) 12.5 H (2.6-8.5) % Eos % (Auto) 0.2 (0-4.4) % Baso % (Auto) 0.4 (0.2-1.2) % Lymph # (Auto) 1.18 (0.9-3.2) K/mm3 Ashley # (Auto) 1.6 H (0.1-0.6) K/mm3 Eos # (Auto) 0.0 (0-0.3) K/mm3 Baso # (Auto) 0.1 (0.0-0.1) K/mm3 Abs Immat Gran (auto) 0.08 H (0.00-0.031) K/mm3 Absolute Neuts (auto) 10.2 H (1.3-6.7) K/mm3 Absolute Nucleated RBC 0.050 H (0.0-0.012) K/mm3 Nucleated RBC % 0.4 H (0.0-0.2) % Platelet Estimate (Adequate) Anisocytosis Schistocytes Sodium 139 (137-145) mmol/L Potassium 3.8 (3.4-5.0) mmol/L Chloride 107 (98-107) mmol/L Carbon Dioxide 25 (22-30) mmol/L Anion Gap 7 (4-12) mmol/L BUN 34 H (7-17) mg/dL Creatinine 1.10 H (0.7-1.0) mg/dL Estim Creat Clear Calc 23 Estimated GFR 47 L (59 - ) Glucose 98 (65-110) mg/dL Lactic Acid 1.5 (0.7-2.0) mmol/L Calcium 9.1 (8.4-10.2) mg/dL Magnesium (1.6-2.3) mg/dL Total Bilirubin (0.2-1.3) mg/dL AST (14-36) U/L ALT (6-35) U/L Alkaline Phosphatase (38-126) U/L Total Creatine Kinase (30-135) U/L Troponin I (0.000-0.034) ng/mL NT-Pro-B Natriuret Pep (19.9-100) pg/mL Total Protein (6.3-8.2) g/dL Albumin (3.5-5.1) g/dL TSH (0.465-4.680) uIU/mL Urine Color (Yellow) Urine Appearance (Clear) Urine pH (5.0-9.0) Ur Specific [place] (1.001-1.035) Urine Protein (Negative) mg/dL Urine Glucose (UA) (Negative) mg/dL Urine Ketones (Negative) mg/dL Ur Blood (Man) (Negative) Urine Nitrate (Negative) Urine Bilirubin (Negative) Urine Urobilinogen (<2.0) mg/dL Leukocyte Esterase Rfl (Negative) MARCY/UL Urine RBC (0-2) /hpf Urine WBC (0-3) /hpf Ur Squamous Epith Cells (Few) /hpf Urine Bacteria /hpf Urine Casts Influenza A (RT-PCR) Negative (Negative) Influenza B (RT-PCR) Negative (Negative) RSV (RT-PCR) Negative (Negative) SARS-CoV-2 RNA (RT-PCR) Negative (Negative) ABG Data ABG results: 07/18/24 09:55 Puncture Site Right radial ABG pH 7.324 L ABG pCO2 53.0 H ABG pO2 139.2 H ABG PO2/FiO2 Ratio 4.35 ABG HCO3 26.9 H ABG O2 Saturation 98.5 ABG O2 Content 16.4 ABG Base Excess 0.2 A-a Gradient 27.0 Oxyhemoglobin 96.6 Total Hemoglobin 11.9 L O2 Delivery Device Nasal cannula O2 Liters/Min 3.0 FiO2 32 Imaging Data Radiologist's impression: IMPRESSION: 1. Emphysema. 2. Cardiomegaly. ECG Data EKG #1: Attestation: I personally reviewed and interpreted this ECG as follows: ECG completion date: 07/17/24 ECG completion time: 08:37 Interpretation: Atrial fibrillation at a rate of 111 beats per minute thus rapid ventricular response though relatively well controlled. QRS 97. QT/QTC 341/406. Borderline Right axis deviation (QRS is positive with a dominant R wave in leads II, III, and aVF; trending negative with a dominant S wave in lead I). Discharge Plan Discharge Clinical Impression: Generalized weakness, Emphysema, unspecified, Cardiomegaly, Leukocytosis, SONJA (acute kidney injury) UTI (urinary tract infection) Qualifiers: Urinary tract infection type: acute cystitis Hematuria presence: without hematuria Qualified Code(s): N30.00 - Acute cystitis without hematuria Patient Disposition: Still a Patient Condition: Stable
[2024-07-17 11:15] LABS: Anisocytosis 1+; Platelet Estimate Adequate (Adequate); Schistocytes None Seen
[2024-07-17 11:17] LABS: Add Urine Microscopic? YES; Appearance Urine Turbid (Clear); Bacteria Urine 4+ /hpf; Bilirubin Urine Negative (Negative); Blood Urine 2+ (Negative); Color Urine Yellow (Yellow); Glucose Urine UA Negative (Negative); Ketones Urine Negative (Negative); Leukocyte Esterase Ur 3+ LEU/UL (Negative); Nitrate Urine Positive (Negative); Protein Urine 2+ mg/dL (Negative); Specific Grav Ur 1.013 (1.001-1.035); Squamous Epithelial Cell Urine Occasional /hpf (Few); Urobilinogen Urine 0.2 mg/dL (<2.0); WBC Urine >100 /hpf (0-3); pH Urine 5.5 (5.0-9.0)
--- NOTE | 2024-07-17 11:18 | PC.NURSE ---
Update provided to son, Julito, via telephone. All questions answered at this time.
[2024-07-17 11:52] LABS: Creatine Kinase 38 U/L (30-135); Magnesium 2.4 mg/dL (1.6-2.3)
[2024-07-17 12:05] LABS: Troponin I < 0.012 ng/mL (0.000-0.034)
--- NOTE | 2024-07-17 12:10 | PC.NURSE ---
Lab called to add on ordered BNP.
[2024-07-17 12:24] LABS: Thyroid Stimulating Hormone 0.551 uIU/mL (0.465-4.680)
[2024-07-17 12:30] LABS: Influenza A QL RT-PCR Negative (Negative); Influenza B QL RT-PCR Negative (Negative); RSV RNA, RT-PCR Negative (Negative); SARS-CoV-2 RNA PCR Negative (Negative)
[2024-07-17 12:33] LABS: NT Pro B Type Natriuretic Pept 2720 pg/mL (19.9-100)
--- NOTE | 2024-07-17 13:07 | PC.NURSE ---
This RN updated Sallie at [facility].
--- NOTE | 2024-07-17 13:51 | PC.NURSE ---
Pt. son Julito and Sallie at [facility] updated that pt. will be admitted. All questions answered from both parties.
--- NOTE | 2024-07-17 14:02 | P.HP_ITS ---
H&P: HPI History of Present Illness Date/Time: 07/17/24 14:02 Chief Complaint: Generalized Weakness Narrative: 89 y/o F presents here with generalized weakness with PMH of atrial fibrillation on chronic anticoagulation, CAD, CHF (diastolic), COPD, generalized anxiety, hyperlipidemia, hypertension, hypothyroidism, and osteoporosis. The patient presents here from [facility] via EMS for further evaluation of generalized weakness. The patient reports she began having increased generalized weakness over the past couple of days. At baseline she is ambulatory in utilizes a walker. She is now requiring 1-2 person assist to get up out of bed. She reports associated mild shortness of breath, body aches (specifically in her bilateral shoulders) and cough that is productive. Denies chest pain, fever, chills, dysuria, urinary frequency, or abdominal pain. Denies weight gain or peripheral edema. No sick contacts. Initial VS at presentation: 98? F, HR 94, RR 14, 127/85, 99% on 3L NC (baseline requirement). ED workup showed: WBC 13.7, no anemia, no significant electrolyte derangements, creatinine 1.6 and GFR 30 (previously 1.3 and GFR 39 on 06/09/2024), magnesium 2.4, initial troponin negative, BNP 2720. UA consistent with UTI. CXR showed emphysema and cardiomegaly. Initial EKG showed AFib with RVR, rate 111, borderline right axis deviation, moderate ST depression (awaiting formal read). Review of Systems Review of Systems: All systems reviewed & are unremarkable except as noted in HPI and below [facility] Past Medical History Medical History Arthritis Atrial fibrillation Carotid artery disease Chronic anticoagulation Chronic diastolic (congestive) heart failure Chronic obstructive pulmonary disease Chronic respiratory failure with hypoxia, on home oxygen therapy Generalized anxiety disorder Hyperlipidemia Hypertension Hypothyroidism Macular degeneration Osteoporosis Surgical History Surgical History History of bilateral cataract extraction History of right-sided carotid endarterectomy Family History Family History Father Heart disease Carcinoma of colon Hypertension Mother Heart disease Breast cancer Hypertension Daughter Breast cancer Myocardial infarct Cerebrovascular accident Social History Social History Social History: caffeine use Surrogate medical decision maker: Julito Simpson, son. Code status: POLST lists DNR/No CPR with comfort focus treatment signed 03/31/2024. Smoking packs per day: 1 Smoking cigarettes per day: 20.0 Years smoked: 50 Smoking pack-years: 50.00 Smoking status: Former smoker Tobacco type: cigarettes Smoking end date: 08/11/02 Alcohol intake: never Drinks per week: 1 Substance use: never Substance use type: does not use Do You Feel Safe in your Home?: Yes Lack of Transportation: No Lack of Food: Never True Current Housing: I Have Housing Concerned About Future Housing: No Difficulty Paying Gas/Electric Bills: No Difficulty Paying for Meds: No Currently Unemployed: No Education: High School Diploma/GED Difficulty w/ Childcare or Family Care: No Living arrangements: [facility] Additional living arrangements comments: [facility] Occupation/Education: retired Gender identity (if verbalized by the patient): Female Spiritual care concerns: No Agree to blood products: Yes Meds Home Medications and Allergies Home Medications Medication Instructions Recorded Confirmed Type cholecalciferol (vitamin D3) 125 125 mcg PO DAILY 07/01/23 07/17/24 History mcg (5,000 unit) capsule cyanocobalamin (vitamin B-12) 1,000 mcg PO EVERY OTHER DAY 07/01/23 07/17/24 History 1,000 mcg capsule albuterol sulfate 90 mcg/actuation 2 inh inhalation Q4H PRN shortness 10/21/23 07/17/24 Rx breath activated powder inhaler of breath or wheezing #1 ea umeclidinium 62.5 mcg-vilanterol 1 inh inhalation DAILY #60 ea 10/21/23 07/17/24 Rx 25 mcg/actuation powdr for inhalation atorvastatin 20 mg tablet (Lipitor) 20 mg PO HS #90 tabs 01/19/24 07/17/24 Rx levothyroxine 112 mcg tablet 112 mcg PO DAILY #90 tabs 01/26/24 07/17/24 Rx acetazolamide 250 mg tablet 250 mg PO BEDTIME #30 tabs 02/18/24 07/17/24 Rx acetazolamide 250 mg tablet 250 mg PO QAM #30 tabs 02/18/24 07/17/24 Rx fluticasone propionate 115 2 puff inhalation Q12HRT #12 grams 02/18/24 07/17/24 Rx mcg-salmeterol 21 mcg/actuation HFA inhaler (Advair HFA) metoprolol tartrate 25 mg tablet 25 mg PO Q12HR #60 tabs 02/18/24 07/17/24 Rx empagliflozin 10 mg tablet 10 mg PO DAILY #30 tabs 03/22/24 07/17/24 Rx (Jardiance) apixaban 2.5 mg tablet (Eliquis) 2.5 mg PO BID 05/19/24 07/17/24 History sennosides 8.6 mg tablet (senna) 8.6 mg PO BID 05/19/24 07/17/24 History furosemide 40 mg tablet 40 mg PO BID #60 tabs 05/23/24 07/17/24 Rx potassium chloride 10 mEq 20 meq PO DAILY #30 caps 05/23/24 07/17/24 Rx capsule,extended release spironolactone 25 mg tablet 12.5 mg PO DAILY #45 tabs 06/07/24 07/17/24 Rx acetaminophen 650 mg tablet 650 mg PO Q6H PRN Pain 07/17/24 07/17/24 History cetirizine 10 mg tablet 10 mg PO DAILY 07/17/24 07/17/24 History guaifenesin 600 mg tablet, 600 mg PO Q12H 07/17/24 07/17/24 History extended release 12 hr (Mucinex) white petrolatum-mineral oil 94 1 ea LEFT EYE BID 07/17/24 07/17/24 History %-3 % eye ointment (Systane Nighttime) Allergies Allergy/AdvReac Type Severity Reaction Status Date / Time cephalexin Allergy Unknown Rash Verified 07/17/24 15:29 Vital Signs Vital Signs - 24 hr 07/17/24 08:39 07/17/24 11:17 Temperature 98 F Pulse Rate 94 81 Respiratory Rate 14 16 Blood Pressure 127/85 150/78 H Pulse Oximetry 99 94 Oxygen Delivery Nasal Cannula Oxygen Flow Rate 3 Exam Const: General: comfortable and no acute distress Other: , female, elderly, ill-appearing HENMT: Face/Nose/Sinus: Normal nares present Mouth: Yes moist mucous membranes Other: Nighttime CPAP in place Eyes: General: appearance normal, both eyes and all related structures Sclera: sclerae normal Pupils: Equal, round and reactive pupils present EOM: EOMs intact bilaterally Resp: Effort & Inspection: normal respiratory effort Other: Admission right lung base. No wheezing or crackles. Cardio: Rate: regular rate Rhythm: abnormal rhythm Other: S1-S2 present without murmur, rub, ectopy GI: Other: Abdomen soft, nondistended, nontender. : Other: No suprapubic tenderness. Skin: General skin exam: normal color and no rashes or lesions noted Wounds: no wounds Neuro: Speech: normal speech Motor exam (neuro): 5/5 motor strength present throughout Sensory Exam: normal sensation Other: Mild somnolence, A/OX3 Extrem: General: edema Other: trace non-pitting peripheral edema to bilateral ankles, symmetric. Psych: Mental Status: mental status grossly normal Affect: normal affect Other: fair insight and judgment, pleasant. H&P: Results Labs Labs: Short CBC 07/17/24 Range/Units 10:39 WBC 13.7 H (4.5-10.0) K/mm3 Hgb 13.1 (12.0-15.0) g/dL Hct 43.0 (37.0-47.0) % Plt Count 328 (150-375) k/mm3 BMP 07/17/24 10:38 Sodium 138 Potassium 4.1 Chloride 103 Carbon Dioxide 29 BUN 40 H D Creatinine 1.60 H Glucose 101 Calcium 9.6 Cardiac Enzymes 07/17/24 Range/Units 10:38 Total Creatine Kinase 38 (30-135) U/L Troponin I < 0.012 (0.000-0.034) ng/mL Liver Function 07/17/24 Range/Units 10:38 Total Bilirubin 0.8 (0.2-1.3) mg/dL AST 18 (14-36) U/L ALT 7 (6-35) U/L Alkaline Phosphatase 100 (38-126) U/L Albumin 4.1 (3.5-5.1) g/dL Urine 07/17/24 Range/Units 10:57 Urine Color Yellow (Yellow) Urine Appearance Turbid H (Clear) Urine pH 5.5 (5.0-9.0) Ur Specific [place] 1.013 (1.001-1.035) Urine Protein 2+ H (Negative) mg/dL Urine Glucose (UA) Negative (Negative) mg/dL Assessment and Plan Assessment and plan (1) SIRS (systemic inflammatory response syndrome): Code(s): R65.10 - Systemic inflammatory response syndrome (SIRS) of non-infectious origin without acute organ dysfunction Status: Acute Assessment and Plan: - meets SIRS criteria: HR, WBC - lactic acid: 1.5 - 30 mL/kg = 1700. hx of HF, given 1L bolus -> 125 mL/hr. assess toleration. - suspected source: UTI - started on Macrobid p.o. 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 - started on Ceftriaxone and transitioned to Macrobid on 07/17 - mild associated leukocytosis, trend (3) SONJA (acute kidney injury): Code(s): N17.9 - Acute kidney failure, unspecified Status: Acute Assessment and Plan: - mild SONJA superimposed on CKD - creatinine 1.6 and GFR 30, previously 1.3 and GFR 39 on 06/09/2024 - trial IV fluids and antibiotics, if worsening kidney function or no improvement consider Nephrology consultation - trend renal function - trend electrolytes, correct as needed (4) Generalized weakness: Code(s): R53.1 - Weakness Status: Acute Assessment and Plan: - viral PCR negative - CXR: emphysema and cardiomegaly, reviewed image and agree with read - suspect generalized weakness secondary to acute UTI - did report mild SOB and productive cough, cannot exclude tree in bud PNA. monitor. - PT/OT eval and treat - fall precautions (5) Atrial fibrillation with rapid ventricular response: Code(s): I48.91 - Unspecified atrial fibrillation Status: Chronic Assessment and Plan: - EKG, initial: AFib with RVR, rate 111, borderline right axis deviation, moderate ST depression (awaiting formal read). - continue home medications: Metoprolol 25 mg b.i.d. and Eliquis 2.5 mg b.i.d. - current HR in the 130s, PCT confirming. will repeat EKG if tachy. suspect patient is back in Afib RVR due to missed night dose of metoprolol. Will give home dose and 5 of IVP if Afib RVR and add telemetry. (6) Diastolic heart failure: Qualifiers: Heart failure chronicity: chronic Qualified Code(s): I50.32 - Chronic diastolic (congestive) heart failure Code(s): I50.30 - Unspecified diastolic (congestive) heart failure Status: Chronic Assessment and Plan: - BNP 0 - most recent echo (05/2024): Normal systolic function, estimated EF 60-65%, normal diastolic function, severe pulmonary hypertension. See report for further details. - currently on: Spironolactone 12.5 mg daily, Lasix 40 mg b.i.d. - monitor I&Os and daily weights - trend renal function (7) Hypertension: Qualifiers: Hypertension type: primary hypertension Qualified Code(s): I10 - Essential (primary) hypertension Code(s): I10 - Essential (primary) hypertension Status: Chronic Assessment and Plan: - chronic, currently 150/78 - continue home medications: lasix, spironolactone, metoprolol (see dosings above) - monitor Plan Diet: Heart healthy GI Prophylaxis: Not currently indicated DVT Prophylaxis: Continue home Eliquis Lines: Peripheral Code Status: DNR Quality VTE Prophylaxis VTE prophylaxis: pharmacologic ordered Hospitalist MIPS Advance Care Plan I have confirmed that the patient's Advanced Care Plan is present, code status is documented, or surrogate decision maker is listed in patient medical record.: Yes Medication Reconciliation I have utilized all available resources to obtain, update and review the imelda ents current medications (includes all prescriptions, OTC, herbals, cannabis, and nutritional supplements).: Yes
[2024-07-17] MEDS: SODIUM CHLORIDE 0.9% IV 1,000 ML 999 ML IV CONT (14:07)
[2024-07-17 14:13] LABS: Lactic Acid Reflex 1.5 mmol/L (0.7-2.0)
--- NOTE | 2024-07-17 15:25 | ADMGEN ---
This patient, Katie Frances, was admitted to 2 Medical Room 260-. Patient/family oriented to hospital policies and general routines including ID bracelet, bed and alarms, visiting hours, pain management, procedures, bathroom and other care routines, personal items, smoking policy, room service/diet, and visiting hours. Information on how to activate the Rapid Response Team has been discussed. Patient/Family are encouraged to report perceived risks to care and to ask questions if they do not understand what they are told or what they should do.
[2024-07-17] MEDS: NITROFURANTOIN MONOHYD MACROCR 100 MG CAP PO ×2 (15:56→21:57)
[2024-07-17] MEDS: LACTATED RINGERS 1,000 ML 125 ML IV CONT (15:56)
--- NOTE | 2024-07-17 23:14 | ECG_ITS ---
Test Date: 2024-07-17 23:39:03 Measurements Intervals Gary Rate: 112 P: 0 VA: 0 QRS: 99 QRSD: 88 T: 13 QT: 333 QTc: 456 Interpretive Statements ATRIAL FIBRILLATION WITH RAPID VENTRICULAR RESPONSE BORDERLINE RIGHT AXIS DEVIATION [QRS AXIS > 90] SEPTAL MYOCARDIAL INFARCTION , OF INDETERMINATE AGE [40+ ms Q WAVE IN V1/V2] Compared to ECG 07/17/2024 08:37:05 no change compared to prior EKG Electronically Signed On 07-18-2024 14:55:31 VENEER LATHE OPERATOR by Luis Garber M.D.
[2024-07-18] VITALS (18 sets, daily range): BP systolic 110–139; BP diastolic 52–81; PULSE 68–120; RESP 16–25; TEMP 36.2–36.7; O2SAT 92–99
[2024-07-18] MEDS: METOPROLOL TARTRATE 25 MG TABLET PO ×3 (00:45→21:05)
[2024-07-18] MEDS: guaiFENesin 12 HR 600 MG TABCR PO ×3 (00:45→21:05)
[2024-07-18] MEDS: METOPROLOL TARTRATE INJ 5 MG/5 ML VIAL IV PUSH (00:45)
[2024-07-18] MEDS: LACTATED RINGERS 1,000 ML 125 ML IV CONT ×3 (00:57→19:12)
[2024-07-18 06:02] LABS: Basophils Absolute Auto 0.1 K/mm3 (0.0-0.1); Basophils Percent Auto 0.4 % (0.2-1.2); Eosinophils Percent Auto 0.2 % (0-4.4); Hematocrit 37.4 % (37.0-47.0); Hemoglobin 11.5 g/dL (12.0-15.0); Immature Granulocyte Absolute 0.08 K/mm3 (0.00-0.031); Immature Granulocyte Percent A 0.6 % (0-0.5); Lymphocytes Absolute Auto 1.18 K/mm3 (0.9-3.2); Mean Corpuscular HGB Conc 30.7 g/dl (32-36); Mean Corpuscular Hemoglobin 32.1 pg (26-34); Mean Corpuscular Volume 104.5 fl (80-100); Mean Platelet Volume 9.5 fl (7.4-10.4); Monocytes Absolute Auto 1.6 K/mm3 (0.1-0.6); Monocytes Percent Auto 12.5 % (2.6-8.5); Neutrophils Absolute Auto 10.2 K/mm3 (1.3-6.7); Neutrophils Percent Auto 77.3 % (45.5-73.1); Nucleated Red Blood Cells Perc 0.4 % (0.0-0.2); Platelet Count Result 289 k/mm3 (150-375); Red Blood Count 3.58 M/mm3 (4.2-5.4); Red Cell Distribution Width 17.5 % (11.5-14.5); White Blood Count 13.1 K/mm3 (4.5-10.0)
[2024-07-18 06:15] LABS: Anion Gap 7 mmol/L (4-12); Blood Urea Nitrogen 34 mg/dL (7-17); Calcium 9.1 mg/dL (8.4-10.2); Carbon Dioxide 25 mmol/L (22-30); Chloride 107 mmol/L (98-107); Estimated CRCL calculation 23 ml/min; Estimated Glomerular Filt Rate 47; Glucose 98 mg/dL (65-110); Potassium 3.8 mmol/L (3.4-5.0); Sodium 139 mmol/L (137-145)
[2024-07-18] MEDS: LEVOTHYROXINE SODIUM 112 MCG TABLET PO (06:24)
[2024-07-18] MEDS: FLUTICASONE/SALMETEROL 115-21 MCG INHALER 1 PUFF 2 PUFF INHALATION ×2 (09:00→20:05)
[2024-07-18] MEDS: UMECLIDINIUM/VILANTEROL 62.5-25 MCG ELLIPTA 1 PUFF INHALATION (09:13)
[2024-07-18 09:58] LABS: Base Excess ABG 0.2 mEq/l (+/-2.0); Fractional Inspired Oxygen 32 %; HCO3 ABG 26.9 mEq/l (22.0-26.0); Oxygen Content ABG 16.4 %vol (16.0-22.0); Oxygen Saturation ABG 98.5 % (95.0-100.0); Oxyhemoglobin 96.6 % THb (90.0-100.0); PO2 ABG 139.2 mmHg (80.0-100.0); PO2 FiO2 Ratio Arterial Blood 4.35 %; Total Hemoglobin 11.9 g/dL (12.0-18.0); pH ABG 7.324 (7.350-7.450)
[2024-07-18 09:59] LABS: Device NASAL CANNULA; Modified Allen's Test Pass; Site Drawn RIGHT RADIAL
--- NOTE | 2024-07-18 11:00 | P.PNIM_ITS ---
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 * had been given Rocephin in the emergency department switch to oral linezolid * blood cultures pending * culture and sensitivity pending (3) Somnolence: Code(s): R40.0 - Somnolence Status: Acute Assessment and Plan: the RN had called with concerns of patient due to new somnolence was able to respond to painful stimuli and answer some questions patient was alert and oriented overnight * New onset only responding to painful stimuli * ABG reviewed * CTA head pending * ABG with hypercapnia but at patient baseline no hypoxia 99% on RA * Patient family states she had been declining and having these episodes (4) SONJA (acute kidney injury): Code(s): N17.9 - Acute kidney failure, unspecified Status: Acute Assessment and Plan: * mild SONJA superimposed on CKD * creatinine 1.6 and GFR 30, previously 1.3 and GFR 39 on 06/09/2024 * Gentle IV hydration. * Avoid nephrotoxic drugs. * Monitor antihypertensive drug therapy. * Avoid NSAIDs. * Routine CMP monitoring GFR. * Monitor electrolytes especially potassium. * Antibiotic doses depending on creatinine clearance. * Pharmacy does medications. (5) Generalized weakness: Code(s): R53.1 - Weakness Status: Acute Assessment and Plan: * viral PCR negative * CXR: emphysema and cardiomegaly * CT Chest further evaluation of possible PNA * PT/OT eval and treat * fall precautions (6) Atrial fibrillation with rapid ventricular response: Code(s): I48.91 - Unspecified atrial fibrillation Status: Chronic Assessment and Plan: * Episode of AFIB RVR overnight in the 130's * Metoprolol IV push 5 mg given * she was resumed on her oral metoprolol * cardiac monitoring * resumed Eliquis (7) Diastolic heart failure: Qualifiers: Heart failure chronicity: chronic Qualified Code(s): I50.32 - Chronic diastolic (congestive) heart failure Code(s): I50.30 - Unspecified diastolic (congestive) heart failure Status: Chronic Assessment and Plan: * BNP 2720 * most recent echo (05/2024): Normal systolic function, estimated EF 60-65%, normal diastolic function, severe pulmonary hypertension. See report for further details. * currently on: Spironolactone 12.5 mg daily, Lasix 40 mg b.i.d. * monitor I&Os and daily weights * trend renal function (8) Hypertension: Qualifiers: Hypertension type: primary hypertension Qualified Code(s): I10 - Essential (primary) hypertension Code(s): I10 - Essential (primary) hypertension Status: Chronic Assessment and Plan: * Reviewed stable * home BP medications resumed * monitor BP per unit protocol Plan Code status: DNR/DNI DVT prophylaxis: Nash Stress ulcer prophylaxis: Janette PT/OT notes: PT/OT pending Disposition: patient was admitted to the medical unit for further evaluation and treatment of possible sepsis secondary to urinary tract infection patient with history of VRE and generalized weakness patient was extremely somnolent and responding to only painful stimuli this morning will need to rule out stroke CTA pending. patient's family did report to the RN that she has been declining over the last few months. plan will be to [facility] back to [facility] facility she is medically stable. Time Spent With Patient Time with patient: 15 - 25 minutes Subjective Date/time seen: 07/18/24 11:00 Interval history: Patient is an 89-year-old female who was admitted to the medical unit for treatment of sepsis likely secondary to UTI, generalized weakness, SONJA, and had episode of AFib RVR. 07/18/2024: Assumed Care Patient lethargic/somnolent but did wake up and answer my questions appropriately. Patient denied any current pain a, chest pain or shortness of breath reports she is just extremely tired. Full strength in all extremities no neurological deficits noted. Review of Systems Review of Systems: All systems reviewed & are unremarkable except as noted in HPI and below Exam Narrative: Physical Exam: * GENERAL: somnolent/lethargic responding and answering questions appropriately female. No acute distress. * EYES: EOMI. No scleral icterus. PERRLA. * HEENT: Moist mucous membranes. * LUNGS: Clear to auscultation bilaterally. No accessory muscle use. * CARDIOVASCULAR: Regular rate and rhythm. No murmur. No JVD. S1-S2 * ABDOMEN: Soft, non tenderness and non-distended. No palpable masses. * EXTREMITIES: No edema. Non-tender * SKIN: No rashes or lesions. Skin warm, dry. * NEUROLOGIC: No focal neurological deficits. CN II-XII grossly intact * PSYCHIATRIC: Appropriate mood and affect. Good judgement and insight. No visual or auditory hallucinations. No suicidal or homicidal ideation. Objective Data Vital Signs Vital Signs: Vital Signs - 24 hr 07/17/24 11:17 07/17/24 16:00 07/17/24 16:34 Temperature 97.6 F Pulse Rate 81 84 Respiratory Rate 16 17 Blood Pressure 150/78 H 119/84 Pulse Oximetry 94 95 84 L Oxygen Delivery Nasal Cannula Oxygen Flow Rate 3 Fraction of Inspired Oxygen 07/17/24 20:18 07/17/24 20:18 07/17/24 20:38 Temperature 99.1 F Pulse Rate 82 Respiratory Rate 20 Blood Pressure 152/87 H Pulse Oximetry 87 L 91 97 Oxygen Delivery Room Air Nasal Cannula Oxygen Flow Rate 3 Fraction of Inspired Oxygen 07/17/24 21:35 07/17/24 23:52 07/18/24 00:45 Temperature 98.4 F Pulse Rate 130 H 90 110 H Respiratory Rate 32 H 20 Blood Pressure 120/74 Pulse Oximetry 91 100 Oxygen Delivery Autopap Oxygen Flow Rate Fraction of Inspired Oxygen 07/18/24 00:45 07/17/24 20:00 07/18/24 06:00 Temperature 97.1 F L Pulse Rate 110 H 68 Respiratory Rate 20 Blood Pressure 139/61 Pulse Oximetry 98 98 Oxygen Delivery Nasal Cannula Oxygen Flow Rate 3 Fraction of Inspired Oxygen 07/18/24 04:00 07/18/24 09:00 07/18/24 09:00 Temperature Pulse Rate 94 106 H Respiratory Rate 16 Blood Pressure Pulse Oximetry 98 Oxygen Delivery Nasal Cannula Oxygen Flow Rate 3 Fraction of Inspired Oxygen 32 07/18/24 09:34 Temperature 97.1 F L Pulse Rate 102 H Respiratory Rate 16 Blood Pressure 114/52 L Pulse Oximetry 99 Oxygen Delivery Oxygen Flow Rate Fraction of Inspired Oxygen Intake/Output Intake/Output: Intake & Output 07/15/24 07/16/24 07/17/24 07/18/24 23:59 23:59 23:59 23:59 Intake Total 1330 1150 Output Total 200 Balance 1130 1150 Meds/Results Medications: Active Medications Generic Name Dose Route Start Last Admin Trade Name Freq PRN Reason Stop Dose Admin Acetaminophen 650 mg 07/17/24 13:58 Acetaminophen 325 Mg Tablet PO Q4H PRN Mild Pain (1-3) or Fever Acetazolamide 250 mg 07/18/24 21:00 Acetazolamide Tab 250 Mg Tablet PO HS [facility] Acetazolamide 250 mg 07/18/24 09:00 Acetazolamide Tab 250 Mg Tablet PO QAM [facility] Albuterol 2 puff 07/18/24 00:03 Albuterol Sulfate (*Sp) Aerosol 1 Puff INHALATION Q4H PRN shortness of breath or wheezing Apixaban 2.5 mg 07/18/24 09:00 Apixaban 2.5 Mg Tablet PO Q12HR [facility] Atorvastatin Calcium 20 mg 07/18/24 21:00 Atorvastatin 20 Mg Tablet PO HS [facility] Cyanocobalamin 1,000 mcg 07/18/24 09:50 Cyanocobalamin 1,000 Mcg Tablet PO Q48HR [facility] Empagliflozin 10 mg 07/18/24 09:00 Empagliflozin 10 Mg Tablet PO DAILY [facility] Furosemide 40 mg 07/18/24 09:00 Furosemide 40 Mg Tablet PO BID [facility] Guaifenesin 600 mg 07/17/24 23:20 07/18/24 00:45 Guaifenesin 12 Hr 600 Mg Tabcr PO 600 mg Q12HR [facility] Administration Lactated Ringer's 1,000 mls @ 125 mls/hr 07/17/24 14:00 07/18/24 09:40 Lr - Lactated Ringers Iv IV CONT 125 mls/hr .Q8H [facility] Administration Levothyroxine Sodium 112 mcg 07/18/24 06:30 07/18/24 06:24 Levothyroxine Sodium 112 Mcg Tablet PO 112 mcg DAILY@0630 [facility] Administration Linezolid 600 mg 07/18/24 09:50 Linezolid 600 Mg Tablet PO Q12HR [facility] Loratadine 10 mg 07/18/24 09:00 Loratadine 10 Mg Tablet PO DAILY [facility] Metoprolol Tartrate 25 mg 07/17/24 23:25 07/18/24 00:45 Metoprolol Tartrate 25 Mg Tablet PO 25 mg Q12HR [facility] Administration Multi-Ingred Cream/Lotion/Oil/Oint 1 applic 07/18/24 09:00 Mineral Oil/White Petrolatum Ointment EACH EYE Q12HR [facility] Ondansetron HCl 4 mg 07/17/24 13:58 Ondansetron Inj 4 Mg/2 Ml Vial IV PUSH Q4H PRN Nausea Potassium Chloride 20 meq 07/18/24 09:00 Potassium Chloride 20 Meq Er Tablet PO DAILY [facility] Fluticasone/Salmeterol 2 puff 07/18/24 08:00 07/18/24 09:00 Fluticasone/Salmeterol 115-21 Mcg Inhaler 1 Puff INHALATION 2 puff Q12HRT [facility] Administration Senna 8.6 mg 07/18/24 09:00 Sennosides 8.6 Mg Tablet PO BID [facility] Spironolactone 12.5 mg 07/18/24 09:00 Spironolactone 12.5 Mg Tablet PO DAILY [facility] Umeclidinium/Vilanterol 1 puff 07/18/24 08:00 07/18/24 09:13 Umeclidinium/Vilanterol 62.5-25 Mcg Ellipta INHALATION 1 puff DAILYRT [facility] Administration Vitamin D 1,000 units 07/18/24 09:00 Cholecalciferol 1,000 Units Tablet PO DAILY [facility] Radiology Results: ITS Impressions Chest X-Ray 07/17/24 09:19 IMPRESSION: 1. Emphysema. 2. Cardiomegaly. Labs Labs: Laboratory Results - last 24 hr 07/17/24 07/17/24 07/17/24 10:38 10:39 10:57 WBC 13.7 H RBC 4.08 L Hgb 13.1 Hct 43.0 MCV 105.4 H MCH 32.1 MCHC 30.5 L RDW 17.6 H Plt Count 328 MPV 9.4 Immature Gran % (Auto) 0.8 H Neut % (Auto) 78.9 H Lymph % (Auto) 7.2 L Pitt % (Auto) 12.2 H Eos % (Auto) 0.4 Baso % (Auto) 0.5 Lymph # (Auto) 0.98 Pitt # (Auto) 1.7 H Eos # (Auto) 0.1 Baso # (Auto) 0.1 Abs Immat Gran (auto) 0.11 H Absolute Neuts (auto) 10.8 H Absolute Nucleated RBC 0.050 H Nucleated RBC % 0.4 H Platelet Estimate Adequate Anisocytosis 1+ Schistocytes None seen Puncture Site ABG pH ABG pCO2 ABG pO2 ABG PO2/FiO2 Ratio ABG HCO3 ABG O2 Saturation ABG O2 Content ABG Base Excess A-a Gradient Oxyhemoglobin Total Hemoglobin O2 Delivery Device O2 Liters/Min FiO2 Sodium 138 Potassium 4.1 Chloride 103 Carbon Dioxide 29 Anion Gap 6 BUN 40 H D Creatinine 1.60 H Estim Creat Clear Calc Not Reportable Estimated GFR 30 L Glucose 101 Lactic Acid Calcium 9.6 Magnesium 2.4 H Total Bilirubin 0.8 AST 18 ALT 7 Alkaline Phosphatase 100 Total Creatine Kinase 38 Troponin I < 0.012 NT-Pro-B Natriuret Pep 2720 H Total Protein 7.0 Albumin 4.1 TSH 0.551 Urine Color Yellow Urine Appearance Turbid H Urine pH 5.5 Ur Specific [place] 1.013 Urine Protein 2+ H Urine Glucose (UA) Negative Urine Ketones Negative Ur Blood (Man) 2+ H Urine Nitrate Positive H Urine Bilirubin Negative Urine Urobilinogen 0.2 Leukocyte Esterase Rfl 3+ H Urine RBC 11-20 H Urine WBC >100 H Ur Squamous Epith Cells Occasional Urine Bacteria 4+ H Urine Casts 3-5 Influenza A (RT-PCR) Influenza B (RT-PCR) RSV (RT-PCR) SARS-CoV-2 RNA (RT-PCR) 07/17/24 07/17/24 07/18/24 11:47 13:56 05:20 WBC 13.1 H RBC 3.58 L Hgb 11.5 L Hct 37.4 MCV 104.5 H MCH 32.1 MCHC 30.7 L RDW 17.5 H Plt Count 289 MPV 9.5 Immature Gran % (Auto) 0.6 H Neut % (Auto) 77.3 H Lymph % (Auto) 9.0 L [place] % (Auto) 12.5 H Eos % (Auto) 0.2 Baso % (Auto) 0.4 Lymph # (Auto) 1.18 [place] # (Auto) 1.6 H Eos # (Auto) 0.0 Baso # (Auto) 0.1 Abs Immat Gran (auto) 0.08 H Absolute Neuts (auto) 10.2 H Absolute Nucleated RBC 0.050 H Nucleated RBC % 0.4 H Platelet Estimate Anisocytosis Schistocytes Puncture Site ABG pH ABG pCO2 ABG pO2 ABG PO2/FiO2 Ratio ABG HCO3 ABG O2 Saturation ABG O2 Content ABG Base Excess A-a Gradient Oxyhemoglobin Total Hemoglobin O2 Delivery Device O2 Liters/Min FiO2 Sodium 139 Potassium 3.8 Chloride 107 Carbon Dioxide 25 Anion Gap 7 BUN 34 H Creatinine 1.10 H Estim Creat Clear Calc 23 Estimated GFR 47 L Glucose 98 Lactic Acid 1.5 Calcium 9.1 Magnesium Total Bilirubin AST ALT Alkaline Phosphatase Total Creatine Kinase Troponin I NT-Pro-B Natriuret Pep Total Protein Albumin TSH Urine Color Urine Appearance Urine pH Ur Specific [place] Urine Protein Urine Glucose (UA) Urine Ketones Ur Blood (Man) Urine Nitrate Urine Bilirubin Urine Urobilinogen Leukocyte Esterase Rfl Urine RBC Urine WBC Ur Squamous Epith Cells Urine Bacteria Urine Casts Influenza A (RT-PCR) Negative Influenza B (RT-PCR) Negative RSV (RT-PCR) Negative SARS-CoV-2 RNA (RT-PCR) Negative 07/18/24 09:55 WBC RBC Hgb Hct MCV MCH MCHC RDW Plt Count MPV Immature Gran % (Auto) Neut % (Auto) Lymph % (Auto) [place] % (Auto) Eos % (Auto) Baso % (Auto) Lymph # (Auto) Pitt # (Auto) Eos # (Auto) Baso # (Auto) Abs Immat Gran (auto) Absolute Neuts (auto) Absolute Nucleated RBC Nucleated RBC % Platelet Estimate Anisocytosis Schistocytes Puncture Site Right radial ABG pH 7.324 L ABG pCO2 53.0 H ABG pO2 139.2 H ABG PO2/FiO2 Ratio 4.35 ABG HCO3 26.9 H ABG O2 Saturation 98.5 ABG O2 Content 16.4 ABG Base Excess 0.2 A-a Gradient 27.0 Oxyhemoglobin 96.6 Total Hemoglobin 11.9 L O2 Delivery Device Nasal cannula O2 Liters/Min 3.0 FiO2 32 Sodium Potassium Chloride Carbon Dioxide Anion Gap BUN Creatinine Estim Creat Clear Calc Estimated GFR Glucose Lactic Acid Calcium Magnesium Total Bilirubin AST ALT Alkaline Phosphatase Total Creatine Kinase Troponin I NT-Pro-B Natriuret Pep Total Protein Albumin TSH Urine Color Urine Appearance Urine pH Ur Specific [place] Urine Protein Urine Glucose (UA) Urine Ketones Ur Blood (Man) Urine Nitrate Urine Bilirubin Urine Urobilinogen Leukocyte Esterase Rfl Urine RBC Urine WBC Ur Squamous Epith Cells Urine Bacteria Urine Casts Influenza A (RT-PCR) Influenza B (RT-PCR) RSV (RT-PCR) SARS-CoV-2 RNA (RT-PCR) Quality VTE Prophylaxis VTE prophylaxis: pharmacologic ordered -Patient's previous records reviewed on admission -ER notes reviewed in detail on admission -discussed all findings and current treatment plan with patient/Family/POA -Consultations reviewed for recommendations -Patient's disposition for safe discharge discussed with medical case manager Dictation performed by [employer] direct speech recognition software, therefore special needs teacher variants and typographical errors may occur. Hospitalist MIPS Advance Care Plan I have confirmed that the patient's Advanced Care Plan is present, code status is documented, or surrogate decision maker is listed in patient medical record.: Yes Medication Reconciliation I have utilized all available resources to obtain, update and review the patients current medications (includes all prescriptions, OTC, herbals, cannabis, and nutritional supplements).: Yes The patient is not eligible for med reconciliation; the patient is in a emergent medical situation where delaying treatment would jeopardize the patients health.: No
--- NOTE | 2024-07-18 11:46 | PCPTNOTE ---
Attempted to see for physical therapy evaluation, per RN pt is not stable for therapy at this time. Will continue to follow.
--- NOTE | 2024-07-18 11:52 | PCOTNOTE ---
Attempted OT evaluation. Per RN pt. unable to participate at this time. Waiting for more testing. Hold for today. Will continue to follow as able.
[2024-07-18] MEDS: EMPAGLIFLOZIN 10 MG TABLET PO (12:07)
[2024-07-18] MEDS: APIXABAN 2.5 MG TABLET PO ×2 (12:07→21:05)
[2024-07-18] MEDS: FUROSEMIDE 40 MG TABLET PO ×2 (12:07→17:04)
[2024-07-18] MEDS: LORATADINE 10 MG TABLET PO (12:08)
[2024-07-18] MEDS: SPIRONOLACTONE 12.5 MG TABLET PO (12:08)
[2024-07-18] MEDS: SENNOSIDES 8.6 MG TABLET PO ×2 (12:08→17:04)
[2024-07-18] MEDS: CHOLECALCIFEROL 1,000 UNITS TABLET 1000 UNITS PO (12:09)
[2024-07-18] MEDS: POTASSIUM CHLORIDE 20 MEQ ER TABLET PO (12:11)
[2024-07-18] MEDS: LINEZOLID 600 MG TABLET PO ×2 (12:19→21:05)
[2024-07-18] MEDS: CYANOCOBALAMIN 1,000 MCG TABLET 1000 MCG PO (12:19)
[2024-07-18] MEDS: acetaZOLAMIDE TAB 250 MG TABLET PO ×2 (12:19→21:05)
[2024-07-18] MEDS: MINERAL OIL/WHITE PETROLATUM OINTMENT 1 APPLIC EACH EYE (21:00)
[2024-07-18] MEDS: ATORVASTATIN 20 MG TABLET PO (21:05)
[2024-07-19] VITALS (13 sets, daily range): BP systolic 99–136; BP diastolic 46–69; PULSE 80–101; RESP 16–24; TEMP 35.7–36.7; O2SAT 90–99; BMI 26.3
[2024-07-19] MEDS: LACTATED RINGERS 1,000 ML 125 ML IV CONT (03:01)
[2024-07-19] MEDS: FLUTICASONE/SALMETEROL 115-21 MCG INHALER 1 PUFF 2 PUFF INHALATION (07:00)
[2024-07-19] MEDS: UMECLIDINIUM/VILANTEROL 62.5-25 MCG ELLIPTA 1 PUFF INHALATION (07:00)
[2024-07-19] MEDS: POTASSIUM CHLORIDE 20 MEQ ER TABLET PO (08:05)
[2024-07-19] MEDS: FUROSEMIDE 40 MG TABLET PO ×2 (08:05→17:06)
[2024-07-19] MEDS: guaiFENesin 12 HR 600 MG TABCR PO ×2 (08:05→21:02)
[2024-07-19] MEDS: METOPROLOL TARTRATE 25 MG TABLET PO ×2 (08:05→21:02)
[2024-07-19] MEDS: SPIRONOLACTONE 12.5 MG TABLET PO (08:05)
[2024-07-19] MEDS: LINEZOLID 600 MG TABLET PO ×2 (08:05→21:02)
[2024-07-19] MEDS: APIXABAN 2.5 MG TABLET PO ×2 (08:05→21:02)
[2024-07-19] MEDS: acetaZOLAMIDE TAB 250 MG TABLET PO ×2 (08:05→21:02)
[2024-07-19] MEDS: LORATADINE 10 MG TABLET PO (08:05)
[2024-07-19] MEDS: CHOLECALCIFEROL 1,000 UNITS TABLET 1000 UNITS PO (08:05)
[2024-07-19] MEDS: EMPAGLIFLOZIN 10 MG TABLET PO (08:05)
[2024-07-19] MEDS: SENNOSIDES 8.6 MG TABLET PO ×2 (08:05→17:06)
[2024-07-19] MEDS: MINERAL OIL/WHITE PETROLATUM OINTMENT 1 APPLIC EACH EYE ×2 (08:06→21:03)
[2024-07-19] MEDS: LEVOTHYROXINE SODIUM 112 MCG TABLET PO (08:10)
--- NOTE | 2024-07-19 08:51 | P.PNIM_ITS ---
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 * had been given Rocephin in the emergency department switch to oral linezolid * culture showing Gram-negative bacilli * blood cultures pending * culture and sensitivity pending 07/19/2024 * gram negative bacilli * started on ceftriaxone IV * Continue with Linezolid PO until sensitivities (3) Somnolence: Code(s): R40.0 - Somnolence Status: Acute Assessment and Plan: the RN had called with concerns of patient due to new somnolence was able to respond to painful stimuli and answer some questions patient was alert and oriented overnight * New onset only responding to painful stimuli * ABG reviewed * CTA head pending * ABG with hypercapnia but at patient baseline no hypoxia 99% on RA * Patient family states she had been declining and having these episodes 07/19/2024: * CTA no acute findings but there is noted 80% stenosis of the LT internal carotid artery will need follow-up with vascular outpatient (4) SONJA (acute kidney injury): Code(s): N17.9 - Acute kidney failure, unspecified Status: Acute Assessment and Plan: * mild SONJA superimposed on CKD * creatinine 1.6 and GFR 30, previously 1.3 and GFR 39 on 06/09/2024 * Gentle IV hydration. * Avoid nephrotoxic drugs. * Monitor antihypertensive drug therapy. * Avoid NSAIDs. * Routine CMP monitoring GFR. * Monitor electrolytes especially potassium. * Antibiotic doses depending on creatinine clearance. * Pharmacy does medications. (5) Generalized weakness: Code(s): R53.1 - Weakness Status: Acute Assessment and Plan: * viral PCR negative * CXR: emphysema and cardiomegaly * CT Chest further evaluation of possible PNA * PT/OT eval and treat * fall precautions (6) Atrial fibrillation with rapid ventricular response: Code(s): I48.91 - Unspecified atrial fibrillation Status: Chronic Assessment and Plan: * Episode of AFIB RVR overnight in the 130's * Metoprolol IV push 5 mg given * she was resumed on her oral metoprolol * cardiac monitoring * resumed Eliquis (7) Diastolic heart failure: Qualifiers: Heart failure chronicity: chronic Qualified Code(s): I50.32 - Chronic diastolic (congestive) heart failure Code(s): I50.30 - Unspecified diastolic (congestive) heart failure Status: Chronic Assessment and Plan: * BNP 2719 * most recent echo (05/2024): Normal systolic function, estimated EF 60-65%, normal diastolic function, severe pulmonary hypertension. See report for fu rther details. * currently on: Spironolactone 12.5 mg daily, Lasix 40 mg b.i.d. * monitor I&Os and daily weights * trend renal function (8) Hypertension: Qualifiers: Hypertension type: primary hypertension Qualified Code(s): I10 - Essential (primary) hypertension Code(s): I10 - Essential (primary) hypertension Status: Chronic Assessment and Plan: * Reviewed stable * home BP medications resumed * monitor BP per unit protocol Plan Code status: DNR/DNI DVT prophylaxis: Nash Stress ulcer prophylaxis: Janette PT/OT notes: PT/OT pending Disposition: patient was admitted to the medical unit for further evaluation and treatment of possible sepsis secondary to urinary tract infection patient with history of VRE and generalized weakness patient was extremely somnolent and responding to only painful stimuli this morning will need to rule out stroke CTA pending. patient's family did report to the RN that she has been declining over the last few months. plan will be to discharge back to her [facility] facility she is medically stable. Time Spent With Patient Time with patient: 15 - 25 minutes Subjective Date/time seen: 07/19/24 08:51 Interval history: Patient is an 89-year-old female who was admitted to the medical unit for treatment of sepsis likely secondary to UTI, generalized weakness, SONJA, and had episode of AFib RVR. 07/19/2024: Assumed Care Patient up in chair alert and oriented x3 today and states she is feeling better but still weak. CTA negative for acute issues, UA with gram negative bacilli. WBC with mild bump, afebrile but patient denied fever, CP, SOB or urinary complaints. Review of Systems Review of Systems: All systems reviewed & are unremarkable except as noted in HPI and below Exam Narrative: Physical Exam: * GENERAL: Alert and oriented up in chair. No acute distress. * EYES: PERRLA. * HEENT: Moist mucous membranes. * LUNGS: Diminished auscultation bilaterally. No accessory muscle use. on 3L NC which she wears at home * CARDIOVASCULAR: Regular rate and rhythm. No murmur. No JVD. S1-S2 * ABDOMEN: Soft, non tenderness and non-distended. No palpable masses. * EXTREMITIES: No edema. Non-tender * SKIN: No rashes or lesions. Skin warm, dry. deep tissue bruising * NEUROLOGIC: No focal neurological deficits. CN II-XII grossly intact * PSYCHIATRIC: Appropriate mood and affect. Good judgement and insight. Objective Data Vital Signs Vital Signs: Vital Signs - 24 hr 07/18/24 09:00 07/18/24 09:00 07/18/24 09:34 Temperature 97.1 F L Pulse Rate 106 H 102 H Respiratory Rate 16 16 Blood Pressure 114/52 L Pulse Oximetry 98 99 Oxygen Delivery Nasal Cannula Oxygen Flow Rate 3 Fraction of Inspired Oxygen 32 07/18/24 12:03 07/18/24 12:07 07/18/24 12:00 Temperature 97.1 F L Pulse Rate 89 89 117 H Respiratory Rate 16 Blood Pressure 133/59 L Pulse Oximetry 98 Oxygen Delivery Oxygen Flow Rate Fraction of Inspired Oxygen 07/18/24 14:00 07/18/24 16:00 07/18/24 20:06 Temperature 98.1 F Pulse Rate 78 85 105 H Respiratory Rate 22 H 16 Blood Pressure 110/55 L Pulse Oximetry 99 Oxygen Delivery Oxygen Flow Rate Fraction of Inspired Oxygen 07/18/24 20:17 07/18/24 20:53 07/18/24 21:05 Temperature 97.6 F Pulse Rate 101 H 120 H Respiratory Rate 24 H Blood Pressure 120/81 Pulse Oximetry 97 98 Oxygen Delivery Nasal Cannula Oxygen Flow Rate 3 Fraction of Inspired Oxygen 32 07/18/24 21:00 07/18/24 20:00 07/18/24 21:45 Temperature Pulse Rate 113 H 104 H Respiratory Rate 25 H Blood Pressure Pulse Oximetry 96 92 Oxygen Delivery Nasal Cannula Autopap Oxygen Flow Rate 3 Fraction of Inspired Oxygen 32 07/19/24 00:04 07/19/24 04:01 07/19/24 01:00 Temperature Pulse Rate 86 91 Respiratory Rate 24 H Blood Pressure Pulse Oximetry 92 Oxygen Delivery Autopap Oxygen Flow Rate Fraction of Inspired Oxygen 07/19/24 06:00 07/19/24 07:00 07/19/24 07:00 Temperature 97.3 F L Pulse Rate 92 89 89 Respiratory Rate 20 18 18 Blood Pressure 116/51 L Pulse Oximetry 90 99 Oxygen Delivery Nasal Cannula Oxygen Flow Rate 3 Fraction of Inspired Oxygen 07/19/24 08:01 07/19/24 08:05 07/19/24 08:06 Temperature 98.0 F Pulse Rate 101 H 101 H Respiratory Rate 16 Blood Pressure 136/50 L Pulse Oximetry 98 Oxygen Delivery Nasal Cannula Oxygen Flow Rate 3 Fraction of Inspired Oxygen 07/19/24 08:05 07/19/24 08:05 Temperature Pulse Rate 101 H 92 Respiratory Rate 16 Blood Pressure Pulse Oximetry 98 Oxygen Delivery Nasal Cannula Oxygen Flow Rate 3 Fraction of Inspired Oxygen Intake/Output Intake/Output: Intake & Output 07/16/24 07/17/24 07/18/24 07/19/24 23:59 23:59 23:59 23:59 Intake Total 1330 2630 1150 Output Total 200 Balance 1130 2630 1150 Meds/Results Medications: Active Medications Generic Name Dose Route Start Last Admin Trade Name Freq PRN Reason Stop Dose Admin Acetaminophen 650 mg 07/17/24 13:58 Acetaminophen 325 Mg Tablet PO Q4H PRN Mild Pain (1-3) or Fever Acetazolamide 250 mg 07/18/24 21:00 07/18/24 21:05 Acetazolamide Tab 250 Mg Tablet PO 250 mg HS MERCEDES Administration Acetazolamide 250 mg 07/18/24 09:00 07/19/24 08:05 Acetazolamide Tab 250 Mg Tablet PO 250 mg QAM MERCEDES Administration Albuterol 2 puff 07/18/24 00:03 Albuterol Sulfate (*Sp) Aerosol 1 Puff INHALATION Q4H PRN shortness of breath or wheezing Apixaban 2.5 mg 07/18/24 09:00 07/19/24 08:05 Apixaban 2.5 Mg Tablet PO 2.5 mg Q12HR MERCEDES Administration Atorvastatin Calcium 20 mg 07/18/24 21:00 07/18/24 21:05 Atorvastatin 20 Mg Tablet PO 20 mg HS MERCEDES Administration Cyanocobalamin 1,000 mcg 07/18/24 09:50 07/18/24 12:19 Cyanocobalamin 1,000 Mcg Tablet PO 1,000 mcg Q48HR MERCEDES Administration Empagliflozin 10 mg 07/18/24 09:00 07/19/24 08:05 Empagliflozin 10 Mg Tablet PO 10 mg DAILY MERCEDES Administration Furosemide 40 mg 07/18/24 09:00 07/19/24 08:05 Furosemide 40 Mg Tablet PO 40 mg BID MERCEDES Administration Guaifenesin 600 mg 07/17/24 23:20 07/19/24 08:05 Guaifenesin 12 Hr 600 Mg Tabcr PO 600 mg Q12HR MERCEDES Administration Lactated Ringer's 1,000 mls @ 125 mls/hr 07/17/24 14:00 07/19/24 03:01 Lr - Lactated Ringers Iv IV CONT 125 mls/hr .Q8H MERCEDES Administration Levothyroxine Sodium 112 mcg 07/18/24 06:30 07/19/24 08:10 Levothyroxine Sodium 112 Mcg Tablet PO 112 mcg DAILY@0630 MERCEDES Administration Linezolid 600 mg 07/18/24 09:50 07/19/24 08:05 Linezolid 600 Mg Tablet PO 600 mg Q12HR MERCEDES Administration Loratadine 10 mg 07/18/24 09:00 07/19/24 08:05 Loratadine 10 Mg Tablet PO 10 mg DAILY MERCEDES Administration Metoprolol Tartrate 25 mg 07/17/24 23:25 07/19/24 08:05 Metoprolol Tartrate 25 Mg Tablet PO 25 mg Q12HR MERCEDES Administration Multi-Ingred Cream/Lotion/Oil/Oint 1 applic 07/18/24 09:00 07/19/24 08:06 Mineral Oil/White Petrolatum Ointment EACH EYE 1 applic Q12HR MERCEDES Administration Ondansetron HCl 4 mg 07/17/24 13:58 Ondansetron Inj 4 Mg/2 Ml Vial IV PUSH Q4H PRN Nausea Potassium Chloride 20 meq 07/18/24 09:00 07/19/24 08:05 Potassium Chloride 20 Meq Er Tablet PO 20 meq DAILY MERCEDES Administration Fluticasone/Salmeterol 2 puff 07/18/24 08:00 07/19/24 07:00 Fluticasone/Salmeterol 115-21 Mcg Inhaler 1 Puff INHALATION 2 puff Q12HRT MERCEDES Administration Senna 8.6 mg 07/18/24 09:00 07/19/24 08:05 Sennosides 8.6 Mg Tablet PO 8.6 mg BID MERCEDES Administration Spironolactone 12.5 mg 07/18/24 09:00 07/19/24 08:05 Spironolactone 12.5 Mg Tablet PO 12.5 mg DAILY MERCEDES Administration Umeclidinium/Vilanterol 1 puff 07/18/24 08:00 07/19/24 07:00 Umeclidinium/Vilanterol 62.5-25 Mcg Ellipta INHALATION 1 puff DAILYRT MERCEDES Administration Vitamin D 1,000 units 07/18/24 09:00 07/19/24 08:05 Cholecalciferol 1,000 Units Tablet PO 1,000 units DAILY MERCEDES Administration Radiology Results: ITS Impressions Chest X-Ray 07/17/24 09:19 IMPRESSION: 1. Emphysema. 2. Cardiomegaly. Head/Neck CTA 07/19/24 05:51 Impression: Focal high-grade stenosis (80%) at the proximal left internal carotid artery. Labs Labs: Laboratory Results - last 24 hr 07/18/24 09:55 Puncture Site Right radial ABG pH 7.324 L ABG pCO2 53.0 H ABG pO2 139.2 H ABG PO2/FiO2 Ratio 4.35 ABG HCO3 26.9 H ABG O2 Saturation 98.5 ABG O2 Content 16.4 ABG Base Excess 0.2 A-a Gradient 27.0 Oxyhemoglobin 96.6 Total Hemoglobin 11.9 L O2 Delivery Device Nasal cannula O2 Liters/Min 3.0 FiO2 32 Quality VTE Prophylaxis VTE prophylaxis: pharmacologic ordered -Patient's previous records reviewed on admission -ER notes reviewed in detail on admission -discussed all findings and current treatment plan with patient/Family/POA -Consultations reviewed for recommendations -Patient's disposition for safe discharge discussed with outpatient case manager Dictation performed by [employer] direct speech recognition software, therefore apprenticeship representative variants and typographical errors may occur. Hospitalist [facility] Advance Care Plan I have confirmed that the patient's Advanced Care Plan is present, code status is documented, or surrogate decision maker is listed in patient medical record.: Yes Medication Reconciliation I have utilized all available resources to obtain, update and review the patients current medications (includes all prescriptions, OTC, herbals, cannabis, and nutritional supplements).: Yes The patient is not eligible for med reconciliation; the patient is in a emergent medical situation where delaying treatment would jeopardize the patients health.: No
[2024-07-19 09:46] LABS: Hematocrit 38.6 % (37.0-47.0); Hemoglobin 11.8 g/dL (12.0-15.0); Mean Corpuscular HGB Conc 30.6 g/dl (32-36); Mean Corpuscular Hemoglobin 32.7 pg (26-34); Mean Corpuscular Volume 106.9 fl (80-100); Mean Platelet Volume 10.1 fl (7.4-10.4); Platelet Count Result 289 k/mm3 (150-375); Red Blood Count 3.61 M/mm3 (4.2-5.4); Red Cell Distribution Width 18.1 % (11.5-14.5)
[2024-07-19 10:14] LABS: Alanine Aminotransferase 8 U/L (6-35); Albumin Level 3.4 g/dL (3.5-5.1); Alkaline Phosphatase 92 U/L (38-126); Anion Gap 7 mmol/L (4-12); Aspartate Amino Transferase 22 U/L (14-36); Blood Urea Nitrogen 25 mg/dL (7-17); Calcium 9.3 mg/dL (8.4-10.2); Carbon Dioxide 27 mmol/L (22-30); Chloride 102 mmol/L (98-107); Estimated CRCL calculation 26 ml/min; Estimated Glomerular Filt Rate 47; Glucose 140 mg/dL (65-110); Potassium 4.2 mmol/L (3.4-5.0); Sodium 136 mmol/L (137-145)
[2024-07-19] MEDS: ATORVASTATIN 20 MG TABLET PO (21:02)
[2024-07-20] MEDS: LEVOTHYROXINE SODIUM 112 MCG TABLET PO (05:45)
[2024-07-20 06:00] VITALS: BP 115/58; PULSE 84; RESP 20; TEMP 36.1; O2SAT 97
[2024-07-20 07:28] LABS: Hematocrit 34.2 % (37.0-47.0); Hemoglobin 10.5 g/dL (12.0-15.0); Mean Corpuscular HGB Conc 30.7 g/dl (32-36); Mean Corpuscular Hemoglobin 32.5 pg (26-34); Mean Corpuscular Volume 105.9 fl (80-100); Mean Platelet Volume 10.3 fl (7.4-10.4); Platelet Count Result 272 k/mm3 (150-375); Red Blood Count 3.23 M/mm3 (4.2-5.4); White Blood Count 10.8 K/mm3 (4.5-10.0)
[2024-07-20 07:58] LABS: Alanine Aminotransferase 6 U/L (6-35); Albumin Level 2.8 g/dL (3.5-5.1); Alkaline Phosphatase 78 U/L (38-126); Anion Gap 2 mmol/L (4-12); Aspartate Amino Transferase 21 U/L (14-36); Bilirubin,Total 0.6 mg/dL (0.2-1.3); Blood Urea Nitrogen 23 mg/dL (7-17); Calcium 8.7 mg/dL (8.4-10.2); Carbon Dioxide 29 mmol/L (22-30); Chloride 103 mmol/L (98-107); Estimated CRCL calculation 26 ml/min; Estimated Glomerular Filt Rate 47; Glucose 94 mg/dL (65-110); Potassium 3.3 mmol/L (3.4-5.0); Sodium 134 mmol/L (137-145)
[2024-07-20 08:16] VITALS: BP 118/48; PULSE 82; RESP 16; TEMP 36.4; O2SAT 100
[2024-07-20] MEDS: APIXABAN 2.5 MG TABLET PO (08:18)
[2024-07-20] MEDS: acetaZOLAMIDE TAB 250 MG TABLET PO (08:18)
[2024-07-20] MEDS: guaiFENesin 12 HR 600 MG TABCR PO (08:19)
[2024-07-20] MEDS: EMPAGLIFLOZIN 10 MG TABLET PO (08:19)
[2024-07-20] MEDS: CHOLECALCIFEROL 1,000 UNITS TABLET 1000 UNITS PO (08:19)
[2024-07-20] MEDS: CYANOCOBALAMIN 1,000 MCG TABLET 1000 MCG PO (08:19)
[2024-07-20 08:20] VITALS: O2SAT 98
[2024-07-20] MEDS: SENNOSIDES 8.6 MG TABLET PO (08:20)
[2024-07-20] MEDS: POTASSIUM CHLORIDE 20 MEQ ER TABLET PO (08:20)
[2024-07-20] MEDS: LINEZOLID 600 MG TABLET PO (08:20)
[2024-07-20] MEDS: MINERAL OIL/WHITE PETROLATUM OINTMENT 1 APPLIC EACH EYE (08:20)
[2024-07-20] MEDS: LORATADINE 10 MG TABLET PO (08:20)
[2024-07-20] MEDS: SPIRONOLACTONE 12.5 MG TABLET PO (08:21)
[2024-07-20] MEDS: FUROSEMIDE 40 MG TABLET PO (08:21)
[2024-07-20 08:25] VITALS: PULSE 81
[2024-07-20] MEDS: METOPROLOL TARTRATE 25 MG TABLET PO (08:25)
[2024-07-20 09:16] VITALS: O2SAT 98
[2024-07-20] MEDS: FLUTICASONE/SALMETEROL 115-21 MCG INHALER 1 PUFF 2 PUFF INHALATION (09:16)
[2024-07-20] MEDS: UMECLIDINIUM/VILANTEROL 62.5-25 MCG ELLIPTA 1 PUFF INHALATION (09:16)
--- NOTE | 2024-07-20 14:39 | P.DS_ITS ---
DS: Admitting Diagnosis Discharge Date 07/20/2024 Admitting Diagnosis Generalized weakness/UTI/AFIB RVR DS: Discharge Diagnosis Discharge Diagnosis (1) Sepsis: Code(s): A41.9 - Sepsis, unspecified organism Status: Acute (2) UTI (urinary tract infection): Qualifiers: Hematuria presence: without hematuria Urinary tract infection type: acute cystitis Qualified Code(s): N30.00 - Acute cystitis without hematuria Code(s): N39.0 - Urinary tract infection, site not specified Status: Acute (3) Somnolence: Code(s): R40.0 - Somnolence Status: Acute (4) SONJA (acute kidney injury): Code(s): N17.9 - Acute kidney failure, unspecified Status: Acute (5) Generalized weakness: Code(s): R53.1 - Weakness Status: Acute (6) Atrial fibrillation with rapid ventricular response: Code(s): I48.91 - Unspecified atrial fibrillation Status: Chronic (7) Diastolic heart failure: Qualifiers: Heart failure chronicity: chronic Qualified Code(s): I50.32 - Chronic diastolic (congestive) heart failure Code(s): I50.30 - Unspecified diastolic (congestive) heart failure Status: Chronic (8) Hypertension: Qualifiers: Hypertension type: primary hypertension Qualified Code(s): I10 - Essential (primary) hypertension Code(s): I10 - Essential (primary) hypertension Status: Chronic Plan Discharged to [facility] DS: Summary Hospital Course Reason for hospitalization: Generalized weakness/UTI/AFIB RVR/Sepsis secondary to UTI Hospital Course: Lucie was a 89 y/o F presents here with generalized weakness with PMH of atrial fibrillation on chronic anticoagulation, CAD, CHF (diastolic), COPD, generalized anxiety, hyperlipidemia, hypertension, hypothyroidism, and osteoporosis. The patient reported she began having increased generalized weakness over the past couple of days. At baseline she is ambulatory in util izes a walker. She is now requiring 1-2 person assist to get up out of bed. She had reported associated mild shortness of breath, body aches (specifically in her bilateral shoulders) and cough that is productive. Denies chest pain, fever, chills, dysuria, urinary frequency, or abdominal pain. Denied weight gain or peripheral edema. Patient did have episode of AFib RVR during her admission which she had missed her home oral metoprolol prior to admission she was given 5 mg metoprolol IV push and converted back to sinus rhythm remained rate controlled patient was then admitted to the medical unit for further evaluation of generalized weakness found to have suspicion UTI possible exacerbation of CHF. Secondary admission patient was very lethargic and somnolent CTA head was comple morales showed no acute issues. For previous urinary culture of VRE I initially started her on linezolid however her urinary culture came back with Klebsiella pneumoniae pansensitive transitioned her Rocephin to oral cefdinir. patient initially had positive blood culture in her aerobic bottle which is Gram-positive however came back as Staphylococcus epidermidis in 1 bottle appear to be contaminated. Patient's WBC improved and she remained afebrile during her admission. patient became more alert answered all questions appropriately and reported feeling back to her baseline. Patient with no further complaints worked well with PT and OT overall improvement generalized weakness likely secondary to urinary tract infection. patient was discharged back to skilled facility via EMS patient relies understanding of discharge plan and agreed. Status at Discharge Functional status at discharge: uses cane/walker Time Spent with Patient Time attestation: Total time spent providing and/or coordinating discharge services: Time spent: Greater than 30 minutes Exam Narrative: Physical Exam: * GENERAL: Alert and oriented up in chair. No acute distress. * EYES: PERRLA. * HEENT: Moist mucous membranes. * LUNGS: Diminished auscultation bilaterally. No accessory muscle use. on 3L NC which she wears at home * CARDIOVASCULAR: Regular rate and rhythm. No murmur. No JVD. S1-S2 * ABDOMEN: Soft, non tenderness and non-distended. No palpable masses. * EXTREMITIES: No edema. Non-tender * SKIN: No rashes or lesions. Skin warm, dry. deep tissue bruising * NEUROLOGIC: No focal neurological deficits. CN II-XII grossly intact * PSYCHIATRIC: Appropriate mood and affect. Good judgement and insight. DS: Data Data Completed and Pending Labs on day of discharge: Labs from last 24 hours 07/20/24 07/20/24 07/20/24 14:28 05:37 05:00 WBC 10.8 H RBC 3.23 L Hgb 10.5 L Hct 34.2 L MCV 105.9 H MCH 32.5 MCHC 30.7 L RDW 18.0 H Plt Count 272 MPV 10.3 Sodium 134 L Potassium 3.3 L Chloride 103 Carbon Dioxide 29 Anion Gap 2 L BUN 23 H Creatinine 1.10 H Estim Creat Clear Calc 26 Estimated GFR 47 L Glucose 94 Calcium 8.7 Total Bilirubin 0.6 AST 21 ALT 6 Alkaline Phosphatase 78 Total Protein 5.0 L Albumin 2.8 L SARS-CoV-2 RNA (RT-PCR) Pending Preliminary micro results at discharge 07/17/24 13:54 Blood Culture - Preliminary Blood Staphylococcus epidermidis 07/17/24 13:54 Blood Culture - Preliminary Blood Imaging Radiologist's impression: Radiology Results: ITS Impressions Chest X-Ray 07/17/24 09:19 IMPRESSION: 1. Emphysema. 2. Cardiomegaly. Head/Neck CTA 07/19/24 05:51 Impression: Focal high-grade stenosis (80%) at the proximal left internal carotid artery. Discharge Plan Discharge Attending physician on discharge: Nikolai Cheek Discharging Clinician: Sallie Duvall Anticipated Discharge Date/Time: 07/20/24 14:29 Patient Disposition: SNF Activity: may shower and as tolerated Diet: heart healthy and low sodium Discharge Instructions: You are being discharged after treatment for UTI, Generalized weakness, and an episode of AFIB with rapid rate. Your your grew Klebsiella which is sensitive to oral antibiotic therapy I have prescribed cefdinir orally please take as prescribed and do not stop because her feeling better complete full prescription. I resumed her dose of metoprolol and you currently on Eliquis for your atrial fibrillation I recommend adequate hydration and activity as tolerated. Continue with your supplemental oxygen as prescribed Monitor weights daily and low sodium diet How can you care for yourself at home? ? Keep track of any new symptoms or changes in your symptoms. ? Rest until you feel better. ? Be safe with medicines. Take your medicines exactly as prescribed. Call your doctor if you think you are having a problem with your medicine. ? Do not drive after taking a prescription pain medicine. ? Ensure to follow-up with primary care physician as indicated and provide updated medication list provided to you at discharge. When should you call for help? Call 911 anytime you think you may need emergency care. For example, call if: ? You passed out (lost consciousness). Call your doctor now or seek immediate medical care if: ? You have new symptoms like fever, difficulty breathing, Chest pain, vomiting, or rash. ? You have new or different pain. ? You are confused and are having trouble thinking clearly. ? Your symptoms are getting worse. Watch closely for changes in your health, and be sure to contact your doctor if: ? You do not get better as expected. Patient Instructions: Antibiotic Form, Apixaban (By mouth), Heart Failure (DC), Urinary Tract Infection in Women (DC), Pain Management (DC), Urinary Tract Infection in Older Adults (DC) Patient Language: Malay Stand Alone Forms: General Discharge Information Follow-up/Referrals: Grover Guerra MD [Primary Care Provider] - Call for Appointment Discharge Medications: New cefdinir 300 mg Capsule 300 mg PO DAILY Qty: 5 0RF Continued cyanocobalamin (vitamin B-12) 1,000 mcg capsule 1,000 mcg PO EVERY OTHER DAY cholecalciferol (vitamin D3) 125 mcg (5,000 unit) capsule 125 mcg PO DAILY umeclidinium-vilanterol 62.5-25 mcg/actuation blister with device 1 inh inhalation DAILY Qty: 60 3RF albuterol sulfate 90 mcg/actuation aerosol powdr breath activated 2 inh inhalation Q4H PRN (Reason: shortness of breath or wheezing) Qty: 1 6RF cetirizine 10 mg Tablet 10 mg PO DAILY guaifenesin [Mucinex] 600 mg Tablet Extended Release 12hr 600 mg PO Q12H acetaminophen 650 mg Tablet 650 mg PO Q6H PRN (Reason: Pain) Systane Nighttime 94-3 % Ointment 1 ea LEFT EYE BID acetazolamide 250 mg Tablet 250 mg PO BEDTIME Qty: 30 1RF acetazolamide 250 mg Tablet 250 mg PO QAM Qty: 30 1RF fluticasone propion-salmeterol [Advair HFA] 115-21 mcg/actuation Hfa Aerosol Inhaler 2 puff inhalation Q12HRT Qty: 12 1RF metoprolol tartrate 25 mg Tablet 25 mg PO Q12HR Qty: 60 0RF sennosides [senna] 8.6 mg Tablet 8.6 mg PO BID Eliquis 2.5 mg tablet 2.5 mg PO BID furosemide 40 mg tablet 40 mg PO BID Qty: 60 0RF potassium chloride 10 mEq capsule, extended release 20 meq PO DAILY Qty: 30 0RF atorvastatin [Lipitor] 20 mg tablet 20 mg PO HS Qty: 90 0RF levothyroxine 112 mcg tablet 112 mcg PO DAILY Qty: 90 0RF Jardiance 10 mg tablet 10 mg PO DAILY Qty: 30 5RF spironolactone 25 mg tablet 12.5 mg PO DAILY Qty: 45 2RF Date of admission: 07/18/24 17:22 Primary Care Provider: Grover Guerra Admitting Provider: Saud Perea Attending physician on admission: Sallie Duvall Condition: Stable Quality VTE Prophylaxis VTE prophylaxis: pharmacologic ordered -Patient's previous records reviewed on admission -ER notes reviewed in detail on admission -discussed all findings and current treatment plan with patient/Family/POA -Consultations reviewed for recommendations -Patient's disposition for safe discharge discussed with embedded case manager Dictation performed by [employer] direct speech recognition software, therefore opticianry teacher variants and typographical errors may occur. Hospitalist MIPS Heart Failure (Exclusion) Patient has history of Heart Transplant or Left Ventricular Assistive Device?: No IF YES, STOP HERE Heart Failure (Qualifier) Patient has current or prior documentation of LVEF less than or equal to 40%, or mod/servere depressed LVSF?: No IF NO, STOP HERE
[2024-07-20 15:13] LABS: SARS-CoV-2 RNA PCR Negative (Negative)
== END 2024-07-20 18:31 | DRG 872 ==
LOC: ANHED 14:02 → ANH2MED 14:54
PROVIDERS: Student in an Organized Health Care Education/Training Program; Admitting Provider General Practice; Emergency Provider Student in an Organized Health Care Education/Training Program; PCP Family Medicine; Visit Provider Nurse Practitioner Family
DX: A41.1 Sepsis due to other specified staphylococcus (principal); J96.11 Chronic respiratory failure with hypoxia; I50.32 Chronic diastolic (congestive) heart failure; N30.00 Acute cystitis without hematuria; N17.9 Acute kidney failure, unspecified; B96.1 Klebsiella pneumoniae [K. pneumoniae] as the cause of diseases classified elsewhere; I48.91 Unspecified atrial fibrillation; E78.5 Hyperlipidemia, unspecified; E03.9 Hypothyroidism, unspecified; F41.1 Generalized anxiety disorder; H35.30 Unspecified macular degeneration; I11.0 Hypertensive heart disease with heart failure; J43.9 Emphysema, unspecified; M81.0 Age-related osteoporosis without current pathological fracture; R40.0 Somnolence; Z66 Do not resuscitate; Z99.81 Dependence on supplemental oxygen; Z79.01 Long term (current) use of anticoagulants; Z98.41 Cataract extraction status, right eye; Z98.42 Cataract extraction status, left eye; Z87.891 Personal history of nicotine dependence; Z11.52 Encounter for screening for COVID-19; Z20.822 Contact with and (suspected) exposure to COVID-19
CPT/HCPCS: 36415; 36569; 36600; 70496; 70498; 71046; 80048; 80053; 81001; 82550; 82805; 83605; 83735; 83880; 84443; 84484; 85018; 85025; 85027; 87040; 87086; 87181; 87186; 87635; 87637; 93005; 94640; 96361; 96365; 96375; 97161; 97165; 99285; A9270; C1751; G0378; J0696; J7030; J7120; Q9967

== ENCOUNTER 2024-09-06 01:15 | Emergency (ER) | payer MEDICARE, MEDICAID, SELFPAY ==
[2024-09-06] VITALS (17 sets, daily range): BP systolic 86–109; BP diastolic 43–74; PULSE 96–135; RESP 15–28; TEMP 36.4–37; O2SAT 80–100
--- NOTE | ~2024-09-06 | XR_ITS ---
Portable chest x-ray Comparison: 08/21/2024 Clinical History: Shortness of breath Findings: Probable small left pleural effusion with left basilar airspace consolidation. There is un derlying COPD pattern of the lungs with mild diffuse interstitial prominence. Cardiomediastinal silh ouette is stable. Bones and soft tissues are unremarkable. Impression: Small left pleural effusion with left basilar atelectasis versus pneumonia. Underlying chronic interstitial disease and/or COPD change. Reviewed, dictated and finalized at location . [employer]W OPERATOR Impression: Small left pleural effusion with left basilar atelectasis versus pneumonia. Underlying chronic interstitial disease and/or COPD change.
--- NOTE | 2024-09-06 01:28 | ECG_ITS ---
Test Date: 2024-09-06 01:35:09 Measurements Intervals [place] Rate: 120 P: 0 FL: 0 QRS: 111 QRSD: 104 T: -69 QT: 304 QTc: 429 Interpretive Statements ATRIAL FIBRILLATION WITH RAPID VENTRICULAR RESPONSE INCOMPLETE RIGHT BUNDLE BRANCH BLOCK [90+ ms QRS DURATION, TERMINAL R IN V1/V2, 40+ ms S IN I/aVL/V4/V5/V6] POSSIBLE RIGHT VENTRICULAR HYPERTROPHY [SOME/ALL OF: PROMINENT R IN V1, LATE TRANSITION, RAD, KALEIGH, SSS] Poor R wave progression nonspecific t changes Compared to ECG 08/21/2024 19:22:19 Incomplete right bundle-branch block now present T-wave abnormality now present Possible ischemia now present Myocardial infarct finding still present Electronically Signed On 09-06-2024 21:21:40 VEHICLE PAINTER by Meghana Chavira M.D.
--- NOTE | 2024-09-06 01:34 | PC.NURSE ---
due to patient having decreased oxygenation and inability to increase o2 on nonrebreather edp dr. jarek saravia at bedside.
[2024-09-06 01:45] LABS: Fractional Inspired Oxygen 100 %; HCO3 VBG 20.7 mEq/l (24.0-30.0); PCO2 VBG 56.5 mmHg (42.0-48.0); PO2 VBG 60.4 mmHg (35.0-45.0)
[2024-09-06 01:46] LABS: Device NON-REBREATHER MASK; pH VBG 7.181 (7.300-7.400)
--- NOTE | 2024-09-06 01:46 | PC.NURSE ---
ON 09/06/2024 AT 0143 [facility] WAS CONTACTED BY THIS RN AT [phone]. SPOKE WITH CHANDLER FIRST. CHANDLER CONNECTED ME TO [facility] AT 0145. THEY BOTH TOOK THE SAME INFORMATION FOR THIS PT'S HOSPICE REFERRAL. I WAS INSTRUCTED TO FAX A DOCTOR'S ORDER FOR HOSPICE REFERRAL TO . THE ORDER WAS WRITTEN AND FAXED WITH A FACE SHEET IMMEDIATELY AFTER THIS CALL WAS FINISHED.
--- NOTE | 2024-09-06 01:50 | PC.NURSE ---
this rn called Lab to add on CRP
[2024-09-06] MEDS: LACTATED RINGERS 1,000 ML 999 ML IV CONT ×2 (01:52)
[2024-09-06 01:57] LABS: Lactic Acid Reflex 1.9 mmol/L (0.7-2.0)
[2024-09-06 02:10] LABS: INR 1.4; Prothrombin Time 17.1 Seconds (11.1-14.7)
[2024-09-06 02:13] LABS: Partial Thromboplastin Time 29.6 Seconds (22.3-36.8)
[2024-09-06 02:34] LABS: Alanine Aminotransferase 20 U/L (6-35); Albumin Level 3.7 g/dL (3.5-5.1); Alkaline Phosphatase 116 U/L (38-126); Anion Gap 15 mmol/L (4-12); Aspartate Amino Transferase 29 U/L (14-36); Blood Urea Nitrogen 57 mg/dL (7-17); Calcium 9.1 mg/dL (8.4-10.2); Carbon Dioxide 18 mmol/L (22-30); Chloride 103 mmol/L (98-107); Estimated Glomerular Filt Rate 29; Glucose 93 mg/dL (65-110); Potassium 4.9 mmol/L (3.4-5.0); Sodium 136 mmol/L (137-145)
[2024-09-06 02:39] LABS: CRP 8.6 mg/dL (<1.0)
--- NOTE | 2024-09-06 02:40 | ED_ITS ---
HPI - General Adult General Chief complaint: Unspecified Stated complaint: LOW O2, LOW B/P, ERRATIC PULSE Time Seen by Provider: 09/06/24 01:41 History of Present Illness HPI narrative: 89-year-old female with complex past medical history including atrial fibrillation, coronary disease, heart failure, COPD on 2 L nasal cannula at the nursing facility. Hypertension hyperlipidemia. She presents from the nursing facility for concerns of hypoxia and worsening functional status. Patient presently is DNR, DNI and comfort measures only. She presents with her son at bedside was the power of floor and wall applier liquid and provides collateral formation. Patient was recently treated on the inpatient team with pneumonia and discharged on oral antibiotics. At the nursing facility she had a recurrence of her pneumonia with worsening chest x-ray and switched to oral doxycycline. Patient's son states that patient has functionally declined over last few days and having worsening oxygen requirements and being intermittently unresponsive at the facility. Patient herself presently presents via EMS with reported hypoxia in the low 80s. She is on non-rebreather 15 L and awake and able to interact but is lethargic. Patient was brought into room 7 for evaluation and resuscitation at this time. Related Data Home Medications ?Medication ?Instructions ?Recorded ?Confirmed ?Last Taken ?Type cyanocobalamin (vitamin B-12) 1,000 mcg PO EVERY OTHER DAY 07/01/23 08/21/24 08/20/24 09:25 History 1,000 mcg capsule apixaban 2.5 mg tablet (Eliquis) 2.5 mg PO BID 05/19/24 08/21/24 08/21/24 09:25 History sennosides 8.6 mg tablet (senna) 8.6 mg PO BID 05/19/24 08/21/24 08/21/24 09:25 History acetaminophen 650 mg tablet 650 mg PO Q6H PRN Pain 07/17/24 08/21/24 Unknown History guaifenesin 600 mg tablet, 600 mg PO Q12H 07/17/24 08/21/24 08/21/24 09:25 History extended release 12 hr (Mucinex) white petrolatum-mineral oil 94 1 ea LEFT EYE BID 07/17/24 08/21/24 08/21/24 06:35 History %-3 % eye ointment (Systane Nighttime) acetazolamide 250 mg tablet 250 mg PO Q12H 08/21/24 08/21/24 08/21/24 History acetazolamide 250 mg tablet 250 mg PO Q12H 08/21/24 08/21/24 08/21/24 09:25 History loratadine 10 mg tablet (Claritin) 10 mg PO DAILY allergic rhinitis 08/21/24 08/21/24 08/21/24 History Allergies Allergy/AdvReac Type Severity Reaction Status Date / Time cephalexin Allergy Unknown Rash Verified 07/17/24 15:29 Review of Systems 2 Review of Systems: ROS unobtainable: Yes unobtainable due to medical condition and unobtainable due to mental status [facility] Past Medical History Medical History Chronic diastolic (congestive) heart failure Generalized anxiety disorder Carotid artery disease Chronic anticoagulation Hypothyroidism Chronic respiratory failure with hypoxia, on home oxygen therapy Chronic obstructive pulmonary disease Macular degeneration Atrial fibrillation Osteoporosis Hypertension Hyperlipidemia Arthritis Surgical History Surgical History History of bilateral cataract extraction History of right-sided carotid endarterectomy Family History Family History Father Heart disease Carcinoma of colon Hypertension Mother Heart disease Breast cancer Hypertension Daughter Breast cancer Myocardial infarct Cerebrovascular accident Social History Social History (Updated 09/06/24 @ 04:57 by Mechelle Hunter PA-C) Social History: Surrogate medical decision maker: Julito Simpson, son ([phone]). Code status: POLST lists DNR/No CPR with comfort focus treatment signed 03/31/2024. Smoking packs per day: 1 Smoking cigarettes per day: 20.0 Years smoked: 50 Smoking pack-years: 50.00 Smoking status: Former smoker Alcohol intake: never Substance use: never Substance use type: does not use Do You Feel Safe in your Home?: Yes Lack of Transportation: No Lack of Food: Never True Current Housing: I Have Housing Concerned About Future Housing: No Difficulty Paying Gas/Electric Bills: No Difficulty Paying for Meds: No Currently Unemployed: No Education: High School Diploma/GED Difficulty w/ Childcare or Family Care: No Living arrangements: group home [facility] Additional living arrangements comments: [facility] Occupation/Education: retired Spiritual care concerns: No Agree to blood products: Yes Exam 2 Narrative: GENERAL: Ill-appearing, thin frail, respiratory distress HEAD: [Normocephalic, atraumatic.] EYES: [PERRLA and EOMI.] ENT: Nares clear, no rhinorrhea or epistaxis. Mucous membranes moist. NECK: Supple. CHEST: Coarse breath sounds throughout bilateral lung chahal, respiratory distress with tachypnea and decreased air entry noted. HEART: Tachycardic rate, irregular rhythm consistent with AFib RVR. No murmur heard. [Normal peripheral pulses.] ABDOMEN: [Soft, nondistended], [nontender], [No rigidity or guarding] EXTREMITIES: Normal range of motion. 1+ pitting edema to the extremities SKIN: Warm, dry, no rash. NEURO: [No focal deficits]. Awakens and arousable to verbal stimuli, answers questions appropriately PSYCH: [Normal mood and affect.] Course Vital Signs Vital signs: Vital Signs Temperature 37.0 C 09/06/24 01:21 Pulse Rate 135 H 09/06/24 01:21 Respiratory Rate 25 H 09/06/24 01:21 Blood Pressure 109/43 L 09/06/24 01:21 Pulse Oximetry 98 09/06/24 01:21 Oxygen Delivery Non-Rebreather Mask 09/06/24 01:21 Oxygen Flow Rate 15 09/06/24 01:21 Temperature 37.0 C 09/06/24 01:21 Pulse Rate 104 H 09/06/24 07:21 Respiratory Rate 15 09/06/24 07:21 Blood Pressure 96/63 L 09/06/24 07:21 Pulse Oximetry 100 09/06/24 07:21 Oxygen Delivery BiPAP 09/06/24 04:26 Oxygen Flow Rate 15 09/06/24 01:29 Medical Decision Making MDM Narrative Medical decision making narrative: 89-year-old female with complex past medical history including coronary disease, hypertension, atrial fibrillation, CHF COPD on baseline oxygen 2-3 L. Presents today in respiratory distress, acting more lethargic and declining for functional status. She is DNR, DNI and comfort measures only according to the patient's power of floor and wall applier liquid and paperwork signed by herself. Given her functional status and decline patient was placed on BiPAP for assistance and respirations given her respiratory distress efforts. Patient does have BiPAP as needed at the nursing facility and this is in accordance with her POA. Concern presently is for sepsis or worsening/recurrence of her recent pneumonia given that she has had worsening chest x-ray findings despite antibiotic changes. Septic bundle was ordered and she was given 2 L of fluid resuscitation given her clinical status of dehydration and tachycardia with soft blood pressure. Lactic acid, blood cultures and empiric antibiotics were ordered. Family at bedside at discussed that they are already being interested in hospice care consultation and have an appointment with them this morning. Will proceed with hospice consultation here in the emergency department with Baldev. Will continue with antibiotics and fluid resuscitation and BiPAP therapy as these are comfort measures in the goal of treating her respiratory distress from her likely pneumonia and sepsis. POA comfortable with this plan. Hospice has been consulted and agreeable to, evaluate the patient although this will be significantly delayed until the supervisor mixing. Patient was re-evaluated frequently and had clinically improved after initiation of BiPAP therapy, no longer as tachypneic, pulse rate came down to 104, blood pressure still soft but holding. I spoke with the family members at bedside once again and they were comfortable with plan for admission to the hospital here for hospice evaluation in the morning. Patient remained on BiPAP therapy for comfort in addition to the antibiotics and fluids to treat her underlying infection driving her respiratory distress. Her workup shows a leukocytosis of 12.0, normal hemoglobin. Slightly prolonged PT, otherwise unremarkable coags. Blood gas showing acidosis 7.18 combination of a metabolic and respiratory acidosis. PCO2 of 56, bicarb 20.7. BUN and creatinine elevated from baseline, electrolytes largely unremarkable. Lactic acid 1.9. Chest x-ray shows pneumonia and left pleural effusion. Spoke to the hospitalist team currently being covered by the midlevel provider Mechelle. Plan of care will be for admission to the medical-surgical floor on BiPAP therapy awaiting hospice consultation. Patient's family and power of floor and wall applier liquid and hospice group was agreeable to this plan of care. Medical Records Medical records reviewed: Yes I reviewed the external patient's medical records. Vital Signs Vital Signs: Vital Signs Temperature 37.0 C 09/06/24 01:21 Pulse Rate 135 H 09/06/24 01:21 Respiratory Rate 25 H 09/06/24 01:21 Blood Pressure 109/43 L 09/06/24 01:21 Pulse Oximetry 98 09/06/24 01:21 Oxygen Delivery Non-Rebreather Mask 09/06/24 01:21 Oxygen Flow Rate 15 09/06/24 01:21 Temperature 37.0 C 09/06/24 01:21 Pulse Rate 104 H 09/06/24 07:21 Respiratory Rate 15 09/06/24 07:21 Blood Pressure 96/63 L 09/06/24 07:21 Pulse Oximetry 100 09/06/24 07:21 Oxygen Delivery BiPAP 09/06/24 04:26 Oxygen Flow Rate 15 09/06/24 01:29 Lab Data Lab results reviewed: Yes I reviewed the patient's lab results. 09/06/24 02:12 09/06/24 02:13 Labs: Lab Results 09/06/24 09/06/24 09/06/24 Range/Units 01:39 02:12 02:12 WBC 12.0 H (4.5-10.0) K/mm3 RBC 3.71 L (4.2-5.4) M/mm3 Hgb 12.2 (12.0-15.0) g/dL Hct 42.1 (37.0-47.0) % MCV 113.5 H (80-100) fl MCH 32.9 (26-34) pg MCHC 29.0 L (32-36) g/dl RDW 17.0 H (11.5-14.5) % Plt Count 194 (150-375) k/mm3 MPV 11.3 H (7.4-10.4) fl Immature Gran % (Auto) Canteen Operator Neut % (Auto) Canteen Operator Lymph % (Auto) Canteen Operator Faulk % (Auto) Canteen Operator Eos % (Auto) Canteen Operator Baso % (Auto) Canteen Operator Lymph # (Auto) Canteen Operator Faulk # (Auto) Canteen Operator Eos # (Auto) Canteen Operator Baso # (Auto) Canteen Operator Abs Immat Gran (auto) Canteen Operator Absolute Neuts (auto) Canteen Operator Absolute Nucleated RBC Canteen Operator Total Counted 100 Neutrophils % (Manual) 80 H (46-73) % Band Neutrophils % 1 (0-6) % Lymphocytes % (Manual) 3 L (18-44) % Monocytes % (Manual) 8 (3-9) % Nucleated RBC % Canteen Operator Nucleated RBCs 8 % Platelet Estimate Adequate (Adequate) Poikilocytosis Macrocytosis (NORMAL) Schistocytes PT 17.1 H (11.1-14.7) Seconds INR 1.4 APTT 29.6 (22.3-36.8) Seconds Sodium (137-145) mmol/L Potassium (3.4-5.0) mmol/L Chloride (98-107) mmol/L Carbon Dioxide (22-30) mmol/L Anion Gap (4-12) mmol/L BUN (7-17) mg/dL Creatinine (0.7-1.0) mg/dL Estim Creat Clear Calc Estimated GFR (59 - ) Glucose (65-110) mg/dL Lactic Acid 1.9 (0.7-2.0) mmol/L Calcium (8.4-10.2) mg/dL Total Bilirubin (0.2-1.3) mg/dL AST (14-36) U/L ALT (6-35) U/L Alkaline Phosphatase (38-126) U/L C-Reactive Protein (<1.0) mg/dL Total Protein (6.3-8.2) g/dL Albumin (3.5-5.1) g/dL 09/06/24 09/06/24 09/06/24 Range/Units 02:12 02:12 02:12 WBC (4.5-10.0) K/mm3 RBC (4.2-5.4) M/mm3 Hgb (12.0-15.0) g/dL Hct (37.0-47.0) % MCV (80-100) fl MCH (26-34) pg MCHC (32-36) g/dl RDW (11.5-14.5) % Plt Count (150-375) k/mm3 MPV (7.4-10.4) fl Immature Gran % (Auto) Neut % (Auto) Lymph % (Auto) Faulk % (Auto) Eos % (Auto) Baso % (Auto) Lymph # (Auto) Faulk # (Auto) Eos # (Auto) Baso # (Auto) Abs Immat Gran (auto) Absolute Neuts (auto) Absolute Nucleated RBC Total Counted Neutrophils % (Manual) (46-73) % Band Neutrophils % (0-6) % Lymphocytes % (Manual) (18-44) % Monocytes % (Manual) (3-9) % Nucleated RBC % Nucleated RBCs % Platelet Estimate Adequate (Adequate) Poikilocytosis 1+ Macrocytosis 1+ 1+ (NORMAL) Schistocytes Rare Rare PT (11.1-14.7) Seconds INR APTT (22.3-36.8) Seconds Sodium (137-145) mmol/L Potassium (3.4-5.0) mmol/L Chloride (98-107) mmol/L Carbon Dioxide (22-30) mmol/L Anion Gap (4-12) mmol/L BUN (7-17) mg/dL Creatinine (0.7-1.0) mg/dL Estim Creat Clear Calc Estimated GFR (59 - ) Glucose (65-110) mg/dL Lactic Acid (0.7-2.0) mmol/L Calcium (8.4-10.2) mg/dL Total Bilirubin (0.2-1.3) mg/dL AST (14-36) U/L ALT (6-35) U/L Alkaline Phosphatase (38-126) U/L C-Reactive Protein (<1.0) mg/dL Total Protein (6.3-8.2) g/dL Albumin (3.5-5.1) g/dL 09/06/24 Range/Units 02:13 WBC (4.5-10.0) K/mm3 RBC (4.2-5.4) M/mm3 Hgb (12.0-15.0) g/dL Hct (37.0-47.0) % MCV (80-100) fl MCH (26-34) pg MCHC (32-36) g/dl RDW (11.5-14.5) % Plt Count (150-375) k/mm3 MPV (7.4-10.4) fl Immature Gran % (Auto) Neut % (Auto) Lymph % (Auto) Faulk % (Auto) Eos % (Auto) Baso % (Auto) Lymph # (Auto) Faulk # (Auto) Eos # (Auto) Baso # (Auto) Abs Immat Gran (auto) Absolute Neuts (auto) Absolute Nucleated RBC Total Counted Neutrophils % (Manual) (46-73) % Band Neutrophils % (0-6) % Lymphocytes % (Manual) (18-44) % Monocytes % (Manual) (3-9) % Nucleated RBC % Nucleated RBCs % Platelet Estimate (Adequate) Poikilocytosis Macrocytosis (NORMAL) Schistocytes PT (11.1-14.7) Seconds INR APTT (22.3-36.8) Seconds Sodium 136 L (137-145) mmol/L Potassium 4.9 (3.4-5.0) mmol/L Chloride 103 (98-107) mmol/L Carbon Dioxide 18 L (22-30) mmol/L Anion Gap 15 H (4-12) mmol/L BUN 57 H D (7-17) mg/dL Creatinine 1.66 H (0.7-1.0) mg/dL Estim Creat Clear Calc Not Reportable Estimated GFR 29 L (59 - ) Glucose 93 (65-110) mg/dL Lactic Acid (0.7-2.0) mmol/L Calcium 9.1 (8.4-10.2) mg/dL Total Bilirubin 1.0 (0.2-1.3) mg/dL AST 29 (14-36) U/L ALT 20 (6-35) U/L Alkaline Phosphatase 116 (38-126) U/L C-Reactive Protein 8.6 H (<1.0) mg/dL Total Protein 7.0 (6.3-8.2) g/dL Albumin 3.7 (3.5-5.1) g/dL ABG Data ABG results: 09/06/24 01:42 VBG pH 7.181 L* VBG pCO2 56.5 H VBG pO2 60.4 H VBG HCO3 20.7 L O2 Delivery Device Non-rebreather mask O2 Liters/Min 15.0 FiO2 100 Attestation: I personally reviewed and interpreted this ABG as follows: Interpretation: Acute metabolic and respiratory acidosis without appropriate compensation Imaging Data Attestation: I personally reviewed and interpreted this imaging study as follows: Discharge Plan Discharge Clinical Impression: Sepsis, Acute on chronic respiratory failure with hypoxia and hypercapnia, Admission for hospice care Patient Disposition: Still a Patient Condition: Guarded Prognosis
--- NOTE | 2024-09-06 02:53 | PC.NURSE ---
EDP Dr. Tilley verbal order for blood culture order to be stopped at this time. edp Dr. tilley aware this rn, and phlebtomy unable to get purple top to run cbc d order. edp dr. tilley states to start abx at this time.
[2024-09-06] MEDS: CEFEPIME 2 GM/NS 50 ML 2 GM/50 ML BAG IVPB (03:01)
[2024-09-06 03:14] LABS: Hematocrit 42.1 % (37.0-47.0); Hemoglobin 12.2 g/dL (12.0-15.0); Mean Corpuscular Hemoglobin 32.9 pg (26-34); Mean Corpuscular Volume 113.5 fl (80-100); Mean Platelet Volume 11.3 fl (7.4-10.4); Platelet Count Result 194 k/mm3 (150-375); Red Blood Count 3.71 M/mm3 (4.2-5.4)
[2024-09-06 03:32] LABS: Platelet Estimate Adequate (Adequate)
[2024-09-06 03:33] LABS: Macrocytosis 1+ (NORMAL)
[2024-09-06 03:35] LABS: Poikilocytosis 1+; Schistocytes Rare
--- NOTE | 2024-09-06 03:40 | PM.IMHP ---
H&P: HPI History of Present Illness Date/Time: 09/06/24 04:00 Chief Complaint: Increased lethargy and shortness of breath. Narrative: This is an 89-year-old female with chronic respiratory failure on 2 to 3 L nasal cannula, chronic obstructive pulmonary disease, atrial fibrillation on chronic anticoagulation, hypertension, hyperlipidemia, hypothyroidism, and carotid artery disease status post right carotid endarterectomy who presented to the emergency department via EMS from [facility] for evaluation of increased lethargy and shortness of breath. She will nod and shake her head appropriately but is not able to provide much in the way of history and a majority the following is obtained via a review of her EMR as well as discussions with her son, Julito, who was at bedside. The patient is known to myself and the hospitalist service from several admissions over the last year. Most recently she was admitted with pneumonia, RSV, and acute on chronic respiratory failure just a couple of weeks ago. She was discharged with antibiotics and is currently taking doxycycline. Over the last 3 days she has further declined and is becoming increasingly fatigued and somnolent. She has not been eating or drinking the last couple of days and yesterday it sounds as though she slept a majority of the day. She has increasing oxygen requirements and early this morning her SpO2 was reportedly in 80s and EMS was summoned.There were no reports of vomiting or aspiration. The patient does not voice any complaints and does shake her head no when asked if she is having any pain or discomfort. In the ED: Vital signs on arrival include a temperature of 98.6?, blood pressure 109/43, pulse 135, respiratory 25, SpO2 of 98% on 15 L non-rebreather. Labs are significant for WBC count of 12.0, MCV 113.5, INR 1.4, sodium 136, carbon dioxide 18, anion gap 15, BUN 57, creatinine 1.66, lactic acid 1.9, CRP 8.6. VBG showed a pH of 7.181, pCO2 56.5, HC03 20.7. Chest x-ray on my review shows hyperinflated lungs with findings of multifocal pneumonia. She was started on cefepime and vancomycin and received lactated Ringer 2 L bolus. Goals of care were discussed with the patient's son Julito and he reports a meeting has already been scheduled with [facility] this morning and he reiterates the patient is DNR/DNI status with comfort focused treatment. She is currently on BiPAP and is very comfortable and she is being admitted to the floor for comfort care while awaiting hospice consultation. Review of Systems Review of Systems: Unable to obtain accurately given current clinical condition. [facility] Past Medical History Medical History Chronic diastolic (congestive) heart failure Generalized anxiety disorder Carotid artery disease Chronic anticoagulation Hypothyroidism Chronic respiratory failure with hypoxia, on home oxygen therapy Chronic obstructive pulmonary disease Macular degeneration Atrial fibrillation Osteoporosis Hypertension Hyperlipidemia Arthritis Surgical History Surgical History History of bilateral cataract extraction History of right-sided carotid endarterectomy Family History Family History Father Heart disease Carcinoma of colon Hypertension Mother Heart disease Breast cancer Hypertension Daughter Breast cancer Myocardial infarct Cerebrovascular accident Social History Social History (Updated 09/06/24 @ 04:57 by Mechelle Hunter PA-C) Social History: Surrogate medical decision maker: Julito Simpson, son ([phone]). Code status: POLST lists DNR/No CPR with comfort focus treatment signed 03/31/2024. Smoking packs per day: 1 Smoking cigarettes per day: 20.0 Years smoked: 50 Smoking pack-years: 50.00 Smoking status: Former smoker Alcohol intake: never Substance use: never Substance use type: does not use Do You Feel Safe in your Home?: Yes Lack of Transportation: No Lack of Food: Never True Current Housing: I Have Housing Concerned About Future Housing: No Difficulty Paying Gas/Electric Bills: No Difficulty Paying for Meds: No Currently Unemployed: No Education: High School Diploma/GED Difficulty w/ Childcare or Family Care: No [facility] Additional living arrangements comments: [facility] Occupation/Education: retired Spiritual care concerns: No Agree to blood products: Yes Meds Home Medications and Allergies Home Medications ?Medication ?Instructions ?Recorded ?Confirmed ?Type cyanocobalamin (vitamin B-12) 1,000 mcg PO EVERY OTHER DAY 07/01/23 08/21/24 History 1,000 mcg capsule albuterol sulfate 90 mcg/actuation 2 inh inhalation Q4H PRN shortness 10/21/23 08/21/24 Rx breath activated powder inhaler of breath or wheezing #1 ea umeclidinium 62.5 mcg-vilanterol 1 inh inhalation DAILY #60 ea 10/21/23 08/21/24 Rx 25 mcg/actuation powdr for inhalation atorvastatin 20 mg tablet (Lipitor) 20 mg PO HS #90 tabs 01/19/24 08/21/24 Rx levothyroxine 112 mcg tablet 112 mcg PO DAILY #90 tabs 01/26/24 08/21/24 Rx fluticasone propionate 115 2 puff inhalation Q12HRT #12 grams 02/18/24 08/21/24 Rx mcg-salmeterol 21 mcg/actuation HFA inhaler (Advair HFA) metoprolol tartrate 25 mg tablet 25 mg PO Q12HR #60 tabs 02/18/24 08/21/24 Rx empagliflozin 10 mg tablet 10 mg PO DAILY #30 tabs 03/22/24 08/21/24 Rx (Jardiance) apixaban 2.5 mg tablet (Eliquis) 2.5 mg PO BID 05/19/24 08/21/24 History sennosides 8.6 mg tablet (senna) 8.6 mg PO BID 05/19/24 08/21/24 History furosemide 40 mg tablet 40 mg PO BID #60 tabs 05/23/24 08/21/24 Rx potassium chloride 10 mEq 20 meq (2 x 10 mEq) PO DAILY #30 05/23/24 08/21/24 Rx capsule,extended release caps spironolactone 25 mg tablet 12.5 mg (1/2 x 25 mg) PO DAILY #45 06/07/24 08/21/24 Rx tabs acetaminophen 650 mg tablet 650 mg PO Q6H PRN Pain 07/17/24 08/21/24 History guaifenesin 600 mg tablet, 600 mg PO Q12H 07/17/24 08/21/24 History extended release 12 hr (Mucinex) white petrolatum-mineral oil 94 1 ea LEFT EYE BID 07/17/24 08/21/24 History %-3 % eye ointment (Systane Nighttime) acetazolamide 250 mg tablet 250 mg PO Q12H 08/21/24 08/21/24 History acetazolamide 250 mg tablet 250 mg PO Q12H 08/21/24 08/21/24 History loratadine 10 mg tablet (Claritin) 10 mg PO DAILY allergic rhinitis 08/21/24 08/21/24 History levofloxacin 500 mg tablet 500 mg PO BID #6 tabs 08/23/24 Rx Allergies Allergy/AdvReac Type Severity Reaction Status Date / Time cephalexin Allergy Unknown Rash Verified 07/17/24 15:29 Vital Signs Vital Signs - 24 hr 09/06/24 01:21 09/06/24 01:26 09/06/24 01:29 Temperature 98.6 F Pulse Rate 135 H 120 H 129 H Respiratory Rate 25 H 28 H Blood Pressure 109/43 L 109/43 L Pulse Oximetry 98 84 L Oxygen Delivery Non-Rebreather Mask Oxygen Flow Rate 15 09/06/24 01:29 09/06/24 01:29 09/06/24 01:29 Temperature Pulse Rate 130 H Respiratory Rate 27 H 23 H Blood Pressure Pulse Oximetry 84 L 84 L 83 L Oxygen Delivery Non-Rebreather Mask Oxygen Flow Rate 15 15 09/06/24 01:30 09/06/24 01:34 09/06/24 01:42 Temperature Pulse Rate 110 H 124 H 120 H Respiratory Rate 28 H 25 H 24 H Blood Pressure Pulse Oximetry 88 L 95 Oxygen Delivery BiPAP Oxygen Flow Rate 09/06/24 01:50 09/06/24 03:00 09/06/24 03:12 Temperature Pulse Rate 110 H Respiratory Rate 27 H Blood Pressure Pulse Oximetry 98 80 L 80 L Oxygen Delivery BiPAP BiPAP Oxygen Flow Rate Exam Narrative: General: Ill-appearing elderly female sitting up in bed on BiPAP. Weight: 65 kg. BMI: 28.9. HEENT: PERRL, EOMI. Left pupil is a bit larger when compared to the right which is chronic. Mucous membranes appear tacky through the BiPAP. Neck: Supple. No JVD. Respiratory: On BiPAP and tolerating that well. Coarse rales and scattered rhonchi heard anteriorly. Cardiovascular: Irregularly irregular rate and rhythm. Heart rates are in the 90s to low 100s at the time my evaluation. Gastrointestinal: Abdomen is soft, nontender, and nondistended with positive bowel sounds. Skin: Warm and dry. Normal capillary refill. Extremities: No cyanosis or clubbing. 1+ pedal edema softening towards the knees. No palpable knots or cords. Peripheral pulses intact. Neurological: She will open her eyes to name but falls back asleep quite quickly. Cranial nerves 2-12 appear grossly intact. Noted to move upper and lower extremities without obvious focal deficits. Psychiatric: Somnolent but arousable. Unable to obtain accurately. H&P: Results Labs Labs: Short CBC 09/06/24 Range/Units 02:12 WBC 12.0 H (4.5-10.0) K/mm3 Hgb 12.2 (12.0-15.0) g/dL Hct 42.1 (37.0-47.0) % Plt Count 194 (150-375) k/mm3 BMP 09/06/24 02:13 Sodium 136 L Potassium 4.9 Chloride 103 Carbon Dioxide 18 L BUN 57 H D Creatinine 1.66 H Glucose 93 Calcium 9.1 Liver Function 09/06/24 Range/Units 02:13 Total Bilirubin 1.0 (0.2-1.3) mg/dL AST 29 (14-36) U/L ALT 20 (6-35) U/L Alkaline Phosphatase 116 (38-126) U/L Albumin 3.7 (3.5-5.1) g/dL ABG ABG results: 09/06/24 01:42 VBG pH 7.181 L* VBG pCO2 56.5 H VBG pO2 60.4 H VBG HCO3 20.7 L O2 Delivery Device Non-rebreather mask O2 Liters/Min 15.0 FiO2 100 Assessment and Plan Assessment and plan (1) Acute on chronic respiratory failure with hypoxia and hypercapnia: Code(s): J96.21 - Acute and chronic respiratory failure with hypoxia; J96.22 - Acute and chronic respiratory failure with hypercapnia Status: Acute (2) Pneumonia: Code(s): J18.9 - Pneumonia, unspecified organism Status: Acute (3) Atrial fibrillation with rapid ventricular response: Code(s): I48.91 - Unspecified atrial fibrillation Status: Chronic (4) Need for comfort care: Status: Acute Plan The patient presented to the emergency department for evaluation of increasing lethargy and shortness of breath as detailed in HPI. Labs, imaging, EKG, and all reports were personally reviewed. Chest x-ray shows worsening pulmonary infiltrates and VBG is consistent with acute on chronic hypoxic and hypercapnic respiratory failure. She is currently on BiPAP for comfort and is asleep and appears peaceful. Heart rate has improved with IV fluid bolus; she was likely a bit dehydrated. She was given a dose of cefepime and vancomycin in the ED. As goals are now for comfort care only with plans to meet with hospice this morning, we will hold on scheduling further antibiotics. Analgesics and antiemetics are available as needed. Findings and treatment plan were discussed with the patient and her son. Questions were solicited and answered to satisfaction. The patient's medical management will be taken over by the hospitalist team in a.m. Quality If No VTE Prophylaxis Answer both mechanical and pharmacologic: Reason no mechanical VTE proph: low risk/not indicated Reason no pharmacologic proph: low risk/not indicated Hospitalist MIPS Advance Care Plan I have confirmed that the patient's Advanced Care Plan is present, code status is documented, or surrogate decision maker is listed in patient medical record.: Yes Medication Reconciliation I have utilized all available resources to obtain, update and review the patients current medications (includes all prescriptions, OTC, herbals, cannabis, and nutritional supplements).: Yes
[2024-09-06 03:51] LABS: Total Cells Counted 100
[2024-09-06] MEDS: VANCOMYCIN 1,000 MG/NS 250 ML 1,000 MG/250 ML BAG 250 MG IVPB (03:55)
[2024-09-06 04:00] LABS: Band Neutrophils Percent 1 % (0-6); Lymphocytes Percent Manual 3 % (18-44); Monocytes Percent Manual 8 % (3-9); Neutrophils Percent Manual 80 % (46-73); Nucleated Red Blood Cells 8 %
[2024-09-06 04:02] LABS: Macrocytosis 1+ (NORMAL); Platelet Estimate Adequate (Adequate); Schistocytes Rare
--- NOTE | 2024-09-06 09:06 | P.DS_ITS ---
DS: Admitting Diagnosis Discharge Date 09/06/2024 Admitting Diagnosis Altered mental status DS: Discharge Diagnosis Discharge Diagnosis (1) Acute on chronic respiratory failure with hypoxia and hypercapnia: Code(s): J96.21 - Acute and chronic respiratory failure with hypoxia; J96.22 - Acute and chronic respiratory failure with hypercapnia Status: Acute (2) Pneumonia: Code(s): J18.9 - Pneumonia, unspecified organism Status: Acute (3) Atrial fibrillation with rapid ventricular response: Code(s): I48.91 - Unspecified atrial fibrillation Status: Chronic (4) Need for comfort care: Status: Acute DS: Summary Hospital Course Hospital Course: This is an 89-year-old female with chronic respiratory failure on 2 to 3 L nasal cannula, chronic obstructive pulmonary disease, atrial fibrillation on chronic anticoagulation, hypertension, hyperlipidemia, hypothyroidism, and carotid artery disease status post right carotid endarterectomy who presented to the emergency department via EMS from [facility] for evaluation of increased lethargy and shortness of breath. She was recently admitted with pneumonia, RSV, and acute on chronic respiratory failure just a couple of weeks ago. She was discharged with antibiotics and is currently taking doxycycline. Over the last 3 days she has further declined and is becoming increasingly fatigued and somnolent. She has not been eating or drinking the last couple of days and yesterday it sounds as though she slept a majority of the day. She has increasing oxygen requirements and early this morning her SpO2 was reportedly in 80s and EMS was summoned.There were no reports of vomiting or aspiration. The patient does not voice any complaints and does shake her head no when asked if she is having any pain or discomfort. In the ED: Vital signs on arrival include a temperature of 98.6?, blood pressure 109/43, pulse 135, respiratory 25, SpO2 of 98% on 15 L non-rebreather. Labs are significant for WBC count of 12.0, MCV 113.5, INR 1.4, sodium 136, carbon dioxide 18, anion gap 15, BUN 57, creatinine 1.66, lactic acid 1.9, CRP 8.6. VBG showed a pH of 7.181, pCO2 56.5, HC03 20.7. Chest x-ray shows hyperinflated lungs with findings of multifocal pneumonia. She was started on cefepime and vancomycin and received lactated Ringer 2 L bolus. Goals of care were discussed with the patient's son Julito and he reports a meeting has already been scheduled with [facility] this morning and he reiterates the patient is DNR/DNI status with comfort focused treatment. She is currently on BiPAP and is very comfortable and she is being admitted to the floor for comfort care while awaiting hospice consultation. Hospice meeting occurred in the morning of 09/06/2024 and initiation of hospice care was planned. She will be discharged back to [facility] on hospice care. These were arranged with the help of care coordination. Time Spent with Patient Time attestation: Total time spent providing and/or coordinating discharge services: 35 minutes Exam Narrative: General: Ill-appearing elderly female sitting up in bed on BiPAP. Not in acute distress HEENT: PERRL, EOMI. Left pupil is a bit larger when compared to the right which is chronic. Mucous membranes appear tacky through the BiPAP. Neck: Supple. No JVD. Respiratory: On BiPAP and tolerating that well. Coarse rales and scattered rhonchi heard anteriorly. Cardiovascular: Irregularly irregular rate and rhythm. Mildly tachycardic Gastrointestinal: Abdomen is soft, nontender, and nondistended with positive bowel sounds. Skin: Warm and dry. Normal capillary refill. Extremities: No cyanosis or clubbing. 1+ pedal edema softening towards the knees. No palpable knots or cords. Peripheral pulses intact. Neurological: Somnolent, Cranial nerves 2-12 appear grossly intact. Psychiatric: Somnolent Unable to obtain accurately. DS: Data Data Completed and Pending Labs on day of discharge: Labs from last 24 hours 09/06/24 09/06/24 09/06/24 02:13 02:12 02:12 WBC RBC Hgb Hct MCV MCH MCHC RDW Plt Count MPV Immature Gran % (Auto) Neut % (Auto) Lymph % (Auto) [place] % (Auto) Eos % (Auto) Baso % (Auto) Lymph # (Auto) [place] # (Auto) Eos # (Auto) Baso # (Auto) Abs Immat Gran (auto) Absolute Neuts (auto) Absolute Nucleated RBC Total Counted Neutrophils % (Manual) Band Neutrophils % Lymphocytes % (Manual) Monocytes % (Manual) Nucleated RBC % Nucleated RBCs Platelet Estimate Poikilocytosis Macrocytosis 1+ Schistocytes Rare Rare PT INR APTT VBG pH VBG pCO2 VBG pO2 VBG HCO3 O2 Delivery Device O2 Liters/Min FiO2 Sodium 136 L Potassium 4.9 Chloride 103 Carbon Dioxide 18 L Anion Gap 15 H BUN 57 H D Creatinine 1.66 H Estim Creat Clear Calc Not Reportable Estimated GFR 29 L Glucose 93 Lactic Acid Calcium 9.1 Total Bilirubin 1.0 AST 29 ALT 20 Alkaline Phosphatase 116 C-Reactive Protein 8.6 H Total Protein 7.0 Albumin 3.7 09/06/24 09/06/24 09/06/24 02:12 02:12 02:12 WBC 12.0 H RBC 3.71 L Hgb 12.2 Hct 42.1 MCV 113.5 H MCH 32.9 MCHC 29.0 L RDW 17.0 H Plt Count 194 MPV 11.3 H Immature Gran % (Auto) Exhibit Electrician Neut % (Auto) Exhibit Electrician Lymph % (Auto) Exhibit Electrician [place] % (Auto) Exhibit Electrician Eos % (Auto) Exhibit Electrician Baso % (Auto) Exhibit Electrician Lymph # (Auto) Exhibit Electrician [place] # (Auto) Exhibit Electrician Eos # (Auto) Exhibit Electrician Baso # (Auto) Exhibit Electrician Abs Immat Gran (auto) Exhibit Electrician Absolute Neuts (auto) Exhibit Electrician Absolute Nucleated RBC Exhibit Electrician Total Counted 100 Neutrophils % (Manual) 80 H Band Neutrophils % 1 Lymphocytes % (Manual) 3 L Monocytes % (Manual) 8 Nucleated RBC % Exhibit Electrician Nucleated RBCs 8 Platelet Estimate Adequate Adequate Poikilocytosis 1+ Macrocytosis 1+ Schistocytes PT INR APTT VBG pH VBG pCO2 VBG pO2 VBG HCO3 O2 Delivery Device O2 Liters/Min FiO2 Sodium Potassium Chloride Carbon Dioxide Anion Gap BUN Creatinine Estim Creat Clear Calc Estimated GFR Glucose Lactic Acid Calcium Total Bilirubin AST ALT Alkaline Phosphatase C-Reactive Protein Total Protein Albumin 09/06/24 09/06/24 01:42 01:39 WBC RBC Hgb Hct MCV MCH MCHC RDW Plt Count MPV Immature Gran % (Auto) Neut % (Auto) Lymph % (Auto) [place] % (Auto) Eos % (Auto) Baso % (Auto) Lymph # (Auto) [place] # (Auto) Eos # (Auto) Baso # (Auto) Abs Immat Gran (auto) Absolute Neuts (auto) Absolute Nucleated RBC Total Counted Neutrophils % (Manual) Band Neutrophils % Lymphocytes % (Manual) Monocytes % (Manual) Nucleated RBC % Nucleated RBCs Platelet Estimate Poikilocytosis Macrocytosis Schistocytes PT 17.1 H INR 1.4 APTT 29.6 VBG pH 7.181 L* VBG pCO2 56.5 H VBG pO2 60.4 H VBG HCO3 20.7 L O2 Delivery Device Non-rebreather mask O2 Liters/Min 15.0 FiO2 100 Sodium Potassium Chloride Carbon Dioxide Anion Gap BUN Creatinine Estim Creat Clear Calc Estimated GFR Glucose Lactic Acid 1.9 Calcium Total Bilirubin AST ALT Alkaline Phosphatase C-Reactive Protein Total Protein Albumin Imaging Radiologist's impression: ITS Impressions Chest X-Ray 09/06/24 06:14 Impression: Small left pleural effusion with left basilar atelectasis versus pneumonia. Underlying chronic interstitial disease and/or COPD change. Discharge Plan Discharge Attending physician on discharge: Troy Edward Discharging Clinician: Troy Edward Anticipated Discharge Date/Time: 09/06/24 09:08 Patient Disposition: Hospice - Medical Facility Activity: as tolerated Diet: as tolerated Patient Language: Telugu Stand Alone Forms: General Discharge Information Follow-up/Referrals: Grover Guerra MD [Primary Care Provider] - 1 Week Discharge Medications: Continued cyanocobalamin (vitamin B-12) 1,000 mcg capsule 1,000 mcg PO EVERY OTHER DAY umeclidinium-vilanterol 62.5-25 mcg/actuation blister with device 1 inh inhalation DAILY Qty: 60 3RF albuterol sulfate 90 mcg/actuation aerosol powdr breath activated 2 inh inhalation Q4H PRN (Reason: shortness of breath or wheezing) Qty: 1 6RF guaifenesin [Mucinex] 600 mg Tablet Extended Release 12hr 600 mg PO Q12H acetaminophen 650 mg Tablet 650 mg PO Q6H PRN (Reason: Pain) Systane Nighttime 94-3 % Ointment 1 ea LEFT EYE BID loratadine [Claritin] 10 mg tablet 10 mg PO DAILY acetazolamide 250 mg Tablet 250 mg PO Q12H fluticasone propion-salmeterol [Advair HFA] 115-21 mcg/actuation Hfa Aerosol Inhaler 2 puff inhalation Q12HRT Qty: 12 1RF metoprolol tartrate 25 mg Tablet 25 mg PO Q12HR Qty: 60 0RF sennosides [senna] 8.6 mg Tablet 8.6 mg PO BID Eliquis 2.5 mg tablet 2.5 mg PO BID furosemide 40 mg tablet 40 mg PO BID Qty: 60 0RF potassium chloride 10 mEq capsule, extended release 20 meq PO DAILY Qty: 30 0RF atorvastatin [Lipitor] 20 mg tablet 20 mg PO HS Qty: 90 0RF levothyroxine 112 mcg tablet 112 mcg PO DAILY Qty: 90 0RF Jardiance 10 mg tablet 10 mg PO DAILY Qty: 30 5RF spironolactone 25 mg tablet 12.5 mg PO DAILY Qty: 45 2RF Discontinued acetazolamide 250 mg Tablet 250 mg PO Q12H levofloxacin 500 mg tablet 500 mg PO BID Qty: 6 0RF Date of admission: 09/06/24 04:39 Primary Care Provider: Grover Guerra Admitting Provider: Troy Edward Attending physician on admission: Troy Edward Condition: Guarded Prognosis
--- NOTE | 2024-09-06 10:01 | PCCCNOTE ---
Called to the ED to help facilitate Hospice for the pt. [facility] had already bee called. Son is at the bedside and would like for pt to be discharged back to [facility] on hospice. Gricelda from [facility] here at [address] Edward is agreeable with this plan and is discharging pt.
== END 2024-09-06 11:01 | disposition hospice, inpatient (51) ==
LOC: ANHED 02:38 → ANH3MEDSUR 08:51
PROVIDERS: Emergency Provider Student in an Organized Health Care Education/Training Program; PCP Family Medicine
DX: A41.9 Sepsis, unspecified organism (principal); J96.21 Acute and chronic respiratory failure with hypoxia; J96.22 Acute and chronic respiratory failure with hypercapnia; I48.91 Unspecified atrial fibrillation; I25.10 Atherosclerotic heart disease of native coronary artery without angina pectoris; J44.9 Chronic obstructive pulmonary disease, unspecified; Z99.81 Dependence on supplemental oxygen; I11.0 Hypertensive heart disease with heart failure; E78.5 Hyperlipidemia, unspecified; Z79.01 Long term (current) use of anticoagulants; I50.32 Chronic diastolic (congestive) heart failure; F41.1 Generalized anxiety disorder; E03.9 Hypothyroidism, unspecified; M81.0 Age-related osteoporosis without current pathological fracture; Z87.891 Personal history of nicotine dependence
CPT/HCPCS: 36415; 71045; 80053; 82803; 83605; 85025; 85610; 85730; 86140; 93005; 94002; 96365; 96366; 96367; 96375; 99284; 99285; J0692; J3370; J7120